=== PATIENT | female | born 1990 | race Caucasian/White ===

== ENCOUNTER 2023-08-14 08:49 | Emergency (ER) | payer OTHER, SELFPAY ==
[2023-08-14 08:51] VITALS: BP 148/83; PULSE 101; RESP 18; TEMP 36.4; O2SAT 100; BMI 22.8
--- NOTE | 2023-08-14 09:06 | US_ITS ---
STUDY: FIRST TRIMESTER OBSTETRICAL ULTRASOUND REASON FOR EXAM: Female, 33 years old Breg, bleeding LMP: June 20, 2023. TECHNIQUE: Transvaginal TECHNICAL QUALITY: Adequate. PRIOR ULTRASOUND: None. FINDINGS: There is visualization of a single gestational sac in a normal intrauterine position. The mean sac diameter (MSD) measures 9.3 mm, indicating an estimated gestational age (EGA) of 5 weeks, 5 days. The gestational sac shape is within normal limits. There is no demonstrated yolk sac. The placenta is non-visualized. There is no demonstrated embryo ( pole). The estimated gestation age (EGA) by LMP is 7 weeks, 6 days. The estimated date of delivery (CAMRON) by LMP is March 26, 2024. The estimated gestation age (EGA) by US is 5 weeks, 5 days. The estimated date of delivery (CAMRON) by US is April 10, 2024. The uterus measures 7.3 cm x 5.2 cm by 4.4 cm. There is no demonstrated uterine fibroid. The cervix is closed. The right ovary measures 2.8 cm x 2.7 cm x 2.5 cm. There is no right ovarian cyst. There is no visualized right adnexal mass or complex lesion. The left ovary measures 2.6 cm x 1.6 cm x 1.6 cm. There is no left ovarian cyst. There is no visualized left adnexal mass or complex lesion. There is no fluid in the cul de sac. US/Transvaginal w/Preg US IMPRESSION: Intrauterine gestational sac with a mean gestational age of 5 weeks and 5 days. No pole or yolk sac is seen. Correlation with serial beta hCG and follow-up sonogram recommended. Electronically Signed: Ghanshyam Whittington MD at 11:01 EST ,
--- NOTE | 2023-08-14 09:07 | ED.VIS.FEGU ---
HPI HPI - Female History of Present Illness Chief Complaint: Vag Bld, Preg Informant: patient Narrative Narrative: 33-year-old female G2, P1 with positive home test after stopping her control pills in the middle of June has been having vaginal bleeding that is light for the past week or less. No pelvic/abdominal pain. She has been following with [facility]EL [facility] and has had 4 different hCG levels performed in the past 2 or 3 weeks. They started around 1400, was trending down for the next 2 measurements, then the last one which was done 4 days ago went up over 1500. She states in the last 2 or 3 days she has been having pain in her low back that radiates around toward her left hip but not down her leg, is worse with movement and certain positions, and has a pain that she has had before in this area; she denies any recent injury, she has had this pain with menstrual cycles in the past, and her back, and and other random times no one has been able to tell me what this is. PFSH PFSH Medical History no medical history no medical history Home Medications NK 08/14/23 [History Last Taken Unknown] Allergy/AdvReac Type Severity Reaction Status Date / Time No Known Allergies Allergy Verified 08/14/23 08:53 Surgical History History of Social History Smoking Status: Former smoker ROS ROS ED Constitutional Constitutional ED: Denies chills or fever(s) Eyes Eyes: Denies change in vision or diplopia ENT ENT ED: Denies rhinorrhea or sore throat Cardiovascular Cardiovascular: Denies chest pain or palpitations Respiratory/Chest Respiratory/Chest: Denies cough or dyspnea Gastrointestinal Gastrointestinal: Denies abdominal pain, diarrhea, nausea or vomiting Genitourinary Genitourinary ED: Reports vaginal bleeding; Denies dysuria or hematuria Musculoskeletal Musculoskeletal: Reports back pain; Denies neck pain Integumentary Denies abscess or rash Neurologic Neurologic: Denies headache(s), paresthesias or weakness Psychiatric Psychiatric: Denies anxiety or suicidal thoughts EXAM Physical Exam Const Vital Signs: 08/14/23 08:51 08/14/23 09:33 Temperature 97.6 F L Temperature Source Temporal Pulse Rate 101 H 100 Respiratory Rate 18 16 Blood Pressure 148/83 H 117/78 Blood Pressure Mean 104 91 Pulse Ox 100 100 Oxygen Delivery Method Room Air Room Air Positive well nourished and well developed General Appearance ED: well developed and NAD HEENT Reports moist mucous membranes normocephalic and atraumatic Eyes PERRL and EOMs intact bilaterally Neck full ROM and supple Resp normal respiratory effort and clear to auscultation bilaterally Cardio regular rate, regular rhythm and no murmurs GI non-tender and non-distended Auscultation: normoactive bowel sounds Palpation: soft Speculum Exam - Vagina: vaginal bleeding Back/Spine no CVA tenderness Back/Spine Narrative: Tender in the parotid area of the left SI joint. No midline tenderness. No rash. Tender less in the area of the sciatic notch, with negative straight leg raises bilaterally and normal neurologic exam. General Back: other FROM Extremity normal to inspection General Extremety ED: Negative for edema, pulses abnormal or tenderness General Extremity: Negative for edema or pulses abnormal Neuro oriented x3, CN's II-XII intact bilaterally and no sensory deficits noted Sensorium / Orientation: awake and alert Motor Exam: strength 5/5 throughout Psych mental status grossly normal Skin no rashes or lesions noted and no wounds MDM MDM MDM Narrative Medical decision making narrative: I think the back pain is musculoskeletal. The area of the discomfort is consistent with sacroiliitis, and I do not think this is related to her current probable miscarriage. My main concern is that she had a recent hCG level that went up, which is concerning for possible ectopic . For this reason I think obtaining in emergent transvaginal ultrasound is indicated, not necessarily because of her low back pain which I discussed with her. She is in agreement with all of this. Her blood type is a positive, therefore we do not need to perform a RhoGAM screen on her. Her hCG now is back down, 1430. Ultrasound shows intrauterine gestational sac 5 weeks 5 days, no pole or yolk sac, I reviewed the images and the report which I agree with. No evidence radiographically of a ectopic or heterotopic . I do not think her back pain is suggesting that she has this. She was given Tylenol for that, appropriate discharge instructions after speaking with Kailyn Diaz who knows the patient well, and is okay with the patient following up as scheduled after the weekend. Lab Data Attestation: I reviewed the patient's lab results. Labs: Laboratory Results - last 24 hr 08/14/23 09:19 HCG, Quant 1430 H Radiography Diagnostic Testing: Clinical Impression(s) from Imaging Studies Obstetrics Ultrasound 08/14/23 09:06 IMPRESSION: Intrauterine gestational sac with a mean gestational age of 5 weeks and 5 days. No pole or yolk sac is seen. Correlation with serial beta hCG and follow-up sonogram recommended. Electronically Signed: Ghanshyam Whittington MD at 11:01 EST , Discharge Plan Triage Chief Complaint: Vag Bld, Preg Other Complaint: Back ED Provider: Timothy Hanson Dx/Rx/DC Orders Clinical Impression: Vaginal bleeding affecting early , Sacroiliac joint dysfunction of left side Instructions: Bleeding During Early , ED Sacroiliitis Prescriptions: No Action NK Primary Care Provider: Care Physician,No Primary Referrals: Kailyn Diaz CNM [Med Staff - Adv Practice Prof] - Keep Steffany appointment NOT,DEFINED [Non-Staff] -
[2023-08-14 09:33] VITALS: BP 117/78; PULSE 100; RESP 16; O2SAT 100
[2023-08-14 10:05] LABS: hCG Titer Quant., Serum 1430 mIU/mL (1-3)
[2023-08-14] MEDS: Acetaminophen 500 MG Tablet 1000 MG PO (11:53)
[2023-08-14 12:35] LABS: Absolute Lymphocyte Count 1.32 X10^3/uL (0.83-4.51); Absolute Neutrophil Count 6.8 X10^3/uL (2.0-7.7); Basophil# 0.03 X10^3/uL; Basophil% 0.3 % (0-1); Eosinophil# 0.08 X10^3/uL; Eosinophils% 0.9 % (0-5); Hematocrit 40.7 % (37-47); Hemoglobin 13.3 g/dL (12.0-15.0); Lymphocyte # 1.32 X10^3/ul (0.83-4.51); Lymphocyte % 15.1 % (19-41); Mean Corp Hgb Conc 32.7 g/dL (32-36); Mean Corpuscular Volume 91.7 fL (81-99); Mean Platelet Vol. 10.1 fl (6.2-12.0); Monocyte# 0.56 X10^3/uL; Monocyte% 6.4 % (0-10); NRBC Flagged by Analyzer 0 % (0-5); Neutrophil # 6.76 X10^3/uL (2.7-7.7); Neutrophil % 77.1 % (47-70); Platelet Count 264 K/mm3 (150-450); RBC Distribution Width CV 12.2 % (11.6-14.6); RBC Distribution Width SD 41.1 fl (35.1-43.9); Red Blood Count 4.44 M/mm3 (4.2-5.4); White Blood Count 8.8 K/mm3 (4.4-11.0)
== END 2023-08-14 11:57 | disposition home or self-care (01) ==
PROVIDERS: Emergency Provider Emergency Medicine; Visit Provider Emergency Medicine
DX: O20.9 Hemorrhage in early pregnancy, unspecified (principal); Z3A.01 Less than 8 weeks gestation of pregnancy; Z87.891 Personal history of nicotine dependence
CPT/HCPCS: 76817; 84702; 85025; 99284; A4216

== ENCOUNTER → 2024-02-12 | Outpatient (CLI) | payer OTHER, SELFPAY | END | disposition home or self-care (01) | LOC: BFHLAB 13:17 → LABSPEC 13:18 | PROVIDERS: PCP Family Medicine; Referring Provider Family Medicine; Visit Provider Family Medicine | DX: N39.0 Urinary tract infection, site not specified (principal) | CPT/HCPCS: 87086; 87088 ==

== ENCOUNTER 2024-10-02 18:00 | Inpatient (IN) | payer OTHER, SELFPAY ==
[2024-10-02] VITALS (13 sets, daily range): BP systolic 111–142; BP diastolic 71–97; PULSE 100–120; RESP 16; TEMP 36.3–37.2; O2SAT 95–100; BMI 27.6
[2024-10-02 18:23] LABS: Absolute Lymphocyte Count 3.52 X10^3/uL (0.83-4.51); Absolute Neutrophil Count 14.4 X10^3/uL (2.0-7.7); Basophil# 0.07 X10^3/uL; Basophil% 0.4 % (0-1); Eosinophil# 0.14 X10^3/uL; Eosinophils% 0.7 % (0-5); Hematocrit 34.4 % (37-47); Hemoglobin 11.5 g/dL (12.0-15.0); Lymphocyte # 3.52 X10^3/ul (0.83-4.51); Mean Corp Hgb Conc 33.4 g/dL (32-36); Mean Corpuscular Hgb 29.9 pg (27.0-32.0); Mean Corpuscular Volume 89.6 fL (81-99); Mean Platelet Vol. 9.9 fl (6.2-12.0); Monocyte# 1.18 X10^3/uL; NRBC Flagged by Analyzer 0 % (0-5); Neutrophil % 73.9 % (47-70); Platelet Count 267 K/mm3 (150-450); RBC Distribution Width SD 42.7 fl (35.1-43.9); Red Blood Count 3.84 M/mm3 (4.2-5.4); White Blood Count 19.5 K/mm3 (4.4-11.0)
[2024-10-02] MEDS: Cefazolin 2 GM in 0.9% Normal Saline (100mL Bag) 100 ML IV (18:30)
[2024-10-02 18:43] LABS: Anion Gap 12 (5-15); BUN 6 mg/dL (7-18); BUN/Creat Ratio 11.9 RATIO (10-20); Calcium,Total 8.4 mg/dL (8.5-10.1); Chloride 105 mmol/L (98-107); EST Glomerular Filtration Rate 148 mL/min (>60); Est Glom Filt Rate - Afr Amer 179 mL/min (>60); Glucose 149 mg/dL (74-106); Potassium 3.6 mmol/L (3.5-5.1); Sodium Level 136 mmol/L (136-145)
--- NOTE | 2024-10-02 19:00 | RAD_ITS ---
INDICATION: PRATEEK EXAMINATION/TECHNIQUE: X-RAY - XR Abdomen 1 View COMPARISON: None FINDINGS: BOWEL GAS PATTERN: Non-obstructive. Moderate amount retained stool in the colon. FREE AIR: Not assessed on a single supine view. ORGANOMEGALY: Not seen. CALCIFICATIONS: No abnormal calcifications observed. LOWER CHEST: No acute pathology. BONES AND SOFT TISSUES: No acute pathology. RAD/Abdomen Single View (Portable) IMPRESSION: Non-obstructive bowel gas pattern. Moderate amount retained stool in the colon. Electronically Signed: Ruiz Roth MD at 21:20 EST ,
[2024-10-02 19:13] LABS: Syphilis Antibodies Non-reactive
--- NOTE | 2024-10-02 19:50 | CASEMGMT ---
Social Work: Buffing Wheel Former Machine responded to WP Jose. culinary worker stayed with the father of baby (FOB) and provided emotional support. FOB was worried throughout and was able to spend some time with once was stabilized. FOB was also able to spend some time with the mother of baby (MOB) once she woke up from surgery. No immediate needs at this time. Doole intubated and is being transferred to the NICU at . Andra Salazar, LEATHER CARTRIDGE BELT MAKER, MAGISTRATE JUDGE
[2024-10-02] MEDS: Oxytocin 15 Units/NS 250ml 15 UNITS/250 ML IV.SOLN 83 UNITS IV (20:05)
[2024-10-02] MEDS: Lactated Ringers 1,000 ML 150 ML IV (20:11)
--- NOTE | 2024-10-02 20:32 | OP.PCM_ITS ---
Assessment & Plan (1) 34 weeks gestation of : (2) Rupture of uterus before onset of labor in third trimester: Maternal Data Information Final CAMRON: 11/07/24 Gestational age: 34+6 Operative Report (OB) Cecarean Details Procedure Type: Other (Rupture previous uterine incision) Date of Procedure: 10/02/24 Procedure Start Time: 18:14 Procedure Stop Time: 18:59 Time of Delivery: 18:15 Pre-Operative Diagnosis: Previous Uterine Surgery and Nonreassuring Status Post-Operative Diagnosis: Other Post-Operative Diag OTHER Post-Operative Diagnosis: Rupture of previous uterine incision Classification: Stat Type of Anesthesia: General Antibiotic Given: Ancef 2 grams IV x1 Drain: Caputo to straight drain (placed after procedure) Estimated Blood Loss: 500 cc Findings Description of surgery: Patient presented to the unit with increased abdominal. No bleeding. No leaking. EFM with HR in 80s. Confirmed with bedside US. Verbally consent for emergent . Patient was taken to the OR with IV in place. She was placed in a dorsal supine position with leftward tilt. Betadine was splashed over her abdomen. She was draped in the normal fashion. General anesthesia was induced. A Pfannenstiel incision was made and carried down to the underlying fascia. The fascia was incised in the midline and extended laterally. The muscles divided in the midline. The peritoneum was entered bluntly and extended manually. A large gush of wine colored fluid was present. The previous uterine incision was immediately obvious with placenta partially delivered. The abdomen was explored and the infant was found under the diaphragm. The feet were grasped and delivered through the abdominal incision. The rectus muscle were cut to assist with delivery of the head. The cord was camped and cut and the quickly passed to the nursery nurse. The placenta delivered with minimal effort. The uterus was exteriorized and cleared of all clot and debris. There was very little bleeding from the uterus or previous uterine incision. The uterus was repaired with 1-0 Vicryl x 2. The uterine arteries were intact. A small amount of clot was removed from behind the uterus. The uterus was returned the abdomen. The gutters cleared of all clots. The abdomen was copiously irrigated. The peritoneum was closed with 2-0 Monocryl. The fascia was closed with 1-0 Vicryl. The subcutaneous tissue was reapproximated with 2-0 Monocryl The skin was closed with 4-0 Monocryl. An SUBSTATION OPERATOR HELPER was not available given the emergent nature of the procedure. The surgical garment assembler assisted with retraction when needed. Surgical findings: Infant floating in upper abdomen. Wine colored fluid in the abdomen. Complete dehiscence of previous uterine incision. Placenta partially detached. Presentation: Other (floating in abdomen) Amniotic Membrane Rupture Type: Spontaneous Amniotic Fluid Description: Other (unable to access) Placental Delivery Description: Spontaneous Placenta Disposition: Sent with transport team Specimen collected: Yes Description of specimen(s) removed: placenta sent with Cord Vessel Description: 3 Vessels Cord Entanglement: Other (infant floating in abdomen) Cord Gases: VBG Infant A gender: Male (1 minute): 1 (5 minute): 3 (5 at 10 min 5 at 15 min) Delayed Cord Clamping: No Scouring Pads Supervisor computer tech: No Complications Complications: No
[2024-10-02] MEDS: Ketorolac 30 MG/ML Syringe IV (21:07)
[2024-10-02] MEDS: 0.9% Saline Lock 10 ML Syringe IV (21:08)
--- NOTE | 2024-10-02 21:43 | PCM.HP.OB ---
HPI - General General Date of Admission: 10/02/24 Date of Service: 10/02/24 Chief Complaint: abdominal pain HPI Narrative LAXMI OLIVEIRA, is a 34 F who presents to L&D with abdominal pain. Started having some pain and cramping in the AM. It progressively increased throughout the day. Around 5 PM her pain became generalized abdominal pain. Did not have any vaginal bleeding or loss of fluid. Her has been uncomplicated. Previous for breech 2 years ago. Upon arrival the HR was found to be 80s on EFM. Cervix closed thick and high without an obvious presenting part per nursing. FHR was confirmed by US. The FHR was found high in the abdomen and no amniotic fluid could be appreciated on bedside US. The patient was verbally consented for emergent and taken to the OR. Maternal Data Information Final CAMRON: 11/07/24 Gestational age: 34+6 [facility] Medical History IBS (irritable bowel syndrome) Home Medications ?Medication ?Instructions ?Recorded ?Last Taken ?Type NK 08/14/23 Unknown History Allergy/AdvReac Type Severity Reaction Status Date / Time No Known Allergies Allergy Verified 10/02/24 20:29 Surgical History History of colposcopy History of Social History Smoking Status: Former smoker History 2 Elective abortions Hx Para 1 Spontaneous abortions Hx # Term Pregnancies Ectopic pregnancies Hx # Pregnancies Multiple births # of living children NST FHR Rate Baby A Baseline: 80 Assessment Assessment Detail: FHR in the 80s by EFM confirmed by US ROS Cardiovascular Cardiovascular: Denies chest pain or dyspnea Respiratory/Chest Respiratory/Chest: Denies tachypnea Gastrointestinal Gastrointestinal: Reports abdominal pain and cramping Vital Signs Vital Signs Vital Signs: 10/02/24 18:01 10/02/24 18:01 10/02/24 18:06 Temperature Temperature Source Pulse Rate 115 H 120 H Respiratory Rate Respiratory Pattern Blood Pressure Blood Pressure Mean Blood Pressure Source Blood Pressure Position Blood Pressure Location Pulse Ox 95 Oxygen Delivery Method 10/02/24 18:06 10/02/24 20:05 10/02/24 20:05 Temperature 97.4 F L Temperature Source Temporal Temporal Pulse Rate 111 H Respiratory Rate 16 Respiratory Pattern Normal Blood Pressure 124/71 H Blood Pressure Mean 88 Blood Pressure Source Monitor Blood Pressure Position Semi-Fowlers Blood Pressure Location Right Arm Pulse Ox 97 100 Oxygen Delivery Method Room Air 10/02/24 20:05 10/02/24 20:15 10/02/24 20:30 Temperature 97.4 F L Temperature Source Temporal Temporal Pulse Rate 111 H 108 H Respiratory Rate 16 16 Respiratory Pattern Blood Pressure 124/71 H 113/79 Blood Pressure Mean 88 90 Blood Pressure Source Monitor Monitor Blood Pressure Position Semi-Fowlers Semi-Fowlers Blood Pressure Location Right Arm Right Arm Pulse Ox 100 100 Oxygen Delivery Method Room Air Room Air 10/02/24 20:30 10/02/24 20:45 10/02/24 20:45 Temperature 97.8 F 98.1 F Temperature Source Temporal Temporal Temporal Pulse Rate 102 H 112 H Respiratory Rate 16 16 Respiratory Pattern Blood Pressure 122/83 H 115/73 Blood Pressure Mean 96 87 Blood Pressure Source Monitor Monitor Blood Pressure Position Semi-Fowlers Semi-Fowlers Blood Pressure Location Right Arm Right Arm Pulse Ox 99 99 Oxygen Delivery Method Room Air Room Air 10/02/24 21:00 10/02/24 21:15 10/02/24 21:30 Temperature Temperature Source Pulse Rate 108 H 112 H 105 H Respiratory Rate 16 16 16 Respiratory Pattern Blood Pressure 111/82 H 142/97 H 123/74 H Blood Pressure Mean 91 112 90 Blood Pressure Source Monitor Monitor Monitor Blood Pressure Position Semi-Fowlers Semi-Fowlers Semi-Fowlers Blood Pressure Location Right Arm Right Arm Right Arm Pulse Ox 100 100 100 Oxygen Delivery Method Room Air Room Air Room Air Weight Weight: 70.579 kg Body Mass Index (BMI) 27.6 Physical Exam Const alert and oriented x3 General Appearance: in distress Positive for moderate HEENT normocephalic Head and Scalp: atraumatic Eyes PERRL Neck full ROM Resp normal respiratory effort Cardio Rate: tachycardic GI Palpation: tender LLQ, RLQ, LUQ and RUQ Extremity normal to inspection Neuro moves all extremities Psych mental status grossly normal and affect normal Labs Labs Labs: Blood Type A POSITIVE Antibody Screen NEGATIVE Hct 34.4 % (37-47) L Hgb 11.5 g/dL (12.0-15.0) L Obstetrics Ultrasound Syphilis Total Ab Non-reactive Assessment & Plan (1) Rupture of uterus before onset of labor in third trimester: (2) 34 weeks gestation of : PLAN: Plan emergent PRATEEK called
[2024-10-02] MEDS: oxyCODONE 5 MG Tablet PO (22:10)
[2024-10-02] MEDS: Acetaminophen 500 MG Tablet 1000 MG PO (22:10)
[2024-10-02] MEDS: Lactated Ringers 1,000 ML 100 ML IV (22:15)
[2024-10-02 22:31] LABS: Absolute Lymphocyte Count 1.08 X10^3/uL (0.83-4.51); Absolute Neutrophil Count 19.6 X10^3/uL (2.0-7.7); Basophil# 0.06 X10^3/uL; Basophil% 0.3 % (0-1); Eosinophil# 0.01 X10^3/uL; Hematocrit 29.7 % (37-47); Lymphocyte # 1.08 X10^3/ul (0.83-4.51); Lymphocyte % 4.9 % (19-41); Mean Corp Hgb Conc 33.7 g/dL (32-36); Mean Corpuscular Hgb 30.5 pg (27.0-32.0); Mean Corpuscular Volume 90.5 fL (81-99); Mean Platelet Vol. 9.7 fl (6.2-12.0); Monocyte# 1.06 X10^3/uL; Monocyte% 4.8 % (0-10); NRBC Flagged by Analyzer 0 % (0-5); Neutrophil # 19.58 X10^3/uL (2.7-7.7); Neutrophil % 89.5 % (47-70); Platelet Count 204 K/mm3 (150-450); RBC Distribution Width CV 12.9 % (11.6-14.6); RBC Distribution Width SD 42.7 fl (35.1-43.9); Red Blood Count 3.28 M/mm3 (4.2-5.4); White Blood Count 21.9 K/mm3 (4.4-11.0)
[2024-10-03 02:08] VITALS: BP 111/73; PULSE 115; RESP 16; TEMP 37.2; O2SAT 96
[2024-10-03] MEDS: Cefazolin 1 GM/50 ML BAG IV ×3 (02:09→17:56)
[2024-10-03] MEDS: 0.9% Saline Lock 10 ML Syringe IV ×4 (03:36→17:57)
[2024-10-03] MEDS: Ketorolac 30 MG/ML Syringe IV ×3 (03:36→15:47)
[2024-10-03] MEDS: oxyCODONE 5 MG Tablet PO (04:17)
[2024-10-03 04:30] VITALS: BP 117/70; PULSE 107; RESP 16; TEMP 36.9; O2SAT 98
[2024-10-03] MEDS: Acetaminophen 500 MG Tablet 1000 MG PO ×4 (04:56→22:41)
[2024-10-03 06:18] LABS: Hemoglobin 8.9 g/dL (12.0-15.0); Mean Corp Hgb Conc 34.2 g/dL (32-36); Mean Corpuscular Hgb 30.6 pg (27.0-32.0); Mean Corpuscular Volume 89.3 fL (81-99); Mean Platelet Vol. 9.7 fl (6.2-12.0); Platelet Count 193 K/mm3 (150-450); RBC Distribution Width SD 42.5 fl (35.1-43.9); Red Blood Count 2.91 M/mm3 (4.2-5.4); White Blood Count 21.6 K/mm3 (4.4-11.0)
--- NOTE | 2024-10-03 07:21 | PN.OBGYN_ITS ---
Subjective Subjective Doing well. Ambulating and voiding without difficulty. Mild lochia. Pain ok. Not wanting more pain medication. Reviewed IV antibiotics for 24 hours. Oral if discharged sooner. Baby at main campus. Objective Data Objective Data Vital Signs: Vital Signs Temp Pulse Resp BP Pulse Ox O2 Del Method 98.4 F 107 H 16 117/70 98 Room Air 10/03/24 04:30 10/03/24 04:30 10/03/24 04:30 10/03/24 04:30 10/03/24 04:30 10/03/24 04:30 Oxygen Delivery Method Room Air Weight: 70.579 kg Body Mass Index (BMI) 27.6 Intake & Output: Intake and Output for Last 24 Hours 10/01/24 10/02/24 10/03/24 23:59 23:59 23:59 Intake Total 360 / 360 1585.83 / 1585.83 Output Total 1250 / 1250 750 / 750 Balance -890 / -890 835.83 / 835.83 Lab / Micro Data 10/03/24 06:09 10/02/24 18:17 Labs: Laboratory Results - last 24 hr 10/02/24 18:17: WBC 19.5 H, RBC 3.84 L, Hgb 11.5 L, Hct 34.4 L, MCV 89.6, MCH 29.9, MCHC 33.4, RDW Std Deviation 42.7, RDW Coeff of Shahnaz 13.0, Plt Count 267, MPV 9.9, Immature Gran % (Auto) 1.000 H, Neut % (Auto) 73.9 H, Lymph % (Auto) 18.0 L, [place] % (Auto) 6.0, Eos % (Auto) 0.7, Baso % (Auto) 0.4, Absolute Neuts (auto) 14.4 H, Absolute Lymphs (auto) 3.52, Nucleated RBC % 0, Sodium 136, Potassium 3.6, Chloride 105, Carbon Dioxide 19.0 L, Anion Gap 12, BUN 6 L, C reatinine 0.50 L, Est GFR (MDRD) Af Amer 179, Est GFR (MDRD) Non-Af 148, BUN/Creatinine Ratio 11.9, Glucose 149 H, Calcium 8.4 L, Blood Type A POSITIVE, Antibody Screen NEGATIVE 10/02/24 18:33: Syphilis Total Ab Non-reactive 10/02/24 22:24: WBC 21.9 H, RBC 3.28 L, Hgb 10.0 L, Hct 29.7 L, MCV 90.5, MCH 30.5, MCHC 33.7, RDW Std Deviation 42.7, RDW Coeff of Shahnaz 12.9, Plt Count 204, MPV 9.7, Immature Gran % (Auto) 0.500, Neut % (Auto) 89.5 H, Lymph % (Auto) 4.9 L, [place] % (Auto) 4.8, Eos % (Auto) 0.0, Baso % (Auto) 0.3, Absolute Neuts (auto) 19.6 H, Absolute Lymphs (auto) 1.08, Nucleated RBC % 0 10/03/24 06:09: WBC 21.6 H, RBC 2.91 L, Hgb 8.9 L, Hct 26.0 L, MCV 89.3, MCH 30.6, MCHC 34.2, RDW Std Deviation 42.5, RDW Coeff of Shahnaz 13.0, Plt Count 193, MPV 9.7 Radiography Diagnostic Testing: Radiology Impression KUB X-Ray 10/02/24 19:00 IMPRESSION: Non-obstructive bowel gas pattern. Moderate amount retained stool in the colon. Electronically Signed: Ruiz Roth MD at 21:20 EST , ROS Constitutional Constitutional: Denies fatigue, fever(s) or malaise Eyes Eyes: Denies change in vision ENT HEENT: Denies dizziness or headache(s) Cardiovascular Cardiovascular: Denies chest pain, dyspnea or lightheadedness Respiratory/Chest Respiratory/Chest: Denies cough or dyspnea Gastrointestinal Gastrointestinal: Denies change in bowel habits Genitourinary Genitourinary: Denies burning urination or genital lesions Integumentary Integumentary: Denies rash Neurologic Neurologic: Denies confusion, dizziness, headache(s), numbness or weakness Assessment & Plan (1) Rupture of uterus before onset of labor in third trimester: (2) S/P : PLAN: Plan Probably discharge after 24 hours. IV antibiotics 24 hours
[2024-10-03 08:22] VITALS: BP 116/70; PULSE 99; RESP 16; TEMP 36.5; O2SAT 96
[2024-10-03] MEDS: Senna/Docusate Sodium 1 Tablet PO (10:09)
[2024-10-03 13:19] VITALS: BP 119/74; PULSE 98; RESP 16; TEMP 36.7; O2SAT 97
[2024-10-03 16:53] VITALS: BP 106/62; PULSE 95; RESP 16; TEMP 36.5; O2SAT 97
[2024-10-03 19:37] VITALS: BP 110/74; PULSE 96; RESP 16; TEMP 37.1; O2SAT 98
[2024-10-03] MEDS: Ibuprofen 600 MG Tablet PO (21:42)
[2024-10-04 01:43] VITALS: BP 128/80; PULSE 92; RESP 16; TEMP 36.6; O2SAT 97
[2024-10-04] MEDS: Ibuprofen 600 MG Tablet PO (03:22)
[2024-10-04] MEDS: Acetaminophen 500 MG Tablet 1000 MG PO (05:21)
--- NOTE | 2024-10-04 07:28 | PCM.DC.SUM ---
Providers Date of Admission: 10/02/24 Primary Care Physician: Dr. Go Covington DO Reason For Visit: Diagnosis Discharge Diagnosis (1) Rupture of uterus before onset of labor in third trimester: Status: Acute Code(s): O71.03 - Rupture of uterus before onset of labor, third trimester (2) S/P : Status: Acute Code(s): Z98.891 - History of uterine scar from previous surgery Plan POD 2 Repeat C/S Pain controlled Pumping Baby at [facility] NICU Desires discharge today Medications at Discharge Home Medications acetaminophen 500 mg tablet 1,000 mg (2 x 500 mg) PO Q6H #0 tabs 10/04/24 ibuprofen 600 mg tablet 600 mg PO Q6H #0 tabs 10/04/24 sennosides 8.6 mg-docusate sodium 50 mg tablet (Stimulant Laxative Plus) 1 - 2 tab PO DAILY #0 tabs 10/04/24 Hospital Course Operations section Procedures None Summary of Care Provided Minutes Spent on Discharge: 15 Hospital Course: Patient had section. Hospital course was uneventful. Physical Exam Narrative Patient seen at bedside. Denies any headache, dizziness, SOB, CP. Ambulating without difficulty. Passing flatus. Pain controlled. Desires discharge home to go to [facility]. Const alert and no apparent distress General Appearance: cooperative and comfortable Exam Limitations: no limitations HEENT normocephalic Eyes General Eye: normal appearance of both eyes Neck full ROM General: normal visual inspection Chest Chest: symmetrical chest wall rise Resp normal respiratory effort and normal air movement Effort and Inspection: symmetric chest movement Auscultation: clear to auscultation bilaterally Cardio regular rate and regular rhythm GI normal to inspection, nondistended, normoactive bowel sounds Back/Spine normal ROM Extremity full ROM and no calf tenderness General Extremity: normal exam except as noted Skin no rashes or lesions noted Wound Narrative: Dressing is dry and intact. Neuro CN's II-XII intact bilaterally Psych mental status grossly normal Weight / BMI Weight Weight: 155 lb 9.6 oz Body Mass Index (BMI) 27.6 ABG / Lab / Microbiology Data 10/03/24 06:09 10/02/24 18:17 D/C Instructions Discharge Diet: No restrictions Discharge Activity: May Drive (2 weeks) and May Shower May resume sexual activity in: 6-8 weeks Weight Bearing Status: Weight bearing as tolerated Lifting Restricted to (Lbs): 25 Call your doctor if your incision/area has: Continuous Slow Oozing, Sudden Increased Bleeding, Increased Pain/ Swelling, Increased Redness, Foul Smelling Discharge and Swelling at the incision site Call your doctor if you observe: Fever of 101 or Higher, Numbness or Tingling, Using more than 1 pad per hour, Shortness of breath, Dizziness, Swelling in the ankles, Chest pain, Calf discomfort and Uncontrolled pain Suture Line Care: Avoid Pulling/Pushing Remove Dressing in: 5 days (Remove yourself or call office and schedule appointment for dressing removal.) DC O2, CPAP, BIPAP Needs Home O2 Discharge instructions: No When: 5 days for dressing removal or 2 weeks for post appointment. Meaningful Use Info Meaningful Use Meaningful Use Diagnoses (Choose all that apply): None applicable Ischemic Stroke Statin Dosing Therapy Reference: STATIN DOSE THERAPY REFERENCE: * Patients > 75 years receive moderate or high dose statin therapy. * Patients 75 years or YOUNGER should receive HIGH intensity statin dose unless contraindicated. You will be required to document reason for non-treatment if statin daily dose does not meet guidelines. HIGH DOSE STATIN THERAPY DAILY Atorvastatin > than or = to 40 mg Rosuvastatin > than or = to 20 mg Amlodipine + Atorvastatin > than or = to 2.5/40 mg Ezetimibe + Simvastatin 10/80 mg Simvastatin 80mg Discharge Plan Admission Admit Date/Time: 10/02/24 18:00 Primary Reason for Your Visit: Repeat section Attending Provider: Andra Diaz Primary Care Provider: Go Covington Discharge Orders/Prescriptions Prescriptions: New acetaminophen 500 mg Tablet 1,000 mg PO Q6H Qty: 0 0RF sennosides-docusate sodium [Stimulant Laxative Plus] 8.6-50 mg Tablet 1 - 2 tab PO DAILY Qty: 0 0RF ibuprofen 600 mg Tablet 600 mg PO Q6H Qty: 0 0RF Referrals / Follow Up: Kailyn Diaz CNM [Med Staff - Adv Practice Prof] - Go Covington DO [Primary Care Provider] - Disposition Disposition (needs filled in before D/C Order can be placed): Home, Self Care
[2024-10-04 08:02] VITALS: BP 115/75; PULSE 97; RESP 16; TEMP 36.3; O2SAT 98
[2024-10-04 08:06] VITALS: BP 115/75; PULSE 98; RESP 16; TEMP 36.3; O2SAT 100
[2024-10-04] MEDS: Senna/Docusate Sodium 1 Tablet PO (08:14)
== END 2024-10-04 10:30 | disposition home or self-care (01) | DRG 786 ==
LOC: WPOUT 18:49 → WP 18:49
PROVIDERS: Admitting Provider Obstetrics & Gynecology; PCP Family Medicine; Referring Provider Obstetrics & Gynecology; Visit Provider Obstetrics & Gynecology
DX: O71.03 Rupture of uterus before onset of labor, third trimester (principal); O60.14X0 Preterm labor third trimester with preterm delivery third trimester, not applicable or unspecified; O34.219 Maternal care for unspecified type scar from previous cesarean delivery; Z3A.34 34 weeks gestation of pregnancy; Z37.0 Single live birth; Z87.59 Personal history of other complications of pregnancy, childbirth and the puerperium; Z87.891 Personal history of nicotine dependence
CPT/HCPCS: 59050; 74018; 80048; 85025; 85027; 86780; 86850; 86900; 86901; 99221; A4216; G0378; J2405

== ENCOUNTER → 2025-08-18 | Outpatient (CLI) | payer OTHER, SELFPAY ==
[2025-08-18 17:38] LABS: Hematocrit 40.5 % (37-47); Hemoglobin 13.7 g/dL (12.0-15.0); Immature Granulocytes Count 0.010 X10^3/uL (0.0-0.0); Mean Corp Hgb Conc 33.8 g/dL (32-36); Mean Corpuscular Volume 87.3 fL (81-99); Mean Platelet Vol. 9.6 fl (6.2-12.0); NRBC Flagged by Analyzer 0 % (0-5); Platelet Count 291 K/mm3 (150-450); RBC Distribution Width CV 12.3 % (11.6-14.6); RBC Distribution Width SD 39.5 fl (35.1-43.9); Red Blood Count 4.64 M/mm3 (4.2-5.4); White Blood Count 7.1 K/mm3 (4.4-11.0)
--- OUTSIDE RECORDS SUMMARY | 2025-08-18 17:46 | XMS RPT_ITS | CCD ---
Author Organization [facility] Care Team Providers Care Practice Administrator Name Role Phone ROXIE ALCOCERA Referring Unavailable JOLLY, RAMA Primary Care Unavailable [place] DO, Rama Primary Care Provider POONAM FRAGOSO Primary Care Unavailable POONAM FRAGOSO Admitting Unavailable POONAM FRAGOSO Referring Unavailable LOVE, RAMA Primary Care Unavailable POONAM FRAGOSO Attending Unavailable LYNNLLY, RAMA Primary Care Unavailable ARIS KOTHARI Admitting Unavailable JOLLY, RAMA Attending Unavailable VALERIEY, RAMA Primary Care Unavailable Unavailable Primary Care Provider Unavailabl e Unavailable Primary Care Provider Unavailabl e Andra Diaz Attending Unavailable Andra Diaz Referring Unavailable Adria, Go Primary Care Unavailable [place], Andra Admitting Unavailable Joe, Andra Admitting Unavailable Joe Andra Attending Unavailable Adria, Go Primary Care Unavailable Adria, Go Attending Unavailable Adria, Go Referring Unavailable Adria, Go Primary Care Unavailable SUZANNE SHAH Attending Unavailable SMSUZANNE FROST Admitting Unavailable JOESANDRA WATKINSFER Attending Unavailable DEVON LITTLEJOHN Attending Unavailable FERNANDA ROGEL Attending Unavailable DEVON LITTLEJOHN Attending Unavailable ANDRA DIAZ Attending Unavailable JENNIFER MCCALL Attending Unavailable TERESSA GIBBS Referring Unavailable DEVON LITTLEJOHN Attending Unavailable DEVON LITTLEJOHN Attending Unavailable JENNIFER MCCALL Referring Unavailable BERNIETERESSA ZAVALA Attending Unavailable FREDERIC MÉNDEZ Attending Unavailable JENNIFER MCCALL Attending Unavailable KAVEH HERR Referring Unavailable KAILYN DIAZ Attending Unavailable KAILYN DIAZ Referring Unavailable VIVIANE GUALLPA Attending Unavailable RIDGE CHARLES Attending Unava ilable AMBIKA ACOSTA Primary Care Unavailable Adria DO Go A Unavailable [phone] KEYONNA MUHAMMAD Attending Unavailable KEYONNA MUHAMMAD Referring Unavailable Medications Current Medications Medication Drug Class(es) Dates Sig (Normalized) Sig (Original) acetaminophen 325 mg / oxyCODONE hydrochloride 5 mg oral tablet (2 sources) Opioid Agonist Start: 08-19-2023 End: 08-19-2023 take 2 tablets by mouth once oxyCODONE-acetami nophen (PERCOCET) 5-325 mg tablet Indications: Pain associated with surgical procedure Take 2 tablets by mouth one time only for 1 dose. Bring to office to take before procedure 2 tablet 0 08/19/2023 08/19/2023 Active Start: 06-19-2022 oxyCODONE-acet aminophen (PERCOCET) 5-325 mg per tablet Take 2 tablets by mouth every 4 (four) hours if needed for severe pain for up to 2 doses. Max Daily Amount: 12 tablets 18 tablet 0 06/19/2022 Active Comment on above: Take 2 tablets by mo [facility] one time only for 1 dose. Bring to office to take before procedure ALPRAZolam 0.5 mg oral tablet (1 source) Benzodiazepine Start: End: 3 take 1 tablet by mouth once ALPRAZolam (XANAX) 0.5 mg tablet Indications: Pain associated with surgical procedure Take 1 tablet by mouth one time only for 1 dose. Bring to office to take before procedure 1 tablet 0 08/19/2023 08/19/2023 Active Comment on above: Take 1 tablet by [facility] one time only for 1 dose. Bring to office to take before procedure drospirenone / Ethinyl Estradiol (4 sources) Progestin, Estrogen Start: 5 take 1 tablet by mouth once daily Drospirenone-Ethin yl Estradiol (GRACIE, 28,) 3-0.02 mg per tablet Take 1 tablet by mouth once daily. 84 tablet 2 03/21/2025 Active Start: 10-02-2016 End: 07-31-2023 take 1 tablet by mouth once daily Drospirenone-Ethinyl Estradiol (GIANVI, 28,) 3-0.02 mg per tablet Take 1 tablet by mouth once daily. 1 Package 8 10/02/2016 07/31/2023 Discontinued drospirenone-eth inyl estradiol (Gracie) 3-0.02 mg tablet Take 1 tablet by mouth once daily. Active Comment on above: Take 1 tablet by ann once daily. [id number] 0.3 ml EPINEPHrine 1 mg/ml auto-injector (2 sources) alpha-Adrenergic Agonist, beta-Adrenergic Agonist, Catecholamine Start: 5 EPINEPHrine 0.3 mg/0.3 mL injection syringe Inject 0.3 mL (0.3 mg total) into the mid-thigh as needed for severe allergic reaction. . 03/11/2025 Active ferrous sulfate 325 mg oral tablet (6 sources) Start: 5 take 1 tablet by mouth once daily ferrous sulfate 325 mg (65 mg iron) tablet Take 1 tablet by mouth once daily. 30 tablet 1 10/11/2024 Active 25/iron fum/folic/dha (-1 ORAL) (2 sources) 25/iron fum/folic/dha (-1 ORAL) Take by mouth. 0 Active vit,deanna 74/iron/folic ( VITAMIN 1+1 ORAL) (20 sources) Start: vit,deanna 74/iron/folic ( VITAMIN 1+1 ORAL) 07/19/2021 Active Start: 07-19-2021 vit,c al 74/iron/folic ( VITAMIN 1+1 ORAL) Completed/Discontinued Medications Medication Drug Class(es) Dates Sig (Normalized) Sig (Original) doxycycline hyclate 100 mg oral capsule (6 sources) Tetracycline-cla ss Drug Start: 08-19-2023 End: 03-21-2024 take 2 capsules by mouth twice daily doxycycline hyclate (VIBRAMYCIN) 100 mg capsule Indications: Missed Take 2 capsules by mouth two times a day. 2 capsule 0 08/19/2023 03/21/2024 Discontinued Comment on above: Take 2 capsules by out two times a day. drospirenone, contraceptive, (SLYND) 4 mg (28) tabet (4 sources) Start: 11-15-2024 End: 03-21-2025 take 1 tablet by mouth once daily drospirenone, contraceptive, (SLYND) 4 mg (28) tabet Take 1 tablet by mouth once daily. 28 tablet 4 11/15/2024 03/21/2025 Discontinued Start: 11-15-2024 take 1 tablet by ann th once daily drospirenone, contraceptive, (SLYND) 4 mg (28) tabet Take 1 tablet by mouth once daily. 28 tablet 4 11/15/2024 Active 2 ml ketorolac tromethamine 30 mg/ml injection (3 sources) Nonsteroidal Anti-inflammatory Drug, Cyclooxygenase Inhibitor Start: 08-21-2023 End: 08-21-2023 keTORolac 30 mg injection (Toradol) multivitamin ORAL tablet (1 source) Start: 02-06-2011 End: 07-31-2023 take 1 tablet by mouth once daily multivitamin ORAL tablet Take 1 tablet by mouth once daily. 0 02/06/2011 07/31/2023 Discontinued Comment on above: Take 1 tablet by ann th once daily. nitrofurantoin, macrocrystals 25 mg / nitrofurantoin, monohydrate 75 mg oral capsule (3 sources) Nitrofuran Antibacterial Start: 04-15-2024 End: 04-22-2024 take 1 capsule by mouth twice daily nitrofurantoin monohydrate and macrocrystal (MACROBID) 100 mg capsule Take 1 capsule by mouth two times a day for 7 days. 14 capsule 0 04/15/2024 04/22/2024 Discontinued (Other) Start: 03-24-2024 End: 03-31-2024 take 1 capsule by mouth twice daily nitrofurantoin monohydrate and macrocrystal (MACROBID) 100 mg capsule Take 1 capsule by mouth two times a day for 7 days. 14 capsule 0 03/24/2024 03/31/2024 Active phenazopyridine hydrochloride 200 mg oral tablet (2 sources) Start: 04-15-2024 End: 04-22-2024 take 1 tablet by mouth every eight hours as needed phenazopyridine (PYRIDIUM) 200 mg tablet Take 1 tablet by mouth three times a day as needed. 9 tablet 0 04/15/2024 04/22/2024 Discontinued (Other) SLYND 4 mg (28) tabet (11 sources) Start: 01-28-2023 End: 03-21-2024 take 1 tablet by mouth once daily SLYND 4 mg (28) tabet TAKE 1 TABLET (4 MG) BY ORAL ROUTE ONCE DAILY AT THE SAME TIME EACH DAY FOR 28 DAYS 0 01/28/2023 03/21/2024 Discontinued Start: 01-28-2023 take 1 tablet by ann th once daily SLYND 4 mg (28) tabet TAKE 1 TABLET (4 MG) BY ORAL ROUTE ONCE DAILY AT THE SAME TIME EACH DAY FOR 28 DAYS 0 01/28/2023 Active Comment on above: TAKE 1 TABLET (4 MG) BY ORAL ROUTE ONCE DAILY AT THE SAME TIME EACH DAY FOR 28 DAYS Problems Active Problems Problem Classification Problem Date Documented Da te Episodic/Chronic Allergic reactions (2 sources) Allergy, unspecified, initial encounter; Translations: [Allergy, unspecified, initial encounter] Onset: 03-11-2025 Episodic Cardiac dysrhythmias (3 sources) Tachycardia; Translations: [Tachycardia, unspecified] Onset: 08-11-2025 08-11-2025 Episodic Hemorrhage during ; abruptio placenta; placenta previa (1 source) Vaginal bleeding complicating early ; Translations: [Hemorrhage in early , unspecified] 08-14-2023 Episodic Malposition; malpresentation (1 source) Breech presentation; Translations: [Maternal care for breech presentation, not applicable or unspecified] Onset: 06-18-2022 06-18-2022 Episodic Other circulatory disease (2 sources) Raynaud's phenomenon; Translations: [Raynaud's syndrome without gangrene] 08-11-2025 Chronic Other complications of ; puerperium affecting management of mother (6 sources) Anemia during the puerperium; Translations: [Anemia of the puerperium] Onset: 10-09-2024 10-09-2024 Chronic Other complications of ; puerperium affecting management of mother (1 source) delivery - delivered; Translations: [Encounter for delivery without indication] Onset: 06-17-2022 06-17-2022 Episodic Other complications of (5 sources) Pain in female pelvis; Translations: [Other specified related conditions, unspecified trimester] Onset: 10-22-2021 Resolved: 06-18-2022 Episodic Other complications of (2 sources) Missed miscarriage; Translations: [Missed ] 08-19-2023 Episodic Other lower respiratory disease (4 sources) Pleuritic pain; Translations: [Pleurodynia] 08-11-2025 Episodic Other lower respiratory disease (2 sources) Pleurodynia; Translations: [Pleurodynia] Onset: 08-11-2025 Episodic Other nervous system disorders (1 source) Postoperative pain ; Translations: [Other acute postprocedural pain] 08-19-2023 Episodic Other screening for suspected conditions (not mental disorders or infectious disease) (2 sources) care status; Translations: [Encounter for other specified screening] 08-05-2023 Episodic Poisoning by nonmedicinal substances (2 sources) Toxic effect of venom of bees, accidental (unintentional), initial encounter; Translations: [Toxic effect of venom of bees, accidental (unintentional), initial encounter] Onset: 03-11-2025 Episodic Polyhydramnios and other problems of amniotic cavity (1 source) Premature rupture of membranes in full term with onset of labor within 24 hours of rupture; Translations: [Full-term premature rupture of membranes, onset of labor within 24 hours of rupture] Onset: 06-18-2022 06-18-2022 Episodic Residual codes; unclassified (1 source) Gestation period, 38 weeks; Translations: [38 weeks gestation of ] Onset: 06-18-2022 06-18-2022 Episodic Residual codes; unclassified (1 source) Gestation period, 5 weeks; Translations: [Less than 8 weeks gestation of ] 08-05-2023 Episodic Residual codes; unclassified (1 source) Gestation period, 7 weeks; Translations: [Less than 8 weeks gestation of ] 03-22-2024 Episodic Residual codes; unclassified (1 source) Gestation period, 10 weeks; Translations: [10 weeks gestation of ] 04-13-2024 Episodic Residual codes; unclassified (1 source) Gestation period, 11 weeks; Translations: [11 weeks gestation of ] 04-22-2024 Episodic Residual codes; unclassified (2 sources) Gestation period, 19 weeks; Translations: [19 weeks gestation of ] 06-15-2024 Episodic Residual codes; unclassified (1 source) Gestation period, 23 weeks; Translations: [23 weeks gestation of ] 07-14-2024 Episodic Residual codes; unclassified (1 source) Gestation period, 15 weeks; Translations: [15 weeks gestation of ] 05-20-2024 Episodic Residual codes; unclassified (1 source) Gestation period, 28 weeks; Translations: [28 weeks gestation of ] 08-16-2024 Episodic Residual codes; unclassified (1 source) Gestation period, 30 weeks; Translations: [30 weeks gestation of ] 08-30-2024 Episodic Residual codes; unclassified (1 source) Gestation period, 32 weeks; Translations: [32 weeks gestation of ] 09-13-2024 Episodic Residual codes; unclassified (1 source) Gestation period, 34 weeks; Translations: [34 weeks gestation of ] 09-29-2024 Episodic Spondylosis; intervertebral disc disorders; other back problems (3 sources) Low back pain; Translations: [Low back pain potentially associated with radiculopathy] Onset: 10-22-2021 Resolved: 06-18-2022 10-22-2021 Episodic Unclassified (1 source) Low back pain, unspecified; Translations: [Low back pain, unspecified] Onset: 10-22-2021 Unclassified (20 sources) [facility] Education - COMMON Onset: 03-22-2024 03-22-2024 Unclassified (20 sources) Education - [place] Onset: 03-22-2024 03-22-2024 Past or Other Problems Problem Classification Problem Date Documented Date Episodic/Chronic Abdominal pain (3 sources) Left lower quadrant pain; Translations: [Left lower quadrant pain] Onset: 10-22-2021 Resolved: 06-18-2022 10-22-2021 Episodic Crushing injury or internal injury (6 sources) Rupture of uterus; Translations: [Other injury of uterus, subsequent encounter] Onset: 10-09-2024 10-09-2024 Episodic Genitourinary symptoms and ill-defined conditions (20 sources) Dysuria; Translations: [Dysuria] Onset: 04-13-2024 Resolved: 10-11-2024 04-13-2024 Episodic Immunizations and screening for infectious disease (16 sources) Vaccination needed; Translations: [Encounter for immunization] Onset: 08-16-2024 08-16-2024 Episodic Other circulatory disease (6 sources) Elevated blood-pressure reading without diagnosis of hypertension; Translations: [Elevated blood-pressure reading, without diagnosis of hypertension] Onset: 10-09-2024 Resolved: 11-15-2024 10-09-2024 Episodic Other complications of ; puerperium affecting management of mother (20 sources) Disease caused by 2019-nCoV; Translations: [Other viral diseases complicating childbirth] Onset: 06-18-2022 Resolved: 03-22-2024 06-18-2022 Episodic Other complications of ; puerperium affecting management of mother (20 sources) Deliveries by ; Translations: [Encounter for delivery without indication] Onset: 06-17-2022 Resolved: 03-22-2024 02-20-2023 Episodic Other complications of ; puerperium affecting management of mother (6 sources) headache; Translations: [Other complications of the puerperium, not elsewhere classified] Onset: 10-08-2024 Resolved: 10-11-2024 10-11-2024 Episodic Other complications of (1 source) Other specified related conditions, unspecified trimester; Translations: [Other specified related conditions, unspecified trimester] Onset: 10-22-2021 Episodic Other complications of (20 sources) High risk ; Translations: [Supervision of high risk , unspecified, second trimester] Onset: 03-22-2024 Resolved: 10-11-2024 06-15-2024 Episodic Other and delivery including normal (20 sources) Encounter for routine follow-up; Translations: [ test positive] Onset: 06-17-2022 08-04-2023 Episodic Previous (16 sources) Maternal request for obstetric intervention; Translations: [Maternal care for unspecified type scar from previous delivery] Onset: 08-16-2024 Resolved: 10-11-2024 08-16-2024 Episodic Residual codes; unclassified (2 sources) First trimester ; Translations: [Less than 8 weeks gestation of ] Onset: 10-22-2021 Resolved: 06-18-2022 10-22-2021 Episodic Residual codes; unclassified (2 sources) Less than 8 weeks gestation of ; Translations: [Less than 8 weeks gestation of ] Onset: 10-22-2021 Episodic Residual codes; unclassified (1 source) 23 weeks gestation of ; Translations: [23 weeks gestation of ] Onset: 08-16-2024 Episodic Residual codes; unclassified (1 source) 19 weeks gestation of ; Translations: [19 weeks gestation of ] Onset: 06-23-2024 Episodic Residual codes; unclassified (1 source) History of uterine scar from previous surgery; Translations: [Hx of section] Onset: 06-23-2024 Episodic Urinary tract infections (1 source) Urinary tract infection, site not specified; Translations: [Urinary tract infection, site not specified] Onset: 02-19-2024 Episodic Results Test Name Value Interpretation Reference Range Facil ity ECG 12 lead (Clinic Performe d)on 08-11-2025 [facility] Work Phone: XR CHEST 2 VIEWSon XR CHEST 2 VIEWS Interpreted By: Jesus Mondragon, STUDY: XR CHEST 2 VIEWS; 08/11/2025 5:04 pm INDICATION: Signs/Symptoms:ches t pain, back pain. ,R07.81 Pleurodynia COMPARISON: None. ACCESSION NUMBER(S): [id number] ORDERING CLINICIAN: KEYONNA MUHAMMAD FINDINGS: The cardiomediastinal silhouette and pulmonary vasculature are within normal limits. No consolidation, pleural effusion or pneumothorax. IMPRESSION: No acute cardiopulmonary process. MACRO: None. Signed by: Jesus Mondragon 08/11/2025 6:22 PM Dictation workstation: [id number] [facility] XR Chest 2 Viewson No acute cardiopulmonary process. MACRO: None. Signed by: Jesus Mondragon 08/11/2025 6:22 PM Dictation workstation: [id number] MMODAL Interpreted By: Jesus Mondragon, STUDY: XR CHEST 2 VIEWS; 08/11/2025 5:04 pm INDICATION: Signs/Symptoms:ches t pain, back pain. ,R07.81 Pleurodynia COMPARISON: None. ACCESSION NUMBER(S): [id number] ORDERING CLINICIAN: KEYONNA MUHAMMAD FINDINGS: The cardiomediastinal silhouette and pulmonary vasculature are within normal limits. No consolidation, pleural effusion or pneumothorax. [facility] MMODAL Jesus Mondragon MD - 08/11/2025 Interpreted By: Jesus Mondragon, STUDY: XR CHEST 2 VIEWS; 08/11/2025 5:04 pm INDICATION: Signs/Symptoms:ches t pain, back pain. ,R07.81 Pleurodynia COMPARISON: None. ACCESSION NUMBER(S): [id number] ORDERING CLINICIAN: KEYONNA MUHAMMAD FINDINGS: The cardiomediastinal silhouette and pulmonary vasculature are within normal limits. No consolidation, pleural effusion or pneumothorax. IMPRESSION: No acute cardiopulmonary process. MACRO: None. Signed by: Jesus Mondragon 08/11/2025 6:22 PM Dictation workstation: [id number] [facility] Work Phone: Radiology Study observation (narrative) [facility] Work Phone: XR Chest 2 ViewsOrdered By: Jesus Mondragon on 08-11-2025 [facility] Work Phone: ED Prov Noteon 03-11-2025 ED Prov Note ED PROVIDER NOTE [facility] NAME: Laxmi Oliveira AGE: 34 y.o. : 1990 VISIT DATE: 03/11/2025 CSN: [id number] PCP: Ambika Acosta MD Chief Complaint Patient presents with Insect Bite Patient is a 34-year-old female with no significant past medical history who presents today for concern of bee sting and allergic reaction. Patient states she has been keeping these for 5 years has been stung many times but is never had such significant swelling from a bee sting. Patient states 1 hour prior to arrival she was stung by 1 bee on her left inner thigh and has an area of erythema approximately 20 x 30 cm as well as diffuse hives throughout her upper and lower extremities and chest. Patient admits to throat dryness and swollen sinuses but denies any inability handle secretions, throat tightness, chest pain, shortness of breath, abdominal pain, nausea, vomiting, lightheadedness, dizziness or syncope. Patient denies previous history of anaphylaxis or severe allergic reaction. Patient states she took 50 mg of Benadryl and Pepcid shortly prior to arrival which provided moderate relief. History reviewed. No pertinent past medical history. Past Surgical History: Procedure Laterality Date SECTION 2023 History reviewed. No pertinent family history. Social History [1] Previous Medications Medication Sig Slynd 4 mg (28) Tab Take 1 (one) tablet (4 mg total) by mouth daily . Allergies[2] Review of Systems Constitutional: Negative for chills and fever. Eyes: Negative for pain. Respiratory: Negative for cough, chest tightness and shortness of breath. Cardiovascular: Negative for chest pain and palpitations. Gastrointestinal: Negative for abdominal pain, nausea and vomiting. Genitourinary: Negative for flank pain. Musculoskeletal: Negative for arthralgias and myalgias. Skin: Positive for rash. Neurological: Negative for dizziness, syncope, light-headedness and headaches. Psychiatric/Behavio ral: Negative for agitation. All other systems reviewed and are negative. Patient Vitals for the past 24 hrs: BP Temp Temp src Pulse Resp SpO2 Height Weight 03/11/25 1405 (!) 146/82 98.1 degrees F (36.7 degrees C) Temporal (!) 116 18 99 % 5' 3 61.2 kg (135 lb) Physical Exam Vitals and nursing note reviewed. Constitutional: Appearance: Normal appearance. HENT: Head: Normocephalic. Eyes: Pupils: Pupils are equal, round, and reactive to light. Cardiovascular: Rate and Rhythm: Normal rate and regular rhythm. Pulses: Normal pulses. Heart sounds: Normal heart sounds. Musculoskeletal: Cervical back: Normal range of motion. Pulmonary: Effort: Pulmonary effort is normal. Breath sounds: Normal breath sounds. Skin: General: Skin is warm. Capillary Refill: Capillary refill takes less than 2 seconds. Findings: Rash present. Comments: Patient has an area of erythema tenderness and warmth consistent with allergic reaction on her left inner thigh that is proximately 20 cm x 30 cm with diffuse blotching of the upper and lower extremities consistent with appearance of hives. No petechia, purpura, skin sloughing mucosal involvement. No difficulty handling secretions. Neurological: General: No focal deficit present. Mental Status: She is alert. Psychiatric: Mood and Affect: Mood normal. Laboratory & Radiographic Imaging (if done): No results found for this visit on 03/11/25. No orders to display Procedures Medical Decision Making Patient was seen and evaluated for concern of bee sting causing allergic reaction. Patient had mild throat scratchiness and diffuse hives and was given epinephrine and after 2 hours had improvement of her symptoms with no evidence of rebound reaction. Patient also given prednisone with an additional prescription for prednisone. Patient told to take 50 mg of prednisone every 4-6 hours as well as was given 10 mg of Pepcid to take twice a day for the next 7 days. Patient given a prescription for EpiPen for home. Patient educated on reason return and agrees to do so patient was discharged in stable condition. The patient has been informed that they may have pre-hypertension or hypertension based on a blood pressure reading in the Emergency Department. I recommend that the patient call the primary care provider listed on their discharge instructions or a physician of their choice as soon as possible to arrange follow-up in the next 4 weeks for further evaluation of possible pre-hypertension or hypertension. . Clinical Impression: 1. Allergic reaction, initial encounter 2. Bee sting ED Disposition ED Disposition Discharge Condition Stable Comment Laxmi Oliveira discharged to home/self care in stable condition. Follow-up Information 1. Poonam Fragoso DO. Specialty: Obstetrics/Gynecolo gy Why: As needed, If symptoms worsen [address] Mel[address] Stati (more content not included)... Normal [facility] CNCOon 12-12-2024 CNCO Letter Text [facility] CNPCiera 11-15-2024 [facility] Telephone (OBGYWM) ---- LAXMI OLIVEIRA ([id number]) 1990 F Date Time Provider Department 11/15/24 JENNIFER MCCALL OBGYWM During your visit today, we recorded the following information about you: Braden Givens MA 11/15/2024 2:30 PM Signed Received PA request for Slynd. Submitted and received response that it was approved. Patient notified via [employer]. Braden Givens MA Allergies As of Date: 11/15/2024 (No Known Allergies) Date Reviewed: 11/15/2024 Reviewed by: Jennifer Mccall MD - Fully Assessed Reason for Visit: Insurance Authorization [[id number]] Prescriptions as of 11/15/2024 - drospirenone, contraceptive, (SLYND) 4 mg (28) tabet Take 1 tablet by mouth once daily. - ferrous sulfate 325 mg (65 mg iron) tablet Take 1 tablet by mouth once daily. - vit,deanna 74/iron/folic ( VITAMIN 1+1 ORAL) Problem List As Of Date 11/15/2024 Noted Resolved delivery, delivered, current hospitali* 2 03/22/2024 COVID-19 affecting childbirth [O98.52, U07.1] 06/18/2022 03/22/2024 History of low transverse section [Z98*06/17/2022 10/11/2024 Supervision of high risk in third tri*03/22/2024 10/11/2024 Dysuria [R30.0] 04/13/2024 10/11/2024 History of urinary tract infection [Z87.440] 06/15/2024 Patient desires vaginal after se*08/16/2024 10/11/2024 Need for vaccination [Z23] 08/16/2024 headache [O90.89, R51.9] 10/08/2024 10/11/2024 Elevated blood pressure reading in office witho*10/09/2024 11/15/2024 anemia [O90.81] 10/09/2024 Uterine rupture, subsequent encounter [S37.69XD] Encounter Status:Closed by BRADEN GIVENS on 11/15/24 Normal [facility] CBC W Auto Differential pane l (Bld)on 10-08-2024 Basophils (Bld) [#/Vol] 0.05 10*3/uL Normal <0.11 [facility] Comment on above: Order Comment: Speci men Type: BLOOD SPECIMEN Ordering Facility: [facility] Address: [address] [place], [place] [address] [address] Performed By: #### 5 7021-8 #### [facility] CLIA [id number] 1 [place] [address] [place] Basophils/100 WBC (Bld) 0.5 % Normal [facility] Comment on above: Order Comment: Speci men Type: BLOOD SPECIMEN Ordering Facility: [facility] Address: [address] [place] [address] Performed By: #### 5 7021-8 #### [facility] CLIA [id number] [address] Differential cell count method Nom (Bld) Auto Normal [facility] Comment on above: Order Comment: Speci men Type: BLOOD SPECIMEN Ordering Facility: [facility] Address: [address] [place] [address] Performed By: #### 5 7021-8 #### [facility] CLIA [id number] [address] Eosinophils (Bld) [#/Vol] 0.30 10*3/uL Normal <0.46 [facility] Comment on above: Order Comment: Speci men Type: BLOOD SPECIMEN Ordering Facility: [facility] Address: [address] [place] [address] Performed By: #### 5 7021-8 #### [facility] CLIA [id number] [address] Eosinophils/100 WBC (Bld) 3.1 % Normal [facility] Comment on above: Order Comment: Speci men Type: BLOOD SPECIMEN Ordering Facility: [facility] Address: [address] [place] [address] Performed By: #### 5 7021-8 #### [facility] CLIA [id number] [address] Erythrocyte distribution width (RBC) [Ratio] 13.1 % Normal 11.5-15.0 [facility] Comment on above: Order Comment: Speci men Type: BLOOD SPECIMEN Ordering Facility: [facility] Address: [address] [place] [address] Performed By: #### 5 7021-8 #### [facility] CLIA [id number] [address] [place] Hematocrit (Bld) [Volume fraction] 27.0 % Low 36.0-46.0 [facility] Comment on above: Order Comment: Speci men Type: BLOOD SPECIMEN Ordering Facility: [facility] Address: [address] [place] [address] Performed By: #### 5 7021-8 #### [facility] CLIA [id number] [address] [place] Hemoglobin (Bld) [Mass/Vol] 8.7 g/dL Low 11.5-15.5 [facility] Comment on above: Order Comment: Speci men Type: BLOOD SPECIMEN Ordering Facility: [facility] Address: [address] [place] [address] Performed By: #### 5 7021-8 #### [facility] CLIA [id number] [address] [place] Immature granulocytes (Bld) [#/Vol] 0.10 10*3/uL High <0.10 [facility] Comment on above: Order Comment: Speci men Type: BLOOD SPECIMEN Ordering Facility: [facility] Address: [address] [place] [address] Performed By: #### 5 7021-8 #### [facility] CLIA [id number] [address] OF [place] Immature granulocytes/100 WBC (Bld) 1.0 % Normal [facility] Comment on above: Order Comment: Speci men Type: BLOOD SPECIMEN Ordering Facility: [facility] Address: [address] [place] [address] Performed By: #### 5 7021-8 #### [facility] CLIA [id number] [address] [place] Lymphocytes (Bld) [#/Vol] 3.59 10*3/uL Normal 1.00-4.00 [facility] Comment on above: Order Comment: Speci men Type: BLOOD SPECIMEN Ordering Facility: [facility] Address: [address] [place] [address] Performed By: #### 5 7021-8 #### [facility] CLIA [id number] [address] [place] [address] [place] Lymphocytes/100 WBC (Bld) 37.4 % Normal [facility] Comment on above: Order Comment: Speci men Type: BLOOD SPECIMEN Ordering Facility: [facility] Address: [address] [place] [address] Performed By: #### 5 7021-8 #### [facility] CLIA [id number] [address] MCH (RBC) [Entitic mass] 29.9 pg Normal 26.0-34.0 [facility] Comment on above: Order Comment: Speci men Type: BLOOD SPECIMEN Ordering Facility: [facility] Address: [address] [place] [address] Performed By: #### 5 7021-8 #### [facility] CLIA [id number] [address] STATES OF [facility] MCHC (RBC) [Mass/Vol] 32.2 g/dL Normal 30.5-36.0 [facility] Comment on above: Order Comment: Speci men Type: BLOOD SPECIMEN Ordering Facility: [facility] Address: [address] [place] [address] Performed By: #### 5 7021-8 #### [facility] CLIA [id number] [address] MCV (RBC) [Entitic vol] 92.8 fL Normal 80.0-100.0 [facility] Comment on above: Order Comment: Speci men Type: BLOOD SPECIMEN Ordering Facility: [facility] Address: [address] [place] [address] Performed By: #### 5 7021-8 #### [facility] CLIA [id number] [address] Monocytes (Bld) [#/Vol] 0.94 10*3/uL High <0.87 [facility] Comment on above: Order Comment: Speci men Type: BLOOD SPECIMEN Ordering Facility: [facility] Address: [address] [place] [address] Performed By: #### 5 7021-8 #### [facility] CLIA [id number] [address] [place] Monocytes/100 WBC (Bld) 9.8 % Normal [facility] Comment on above: Order Comment: Speci men Type: BLOOD SPECIMEN Ordering Facility: [facility] Address: [address] [place] [address] Performed By: #### 5 7021-8 #### [facility] CLIA [id number] 1 [place] [address] [place] Neutrophils (Bld) [#/Vol] 4.63 10*3/uL Normal 1.45-7.50 [facility] Comment on above: Order Comment: Speci men Type: BLOOD SPECIMEN Ordering Facility: [facility] Address: [address] [place] [address] Performed By: #### 5 7021-8 #### [facility] CLIA [id number] [address] [place] Neutrophils/100 WBC (Bld) 48.2 % Normal [facility] Comment on above: Order Comment: Speci men Type: BLOOD SPECIMEN Ordering Facility: [facility] Address: [address] [place] [address] Performed By: #### 5 7021-8 #### [facility] CLIA [id number] [address] [place] Nucleated RBC (Bld) [#/Vol] 10*3/uL Normal <0.01 [facility] Comment on above: Order Comment: Speci men Type: BLOOD SPECIMEN Ordering Facility: [facility] Address: [address] [place] [address] Performed By: #### 5 7021-8 #### [facility] CLIA [id number] [address] [place] Nucleated RBC/100 WBC (Bld) [Ratio] 0.0 /100 WBC Normal [facility] Comment on above: Order Comment: Speci men Type: BLOOD SPECIMEN Ordering Facility: [facility] Address: [address] [place] [address] Performed By: #### 5 7021-8 #### [facility] CLIA [id number] [address] STATES [facility] Platelet mean volume (Bld) [Entitic vol] 9.0 fL Normal 9.0-12.7 [facility] Comment on above: Order Comment: Speci men Type: BLOOD SPECIMEN Ordering Facility: [facility] Address: [address] [place] [address] Performed By: #### 5 7021-8 #### [facility] CLIA [id number] [address] [place] Platelets (Bld) [#/Vol] 329 10*3/uL Normal 150-400 [facility] Comment on above: Order Comment: Speci men Type: BLOOD SPECIMEN Ordering Facility: [facility] Address: [address] [place] [address] Performed By: #### 5 7021-8 #### [facility] CLIA [id number] [address] RBC (Bld) [#/Vol] 2.91 10*6/uL Low 3.90-5.20 [facility] Comment on above: Order Comment: Speci men Type: BLOOD SPECIMEN Ordering Facility: [facility] Address: [address] [place] [address] Performed By: #### 5 7021-8 #### [facility] CLIA [id number] [address] [place] WBC (Bld) [#/Vol] 9.61 10*3/uL Normal 3.70-11.00 [facility] Comment on above: Order Comment: Speci men Type: BLOOD SPECIMEN Ordering Facility: [facility] Address: [address] [place] [address] Performed By: #### 5 7021-8 #### [facility] CLIA [id number] [address] OF [facility] Comprehensive metabolic 2000 panelon 10-08-2024 Albumin [Mass/Vol] 3.4 g/dL Low 3.9-4.9 [facility] Comment on above: Order Comment: Speci men Type: BLOOD SPECIMEN Ordering Facility: [facility] Address: [address] [place] [address] Performed By: #### 1 9123-06, 39344-0 #### [facility] CLIA [id number] [address] ALP [Catalytic activity/Vol] 89 U/L Normal 34-123 [facility] Comment on above: Order Comment: Speci men Type: BLOOD SPECIMEN Ordering Facility: [facility] Address: [address] [place] [address] Performed By: #### 1 9123-06, #### [facility] CLIA [id number] [address] OF [facility] ALT With P-5'-P [Catalytic activity/Vol] 31 U/L Normal 7-38 [facility] Comment on above: Order Comment: Speci men Type: BLOOD SPECIMEN Ordering Facility: [facility] Address: [address] [place] [address] Performed By: #### 1 9123-06, #### [facility] CLIA [id number] [address] Anion gap [Moles/Vol] 11 mmol/L Normal 8-15 [facility] Comment on above: Order Comment: Speci men Type: BLOOD SPECIMEN Ordering Facility: [facility] Address: [address] [place] [address] Performed By: #### 1 9123-06, #### [facility] CLIA [id number] [address] [place] AST With P-5'-P [Catalytic activity/Vol] 23 U/L Normal 13-35 [facility] Comment on above: Order Comment: Speci men Type: BLOOD SPECIMEN Ordering Facility: [facility] Address: [address] [place] [address] Performed By: #### 1 9123-06, 94224-5 #### [facility] CLIA [id number] 1 [place] [address] [place] Bilirubin [Mass/Vol] mg/dL Low 0.2-1.3 [facility] Comment on above: Order Comment: Speci men Type: BLOOD SPECIMEN Ordering Facility: [facility] Address: [address] [place] [address] Performed By: #### 1 9123-9, 85015-1 #### [facility] CLIA [id number] 1 [place] [address] [place] Calcium [Mass/Vol] 8.9 mg/dL Normal 8.5-10.2 [facility] Comment on above: Order Comment: Speci men Type: BLOOD SPECIMEN Ordering Facility: [facility] Address: [address] [place] [address] Performed By: #### 1 23-9, 08564-3 #### [facility] CLIA [id number] [address] [place] [address] [place] Chloride [Moles/Vol] 103 mmol/L Normal 98-107 [facility] Comment on above: Order Comment: Speci men Type: BLOOD SPECIMEN Ordering [facility]: [facility] Address: [address] [place] [address] Performed By: #### 1 23-9, 91481-8 #### [facility] CLIA [id number] 1 [place] [address] [place] CO2 [Moles/Vol] 24 mmol/L Normal 22-30 [facility] Comment on above: Order Comment: Speci men Type: BLOOD SPECIMEN Ordering Facility: [facility] Address: [address] [place] [address] Performed By: #### 1 1223-9, 54862-4 #### [facility] CLIA [id number] 1 [place] [address] [place] Creatinine [Mass/Vol] 0.63 mg/dL Normal 0.58-0.96 [facility] Comment on above: Order Comment: Speci men Type: BLOOD SPECIMEN Ordering Facility: [facility] Address: [address] [place] [address] Performed By: #### 1 9123-9, 68072-3 #### [facility] CLIA [id number] [address] Creatinine and Glomerular filtration rate.predicted panel (S/P/Bld) 120 mL/min/1.73m??? Normal >=60 [facility] Comment on above: Order Comment: Deepika davis Type: BLOOD SPECIMEN Ordering Facility: [facility] Address: [address] [place] [address] Result Comment: Caitlyn mated Glomerular Filtration Rate (eGFR) is calculated using the 2020 CKD-EPI creatinine equation. This equation utilizes serum creatinine, sex, and age as parameters. The creatinine assay has traceable calibration to isotope dilution-mass spectrometry. Refer to KDIGO guidelines for clinical interpretation. In patients with unstable renal function, e.g. those with acute kidney injury, the eGFR may not accurately reflect actual GFR. Performed By: #### 1 9123-9, 98574-5 #### [facility] CLIA [id number] [address] [place] [address] [place] Glucose [Mass/Vol] 93 mg/dL Normal 74-99 [facility] Comment on above: Order Comment: Deepika davis Type: BLOOD SPECIMEN Ordering Facility: [facility] Address: [address] [place] [address] Result Comment: The [place] Diabetes Association (ADA) provides guidance for cutoff values for fasting glucose and random glucose. The ADA defines fasting as no caloric intake for at least 8 hours. Fasting plasma glucose results between 100 to 125 mg/dL indicate increased risk for diabetes (prediabetes). Fasting plasma glucose results greater than or equal to 126 mg/dL meet the criteria for diagnosis of diabetes. In the absence of unequivocal hyperglycemia, results should be confirmed by repeat testing. In a patient with classic symptoms of hyperglycemia or hyperglycemic crisis, random plasma glucose results greater than or equal to 200 mg/dL meet the criteria for diagnosis of diabetes. Reference: Standards of Medical Care in Diabetes 2016, [place] Diabetes Association. Diabetes Care. 2016.39(Suppl 1). Performed By: #### 1 9123-9, 66246-3 #### [facility] CLIA [id number] [address] STATES OF [facility] Potassium [Moles/Vol] 3.7 mmol/L Normal 3.7-5.1 [facility] Comment on above: Order Comment: Speci men Type: BLOOD SPECIMEN Ordering Facility: [facility] Address: [address] [place] [address] Performed By: #### 1 9123-9, 56506-5 #### [facility] CLIA [id number] [address] [place] Protein [Mass/Vol] 6.4 g/dL Normal 6.3-8.0 [facility] Comment on above: Order Comment: Speci men Type: BLOOD SPECIMEN Ordering Facility: [facility] Address: [address] [place] [address] Performed By: #### 1 9123-9, 87215-1 #### [facility] CLIA [id number] [address] [place] [address] Sodium [Moles/Vol] 138 mmol/L Normal 136-144 [facility] Comment on above: Order Comment: Speci men Type: BLOOD SPECIMEN Ordering Facility: [facility] Address: [address] [place] [address] Performed By: #### 1 23-9, 43747-0 #### [facility] CLIA [id number] [address] STATES [facility] Urea nitrogen [Mass/Vol] 13 mg/dL Normal 7-21 [facility] Comment on above: Order Comment: Speci men Type: BLOOD SPECIMEN Ordering Facility: [facility] Address: [address] [place] [address] Performed By: #### 1 9123-9, 91916-7 #### [facility] CLIA [id number] [address] ED Triage Noteon 10-08-2024 ED Triage Note HNO ID: [id number] Author: LEONOR KAUFFMAN PA-C Service: Emergency Medicine Author Type: Physician Spinning Machine Tender Type: ED Triage Notes Filed: 10/08/2024 22:35 Note Text: ED TRIAGE PROVIDER NOTE Patient Name: Laxmi Oliveira Service Date: 10/08/24 BRIEF HPI: This is a 34 year old female who presents to the ED with: 6 days due to a ruptured uterus has noted bilateral lower extremity edema, denies any calf pain. Denies shortness of breath or chest pain. Reports intermittent headache. Denies abdominal pain. BRIEF EXAM: NAD Awake and Alert Non labored breathing No focal neurological deficits Bilateral lower extremity edema, wearing compression stockings, calves supple bilaterally and nontender. Ambulatory without assistive device. INITIAL WORKUP AND DECISION MAKING: Orders Placed This Encounter COMP METABOLIC PANEL MAGNESIUM BLD CBC + DIFF Urinalysis w Microscopic, reflex Culture SIGNATURE: Joseph Kauffman PA-C Normal [facility] Magnesium SerPl-mCncon 10-08 Magnesium [Mass/Vol] 2.0 mg/dL Normal 1.7-2.3 [facility] Comment on above: Order Comment: Speci men Type: BLOOD SPECIMEN Ordering Facility: [facility] Address: [address] [place] [address] Performed By: #### 1 9123-9, 24534-7 #### [facility] CLIA [id number] [address] Urinalysis complete panel (U )on 10-08-2024 Bilirubin Ql (U) Negative Normal Negative [facility] Comment on above: Order Comment: Speci men Type: URINE SPECIMEN Ordering Facility: [facility] Address: [address] [place] [address] Performed By: #### 2 4356-8 #### [facility] CLIA [id number] [address] [place] Clarity (Unsp spec) Clear Normal Clear [facility] Comment on above: Order Comment: Speci men Type: URINE SPECIMEN Order[facility] Facility[facility] Address: [address] [place] [address] Performed By: #### 2 4356-8 #### [facility] CLIA [id number] [address] STATES [facility] Color (U) Colorless Normal yellow [facility] Comment on above: Order Comment: Speci men Type: URINE SPECIMEN Ordering Facility[facility] Address: [facility] [place] [address] Performed By: #### 2 4356-8 #### [facility] CLIA [id number] [address] Epithelial cells LM.HPF (Urine sed) [#/Area] Few Normal [facility] Comment on above: Order Comment: Speci men Type: URINE SPECIMEN Order[facility] Address: [facility] [place] [address] Performed By: #### 2 4356-8 #### [facility] CLIA [id number] [address] Glucose Test strip (U) [Mass/Vol] Negative Normal Trace, Negative [facility] Comment on above: Order Comment: Speci men Type: URINE SPECIMEN Order[facility] Address: [address] [place] [address] Performed By: #### 2 4356-8 #### [facility] CLIA [id number] [address] Hemoglobin Ql (U) Negative Normal Negative, Trace [facility] Comment on above: Order Comment: Speci men Type: URINE SPECIMEN Ordering [facility] Address: [address] [place] [address] Performed By: #### 2 4356-8 #### [facility] CLIA [id number] [address] [place] Ketones Ql (U) Negative Normal Negative, Trace [facility] Comment on above: Order Comment: Speci men Type: URINE SPECIMEN Order[facility] Address: [facility] [place] [address] Performed By: #### 2 4356-8 #### [facility] CLIA [id number] [address] [place] Leukocyte esterase Test strip Ql (U) Negative Normal Negative, 25 Ronald/uL [facility] Comment on above: Order Comment: Speci men Type: URINE SPECIMEN Order[facility] Facility[facility] Address: [address] [place] [address] Performed By: #### 2 4356-8 #### [facility] CLIA [id number] [address] STATES OF [facility] Nitrite Ql (U) Negative Normal Negative [facility] Comment on above: Order Comment: Speci men Type: URINE SPECIMEN Ordering Facility: [facility] Address: [address] [place] [address] Performed By: #### 2 4356-8 #### [facility] CLIA [id number] [address] OF [facility] pH (U) 6.5 [pH] Normal 5.0-8.0 [facility] Comment on above: Order Comment: Speci men Type: URINE SPECIMEN Ordering Facility: [facility] Address: [address] [place] [address] Performed By: #### 2 4356-8 #### [facility] CLIA [id number] [address] STATES OF [facility] Protein (U) [Mass/Vol] Negative Normal Trace, Negati ve [facility] Comment on above: Order Comment: Speci men Type: URINE SPECIMEN Ordering Facility: [facility] Address: [address] [place] [address] Performed By: #### 2 4356-8 #### [facility] CLIA [id number] [address] RBC LM.HPF (Urine sed) [#/Area] 0-3 /HPF Normal 0-3 /HPF [facility] Comment on above: Order Comment: Speci men Type: URINE SPECIMEN Order[facility] Address: [address] [place] [address] Performed By: #### 2 4356-8 #### [facility] CLIA [id number] [address] Specific gravity (U) [Rel density] 1.003 Low 1.005-1.030 [facility] Comment on above: Order Comment: Speci men Type: URINE SPECIMEN Order[facility] Address: [address] [place] [address] Performed By: #### 2 4356-8 #### [facility] CLIA [id number] [address] Urobilinogen Ql (U) Normal Normal Normal [facility] Comment on above: Order Comment: Speci men Type: URINE SPECIMEN Order[facility] Address: [address] [place] [address] Performed By: #### 2 4356-8 #### [facility] CLIA [id number] [address] WBC LM.HPF (Urine sed) [#/Area] 0-5 /HPF Normal 0-5 /HPF [facility] Comment on above: Order Comment: Speci men Type: URINE SPECIMEN Order[facility] Address: [address] [place] [address] Performed By: #### 2 4356-8 #### [facility] CLIA [id number] [address] CNPCiera 10-07-2024 CNPN Telephone (STEFANIEGYWM) ---- LAXMI OLIVEIRA ([id number]) 1990 F Date Time Provider Department 10/07/24 DEVON LITTLEJOHN OBTRICE During your visit today, we recorded the following information about you: Verna Bustillo LPN 10/07/2024 1:38 PM Signed Patient had a c/s on 10/02/2024 and began to notice swelling in lower legs, ankles, feet, and slightly in hands on 10/04/2024, started to wear compression stockings on 10/06/2024 and has not noticed much decrease in swelling. Patient is able to wear regular shoes w/ the swelling. Had a headache today that resolved after a nap, Denies vision changes, no c/o epigastric pain or N/V. Patient is currently at [facility] w/ baby and will ask a nurse to check her Bp. appointment is 10/17/2024. Please advise. Devon Littlejohn MD 10/07/2024 3:24 PM Signed schedule f/u within one week after delivery for PP patients please for BP checks and incision checks. Schedule next week. Call or to ED for signs/symptoms of preeclampsia. MD Keny Bravo Annalee, LPN 10/07/2024 4:28 PM Signed Patient sent a Krikle message stating that her blood pressure today was 125/88. Devon Littlejohn MD 10/07/2024 6:34 PM Signed noted. Allergies As of Date: 10/07/2024 (No Known Allergies) Date Reviewed: 09/29/2024 Reviewed by: Lisa Garcia MA - Fully Assessed Reason for Visit: Care [85] Prescriptions as of 10/07/2024 - vit,deanna 74/iron/folic ( VITAMIN 1+1 ORAL) Problem List As Of Date 10/07/2024 Noted Resolved delivery, delivered, current hospitali* 2 03/22/2024 COVID-19 affecting childbirth [O98.52, U07.1] 06/18/2022 03/22/2024 History of low transverse section [Z98*06/17/2022 Supervision of high risk in third tri*03/22/2024 Dysuria [R30.0] 04/13/2024 History of urinary tract infection [Z87.440] 06/15/2024 Patient desires vaginal after se*08/16/2024 Need for vaccination [Z23] 08/16/2024 Encounter Status:Closed by DEVON LITTLEJOHN on 10/07/24 Normal [facility] CBC-Complete Blood Cnt No Di ffon 10-03-2024 Erythrocyte distribution width (RBC) [Ratio] 13.0 % Normal 11.6-14.6 [facility] Comment on above: Order Comment: Comme nts: Day #1 Reason for Laboratory Test Performed By: #### L 100.0500 #### [facility] [address] [place], [address] Hematocrit (Bld) [Volume fraction] 26.0 % Low 37-47 [facility] Comment on above: Order Comment: Comme nts: Day #1 Reason for Laboratory Test Performed By: #### L 100.0500 #### [facility] [address] [place], [address] Hemoglobin (Bld) [Mass/Vol] 8.9 g/dL Low 12.0-15.0 [facility] Comment on above: Order Comment: Comme nts: Day #1 Reason for Laboratory Test Performed By: #### L 100.0500 #### [facility] [address] [place], [address] MCH (RBC) [Entitic mass] 30.6 pg Normal 27.0-32.0 [facility] Comment on above: Order Comment: Comme nts: Day #1 Reason for Laboratory Test Performed By: #### L 100.0500 #### [facility] [address] [place], [address] MCHC (RBC) [Mass/Vol] 34.2 g/dL Normal 32-36 [facility] Comment on above: Order Comment: Comme nts: Day #1 Reason for Laboratory Test Performed By: #### L 100.0500 #### [facility] [address] [place], [address] MCV (RBC) [Entitic vol] 89.3 fL Normal 81-99 [facility] Comment on above: Order Comment: Comme nts: Day #1 Reason for Laboratory Test Performed By: #### L 100.0500 #### [facility] [address] [place], [address] Platelet mean volume (Bld) [Entitic vol] 9.7 fL Normal 6.2-12.0 [facility] Comment on above: Order Comment: Comme nts: Day #1 Reason for Laboratory Test Performed By: #### L 100.0500 #### [facility] [address] [place], [address] Platelets (Bld) [#/Vol] 193 10*3/uL Normal 150-450 [facility] Comment on above: Order Comment: Comme nts: Day #1 Reason for Laboratory Test Performed By: #### L 100.0500 #### [facility] [address] [place], [address] RBC (Bld) [#/Vol] 2.91 10*6/uL Low 4.2-5.4 [facility] Comment on above: Order Comment: Comme nts: Day #1 Reason for Laboratory Test Performed By: #### L 100.0500 #### [facility] [address] [place], [address] RDW SD 42.5 fl Normal 35.1-43.9 [facility] Comment on above: Order Comment: Comme nts: Day #1 Reason for Laboratory Test Performed By: #### L 100.0500 #### [facility] [address] [place], [address] WBC (Bld) [#/Vol] 21.6 10*3/uL High 4.4-11.0 [facility] Comment on above: Order Comment: Comme nts: Day #1 Reason for Laboratory Test Performed By: #### L 100.0500 #### [facility] [address] [place], [address] Abdomen Single View (Portabl e)on 10-02-2024 Abdomen Single View (Portable) [facility] Imaging Services [address] [place], [place] [address] Abdomen Single View (Portable) MR#: [id number] Acct: [id number] Name: LAXMI OLIVEIRA Rep #: [id number] : 1990 F 34 From: Ruiz mesa MD PCP: Dr. Go Covington DO Status: ADM IN Study: Abdomen Single View (Portable) Date of Exam: 12/03/23 Exam# [id number] Ordering Dr: Andra Diaz MD -[id number] INDICATION: PRATEEK EXAMINATION/TECHNIQ UE: X-RAY - XR Abdomen 1 View COMPARISON: None FINDINGS: BOWEL GAS PATTERN: Non-obstructive. Moderate amount retained stool in the colon. FREE AIR: Not assessed on a single supine view. ORGANOMEGALY: Not seen. CALCIFICATIONS: No abnormal calcifications observed. LOWER CHEST: No acute pathology. BONES AND SOFT TISSUES: No acute pathology. RAD/Abdomen Single View (Portable) IMPRESSION: Non-obstructive bowel gas pattern. Moderate amount retained stool in the colon. Electronically Signed: Ruiz Roth MD at 21:20 EST , CC: Dr. Andra Diaz MD; Dr. Go Covington DO Siderographer: Signed Normal [facility] Basic Metabolic Profile (BMP )on 10-02-2024 BUN/CRE 11.9 RATIO Normal 07-24 [facility] Comment on above: Performed By: #### L 500.2500, L100.0100, BTS ####[facility] [address] [place], [place], [address] CA,Total 8.4 mg/dL Low 8.5-10.1 [facility] Comment on above: Performed By: #### L 500.2500, L100.0100, BTS ####[facility] [address] [place], [address] Chloride [Moles/Vol] 105 mmol/L Normal 98-107 [facility] Comment on above: Performed By: #### L 500.2500, L100.0100, BTS ####[facility] [address] [place], [address] CO2 [Moles/Vol] 19.0 mmol/L Low 21.0-32.0 [facility] Comment on above: Performed By: #### L 500.2500, L100.0100, BTS ####[facility] [address] [place], [address] Creatinine [Mass/Vol] 0.50 mg/dL Low 0.55-1.02 [facility] Comment on above: Result Comment: The validity of the calculated GFR GFRAA in patients over 70 years has not been determined. Clinical correlation is essential. Performed By: #### L 500.2500, L100.0100, BTS ####[facility] [address] [place], [address] EST GFR - AA 179 mL/min Normal >60 [facility] Comment on above: Result Comment: Afri can Austrian GFR Calc Performed By: #### L 500.2500, L100.0100, BTS ####[facility] [address] [place], [address] GAP 12 Normal 5-15 [facility] Comment on above: Performed By: #### L 500.2500, L100.0100, BTS ####[facility] [address] [place], [address] GFR/1.73 sq M.predicted among non-blacks MDRD (S/P/Bld) [Vol rate/Area] 148 mL/min/{1.73_m2} Normal >60 [facility] Comment on above: Result Comment: Non- GFR Calc Performed By: #### L 500.2500, L100.0100, BTS ####[facility] [address] [place], [address] Glucose [Mass/Vol] 149 mg/dL High 74-106 [facility] Comment on above: Result Comment: Fast ing Glucose result greater than or equal to 126 mg/dL suggests DIABETES MELLITUS per A.D.A. criteria. Performed By: #### L 500.2500, L100.0100, BTS ####[facility] [address] [place], [address] Potassium [Moles/Vol] 3.6 mmol/L Normal 3.5-5.1 [facility] Comment on above: Performed By: #### L 500.2500, L100.0100, BTS ####[facility] [address] [place], [address] Sodium [Moles/Vol] 136 mmol/L Normal 136-145 [facility] Comment on above: Performed By: #### L 500.2500, L100.0100, BTS ####[facility] [address] [place], [address] Urea nitrogen [Mass/Vol] 6 mg/dL Low 7-18 [facility] Comment on above: Performed By: #### L 500.2500, L100.0100, BTS ####[facility] [address] [place], [address] CBC W/Diff, Automatedon 12-2 Absolute Lymph 1.08 X10 3/uL Normal 0.83-4.51 [facility] Comment on above: Performed By: #### L 100.0100 #### [facility] [address] [place], [address] Absolute Neut 19.6 X10 3/uL High 2.0-7.7 [facility] Comment on above: Performed By: #### L 100.0100 #### [facility] [address] [place], [address] Basophils/100 WBC (Bld) 0.3 % Normal 0-1 [facility] Comment on above: Performed By: #### L 100.0100 #### [facility] [address] [place], [address] Eosinophils/100 WBC (Bld) 0.0 % Normal 0-5 [facility] Comment on above: Performed By: #### L 100.0100 #### [facility] [address] [place], [address] Erythrocyte distribution width (RBC) [Ratio] 12.9 % Normal 11.6-14.6 [facility] Comment on above: Performed By: #### L 100.0100 #### [facility] [address] [place], [address] Hematocrit (Bld) [Volume fraction] 29.7 % Low 37-47 [facility] Comment on above: Performed By: #### L 100.0100 #### [facility] [address] [place], [address] Hemoglobin (Bld) [Mass/Vol] 10.0 g/dL Low 12.0-15.0 [facility] Comment on above: Performed By: #### L 100.0100 #### [facility] [address] [place], [address] IG% 0.500 Normal 0.0-0.9 [facility] Comment on above: Result Comment: IG% - Immature Granulocytes (promyelocytes, myelocytes and metamyelocytes) > 1% indicates that a LEFT SHIFT is Present. Performed By: #### L 100.0100 #### [facility] [address] [place], [address] Lymphocytes/100 WBC (Bld) 4.9 % Low 19-41 [facility] Comment on above: Performed By: #### L 100.0100 #### [facility] [address] [place], [address] MCH (RBC) [Entitic mass] 30.5 pg Normal 27.0-32.0 [facility] Comment on above: Performed By: #### L 100.0100 #### [facility] [address] [place], [address] MCHC (RBC) [Mass/Vol] 33.7 g/dL Normal 32-36 [facility] Comment on above: Performed By: #### L 100.0100 #### [facility] [address] [place], [address] MCV (RBC) [Entitic vol] 90.5 fL Normal 81-99 [facility] Comment on above: Performed By: #### L 100.0100 #### [facility] [address] [place], [address] Monocytes/100 WBC (Bld) 4.8 % Normal 0-10 [facility] Comment on above: Performed By: #### L 100.0100 #### [facility] [address] [place], [address] Neutrophils/100 WBC (Bld) 89.5 % High 47-70 [facility] Comment on above: Performed By: #### L 100.0100 #### [facility] [address] [place], [address] Nucleated RBC (Bld) [#/Vol] 0 10*3/uL Normal 0-5 [facility] Comment on above: Performed By: #### L 100.0100 #### [facility] [address] [place], [address] Platelet mean volume (Bld) [Entitic vol] 9.7 fL Normal 6.2-12.0 [facility] Comment on above: Performed By: #### L 100.0100 #### [facility] [address] [place], [address] Platelets (Bld) [#/Vol] 204 10*3/uL Normal 150-450 [facility] Comment on above: Performed By: #### L 100.0100 #### [facility] [address] [place], [address] RBC (Bld) [#/Vol] 3.28 10*6/uL Low 4.2-5.4 [facility] Comment on above: Performed By: #### L 100.0100 #### [facility] [address] [place], [address] RDW SD 42.7 fl Normal 35.1-43.9 [facility] Comment on above: Performed By: #### L 100.0100 #### [facility] [address] [place], [address] WBC (Bld) [#/Vol] 21.9 10*3/uL High 4.4-11.0 [facility] Comment on above: Performed By: #### L 100.0100 #### [facility] [address] [place], [address] Absolute Neut Normal 2.0-7.7 [facility] Comment on above: Result Comment: DUPL ICATE ORDER RAN UNDER H94 Performed By: #### L 100.0100 #### [facility] [address] [place], [address] HCT Normal 37-47 [facility] Comment on above: Result Comment: DUPL ICATE ORDER RAN UNDER H94 Performed By: #### L 100.0100 #### [facility] [address] [place], [address] HGB Normal 12.0-15.0 [facility] Comment on above: Result Comment: DUPL ICATE ORDER RAN UNDER H94 Performed By: #### L 100.0100 #### [facility] [address] [place], [address] MCH Normal 27.0-32.0 [facility] Comment on above: Result Comment: DUPL ICATE ORDER RAN UNDER H94 Performed By: #### L 100.0100 #### [facility] [address] [place], [address] MCHC Normal 32-36 [facility] Comment on above: Result Comment: DUPL ICATE ORDER RAN UNDER H94 Performed By: #### L 100.0100 #### [facility] [address] [place], [address] MCV Normal 81-99 [facility] Comment on above: Result Comment: DUPL ICATE ORDER RAN UNDER H94 Performed By: #### L 100.0100 #### [facility] [address] [place], [address] NEUT% Normal 47-70 [facility] Comment on above: Result Comment: DUPL ICATE ORDER RAN UNDER H94 Performed By: #### L 100.0100 #### [facility] [address] [place], [address] PLT Normal 150-450 [facility] Comment on above: Result Comment: DUPL ICATE ORDER RAN UNDER H94 Performed By: #### L 100.0100 #### [facility] [address] [place], [address] RBC Normal 4.2-5.4 [facility] Comment on above: Result Comment: DUPL ICATE ORDER RAN UNDER H94 Performed By: #### L 100.0100 #### [facility] [address] [place], [address] RDW CV Normal 11.6-14.6 [facility] Comment on above: Result Comment: DUPL ICATE ORDER RAN UNDER H94 Performed By: #### L 100.0100 #### [facility] [address] [place], [address] RDW SD Normal 35.1-43.9 [facility] Comment on above: Result Comment: DUPL ICATE ORDER RAN UNDER H94 Performed By: #### L 100.0100 #### [facility] [address] [place], [address] WBC Normal 4.4-11.0 [facility] Comment on above: Result Comment: DUPL ICATE ORDER RAN UNDER H94 Performed By: #### L 100.0100 #### [facility] [address] [place], [address] Absolute Lymph 3.52 X10 3/uL Normal 0.83-4.51 [facility] Comment on above: Performed By: #### L 500.2500, L100.0100, BTS #### [facility] [address] [place], [address] Absolute Neut 14.4 X10 3/uL High 2.0-7.7 [facility] Comment on above: Performed By: #### L 500.2500, L100.0100, BTS #### [facility] [address] [place], [address] Basophils/100 WBC (Bld) 0.4 % Normal 0-1 [facility] Comment on above: Performed By: #### L 500.2500, L100.0100, BTS #### [facility] [address] [place], [address] Eosinophils/100 WBC (Bld) 0.7 % Normal 0-5 [facility] Comment on above: Performed By: #### L 500.2500, L100.0100, BTS #### [facility] [address] [place], [address] Erythrocyte distribution width (RBC) [Ratio] 13.0 % Normal 11.6-14.6 [facility] Comment on above: Performed By: #### L 500.2500, L100.0100, BTS #### [facility] [address] [place], [address] Hematocrit (Bld) [Volume fraction] 34.4 % Low 37-47 [facility] Comment on above: Performed By: #### L 500.2500, L100.0100, BTS #### [facility] [address] [place], [address] Hemoglobin (Bld) [Mass/Vol] 11.5 g/dL Low 12.0-15.0 [facility] Comment on above: Performed By: #### L 500.2500, L100.0100, BTS #### [facility] [address] [place], [address] IG% 1.000 High 0.0-0.9 [facility] Comment on above: Result Comment: IG% - Immature Granulocytes (promyelocytes, myelocytes and metamyelocytes) > 1% indicates that a LEFT SHIFT is Present. Performed By: #### L 500.2500, L100.0100, BTS #### [facility] [address] [place], [address] Lymphocytes/100 WBC (Bld) 18.0 % Low 19-41 [facility] Comment on above: Performed By: #### L 500.2500, L100.0100, BTS #### [facility] [address] [place], [address] MCH (RBC) [Entitic mass] 29.9 pg Normal 27.0-32.0 [facility] Comment on above: Performed By: #### L 500.2500, L100.0100, BTS #### [facility] [address] [place], [address] MCHC (RBC) [Mass/Vol] 33.4 g/dL Normal 32-36 [facility] Comment on above: Performed By: #### L 500.2500, L100.0100, BTS #### [facility] [address] [place], [address] MCV (RBC) [Entitic vol] 89.6 fL Normal 81-99 [facility] Comment on above: Performed By: #### L 500.2500, L100.0100, BTS #### [facility] [address] [place], [address] Monocytes/100 WBC (Bld) 6.0 % Normal 0-10 [facility] Comment on above: Performed By: #### L 500.2500, L100.0100, BTS #### [facility] [address] [place], [address] Neutrophils/100 WBC (Bld) 73.9 % High 47-70 [facility] Comment on above: Performed By: #### L 500.2500, L100.0100, BTS #### [facility] [address] [place], [address] Nucleated RBC (Bld) [#/Vol] 0 10*3/uL Normal 0-5 [facility] Comment on above: Performed By: #### L 500.2500, L100.0100, BTS #### [facility] [address] [place], [address] Platelet mean volume (Bld) [Entitic vol] 9.9 fL Normal 6.2-12.0 [facility] Comment on above: Performed By: #### L 500.2500, L100.0100, BTS #### [facility] [address] [place], [address] Platelets (Bld) [#/Vol] 267 10*3/uL Normal 150-450 [facility] Comment on above: Performed By: #### L 500.2500, L100.0100, BTS #### [facility] [address] [place], [address] RBC (Bld) [#/Vol] 3.84 10*6/uL Low 4.2-5.4 [facility] Comment on above: Performed By: #### L 500.2500, L100.0100, BTS #### [facility] [address] [place], [address] RDW SD 42.7 fl Normal 35.1-43.9 [facility] Comment on above: Performed By: #### L 500.2500, L100.0100, BTS #### [facility] [address] [place], [address] WBC (Bld) [#/Vol] 19.5 10*3/uL High 4.4-11.0 [facility] Comment on above: Performed By: #### L 500.2500, L100.0100, BTS #### [facility] [address] [place], [address] H AND P Exam - OB/GYNon 12-2 H&P Exam - APPLICATION SUPPORT ENGINEER [facility] Medical Records Department [address] [place] [address] H P Exam - APPLICATION SUPPORT ENGINEER 10/02/24 2143 MR#: [id number] Acct: [id number] Name: LAXMI OLIVEIRA Rep #: [id number] : 1990 34 From: Andra Diaz MD PCP: Dr. Go Covington, DO Status:ADM IN Location: [id number] HPI - General General Date of Admission: 10/02/24 Date of Service: 10/02/24 Chief Complaint: abdominal pain HPI Narrative LAXMI OLIVEIRA, is a 34 F who presents to [facility] with abdominal pain. Started having some pain and cramping in the AM. It progressively increased throughout the day. Around 5 PM her pain became generalized abdominal pain. Did not have any vaginal bleeding or loss of fluid. Her has been uncomplicated. Previous for breech 2 years ago. Upon arrival the HR was found to be 80s on EFM. Cervix closed thick and high without an obvious presenting part per nursing. FHR was confirmed by US. The FHR was found high in the abdomen and no amniotic fluid could be appreciated on bedside US. The patient was verbally consented for emergent and taken to the OR. Maternal Data Information Final CAMRON: 11/07/24 Gestational age: 34+6 PFSH PFSH Medical History IBS (irritable bowel syndrome) Home Medications ???Medication ???Instructions ???Recorded ???Last Taken ???Type NK 08/14/23 Unknown History Allergy/AdvReac Type Severity Reaction Status Date / Time No Known Allergies Allergy Verified 10/02/24 20:29 Surgical History History of colposcopy History of Social History Smoking Status: Former smoker History 2 Elective abortions Hx Para 1 Spontaneous abortions Hx # Term Pregnancies Ectopic pregnancies Hx # Pregnancies Multiple births # of living children NST FHR Rate Baby A Baseline: 80 Assessment Assessment Detail: FHR in the 80s by EFM confirmed by US ROS Cardiovascular Cardiovascular: Denies chest pain or dyspnea Respiratory/Chest Respiratory/Chest: Denies tachypnea Gastrointestinal Gastrointestinal: Reports abdominal pain and cramping Vital Signs Vital Signs Vital Signs: 10/02/24 18:01 10/02/24 18:01 10/02/24 18:06 Temperature Temperature Source Pulse Rate 115 H 120 H Respiratory Rate Respiratory Pattern Blood Pressure Blood Pressure Mean Blood Pressure Source Blood Pressure Position Blood Pressure Location Pulse Ox 95 Oxygen Delivery Method 10/02/24 18:06 10/02/24 20:05 10/02/24 20:05 Temperature 97.4 F L Temperature Source Temporal Temporal Pulse Rate 111 H Respiratory Rate 16 Respiratory Pattern Normal Blood Pressure 124/71 H Blood Pressure Mean 88 Blood Pressure Source Monitor Blood Pressure Position Semi-Fowlers Blood Pressure Location Right Arm Pulse Ox 97 100 Oxygen Delivery Method Room Air 10/02/24 20:05 10/02/24 20:15 10/02/24 20:30 Temperature 97.4 F L Temperature Source Temporal Temporal Pulse Rate 111 H 108 H Respiratory Rate 16 16 Respiratory Pattern Blood Pressure 124/71 H 113/79 Blood Pressure Mean 88 90 Blood Pressure Source Monitor Monitor Blood Pressure Position Semi-Fowlers Semi-Fowlers Blood Pressure Location Right Arm Right Arm Pulse Ox 100 100 Oxygen Delivery Method Room Air Room Air 10/02/24 20:30 10/02/24 20:45 10/02/24 20:45 Temperature 97.8 F 98.1 F Temperature Source Temporal Temporal Temporal Pulse Rate 102 H 112 H Respiratory Rate 16 16 Respiratory Pattern Blood Pressure 122/83 H 115/73 Blood Pressure Mean 96 87 Blood Pressure Source Monitor Monitor Blood Pressure Position Semi-Fowlers Semi-Fowlers Blood Pressure Location Right Arm Right Arm Pulse Ox 99 99 Oxygen Delivery Method Room Air Room Air 10/02/24 21:00 10/02/24 21:15 10/02/24 21:30 Temperature Temperature Source Pulse Rate 108 H 112 H 105 H Respiratory Rate 16 16 16 Respiratory Pattern Blood Pressure 111/82 H 142/97 H 123/74 H Blood Pressure Mean 91 112 90 Blood Pressure Source Monitor Monitor Monitor Blood Pressure Position Semi-Fowlers Semi-Fowlers Semi-Fowlers Blood Pressure Location Right Arm Right Arm Right Arm Pulse Ox 100 100 100 Oxygen Delivery Method Room Air Room Air Room Air Weight Weight: 70.579 kg Body Mass Index (BMI) 27.6 Physical Exam Const alert and oriented x3 General Appearance: in distress Positive for moderate HEENT normocephalic Head and Scalp: atraumatic Eyes PERRL Neck full (more content not included)... Normal [facility] L509.8000on 10-02-2024 Syphilis Abs Non-Reactive Normal [facility] Comment on above: Performed By: #### L 509.8000 #### [facility] [address] [place], [address] Operative Reporton Operative Report [facility] Medical Records Department [address] [place], [place] [address] Operative Report 10/02/242031 MR#: [id number] Acct: [id number] Name: LAXMI OLIVEIRA Rep #: [id number] : 1990 34 From: Andra Diaz MD PCP: Dr. Go Covington, DO Status:ADM IN Location: [id number] Assessment Plan (1) 34 weeks gestation of : (2) Rupture of uterus before onset of labor in third trimester: Maternal Data Information Final CAMRON: 11/07/24 Gestational age: 34+6 Operative Report (OB) Cecarean Details Procedure Type: Other (Rupture previous uterine incision) Date of Procedure: 10/02/24 Procedure Start Time: 18:14 Procedure Stop Time: 18:59 Time of Delivery: 18:15 Pre-Operative Diagnosis: Previous Uterine Surgery and Nonreassuring Status Post-Operative Diagnosis: Other Post-Operative Diag OTHER Post-Operative Diagnosis: Rupture of previous uterine incision Classification: Stat Type of Anesthesia: General Antibiotic Given: Ancef 2 grams IV x1 Drain: Caputo to straight drain (placed after procedure) Estimated Blood Loss: 500 cc Findings Description of surgery: Patient presented to the unit with increased abdominal. No bleeding. No leaking. EFM with HR in 80s. Confirmed with bedside US. Verbally consent for emergent . Patient was taken to the OR with IV in place. She was placed in a dorsal supine position with leftward tilt. Betadine was splashed over her abdomen. She was draped in the normal fashion. General anesthesia was induced. A Pfannenstiel incision was made and carried down to the underlying fascia. The fascia was incised in the midline and extended laterally. The muscles divided in the midline. The peritoneum was entered bluntly and extended manually. A large gush of wine colored fluid was present. The previous uterine incision was immediately obvious with placenta partially delivered. The abdomen was explored and the infant was found under the diaphragm. The feet were grasped and delivered through the abdominal incision. The rectus muscle were cut to assist with delivery of the head. The cord was camped and cut and the quickly passed to the nursery nurse. The placenta delivered with minimal effort. The uterus was exteriorized and cleared of all clot and debris. There was very little bleeding from the uterus or previous uterine incision. The uterus was repaired with 1-0 Vicryl x 2. The uterine arteries were intact. A small amount of clot was removed from behind the uterus. The uterus was returned the abdomen. The gutters cleared of all clots. The abdomen was copiously irrigated. The peritoneum was closed with 2-0 Monocryl. The fascia was closed with 1-0 Vicryl. The subcutaneous tissue was reapproximated with 2-0 Monocryl The skin was closed with 4-0 Monocryl. An MACHINIST AUTOMOTIVE was not available given the emergent nature of the procedure. The surgical assistant certified assisted with retraction when needed. Surgical findings: Infant floating in upper abdomen. Wine colored fluid in the abdomen. Complete dehiscence of previous uterine incision. Placenta partially detached. Presentation: Other (floating in abdomen) Amniotic Membrane Rupture Type: Spontaneous Amniotic Fluid Description: Other (unable to access) Placental Delivery Description: Spontaneous Placenta Disposition: Sent with transport team Specimen collected: Yes Description of specimen(s) removed: placenta sent with Cord Vessel Description: 3 Vessels Cord Entanglement: Other ( floating in abdomen) Cord Gases: VBG Infant A gender: Male (1 minute): 1 (5 minute): 3 (5 at 10 min 5 at 15 min) Delayed Cord Clamping: No Adhesive Bandage Making Operator human services manager: No Complications Complications: No 10/02/242142 Cosigner Signature (if applicable): CC: Dr. Andra Diaz MD; Dr. Go oCvington DO Signed [facility] Type AND Screenon 10-02-2024 Ab SCREEN GEL Negative [facility] Comment on above: Order Comment: [id number] Performed By: #### L 500.2500, L100.0100, BTS ####[facility] [address] [place], [place], [address] ABO and Rh group Nom (Bld) Blood group A Rh(D) positive [facility] Comment on above: Order Comment: [id number] Performed By: #### L 500.2500, L100.0100, BTS ####[facility] [address] [place], [place], [address] [facility] 09-29-2024 CNPN Telephone (OBGYWM) ---- LAXMI OLIVEIRA ([id number]) 1990 F Date Time Provider Department 09/29/24 FERNANDA ROGEL OBGYWM During your visit today, we recorded the following information about you: Braden Givens MA 09/29/2024 10:34 AM Signed Received FMLA paperwork for patient and spouse. Both completed and placed on providers desk for signature. JACK Apodaca Sara, MD 09/29/2024 1:00 PM Signed Signed thanks Jazmín Kumar, ANTONINO 09/29/2024 3:09 PM Signed FMLA paperwork signed and faxed for Pt and spouse. Pt notified and will hand picker original paperwork-placed at the nurses neck. ANTONINO Acosta Ashley 10/03/2024 1:34 PM Addendum Patient called to request FMLA paperwork to be faxed again. Her employer's HR department stated that their fax machine was jammed on the day it was sent. She stated that her husbands went through [place]. Jazmín Kumar, ANTONINO 10/06/2024 3:58 PM Signed Called Pt to inform her that the FMLA paperwork that has been faxed to the correct #, but is not going through. States she will call her employer to see if there is an additional fax # paperwork can be faxed to. ANTONINO Acosta Tara, ANTONINO 10/06/2024 5:06 PM Signed Called Pt-FMLA paperwork changed with updated dates based on early delivery. FMLA paperwork faxed for spouse and re-faxed for Pt to alternative fax and went through. Pt notified and voiced appreciation. ANTONINO Acosta Tara, ANTONINO 10/07/2024 1:40 PM Signed Called Pt to inform her fax for her spouse is not going through. Will continue to try and in the meantime, spouse will try and get an alternative fax # and will call office and let us know. ANTONINO Acosta Tara, RN 10/11/2024 3:28 PM Signed Pt had appt in office 10/11/24. [place] paperwork originals still at nurses desk. Pt states has been trying to contact employer to get alternative fax #, but has been unsuccessful. Advised Pt this RN would call his employer and leave message that we need alternative fax # as [phone] is not going through. Pt states will have her parents hand picker original paperwork in coming days. Jazmín Kumar RN Allergies As of Date: 09/29/2024 (No Known Allergies) Date Reviewed: 09/29/2024 Reviewed by: Lisa Garcia MA - Fully Assessed Reason for Visit: FMLA Paperwork [3564] Prescriptions as of 10/13/2024 - ferrous sulfate 325 mg (65 mg iron) tablet Take 1 tablet by mouth once daily. - vit,deanna 74/iron/folic ( VITAMIN 1+1 ORAL) Problem List As Of Date 09/29/2024 Noted Resolved delivery, delivered, current hospitali* 2 03/22/2024 COVID-19 affecting childbirth [O98.52, U07.1] 06/18/2022 03/22/2024 History of low transverse section [Z98*06/17/2022 Supervision of high risk in third tri*03/22/2024 Dysuria [R30.0] 04/13/2024 History of urinary tract infection [Z87.440] 06/15/2024 Patient desires vaginal after se*08/16/2024 Need for vaccination [Z23] 08/16/2024 Encounter Status:Closed by JAZMÍN KUMAR on 09/29/24 Normal [facility] URINE OB DIP B/Oon 4 Glucose Ql (U) Negative Neg mg/dL [facility] Interpretation and review of laboratory results Normal [facility] Protein.monoclonal (U) [Mass/Vol] Negative Neg mg/dL [facility] CBC W Auto Differential pane l (Bld)on 08-16-2024 Basophils (Bld) [#/Vol] 0.04 10*3/uL Normal <0.11 [facility] Comment on above: Order Comment: Speci men Type: BLOOD SPECIMENOrdering Facility: [facility] Address: [address] [place] [address] Performed By: #### 5 7021-8 ####[facility] [id number] [place] [address] [place] Basophils/100 WBC (Bld) 0.4 % Normal [facility] Comment on above: Order Comment: Speci men Type: BLOOD SPECIMENOrdering Facility: [facility] Address: [address] [place] [address] Performed By: #### 5 7021-8 ####[facility] [id number] [place] [address] [place] Differential cell count method Nom (Bld) Auto Normal [facility] Comment on above: Order Comment: Speci men Type: BLOOD SPECIMENOrdering Facility: [facility] Address: [address] [place] [address] Performed By: #### 5 7021-8 ####[facility] [id number] [place] [address] [place] Eosinophils (Bld) [#/Vol] 0.18 10*3/uL Normal <0.46 [facility] Comment on above: Order Comment: Speci men Type: BLOOD SPECIMENOrdering Facility: [facility] Address: [address] [place] [address] Performed By: #### 5 7021-8 ####[facility] [id number] [place] [address] [place] Eosinophils/100 WBC (Bld) 1.9 % Normal [facility] Comment on above: Order Comment: Speci men Type: BLOOD SPECIMENOrdering Facility: [facility] Address: [address] [place] [address] Performed By: #### 5 7021-8 ####[facility] COTYMARAMECMEHUL [id number] [place] [address] [place] Erythrocyte distribution width (RBC) [Ratio] 13.0 % Normal 11.5-15.0 [facility] Comment on above: Order Comment: Speci men Type: BLOOD SPECIMENOrdering Facility: [facility] Address: [address] [place] [address] Performed By: #### 5 7021-8 ####[facility] [id number] [place] [address] [place] Hematocrit (Bld) [Volume fraction] 35.0 % Low 36.0-46.0 [facility] Comment on above: Order Comment: Speci men Type: BLOOD SPECIMENOrdering Facility: [facility] Address: [address] [place] [address] Performed By: #### 5 7021-8 ####[facility] [id number] [place] [address] [place] Hemoglobin (Bld) [Mass/Vol] 11.6 g/dL Normal 11.5-15.5 [facility] Comment on above: Order Comment: Speci men Type: BLOOD SPECIMENOrdering Facility: [facility] Address: [address] [place] [address] Performed By: #### 5 7021-8 ####[facility] [id number] [place] [address] [place] Immature granulocytes (Bld) [#/Vol] 0.06 10*3/uL Normal <0.10 [facility] Comment on above: Order Comment: Speci men Type: BLOOD SPECIMENOrdering Facility: [facility] Address: [address] [place] [address] Performed By: #### 5 7021-8 ####[facility] [id number] [place] [address] [place] Immature granulocytes/100 WBC (Bld) 0.6 % Normal [facility] Comment on above: Order Comment: Speci men Type: BLOOD SPECIMENOrdering Facility: [facility] Address: [address] [place] [address] Performed By: #### 5 7021-8 ####[facility] [id number] [place] [address] [place] Lymphocytes (Bld) [#/Vol] 2.06 10*3/uL Normal 1.00-4.00 [facility] Comment on above: Order Comment: Speci men Type: BLOOD SPECIMENOrdering Facility: [facility] Address: [address] [place] [address] Performed By: #### 5 7021-8 ####[facility] [id number] [place] [address] [place] Lymphocytes/100 WBC (Bld) 21.9 % Normal [facility] Comment on above: Order Comment: Speci men Type: BLOOD SPECIMENOrdering Facility: [facility] Address: [address] [place] [address] Performed By: #### 5 7021-8 ####[facility] [id number] [place] [address] [place] MCH (RBC) [Entitic mass] 30.3 pg Normal 26.0-34.0 [facility] Comment on above: Order Comment: Speci men Type: BLOOD SPECIMENOrdering Facility: [facility] Address: [address] [place] [address] Performed By: #### 5 7021-8 ####[facility] [id number] [place] [address] [place] MCHC (RBC) [Mass/Vol] 33.1 g/dL Normal 30.5-36.0 [facility] Comment on above: Order Comment: Speci men Type: BLOOD SPECIMENOrdering Facility: [facility] Address: [address] [place] [address] Performed By: #### 5 7021-8 ####[facility] [id number] [place] [address] [place] MCV (RBC) [Entitic vol] 91.4 fL Normal 80.0-100.0 [facility] Comment on above: Order Comment: Speci men Type: BLOOD SPECIMENOrdering Facility: [facility] Address: [address] [place] [address] Performed By: #### 5 7021-8 ####[facility] [id number] [place] [address] [place] Monocytes (Bld) [#/Vol] 0.73 10*3/uL Normal <0.87 [facility] Comment on above: Order Comment: Speci men Type: BLOOD SPECIMENOrdering Facility: [facility] Address: [address] [place] [address] Performed By: #### 5 7021-8 ####[facility] [id number] [place] [address] [place] Monocytes/100 WBC (Bld) 7.8 % Normal [facility] Comment on above: Order Comment: Speci men Type: BLOOD SPECIMENOrdering Facility: [facility] Address: [address] [place] [address] Performed By: #### 5 7021-8 ####[facility] [id number] [place] [address] [place] Neutrophils (Bld) [#/Vol] 6.34 10*3/uL Normal 1.45-7.50 [facility] Comment on above: Order Comment: Speci men Type: BLOOD SPECIMENOrdering Facility: [facility] Address: [address] [place] [address] Performed By: #### 5 7021-8 ####[facility] [id number] [place] [address] [place] Neutrophils/100 WBC (Bld) 67.4 % Normal [facility] Comment on above: Order Comment: Speci men Type: BLOOD SPECIMENOrdering Facility: [facility] Address: [address] [place] [address] Performed By: #### 5 7021-8 ####[facility] [id number] [place] [address] [place] Nucleated RBC (Bld) [#/Vol] 10*3/uL Normal <0.01 [facility] Comment on above: Order Comment: Speci men Type: BLOOD SPECIMENOrdering Facility: [facility] Address: [address] [place] [address] Performed By: #### 5 7021-8 ####[facility] [id number] [place] [address] [place] Nucleated RBC/100 WBC (Bld) [Ratio] 0.0 /100 WBC Normal [facility] Comment on above: Order Comment: Speci men Type: BLOOD SPECIMENOrdering Facility: [facility] Address: [address] [place] [address] Performed By: #### 5 7021-8 ####[facility] [id number] [place] [address] [place] Platelet mean volume (Bld) [Entitic vol] 9.7 fL Normal 9.0-12.7 [facility] Comment on above: Order Comment: Speci men Type: BLOOD SPECIMENOrdering Facility: [facility] Address: [address] [place] [address] Performed By: #### 5 7021-8 ####[facility] [id number] [place] [address] [place] Platelets (Bld) [#/Vol] 221 10*3/uL Normal 150-400 [facility] Comment on above: Order Comment: Speci men Type: BLOOD SPECIMENOrdering Facility: [facility] Address: [address] [place] [address] Performed By: #### 5 7021-8 ####[facility] [id number] [place] [address] [place] RBC (Bld) [#/Vol] 3.83 10*6/uL Low 3.90-5.20 [facility] Comment on above: Order Comment: Speci men Type: BLOOD SPECIMENOrdering Facility: [facility] Address: [address] [place] [address] Performed By: #### 5 7021-8 ####[facility] [id number] [place] [address] [place] WBC (Bld) [#/Vol] 9.41 10*3/uL Normal 3.70-11.00 [facility] Comment on above: Order Comment: Speci men Type: BLOOD SPECIMENOrdering Facility: [facility] Address: [address] [place] [address] Performed By: #### 5 7021-8 ####[facility] [id number] [place] [address] [place] GESTATIONAL GLUCOSE SCREEN, 1-HOUR, 50 GRAM, NON-FASTINGon 08-16-2024 Glucose [Mass/Vol] 88 mg/dL Normal 74-134 [facility] Comment on above: Order Comment: Speci men Type: BLOOD SPECIMENOrdering Facility: [facility] Address: [address] [place] [address] Result Comment: [facility] Congress of Obstetricians and Gynecologists (Vero/Coustan) guidelines state a gestational diabetes mellitus positive screen is made, in women not previously diagnosed with overt diabetes, when the 1 hr plasma glucose level is equal to or above 140 mg/dL. [facility] Certified Master Safe Technician and [facility] recommends a 135 mg/dL cutoff. Performed By: #### G LTGST ####[facility] [id number] [place] [address] [place] Reagin and Treponema pallidu m IgG and IgM [Interp]on 08-16-2024 T. pallidum IgG+IgM IA Ql (S) Non-Reactive Normal Nonreactive [facility] Comment on above: Order Comment: Deepika davis Type: BLOOD SPECIMENOrdering Facility: [facility] Address: [address] [place] [address] Performed By: #### 7 3752-8 ####[facility] [id number] [place] [address] [place] Reagin+T pallidum IgG+IgM Se rPl-Impon 08-16-2024 Reagin and Treponema pallidum IgG and IgM [Interp] Cannot exclude recent Treponemal infection if specimen collected within 7-10 days after appearance of suspect lesions or 2-3 weeks after an exposure. Clinical correlation is required. Normal [facility] Comment on above: Order Comment: Deepika davis Type: BLOOD SPECIMENOrdering Facility: [facility] Address: [address] [place] [address] Performed By: #### 7 3752-8 ####[facility] LABIA [id number] [place] [id number] [place] CNPCiera 08-08-2024 CNPN Telephone (OBGYW) ---- LAXMI OLIVEIRA ([id number]) 1990 F Date Time Provider Department 08/08/24 ADRIANA LÓPEZ During your visit today, we recorded the following information about you: Mya Burroughs RN 08/08/2024 10:34 AM Signed Breast pump request received from [employer]. Order to provider to sign. ANTONINO Solis Lindsey, RN 08/11/2024 11:06 AM Signed Order sign and faxed. Mya Burroughs RN Allergies As of Date: 08/08/2024 (No Known Allergies) Date Reviewed: 07/14/2024 Reviewed by: Braden Givens MA - Fully Assessed Reason for Visit: breast pump [Other] Prescriptions as of 08/11/2024 - vit,deanna 74/iron/folic ( VITAMIN 1+1 ORAL) Problem List As Of Date 08/08/2024 Noted Resolved delivery, delivered, current hospitali* 2 03/22/2024 COVID-19 affecting childbirth [O98.52, U07.1] 06/18/2022 03/22/2024 S/P primary low transverse [Z98.891] 06/17/2022 Supervision of high risk in second tr*03/22/2024 Dysuria [R30.0] 04/13/2024 History of urinary tract infection [Z87.440] 06/15/2024 Encounter Status:Closed by MYA BURROUGHS on 08/11/24 [facility] ALPHA FETOPRO MATERNALon AFP, MATERNAL 1.00 MoM Normal [facility] Comment on above: Order Comment: Speci men Type: BLOOD SPECIMENOrdering Facility: [facility] Address: [address] [place] [address] Result Comment: 70.4 0 ng/mL Performed By: #### A FPMAT ####[facility] LABCLIA [id number] [place] [address] [place] DATE OF COLLECTION #1 06/23/24 [facility] Comment on above: Order Comment: Speci men Type: BLOOD SPECIMENOrdering Facility: [facility] Address: [address] [place] [address] Performed By: #### A FPMAT ####[facility] LABCLIA [id number] [place] [address] [place] DATE RECEIVED 06/24/24 Normal [facility] Comment on above: Order Comment: Speci men Type: BLOOD SPECIMENOrdering Facility: [facility] Address: [address] [place] [address] Performed By: #### A FPMAT ####[facility] LABCLIA [id number] [place] [address] [place] 11/07/24 Normal [facility] Comment on above: Order Comment: Speci men Type: BLOOD SPECIMENOrdering Facility: [facility] Address: [address] [place] [address] Performed By: #### A FPMAT ####[facility] LABCLIA [id number] [place] [address] [place] GESTATION AT DATE OF SAMPLE 20 weeks 3 days (by scan) Normal [facility] Comment on above: Order Comment: Speci men Type: BLOOD SPECIMENOrdering Facility: [facility] Address: [address] [place] [address] Performed By: #### A FPMAT ####[facility] LABCLIA [id number] [place] [address] [place] INSULIN DEPENDENT DIABETES None Normal [facility] Comment on above: Order Comment: Speci men Type: BLOOD SPECIMENOrdering Facility: [facility] Address: [address] [place] [address] Performed By: #### A FPMAT ####[facility] LABCLIA [id number] [place] [address] [place] IVF No Normal [facility] Comment on above: Order Comment: Speci men Type: BLOOD SPECIMENOrdering Facility: [facility] Address: [address] [place] [address] Performed By: #### A FPMAT ####[facility] LABCLIA [id number] [address] [place] MATERNAL AFP COMMENT See comments below Normal [facility] Comment on above: Order Comment: Speci men Type: BLOOD SPECIMENOrdering Facility: [facility] Address: [address] [place] [address] Result Comment: INTE RPRETATION Screening result : Screen negative Risk of NTD : 1 in 6,100 Comment : The interpretation is for NTD only A screen negative result does not exclude the possibility of a neural tube defect, because screening does not detect all affected pregnancies Performed By: #### A FPMAT ####[facility] LABCLIA [id number] [address] [place] MATERNAL AGE AT CAM[place] 34 years Normal [facility] Comment on above: Order Comment: Speci men Type: BLOOD SPECIMENOrdering Facility: [facility] Address: [address] [place] [address] Performed By: #### A FPMAT ####[facility] LABCLIA [id number] [address] [place] PATIENT'S WEIGHT DAY OF COLLECTION 134 lb. Normal [facility] Comment on above: Order Comment: Speci men Type: BLOOD SPECIMENOrdering Facility: [facility] Address: [address] [place] [address] Performed By: #### A FPMAT ####[facility] LABIA [id number] [place] [address] [place] INTERP-MATERNAL AFP Negative Normal Screen Negative [facility] Comment on above: Order Comment: Speci men Type: BLOOD SPECIMENOrdering Facility: [facility] Address: [address] [place] [address] Performed By: #### A FPMAT ####[facility] LABCLIA [id number] [place] [address] [place] PREVIOUS NTD None Normal [facility] Comment on above: Order Comment: Speci men Type: BLOOD SPECIMENOrdering Facility: [facility] Address: [address] [place] [address] Performed By: #### A FPMAT ####[facility] LABCLIA [id number] [place] [address] [place] RISK OF NTD ;1:6100 Normal [facility] Comment on above: Order Comment: Speci men Type: BLOOD SPECIMENOrdering Facility: [facility] Address: [address] [place] [address] Performed By: #### A FPMAT ####[facility] LABCLIA [id number] [place] [address] [place] SAMPLE #1 [id number] Normal [facility] Comment on above: Order Comment: Speci men Type: BLOOD SPECIMENOrdering Facility: [facility] Address: [address] [place] [address] Performed By: #### A FPMAT ####[facility] LABCLIA [id number] [address] [place] STAFF REVIEW (MATERNAL SCREENS) Reviewed by Micah Paul MD, Ph.D ([id number]) Normal [facility] Comment on above: Order Comment: Speci men Type: BLOOD SPECIMENOrdering Facility: [facility] Address: [address] [place] [address] Performed By: #### A FPMAT ####[facility] LABCLIA [id number] [facility] [id number] [address] [place] [facility] Brittani 06-15-2024 CNPN Telephone (OBGYWM) ---- LAXMI OLIVEIRA ([id number]) 1990 F Date Time Provider Department 06/15/24 KAVEH HERR OBGYWM During your visit today, we recorded the following information about you: Kaveh Herr APRN.COAL SAMPLE TESTER 06/15/2024 10:39 AM Signed Please attempt to obtain op record from [facility] for c/s 2021. Kaveh Herr APRN.Andra Barriga RN 06/15/2024 11:30 AM Signed Updated [facility]. C/S report from 06/17/22 now available to review. Andra Tong RN Allergies As of Date: 06/15/2024 (No Known Allergies) Date Reviewed: 06/15/2024 Reviewed by: Kaveh Herr APRN.BRISSA - Fully Assessed Reason for Visit: Records [Other] Prescriptions as of 06/15/2024 - vit,deanna 74/iron/folic ( VITAMIN 1+1 ORAL) Problem List As Of Date 06/15/2024 Noted Resolved delivery, delivered, current hospitali* 2 03/22/2024 COVID-19 affecting childbirth [O98.52, U07.1] 06/18/2022 03/22/2024 S/P primary low transverse [Z98.891] 06/17/2022 Supervision of high risk in second tr*03/22/2024 Dysuria [R30.0] 04/13/2024 History of urinary tract infection [Z87.440] 06/15/2024 Encounter Status:Closed by KAVEH HERR on 06/15/24 Normal [facility] Examination level ultrasound on 06-15-2024 Indication Standard anatomic survey Impression REMOTE READ The patient is referred for a detailed anatomic survey. - Single, live, intrauterine . - biometry is consistent with the established gestational age. - No malformations were visualized on a complete anatomic survey. - The amniotic fluid volume is normal amount. - The placenta is anterior, fundal. - The Transabdominal cervical length measures 41.9 mm with no evidence of funneling or other dynamic changes. - Not all structural malformations can be detected by ultrasound examination. Recommendations Additional follow-up as clinically indicated. Maternal Assessment Height 160 cm Height (ft) 5 ft Height (in) 3 in Physical Exam Initial weight (lb) 130 lb Initial BMI 23.03 kg/m Maternal assessment other: 3 Para 1 Method Transabdominal ultrasound examination. View: Adequate visualization Ritter . Number of fetuses: 1 Dating LMP on: 02/01/2024 GA by LMP 19 w + 2 d CAMRON by LMP: 11/07/2024 GA by prior assessment 19 w + 2 d CAMRON by prior assessment: 11/07/2024 Ultrasound examination on: 06/15/2024 GA by U/S based upon: AC, BPD, Femur, HC GA by U/S 19 w + 2 d CAMRON by U/S: 11/07/2024 Assigned: based on stated CAMRON, selected on 06/15/2024 Assigned GA 19 w + 2 d Assigned CAMRON: 11/07/2024 General Evaluation Cardiac activity present. FHR 157 bpm. movements: present. Presentation: cephalic Placenta: Placental site: anterior, fundal Umbilical cord: Cord vessels: 3 vessel cord Amniotic fluid: Amount of AF: normal amount. MVP 5.8 cm Growth Overview Exam date GA BPD (mm) HC (mm) AC (mm) FL (mm) HL (mm) EFW (g) 06/15/2024 19w 2d 42.9 37% 167.4 53% 142.4 56% 29.3 56% 29 57% 286 46% Biometry Standard BPD 42.9 mm 19w 0d 37% Hadlock OFD 61.5 mm 19w 6d 92% Nicolaides HC 167.4 mm 19w 3d 53% Nona Cerebellum tr 20.1 mm 19w 2d 53% Hill Nuchal fold 3.6 mm AC 142.4 mm 19w 4d 56% Hadlock Femur 29.3 mm 19w 1d 56% Nona Humerus 29.0 mm 19w 3d 57% Nona EFW 286 g 19w 2d 46% Hadlock EFW (lb) 0 lb EFW (oz) 10 oz EFW by: Hadlock (HC-AC-FL) Extended Train Station Server 7.2 mm CM 7.2 mm 97% Nicolaides Extremities / Bony Struc FL / HC 0.18 41% Hadlock Other Structures FHR 157 bpm Anatomy Cranium: normal Lateral ventricles: normal Choroid plexus: normal Midline falx: normal Cavum septi pellucidi: normal Cerebellum: normal Cisterna magna: normal Head / Neck Vermis: Normal but not required for a standard anatomy exam Neck: Normal but not required for a standard anatomy exam Nuchal fold: Normal but not required for a standard anatomy exam Lips: normal Profile: Normal but not required for a standard anatomy exam Nose: Normal but not required for a standard anatomy exam Face Maxilla: Normal but not required for a standard anatomy exam Mandible: Normal but not required for a standard anatomy exam Orbits: Normal but not required for a standard anatomy exam Lens: Normal but not required for a standard anatomy exam 4-chamber view: normal RVOT view: normal LVOT view: normal 3-vessel view: normal 5-mrlixb-czvqsxj view: normal Heart / Thorax Situs: situs solitus (normal) Aortic arch view: Normal but not required for a standard anatomy exam SVC: Normal but not required for a standard anatomy exam IVC: Normal but not required for a standard anatomy exam Cardiac axis: normal Rt lung: Normal but not required for a standard anatomy exam Lt lung: Normal but not required for a standard anatomy exam Diaphragm: Normal but not required for a standard anatomy exam Cord insertion: normal Stomach: normal Kidneys: normal Bladder: normal Genitals: normal Abdomen Abdom. wall: normal Cervical spine: normal Thoracic spine: normal Lumbar spine: normal Sacral spine: normal Arms: normal Legs: normal Rt upper arm: normal Rt forearm: normal Rt hand: normal Rt fingers: normal Lt upper arm: normal Lt forearm: normal Lt hand: normal Lt fingers: normal Rt upper leg: normal Rt lower leg: normal Rt foot: normal Lt upper leg: normal Lt lower leg: normal Lt foot: normal Gender: Unspecified Wants to know sex: no Maternal Structures Uterus / Cervix Uterus: Visualized Cervix: Visualized Approach: Transabdominal Cervical length 41.9 mm Ovaries / Tubes / Adnexa Rt ovary: Not visualized Lt ovary: Not visualized Performed By: Mya Dahl RDMS, RVT Read By: Ivis Hung M.D. MATERNAL MEDICINE [facility] Radiology Study observation (narrative) [facility] Bacteria Ur Culton 4 Bacteria identified Cx Nom (U) ORGANISM ID: 1 10,000 -<50,000 CFU/ml Mixed microbiota No further workup Normal [facility] Comment on above: Performed By: #### 6 30-4 ####[facility] LABCLIA [id number] [place] [address] [place] [facility] Bacteria Ur Culton 4 Bacteria identified Cx Nom (U) ORGANISM ID: 1 10,000 -<50,000 CFU/ml Normal urogenital guillermo Normal [facility] Comment on above: Performed By: #### 6 30-4 ####[facility] LABCLIA [id number] [place] [address] [place] CBC panel Auto (Bld)on 04-22 Erythrocyte distribution width (RBC) [Ratio] 12.8 % Normal 11.5-15.0 [facility] Comment on above: Order Comment: Speci men Type: BLOOD SPECIMENOrdering Facility: [facility] Address: [address] [place] [address] Performed By: #### 5 8410-2 ####[facility] [id number] [address] OF [facility] Hematocrit (Bld) [Volume fraction] 34.9 % Low 36.0-46.0 [facility] Comment on above: Order Comment: Speci men Type: BLOOD SPECIMENOrdering Facility: [facility] Address: [address] [place] [address] Performed By: #### 5 8410-2 ####[facility] SYSTEM[facility]CL[facility] [id number] [place] [address] [place] Hemoglobin (Bld) [Mass/Vol] 11.8 g/dL Normal 11.5-15.5 [facility] Comment on above: Order Comment: Speci men Type: BLOOD SPECIMENOrdering Facility: [facility] Address: [address] [place] [address] Performed By: #### 5 8410-2 ####[facility] [id number] [place] [address] [place] MCH (RBC) [Entitic mass] 29.7 pg Normal 26.0-34.0 [facility] Comment on above: Order Comment: Speci men Type: BLOOD SPECIMENOrdering Facility: [facility] Address: [address] [place] [address] Performed By: #### 5 8410-2 ####[facility] [id number] [place] [address] [place] MCHC (RBC) [Mass/Vol] 33.8 g/dL Normal 30.5-36.0 [facility] Comment on above: Order Comment: Speci men Type: BLOOD SPECIMENOrdering Facility: [facility] Address: [address] [place] [address] Performed By: #### 5 8410-2 ####[facility] [id number] [place] [address] [place] MCV (RBC) [Entitic vol] 87.9 fL Normal 80.0-100.0 [facility] Comment on above: Order Comment: Speci men Type: BLOOD SPECIMENOrdering Facility: [facility] Address: [address] [place] [address] Performed By: #### 5 8410-2 ####[facility] [id number] [place] [address] [place] Nucleated RBC (Bld) [#/Vol] 10*3/uL Normal <0.01 [facility] Comment on above: Order Comment: Speci men Type: BLOOD SPECIMENOrdering Facility: [facility] Address: [address] [place] [address] Performed By: #### 5 8410-2 ####[facility] ROSETTA PAZNCMELA [id number] [place] [address] [place] Platelet mean volume (Bld) [Entitic vol] 9.4 fL Normal 9.0-12.7 [facility] Comment on above: Order Comment: Speci men Type: BLOOD SPECIMENOrdering Facility: [facility] Address: [address] [place] [address] Performed By: #### 5 8410-2 ####[facility] [id number] [place] [address] [place] Platelets (Bld) [#/Vol] 250 10*3/uL Normal 150-400 [facility] Comment on above: Order Comment: Speci men Type: BLOOD SPECIMENOrdering Facility: [facility] Address: [address] [place] [address] Performed By: #### 5 8410-2 ####[facility]CL[facility] [id number] [place] [address] [place] RBC (Bld) [#/Vol] 3.97 10*6/uL Normal 3.90-5.20 [facility] Comment on above: Order Comment: Speci men Type: BLOOD SPECIMENOrdering Facility: [facility] Address: [address] [place] [address] Performed By: #### 5 8410-2 ####[facility]CL[facility] [id number] [place] [address] [place] WBC (Bld) [#/Vol] 7.97 10*3/uL Normal 3.70-11.00 [facility] Comment on above: Order Comment: Speci men Type: BLOOD SPECIMENOrdering Facility: [facility] Address: [address] [place] [address] Performed By: #### 5 8410-2 ####[facility] [id number] [place] [address] [place] HBV surface Ag Ser Qlon 04-04 HBV surface Ag Ql (S) Negative Normal Negative [facility] Comment on above: Order Comment: Speci men Type: BLOOD SPECIMENOrdering Facility: [facility] Address: [address] [place] [address] Performed By: #### 3 1201-7, 5195-3, 81174-5 ####[facility] LABCLIA [id number] [place] [address] [place] HCV Ab Ser Qlon 04-22-2024 HCV Ab Ql (S) Negative Normal Negative [facility] Comment on above: Order Comment: Speci men Type: BLOOD SPECIMENOrdering Facility: [facility] Address: [address] [place] [address] Result Comment: The result suggests no evidence of active infection with Hepatitis C virus. Should recent infection be suspected, repeat testing may be considered 4-6 weeks after this draw. Performed By: #### 1 6128-1 ####[facility] LABCLIA [id number] [place] [address] [place] HIV 1+2 Ab IA Qlon HIV 1 and 2 Ab IA.rapid Nom (S/P/Bld) Normal [facility] Comment on above: Order Comment: Speci men Type: BLOOD SPECIMENOrdering Facility: [facility] Address: [address] [place] [address] Result Comment: Test not indicated. Performed By: #### 3 1201-7, 5195-3, 99560-4 ####[facility] LABCLIA [id number] [place] [address] [place] HIV 1+2 Ab+HIV1 p24 Ag IA Ql Non-Reactive Normal Nonreactive [facility] Comment on above: Order Comment: Speci men Type: BLOOD SPECIMENOrdering Facility: [facility] Address: [address] [place] [address] Performed By: #### 3 1201-7, 5195-3, 78514-8 ####[facility] LABCLIA [id number] [place] [address] [place] HIV immunoassay testing algorithm interpretation (S/P/Bld) [Interp] Normal [facility] Comment on above: Order Comment: Speci men Type: BLOOD SPECIMENOrdering Facility: [facility] Address: [address] [place] [address] Result Comment: No e vidence of HIV-1 or HIV-2 infection. Should recent infection be suspected, repeat testing may be considered 2-3 weeks after this draw. [place] Rev. Code 3701.243(E): This information has been disclosed to you from confidential records protected from disclosure by state law. ???You shall make no further disclosure of this information without the specific, written, and informed release of the individual to whom it pertains or as otherwise permitted by state law. A general authorization for the release of medical or other information is not sufficient for the purpose of the release of HIV test results or diagnoses. Performed By: #### 3 1201-7, 5195-3, 85364-6 ####[facility] LABIA [id number] [place] [address] [place] HbA1c (Bld)on 04-22-2024 Average glucose Estimated from glycated hemoglobin (Bld) [Mass/Vol] 100 mg/dL Normal [facility] Comment on above: Order Comment: Speci men Type: BLOOD SPECIMENOrdering Facility: [facility] Address: [address] [place] [address] Result Comment: eAG: (Estimated average glucose) is a calculated value from HgbA1c and is healthcare sales representative of the average blood glucose level in the last 2-3 month period. Performed By: #### 5 5454-3 ####[facility] LABCLIA [id number] [place] [address] [place] HbA1c (Bld) [Mass fraction] 5.1 % Normal 4.3-5.6 [facility] Comment on above: Order Comment: Cristianei ryan Type: BLOOD SPECIMENOrdering Facility: [facility] Address: [address] [place] [address] Result Comment: Amer ican Diabetes Association guidelines indicate that patients with HgbA1c in the range 5.7-6.4% are at increased risk for development of diabetes, and intervention by lifestyle modification may be beneficial. HgbA1c greater or equal to 6.5% is considered diagnostic of diabetes. Performed By: #### 5 5454-3 ####[facility] LABCLIA [id number] [address] [place] [id number] PLUSon 04-22-2024 Cell-free DNA./Cell-free DNA.total Dosage of chromosome-specific cfDNA (cfDNA) [Molar fraction] 9% Normal [facility] Comment on above: Order Comment: Speci men Type: BLOOD SPECIMENOrdering Facility: [facility] Address: [address] [place] [address] Performed By: #### M AT21 ####[facility] LABCLIA [id number] [place] [address] Chr 13+18+21+X+Y aneuploidy Dosage of chromosome-specific cfDNA Ql (cfDNA) Negative Normal [facility] Comment on above: Order Comment: Speci men Type: BLOOD SPECIMENOrdering Facility: [facility] Address: [address] [place] [address] Performed By: #### M AT21 ####[facility] LABCLIA [id number] [place] [address] Chr 21 trisomy Dosage of chromosome-specific cfDNA Ql (cfDNA) Negative Normal [facility] Comment on above: Order Comment: Cristianei men Type: BLOOD SPECIMENOrdering Facility: [facility] Address: [address] [place] [address] Performed By: #### M AT21 ####[facility] LABCLIA [id number] [place] [address] Chr X and Y aneuploidy risk Sequencing Ql (cfDNA) [Interp] Not detected Normal [facility] Comment on above: Order Comment: Speci men Type: BLOOD SPECIMENOrdering Facility: [facility] Address: [address] [place] [address] Result Comment: Not Detected Not Detected Performed By: #### M AT21 ####[facility] LABCLIA [id number] [place] [address] Citation [place] (Reference lab test) Comment Normal [facility] Comment on above: Order Comment: Speci men Type: BLOOD SPECIMENOrdering Facility: [facility] Address: [address] [place] [address] Result Comment: 1. P carmen NAZARIO et al. [place] Med. 2012;14(3):296-305. 2. Lilly MEDEROS, et al. Prenat Diag. 2013;33(6):591-597. 3. Lauir C, et al. Clin Chem. 2015 Apr;61(4):608-616. 4. Kimmy NAZARIO, et al. [place] Med. 2011;13(11):913-920. 5. ACOG/SMFM Practice Bulletin No. 226, Jul 2020. Performed By: #### M AT21 ####[facility] LABCLIA [id number] [place] [address] Gestational age Estimated from conception date Ritter Normal [facility] Comment on above: Order Comment: Speci men Type: BLOOD SPECIMENOrdering Facility: [facility] Address: [address] [place] [address] Performed By: #### M AT21 ####[facility] LABCLIA [id number] [place] [address] GESTATIONALAGE AGE > OR = 9W Yes Normal [facility] Comment on above: Order Comment: Speci men Type: BLOOD SPECIMENOrdering Facility: [facility] Address: [address] [place] [address] Performed By: #### M AT21 ####[facility] LABCLIA [id number] [place] [address] Laboratory comment [place] (Report) Comment Normal [facility] Comment on above: Order Comment: Deepika davis Type: BLOOD SPECIMENOrdering Facility: [facility] Address: [address] [place] [address] Result Comment: The MaterniT(R) 21 PLUS laboratory-developed test (LDT) analyzes circulating cell-free DNA from a maternal blood sample. This test is used for screening purposes and not diagnostic. Clinical correlation is recommended. Validation data on twin pregnancies is limited and the ability of this test to detect aneuploidy in higher multiple gestations has not yet been validated. Performed By: #### M AT21 ####[facility] [id number] [place] [id number] director hematology name Nom (Provider) Comment Normal [facility] Comment on above: Order Comment: Deepika davis Type: BLOOD SPECIMENOrdering Facility: [facility] Address: [address] [place] [address] Result Comment: This specimen showed an expected representation of chromosome 21, 18 and 13 material. Clinical correlation is suggested. Comment Nicanor Ellsworth MD, PhD, Director, [employer] Performed By: #### M AT21 ####[facility] [id number] [place] [id number] LIMITATIONS OF THE TEST Comment Normal [facility] Comment on above: Order Comment: Deepika davis Type: BLOOD SPECIMENOrdering Facility: [facility] Address: [address] [place] [address] Result Comment: Tung e the results of these tests are highly reliable, discordant results, including inaccurate sex prediction, may occur due to placental, maternal, or mosaicism or neoplasm; vanishing twin; prior maternal organ transplant; or other causes. These tests are screening tests and not diagnostic; they do not replace the accuracy and precision of diagnosis with CVS or amniocentesis. A patient with a positive test result should be referred for genetic counseling and offered invasive diagnosis for confirmation of test results.[5] The results of this testing, including the benefits and limitations, should be discussed with a qualified healthcare provider. management decisions, including termination of the , should not be based on the results of these tests alone. The healthcare provider is responsible for the use of this information in the management of their patient. Sex chromosomal aneuploidies are not reportable for known multiple gestations. A negative result does not ensure an unaffected nor does it exclude the possibility of other chromosomal abnormalities or defects which are not a part of these tests. An uninformative result may be reported, the causes of which may include, but are not limited to, insufficient sequencing coverage, noise or artifacts in the region, amplification or sequencing bias, or insufficient fraction. These tests are not intended to identify pregnancies at risk for neural tube defects or ventral wall defects. Testing for whole chromosome abnormalities (including sex chromosomes) and for subchromosomal abnormalities could lead to the potential discovery of both and maternal genomic abnormalities that could have major, minor, or no, clinical significance. Evaluating the significance of a positive or a non-reportable result may involve both invasive testing and additional studies on the mother. Such investigations may lead to a diagnosis of maternal chromosomal or subchromosomal abnormalities, which on occasion may be associated with benign or malignant maternal neoplasms. These tests may not accurately identify triploidy, balanced rearrangements, or the precise location of subchromosomal duplications or deletions; these may be detected by diagnosis with CVS or amniocentesis. The ability to report results may be impacted by maternal BMI, maternal weight, maternal systemic lupus erythematosus (SLE) and/or by certain pharmaceutical agents such as low molecular weight heparin (for example: Lovenox(R), Xaparin(R), Clexane(R) and Fragmin(R)). Performed By: #### M AT21 ####[facility] [id number] [place] [address] Monosomy X risk Dosage of chromosome-specific cfDNA Ql (Plasma cell-free+WBC DNA) [Interp] Not detected Normal [facility] Comment on above: Order Comment: Speci men Type: BLOOD SPECIMENOrdering Facility: [facility] Address: [address] [place] [address] [place] [address] Performed By: #### M AT21 ####[facility] LABCLIA [id number] [place] [id number] NEGATIVE PREDICTIVE VALUE Note Normal [facility] Comment on above: Order Comment: Speci men Type: BLOOD SPECIMENOrdering Facility: [facility] Address: [address] [place] [address] Result Comment: The Negative Predictive Value (NPV) for trisomy 21, 18, and 13 is greater than 99%. The NPV for SCA and ESS cannot be calculated as SCA and ESS are only reported when an abnormality is detected. Performed By: #### M AT21 ####[facility] LABCLIA [id number] [place] [id number] NOTE Comment Normal [facility] Comment on above: Order Comment: Speci men Type: BLOOD SPECIMENOrdering Facility: [facility] Address: [address] [place] [address] Result Comment: See [employer] is a subsidiary of [employer], using the brand [employer]. This test was developed and its performance characteristics determined by [employer]. It has not been cleared or approved by the Food and Drug Administration. This laboratory is certified under the Clinical Laboratory Improvement Amendments (CLIA) as qualified to perform high complexity clinical laboratory testing and accredited by the [employer] (CAP). If there is future clinical need for adding MaterniT GENOME testing, this specimen will be available until term. [facility] [facility] samples will not be retained beyond 60 days. [facility] patients will have to send a new sample for re-sequencing ([facility] Test Code: [id number]). Performed By: #### M AT21 ####[facility] LABCLIA [id number] [place] [id number] PERFORMANCE CHARACTERISTICS Note Normal [facility] Comment on above: Order Comment: Speci men Type: BLOOD SPECIMENOrdering Facility: [facility] Address: [address] [place] [address] Result Comment: ! Sex ! Accuracy: 99.4% ! ! ! ! Region (associated syndrome) ! Est. Sens# ! Est. Spec ! ! ! ! Trisomy 21 (Down Syndrome) ! 99.1% ! 99.9% ! ! ! ! Trisomy 18 (Boudreaux Syndrome) ! >99.9% ! 99.6% ! ! ! ! Trisomy 13 (Patau Syndrome) ! 91.7% ! 99.7% ! ! ! ! Sex Chromosome Aneuploidies## ! 96.2% ! 99.7% ! ! ! * As reported in [facility] database nstd37 [https://www.ncbi.nlm.nih.gov/dbvar/studies/nstd37/ ] # Estimated Sensitivity. Sensitivity estimated across the observed size distribution of each syndrome [per [facility] database nstd37] and across the range of fractions observed in routine clinical NIPT. Actual sensitivity can also be influenced by other factors such as the size of the event, total sequence counts, amplification bias, or sequence bias. ## Ritter gestation only. Performed By: #### M AT21 ####[facility] LABCLIA [id number] [place] [address] POSITIVE PREDICTIVE VALUE N/A Normal [facility] Comment on above: Order Comment: Speci men Type: BLOOD SPECIMENOrdering Facility: [facility] Address: [address] [place] [address] Performed By: #### M AT21 ####[facility] [place] LABCLIA [id number] [place] [address] Reference Lab Test Method Comment Normal [facility] Comment on above: Order Comment: Speci men Type: BLOOD SPECIMENOrdering Facility: [facility] Address: [address] [place] [address] Result Comment: See Notes Circulating cell-free DNA was purified from the plasma component of maternal blood. The extracted DNA was then converted into a genomic DNA library for aneuploidy analysis of chromosomes 21, 18, and 13 via next generation sequencing.[1] Optional findings based on the test order include sex chromosome aneuploidy (SCA)[2], and enhanced sequencing series (ESS)[3], which will only be reported on as an additional finding when an abnormality is detected. SCA testing includes information on X and Y representation, while ESS testing includes deletions in selected regions (22q, 15q, 11q, 8q, 5p, 4p, 1p) and trisomy of chromosomes 16 and 22. Performed By: #### M AT21 ####[facility] LABCLIA [id number] [place] [address] Sex Dosage of chromosome-specific cfDNA Nom (cfDNA) Comment Normal [facility] Comment on above: Order Comment: Speci men Type: BLOOD SPECIMENOrdering Facility: [facility] Address: [address] [place] [address] Result Comment: Cons istent with Male Performed By: #### M AT21 ####[facility] LABCLIA [id number] [place] [address] Test performance information [place] (Unsp spec) Comment Normal [facility] Comment on above: Order Comment: Deepika davis Type: BLOOD SPECIMENOrdering Facility: [facility] Address: [address] [place] [address] Result Comment: The performance characteristics of the MaterniT(R) 21 PLUS laboratory-developed test (LDT) have been determined in a clinical validation study with women at increased risk for chromosomal aneuploidy.[1-4] Performed By: #### M AT21 ####[facility] LABCLIA [id number] [place] [address] Trisomy 13 risk Dosage of chromosome-specific cfDNA Ql (cfDNA) [Interp] Negative Normal [facility] Comment on above: Order Comment: Deepika davis Type: BLOOD SPECIMENOrdering Facility: [facility] Address: [address] [place] [address] Performed By: #### M AT21 ####[facility] LABCLIA [id number] [place] [address] Trisomy 18 risk Dosage of chromosome-specific cfDNA Ql (Plasma cell-free+WBC DNA) [Interp] Negative Normal [facility] Comment on above: Order Comment: Deepika davis Type: BLOOD SPECIMENOrdering Facility: [facility] Address: [address] [place] [address] Performed By: #### M AT21 ####[facility] LABCLIA [id number] [place] [address] RUBELLA IGG ANTIBODYon 04-22 RUBELLA IGG AB, QUAL Positive Normal Positive [facility] Comment on above: Order Comment: Deepika davis Type: BLOOD SPECIMENOrdering Facility: [facility] Address: [address] [place] [address] Result Comment: The result suggests recent or past exposure to Rubella virus or history of Rubella vaccination. Positive result may also be seen due to presence of passively-transferred antibodies. Please correlate with patient's history. Performed By: #### R UBIGG ####[facility] LABCLIA [id number] [place] [address] [place] Reagin and Treponema pallidu m IgG and IgM [Interp]on 04-22-2024 T. pallidum IgG+IgM IA Ql (S) Non-Reactive Normal Nonreactive [facility] Comment on above: Order Comment: Speci men Type: BLOOD SPECIMENOrdering Facility: [facility] Address: [address] [place] [address] Performed By: #### 3 1201-7, 5195-3, 24212-0 ####[facility] LABCLIA [id number] [place] [address] [place] Reagin+T pallidum IgG+IgM Se rPl-Impon 04-22-2024 Reagin and Treponema pallidum IgG and IgM [Interp] Cannot exclude recent Treponemal infection if specimen collected within 7-10 days after appearance of suspect lesions or 2-3 weeks after an exposure. Clinical correlation is required. Normal [facility] Comment on above: Order Comment: Speci men Type: BLOOD SPECIMENOrdering Facility: [facility] Address: [address] [place] [address] Performed By: #### 3 1201-7, 5195-3, 98841-8 ####[facility] LABCLIA [id number] [place] [address] [place] TYPE + SCREEN PRENATALon ABO A Normal [facility] Comment on above: Order Comment: Speci men Type: BLOOD SPECIMENOrdering Facility: [facility] Address: [address] [place] [address] Performed By: #### T SPN ####[facility] BLOOD BANKIA [id number] [place] [address] [place] HISTORICAL AB SCR STATUS Negative Normal [facility] Comment on above: Order Comment: Speci men Type: BLOOD SPECIMENOrdering Facility: [facility] Address: [address] [place] [address] Performed By: #### T SPN ####[facility] BLOOD BANKCLIA [id number] [address] Rh Nom (Bld) Positive Normal [facility] Comment on above: Order Comment: Speci men Type: BLOOD SPECIMENOrdering Facility: [facility] Address: [address] [place] [address] Performed By: #### T SPN ####[facility] BLOOD BANKCLIA [id number] [address] TYPE AND SCREEN EXPIRATION 04/25/2024 23:59 Normal [facility] Comment on above: Order Comment: Speci men Type: BLOOD SPECIMENOrdering Facility: [facility] Address: [address] [place] [address] Performed By: #### T SPN ####[facility] BLOOD BANKCLIA [id number] [address] Brittani 04-18-2024 [facility] Telephone (OBGYWM) ---- LAXMI OLIVEIRA ([id number]) 1990 F Date Time Provider Department 04/18/24 FREDERIC MÉNDEZ OBTRICE During your visit today, we recorded the following information about you: Allergies As of Date: 04/18/2024 (No Known Allergies) Date Reviewed: 04/13/2024 Reviewed by: Verna Bustillo LPN - Fully Assessed Prescriptions as of 04/18/2024 - phenazopyridine (PYRIDIUM) 200 mg tablet Take 1 tablet by mouth three times a day as needed. - nitrofurantoin monohydrate and macrocrystal (MACROBID) 100 mg capsule Take 1 capsule by mouth two times a day for 7 days. - vit,deanna 74/iron/folic ( VITAMIN 1+1 ORAL) Problem List As Of Date 04/18/2024 Noted Resolved delivery, delivered, current hospitali* 2 03/22/2024 COVID-19 affecting childbirth [O98.52, U07.1] 06/18/2022 03/22/2024 S/P primary low transverse [Z98.891] 06/17/2022 Encounter for supervision of normal i*03/22/2024 Dysuria [R30.0] 04/13/2024 Encounter Status:Closed by FREDERIC MÉNDEZ on 04/18/24 Normal [facility] 04-15-2024 CNPN Telephone (OBGYWM) ---- LAXMI OLIVEIRA ([id number]) 1990 F Date Time Provider Department 04/15/24 VIVIANE GUALLPA During your visit today, we recorded the following information about you: Verna Bustillo LPN 04/15/2024 1:12 PM Signed Ob patient is 10w4d and saw Dr. Méndez on 04/13/2024 for UTI symptoms. Culture results are back and + for UTI. Patient has been treated recently for UTIs with Macrobid and asking if a different antibiotic can be prescribed. Please review. Culture 50,000-<100,000 CFU/ml Staphylococcus saprophyticus Abnormal Routine susceptibility testing of S. saprophyticus urine isolates is not performed because uncomplicated UTIs respond to urine concentrations of agents commonly used (e.g. Nitrofurantoin, TMP/SMX, or a quinolone). <10,000 CFU/ml Normal urogenital guillermo This test was developed and its performance characteristics determined by the [facility]'s [facility] [place] ([facility]). It has not been cleared or approved by the FDA. [facility] is regulated under CLIA as qualified to perform high-complexity testing. This test is used for clinical purposes. It should not be regarded as investigational or for research. Resulting Agency: [facility] Specimen Collected: 04/13/24 4:15 PM EDT Last Resulted: 04/14/24 10:34 PM EDT Viviane Guallpa APRN.ROXI 04/15/2024 1:23 PM Signed 03/22 E.Faecalis treated with Macrobid on 03/24/24 Will try Macrobid again due to Gestational age. ANDREA in two weeks and can then environmental change analyst if needed with sensitivity. I will send Macrobid 100mg PO BID x 7 days and Pyridium as well for symptom management and help with treatment. Urine ANDREA in 2 weeks. Viviane Guallpa APRN.Verna Escobar LPN 04/15/2024 2:57 PM Signed Patient notified Allergies As of Date: 04/15/2024 (No Known Allergies) Date Reviewed: 04/13/2024 Reviewed by: Verna Bustillo LPN - Fully Assessed Reason for Visit: Results [95] Cmt: Urine culture Order(s):phenazopyr idine (PYRIDIUM) 200 mg tabletTake 1 tablet by mouth three times a day as needed.Disp: 9 tabletRfl: 0 nitrofurantoin monohydrate and macrocrystal (MACROBID) 100 mg capsuleTake 1 capsule by mouth two times a day for 7 days.Disp: 14 capsuleRfl: 0 Prescriptions as of 04/15/2024 - phenazopyridine (PYRIDIUM) 200 mg tablet Take 1 tablet by mouth three times a day as needed. - nitrofurantoin monohydrate and macrocrystal (MACROBID) 100 mg capsule Take 1 capsule by mouth two times a day for 7 days. - vit,deanna 74/iron/folic ( VITAMIN 1+1 ORAL) Problem List As Of Date 04/15/2024 Noted Resolved delivery, delivered, current hospitali* 2 03/22/2024 COVID-19 affecting childbirth [O98.52, U07.1] 06/18/2022 03/22/2024 S/P primary low transverse [Z98.891] 06/17/2022 Encounter for supervision of normal i*03/22/2024 Dysuria [R30.0] 04/13/2024 Prescriptions ordered this encounter Disp Refills Start End PHENAZOPYRIDINE 200 MG TABLET 9 ta* 0 04/15/2024 Route: ORAL Sig: Take 1 tablet by mouth three times a day as needed. NITROFURANTOIN MONOHYDRATE AND MACROCR* 14 c* 0 04/15/2024 04/22/2024 Route: ORAL Sig: Take 1 capsule by mouth two times a day for 7 days. Encounter Status:Closed by VERNA BUSTILLO on 04/15/24 Normal [facility] Bacteria Ur Culton Bacteria identified Cx Nom (U) ORGANISM ID: 1 50,000-<100,000 CFU/ml Staphylococcus saprophyticus Routine susceptibility testing of S. saprophyticus urine isolates is not performed because uncomplicated UTIs respond to urine concentrations of agents commonly used (e.g. Nitrofurantoin, TMP/SMX, or a quinolone). ORGANISM ID: 2 <10,000 CFU/ml Normal urogenital guillermo Normal [facility] Comment on above: Performed By: #### 6 30-4 ####[facility] LABCLIA [id number] [place] [address] [place] UA DIP, URINE (POC)on 2023 BILIRUBIN UA (POCT) Negative Negative [facility] CLARITY UA (POCT) Clear [facility] COLOR UA (POCT) Yellow [facility] GLUCOSE UA (POCT) Negative Negative mg/dL [facility] Hemoglobin Ql (U) Negative Negative [facility] KETONE UA (POCT) Negative Negative mg/dL [facility] LEUKOCYTES UA (POCT) Negative Negative [facility] NITRITE UA (POCT) Negative Negative [facility] PH UA (POCT) 7.0 4.5 - 8.0 [facility] Protein Ql (U) Negative Negative mg/dL [facility] SPECIFIC GRAVITY UA (POCT) 1.015 1.005 - 1.030 [facility] UROBILINOGEN UA (POCT) 0.2 Normal E.U./d L [facility] Location:[facility], [address], [place], [address] [facility] POINT OF CARE [facility] Brittani 03-24-2024 CARLOS Telephone (OBGYWM) ---- LAXMI OLIVEIRA ([id number]) 1990 F Date Time Provider Department 03/24/24 TERESSA GIBBS OBGYWM During your visit today, we recorded the following information about you: Teressa Gibbs APRN.BRISSA 03/24/2024 8:31 AM Signed Urine clx +UTI Macrobid sent. Teressa Gibbs APRN.Katheryn Kay LPN 03/24/2024 10:27 AM Signed Spoke with pt and results given. Pt to check with pharmacy later today. Katheryn Aranda LPN Allergies As of Date: 03/24/2024 (No Known Allergies) Date Reviewed: 03/22/2024 Reviewed by: Rosina Ruiz MA - Fully Assessed Reason for Visit: Results [95] Order(s):nitrofuran toin monohydrate and macrocrystal (MACROBID) 100 mg capsuleTake 1 capsule by mouth two times a day for 7 days.Disp: 14 capsuleRfl: 0 Prescriptions as of 03/24/2024 - nitrofurantoin monohydrate and macrocrystal (MACROBID) 100 mg capsule Take 1 capsule by mouth two times a day for 7 days. - vit,deanna 74/iron/folic ( VITAMIN 1+1 ORAL) Problem List As Of Date 03/24/2024 Noted Resolved delivery, delivered, current hospitali* 2 03/22/2024 COVID-19 affecting childbirth [O98.52, U07.1] 06/18/2022 03/22/2024 S/P primary low transverse [Z98.891] 06/17/2022 Encounter for supervision of normal i*03/22/2024 Prescriptions ordered this encounter Disp Refills Start End NITROFURANTOIN MONOHYDRATE AND MACROCR* 14 c* 0 03/24/2024 03/31/2024 Route: ORAL Sig: Take 1 capsule by mouth two times a day for 7 days. Encounter Status:Closed by KATHERYN ARANDA on 03/24/24 Normal [facility] Bacteria Ur Culton Bacteria identified Cx Nom (U) ORGANISM ID: 1 50,000-<100,000 CFU/ml Enterococcus faecalis Cephalosporins, clindamycin, and TMP-SMX are not effective for the treatment of enterococcal infections. ORGANISM ID: 1 (ENTEROCOCCUS FAECALIS) ANTIBIOTIC INTERPRETATION RENATO STATUS REFERENCE RANGE Ampicillin S <=2 F Susceptible <=8 , Resistant >8 Vancomycin S 2 F Susceptible <=4 , Intermediate >4 , Resistant >16 Nitrofurantoin S <=16 F Susceptible <=32 , Intermediate >32 , Resistant >64 Abnormal [facility] Comment on above: Performed By: #### 6 30-4 ####[facility] LABCLIA [id number] [place] [address] [place] C. trachomatis+N. gonorrhoea e DNA NIYA+probe Ql (Unsp spec)on 03-22-2024 C. trachomatis rRNA NIYA+probe Ql (Unsp spec) Negative Negative for Chlamydia trachomatis by amplificaton [facility] Interpretation and review of laboratory results Normal [facility] N. gonorrhoeae rRNA NIYA+probe Ql (Unsp spec) Negative Negative for Neisseria gonorrhoeae by amplification [facility] C. trachomatis rRNA NIYA+probe Ql (Unsp spec) Negative Normal Negative for Chlamydia trachomatis by amplificaton [facility] Comment on above: Order Comment: Speci men Type: SWABOrdering Facility: [facility] Address: [address] [place] [address] Performed By: #### 3 6902-5 ####[facility] LABIA [id number] [address] STATES OF [facility] N. gonorrhoeae rRNA NIYA+probe Ql (Unsp spec) Negative Normal Negative for Neisseria gonorrhoeae by amplification [facility] Comment on above: Order Comment: Speci men Type: SWABOrdering Facility: [facility] Address: [address] [place] [address] Performed By: #### 3 6902-5 ####[facility] LABCLIA [id number] [place] [address] [place] POC [employer]ER ULTRASOUNDon 03-22-20 Indication Confirmation of intrauterine . Confirmation of cardiac activity Impression CRL is appropriate for clinical dates, corresponding to CAMRON 11/07/2024 cardiac activity is visualized Recommendations Follow up for NT scan if desired Method Transvaginal ultrasound examination. View: Adequate visualization Ritter . Number of embryos: 1 Dating LMP on: 02/01/2024 GA by LMP 7 w + 1 d CAMRON by LMP: 11/07/2024 Ultrasound examination on: 03/22/2024 GA by U/S based upon: CRL GA by U/S 7 w + 1 d CAMRON by U/S: 11/07/2024 Assigned: based on the LMP, selected on 03/22/2024 Assigned GA 7 w + 1 d Assigned CAMRON: 11/07/2024 Biometry Standard FHR 135 bpm CRL 10.0 mm 7w 1d 78% Hadlock Assessment Gestational sac: visualized Location: intrauterine Yolk sac: visualized Embryo: visualized CRL 10.0 mm 7w 1d 78% [place] Cardiac activity: present FHR 135 bpm General Evaluation Cardiac activity present. FHR 135 bpm Performed By: Teressa Gibbs CNP Read By: Teressa Gibbs CNP MATERNAL MEDICINE [facility] Radiology Study observation (narrative) [facility] Urine Cultureon 02-13-2024 URC Below infection level. Mixed Gram Pos Gram Neg Org Perley Count <1000 MIXC Mixed contaminants. Submit a new specimen if indicated. Normal [facility] Comment on above: Performed By: #### M 100.2200 #### [facility] [address] [place], [address] OBSTETRIC ULTRASOUND WHIon 1 10-18-2022 [facility] Serum or plasma choriogonado tropin detectionOrdered By: Timothy Hanson on 08-14-2023 HCG ( test) Ql 1430 mIU/mL <4 [facility] Comment on above: hCG levels with Gest ational AgeGestational Age hCG mIU/mL (IU/L)0.2 - 1 week 5 - 501-2 weeks 50 - 5002-3 weeks 100 - 12617-7 weeks 500 - 862570-2 weeks 1000 - 255406-4 weeks 50963 - 100,0006-8 weeks 89667 - 200,0002-3 months 32208 - 100,000 OBSTETRIC ULTRASOUND WHIon 1 10-05-2022 [facility] HCG QUANTITATIVEon HCG.beta subunit Qn 1382.0 m[IU]/mL High <5.0 mIU/mL [facility] Hemogram and platelets WO di fferential panel (Bld)on 06-18-2022 Erythrocyte distribution width (RBC) [Ratio] 13.5 % Normal 11.0-14.8 [facility] Comment on above: Performed By: #### 2 4317-0 #### [facility] [address] [place] [address] Hematocrit (Bld) [Volume fraction] 27.6 % Low 35.0-45.0 [facility] Comment on above: Performed By: #### 2 4317-0 #### [facility] [address] [place] [address] Hemoglobin (Bld) [Mass/Vol] 9.2 g/dL Low 12.0-16.0 [facility] Comment on above: Performed By: #### 2 4317-0 #### [facility] [address] [place] [address] MCH 30.3 pcg Normal 27.0-34.0 [facility] Comment on above: Performed By: #### 2 4317-0 #### [facility] [address] [place] [address] MCHC (RBC) [Mass/Vol] 33.3 g/dL Normal 32.0-36.0 [facility] Comment on above: Performed By: #### 2 4317-0 #### [facility] [address] [place] [address] MCV (RBC) [Entitic vol] 90.9 fL Normal 80.0-97.0 [facility] Comment on above: Performed By: #### 2 4317-0 #### [facility] [address] [place] [address] Platelet mean volume (Bld) [Entitic vol] 8.0 fL Normal 6.2-12.1 [facility] Comment on above: Performed By: #### 2 4317-0 #### [facility] [address] [place] [address] Platelets (Bld) [#/Vol] 179 10*3/uL Normal 142-424 [facility] Comment on above: Performed By: #### 2 4317-0 #### [facility] [address] [place] [address] RBC (Bld) [#/Vol] 3.04 10*6/uL Low 3.80-5.10 [facility] Comment on above: Performed By: #### 2 4317-0 #### [facility] [address] [place] [address] WBC (Bld) [#/Vol] 13.4 10*3/uL High 4.6-10.2 [facility] Comment on above: Performed By: #### 2 4317-0 #### [facility] [address] [place] [address] Blood type and Indirect anti body screen panel (Bld)on 06-17-2022 ABO group Nom (Bld) A Normal [facility] Comment on above: Performed By: #### 3 4532-2 #### [facility] [address] [place] [address] Rh Type Positive Normal [facility] Comment on above: Performed By: #### 3 4532-2 #### [facility] [address] [place] [address] Hemogram and platelets WO di fferential panel (Bld)on 06-17-2022 Basophils (Bld) [#/Vol] 0.10 10*3/uL Normal 0.00-0.20 [facility] Comment on above: Performed By: #### 2 4317-0 #### [facility] [address] [place] [address] Basophils/100 WBC (Bld) 0.8 % Normal 0.0-2.0 [facility] Comment on above: Performed By: #### 2 4317-0 #### [facility] [address] [place] [address] Eosinophils (Bld) [#/Vol] 0.10 10*3/uL Normal 0.00-0.70 [facility] Comment on above: Performed By: #### 2 4317-0 #### [facility] [address] [place] [address] Eosinophils/100 WBC (Bld) 1.0 % Normal 0.0-7.0 [facility] Comment on above: Performed By: #### 2 4317-0 #### [facility] [address] [place] [address] Erythrocyte distribution width (RBC) [Ratio] 13.5 % Normal 11.0-14.8 [facility] Comment on above: Performed By: #### 2 4317-0 #### [facility] [address] [place] [address] Hematocrit (Bld) [Volume fraction] 35.1 % Normal 35.0-45.0 [facility] Comment on above: Performed By: #### 2 4317-0 #### [facility] [address] [place] [address] Hemoglobin (Bld) [Mass/Vol] 11.7 g/dL Low 12.0-16.0 [facility] Comment on above: Performed By: #### 2 4317-0 #### [facility] [address] [place] [address] Lymphocytes (Bld) [#/Vol] 2.80 10*3/uL Normal 1.00-4.80 [facility] Comment on above: Performed By: #### 2 4317-0 #### [facility] [address] [place] [address] Lymphocytes/100 WBC (Bld) 27.4 % Normal 22.0-44.0 [facility] Comment on above: Performed By: #### 2 4317-0 #### [facility] [address] [place] [address] MCH 29.9 pcg Normal 27.0-34.0 [facility] Comment on above: Performed By: #### 2 4317-0 #### [facility] [address] [place] [address] MCHC (RBC) [Mass/Vol] 33.3 g/dL Normal 32.0-36.0 [facility] Comment on above: Performed By: #### 2 4317-0 #### [facility] [address] [place] [address] MCV (RBC) [Entitic vol] 89.7 fL Normal 80.0-97.0 [facility] Comment on above: Performed By: #### 2 4317-0 #### [facility] [address] [place] [address] Monocytes (Bld) [#/Vol] 0.80 10*3/uL Normal 0.00-0.90 [facility] Comment on above: Performed By: #### 2 4317-0 #### [facility] [address] [place] [address] Monocytes/100 WBC (Bld) 8.0 % Normal 4.0-23.0 [facility] Comment on above: Performed By: #### 2 4317-0 #### [facility] [address] [place] [address] Neutrophils Absolute 6.50 K/mcL Normal 1.80-7.70 [facility] Comment on above: Performed By: #### 2 4317-0 #### [facility] [address] [place] [address] Neutrophils/100 WBC (Bld) 62.8 % Normal 40.0-70.0 [facility] Comment on above: Performed By: #### 2 4317-0 #### [facility] [address] [place] [address] Platelet mean volume (Bld) [Entitic vol] 8.4 fL Normal 6.2-12.1 [facility] Comment on above: Performed By: #### 2 4317-0 #### [facility] [address] [place] [address] Platelets (Bld) [#/Vol] 208 10*3/uL Normal 142-424 [facility] Comment on above: Performed By: #### 2 4317-0 #### [facility] [address] [place] [address] RBC (Bld) [#/Vol] 3.91 10*6/uL Normal 3.80-5.10 [facility] Comment on above: Performed By: #### 2 4317-0 #### [facility] [address] [place] [address] WBC (Bld) [#/Vol] 10.3 10*3/uL High 4.6-10.2 [facility] Comment on above: Performed By: #### 2 4317-0 #### [facility] [address] [place] [address] PT Coag (PPP) [Time]on 06-17 D-Dimer, Quant (FEU) 1.76 mcg/mL FEU High <0.50 [facility] Comment on above: Result Comment: Cuto ff 0.49 mcg/ml FEU At this cutoff level, the negative predictive value for this test is 100% for deep vein thrombosis (DVT) in patients with a low or moderate pre-test probability and 99.7% for pulmonary embolism (PE) in patients with a low or moderate pre-test probability. ?Clinical correlation is essential. Performed By: #### 5 902-2 #### [facility] [address] [place] [address] Protein/Creatinine (U) [Rati o]on 06-17-2022 Creatinine, Urine 50.9 mg/dL Normal [facility] Comment on above: Performed By: #### 3 4366-5 #### [facility] [address] [place] [address] Prot/Creat, Ur 0.31 mg/mg creat Normal [facility] Comment on above: Result Comment: Norm al Proteinuria = <0.1 Mild Proteinuria = 0.1 - 1.0 Moderate Proteinuria = 1.0 - 10.0 Heavy Proteinuria = >10.0 Performed By: #### 3 4366-5 #### [facility] [address] [place] [address] Protein (U) [Mass/Vol] 16 mg/dL High <=10 [facility] Comment on above: Performed By: #### 3 4366-5 #### [facility] [address] [place] [address] SARS-CoV-2 RNA Resp Ql NIYA+p robeon 06-17-2022 SARS-CoV-2 (COVID-19) RNA NIYA+probe Ql (Resp) Detected Invalid Interpretation Code Not Detected [facility] Comment on above: Performed By: #### 9 4500-6 #### [facility] [address] [place] [address] T. pallidum Ab Aggl Ql (S)on 06-17-2022 T. Pallidum Antibodies Non-Reactive Normal Nonreactive [facility] Comment on above: Performed By: #### 2 4312-1 #### [facility] [address] [place] [address] Urate [Mass/Vol]on 2 LDH 155 unit/L Normal 140-271 [facility] Comment on above: Performed By: #### 3 084-1 #### [facility] [address] [place] [address] US PELVIS NON OB COMPLETE W TRANSVAGINALon 10-24-2021 US PELVIS NON OB COMPLETE W TRANSVAGINAL EXAMINATION TYPE: US PELVIS NON OB COMPLETE W TRANSVAGINAL and PELVIC DOPPLER DATE OF EXAM : 10/24/2021 8:28 AM HISTORY: LLQ abdominal pain with + test, COMPARISON: None FINDINGS: PELVIC ULTRASOUND Both transabdominal and transvaginal exams were performed. The uterus measures 10.0 x 5.6 x 3.1 cm and is retroverted. In the endometrial cavity there is a small saclike structure measuring 0.58 cm, consistent with a small gestational sac. No pole or yolk sac is seen within this possible gestational sac. The size of the sac indicates that the is less than 5 weeks gestational age. Right ovary measures 33 x 16 x 26 mm. Left ovary measures 35 x 28 x 22 mm. Small normal follicles seen in each ovary. PELVIC DOPPLER There is normal arterial blood flow to each ovary and normal venous blood flow from each ovary. No free fluid in the pelvic cul-de-sac. No abnormal adnexal masses. IMPRESSION: Early IUP, less than 5 weeks gestation, with only a gestational sac seen in the endometrial cavity. No pole or yolk sac. -------- FINAL REPORT -------- Dictated By: Nghia Minaya Dictated Date: 10/24/2021 09:21 Assigned Physician: Nghia Minaya Reviewed and Electronically Signed By: Nghia Minaya Signed Date: 10/24/2021 09:24 Workstation ID: [id number] Transcribed By: Self Edit Transcribed Date: 10/24/2021 09:21 Normal [facility] US Pelvis Non OB Complete w Transvaginalon 10-24-2021 Early IUP, less than 5 weeks gestation, with only a gestational sac seen in the endometrial cavity. No pole or yolk sac. -------- FINAL REPORT -------- Dictated By: Nghia Minaya Dictated Date: 10/24/2021 09:21 Assigned Physician: Nghia Minaya Reviewed and Electronically Signed By: Nghia Minaya Signed Date: 10/24/2021 09:24 Workstation ID: [id number] Transcribed By: Self Edit Transcribed Date: 10/24/2021 09:21 POWERSCRIBE EXAMINATION TYPE: US PELVIS NON OB COMPLETE W TRANSVAGINAL and PELVIC DOPPLER DATE OF EXAM : 10/24/2021 8:28 AM HISTORY: LLQ abdominal pain with + test, COMPARISON: None FINDINGS: PELVIC ULTRASOUND Both transabdominal and transvaginal exams were performed. The uterus measures 10.0 x 5.6 x 3.1 cm and is retroverted. In the endometrial cavity there is a small saclike structure measuring 0.58 cm, consistent with a small gestational sac. No pole or yolk sac is seen within this possible gestational sac. The size of the sac indicates that the is less than 5 weeks gestational age. Right ovary measures 33 x 16 x 26 mm. Left ovary measures 35 x 28 x 22 mm. Small normal follicles seen in each ovary. PELVIC DOPPLER There is normal arterial blood flow to each ovary and normal venous blood flow from each ovary. No free fluid in the pelvic cul-de-sac. No abnormal adnexal masses. [facility] Nghia Minaya MD - 10/24/2021 EXAMINATION TYPE: US PELVIS NON OB COMPLETE W TRANSVAGINAL and PELVIC DOPPLER DATE OF EXAM : 10/24/2021 8:28 AM HISTORY: LLQ abdominal pain with + test, COMPARISON: None FINDINGS: PELVIC ULTRASOUND Both transabdominal and transvaginal exams were performed. The uterus measures 10.0 x 5.6 x 3.1 cm and is retroverted. In the endometrial cavity there is a small saclike structure measuring 0.58 cm, consistent with a small gestational sac. No pole or yolk sac is seen within this possible gestational sac. The size of the sac indicates that the is less than 5 weeks gestational age. Right ovary measures 33 x 16 x 26 mm. Left ovary measures 35 x 28 x 22 mm. Small normal follicles seen in each ovary. PELVIC DOPPLER There is normal arterial blood flow to each ovary and normal venous blood flow from each ovary. No free fluid in the pelvic cul-de-sac. No abnormal adnexal masses. IMPRESSION: Early IUP, less than 5 weeks gestation, with only a gestational sac seen in the endometrial cavity. No pole or yolk sac. -------- FINAL REPORT -------- Dictated By: Nghia Minaya Dictated Date: 10/24/2021 09:21 Assigned Physician: Nghia Minaay Reviewed and Electronically Signed By: Nghia Minaya Signed Date: 10/24/2021 09:24 Workstation ID: [id number] Transcribed By: Self Edit Transcribed Date: 10/24/2021 09:21 [facility] Radiology Study observation (narrative) [facility] US Pelvis Non OB Complete w TransvaginalOrdered By: Nghia Minaya on 10-24-2021 Practice Management e-Tools Phone: Glycohemoglobin (HGB A1C) Ulises cyr 09-30-2019 HbA1c (Bld) [Mass fraction] 5.4 % tl hgb Normal <5.6 [facility] Comment on above: Result Comment: U pdated ADA Reference Range HbA1c values of 5.7-6.4 percent indicate an increased risk for developing diabetes mellitus. HbA1c values greater than or equal to 6.5 percent are diagnostic of diabetes mellitus. For diagnosis of diabetes in individuals without unequivocal hyperglycemia, results should be confirmed by repeat testing. Performed By: #### 4 549-2 #### [facility] [address] [place] [address] Lipid Panelon 09-30-2019 Cholesterol [Mass/Vol] 180 mg/dL Normal <200 [facility] Comment on above: Result Comment: Refe r to the National Cholesterol Education Program ATP III cut offs for risk stratification. Performed By: #### 5 7698-3 #### [facility] [address] [place] [address] Cholesterol in HDL [Mass/Vol] 76 mg/dL Normal >40 [facility] Comment on above: Performed By: #### 5 7698-3 #### [facility] [address] [place] [address] Cholesterol in LDL [Mass/Vol] 80 mg/dL Normal <100 [facility] Comment on above: Performed By: #### 5 7698-3 #### [facility] [address] [place] [address] Cholesterol in VLDL [Mass/Vol] 24 mg/dL Normal 2-38 [facility] Comment on above: Performed By: #### 5 7698-3 #### [facility] [address] [place] [address] Triglyceride [Mass/Vol] 118 mg/dL Normal <200 [facility] Comment on above: Performed By: #### 5 7698-3 #### [facility] [address] [place] [address] Vital Signs Date Time Vital Sign Value Performing Clinician Facility 08-11-2025 16:24-0500 Body height 160 cm Keyonna Jb PA-C Work Phone: [phone])[phone] [place] [address] 08-11-2025 16:24-0500 Body mass index (BMI) [Ratio] 22.67 kg/m2 Keyonna Jb PA-C Work Phone: [phone])[phone] [address] 08-11-2025 16:24-0500 Body temperature 98.01 [degF] Keyonna Jb PA-C Work Phone: 7(774)[phone] [address] 08-11-2025 16:24-0500 Body weight 58.06 kg Keyonna Jb PA-C Work Phone: 3(452)[phone] [place] [address] 08-11-2025 16:24-0500 Diastolic blood pressure 91 mm[Hg] Keyonna Jb PA-C Work Phone: 9(756)[phone] [place] [address] 08-11-2025 16:24-0500 Heart rate 104 /min Keyonna Jb PA-C Work Phone: 6(457)740-359120 [place] [address] 08-11-2025 16:24-0500 Respiratory rate 16 /min Keyonna Jb PA-C Work Phone: [facility] 08-11-2025 16:24-0500 SaO2% (BldA) [Mass fraction] 97 % Keyonna Jb PA-C Work Phone: 1(121)[phone] [place] [address] 08-11-2025 16:24-0500 Systolic blood pressure 124 mm[Hg] Keyonna Jb PA-C Work Phone: [facility] 11-15-2024 10:50-0500 Body mass index (BMI) [Ratio] 25.15 kg/m2 Jennifer Mccall MD Work Phone: [facility] 11-15-2024 10:50-0500 Body weight 64.41 kg Jennifer Mccall MD Work Phone: [facility] 11-15-2024 10:50-0500 Diastolic blood pressure 64 mm[Hg] Jennifer Mccall MD Work Phone: [facility] 11-15-2024 10:50-0500 Systolic blood pressure 106 mm[Hg] Jennifer Mccall MD Work Phone: [facility] 10-11-2024 11:05-0500 Body mass index (BMI) [Ratio] 25.69 kg/m2 Devon Littlejohn MD Work Phone: [facility] 10-11-2024 11:05-0500 Body weight 65.77 kg Devon Littlejohn MD Work Phone: [facility] 10-11-2024 11:05-0500 Diastolic blood pressure 88 mm[Hg] Devon Littlejohn MD Work Phone: [facility] 10-11-2024 11:05-0500 Systolic blood pressure 138 mm[Hg] Devon Littlejohn MD Work Phone: [facility] 09-29-2024 08:23-0500 Body mass index (BMI) [Ratio] 27.67 kg/m2 Fernanda Rogel MD Work Phone: [facility] 09-29-2024 08:23-0500 Body weight 70.85 kg Fernanda Rogel MD Work Phone: [facility] 09-29-2024 08:23-0500 Diastolic blood pressure 70 mm[Hg] Fernanda Rogel MD Work Phone: [facility] 09-29-2024 08:23-0500 Systolic blood pressure 110 mm[Hg] Fernanda Rogel MD Work Phone: [facility] 09-13-2024 08:16-0500 Body mass index (BMI) [Ratio] 27.28 kg/m2 Devon Littlejohn MD Work Phone: [facility] 09-13-2024 08:16-0500 Body weight 69.85 kg Devon Littlejohn MD Work Phone: [facility] 09-13-2024 08:16-0500 Diastolic blood pressure 70 mm[Hg] Devon Littlejohn MD Work Phone: [facility] 09-13-2024 08:16-0500 Systolic blood pressure 118 mm[Hg] Devon Littlejohn MD Work Phone: [facility] 08-30-2024 15:52-0500 Body mass index (BMI) [Ratio] 26.85 kg/m2 Andra Diaz MD Work Phone: [facility] 08-30-2024 15:52-0500 Body weight 68.77 kg Andra Diaz MD Work Phone: [facility] 08-30-2024 15:52-0500 Diastolic blood pressure 70 mm[Hg] Andra Diaz MD Work Phone: [facility] 08-30-2024 15:52-0500 Systolic blood pressure 108 mm[Hg] Andra Diaz MD Work Phone: [facility] 08-16-2024 07:51-0500 Body mass index (BMI) [Ratio] 26.22 kg/m2 Viviane Guallpa APRN.CNM Work Phone: [facility] 08-16-2024 07:51-0500 Body weight 67.13 kg Viviane Guallpa APRN.CNM Work Phone: [facility] 08-16-2024 07:51-0500 Diastolic blood pressure 68 mm[Hg] Viviane Guallpa APRN.CNM Work Phone: [facility] 08-16-2024 07:51-0500 Systolic blood pressure 110 mm[Hg] Viviane Guallpa APRN.CNM Work Phone: [facility] 07-14-2024 08:54-0400 Body mass index (BMI) [Ratio] 25.15 kg/m2 Kailyn Diaz APRN.CNM Work Phone: [facility] 07-14-2024 08:54-0400 Body weight 64.41 kg Kailyn Diaz APRN.CNM Work Phone: [facility] 07-14-2024 08:54-0400 Diastolic blood pressure 66 mm[Hg] Kailyn Plotts 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.CNM Work Phone: [facility] 07-14-2024 08:54-0400 Systolic blood pressure 110 mm[Hg] Kailyn Austints 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.CNM Work Phone: [facility] 06-15-2024 09:55-0400 Body mass index (BMI) [Ratio] 23.74 kg/m2 Kaveh Haury 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.COAL SAMPLE TESTER Work Phone: [facility] 06-15-2024 09:55-0400 Body weight 60.78 kg Kaveh Haury 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.COAL SAMPLE TESTER Work Phone: [facility] 06-15-2024 09:55-0400 Diastolic blood pressure 68 mm[Hg] Kaveh Haury 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.COAL SAMPLE TESTER Work Phone: [facility] 06-15-2024 09:55-0400 Systolic blood pressure 112 mm[Hg] Kaveh Haury 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.COAL SAMPLE TESTER Work Phone: [facility] 05-20-2024 08:29-0400 Body mass index (BMI) [Ratio] 23.35 kg/m2 Devon Littlejohn MD Work Phone: [facility] 05-20-2024 08:29-0400 Body weight 59.78 kg Devon Littlejohn MD Work Phone: [facility] 05-20-2024 08:29-0400 Diastolic blood pressure 70 mm[Hg] Devon Littlejohn MD Work Phone: [facility] 05-20-2024 08:29-0400 Systolic blood pressure 122 mm[Hg] Devon Littlejohn MD Work Phone: [facility] 04-22-2024 14:18-0400 Body mass index (BMI) [Ratio] 23.21 kg/m2 Jennifer Mccall MD Work Phone: [facility] 04-22-2024 14:18-0400 Body weight 59.42 kg Jennifer Mccall MD Work Phone: [facility] 04-22-2024 14:18-0400 Diastolic blood pressure 66 mm[Hg] Jennifer Mccall MD Work Phone: [facility] 04-22-2024 14:18-0400 Systolic blood pressure 108 mm[Hg] Jennifer Mccall MD Work Phone: [facility] 04-13-2024 09:08-0400 Body mass index (BMI) [Ratio] 23.38 kg/m2 Frederic Méndez MD Work Phone: [facility] 04-13-2024 09:08-0400 Body weight 59.88 kg Frederic Méndez MD Work Phone: [facility] 04-13-2024 09:08-0400 Diastolic blood pressure 62 mm[Hg] Frederic Méndez MD Work Phone: [facility] 04-13-2024 09:08-0400 Systolic blood pressure 100 mm[Hg] Frederic Méndez MD Work Phone: [facility] 03-22-2024 08:18-0400 Body mass index (BMI) [Ratio] 23.42 kg/m2 Teressa [place] 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.COAL SAMPLE TESTER Work Phone: [facility] 03-22-2024 08:18-0400 Body weight 59.97 kg Teressa [place] 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.COAL SAMPLE TESTER Work Phone: [facility] 03-22-2024 08:18-0400 Diastolic blood pressure 78 mm[Hg] Teressa Bernie 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.COAL SAMPLE TESTER Work Phone: [facility] 03-22-2024 08:18-0400 Systolic blood pressure 138 mm[Hg] Teressa [place] 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.COAL SAMPLE TESTER Work Phone: [facility] 08-21-2023 08:09-0500 Body weight 58.51 kg Adriana Phoenix MD Work Phone: [facility] 08-21-2023 08:09-0500 Diastolic blood pressure 64 mm[Hg] Adriana Phoenix MD Work Phone: [facility] 08-21-2023 08:09-0500 Heart rate 88 /min Adriana Phoenix MD Work Phone: [facility] 08-21-2023 08:09-0500 SaO2% (BldA) [Mass fraction] 99 % Adriana Phoenix MD Work Phone: [facility] 08-21-2023 08:09-0500 Systolic blood pressure 110 mm[Hg] Adriana Phoenix MD Work Phone: [facility] 08-14-2023 09:33-0500 Diastolic blood pressure 78 mm[Hg] [facility] 08-14-2023 09:33-0500 Heart rate 100 /min [facility] 08-14-2023 09:33-0500 Respiratory rate 16 /min [facility] 08-14-2023 09:33-0500 SaO2% (BldA) [Mass fraction] 100 % [facility] 08-14-2023 09:33-0500 Systolic blood pressure 117 mm[Hg] [facility] 08-14-2023 08:51-0500 Body height 160.02 cm [facility] 08-14-2023 08:51-0500 Body mass index (BMI) [Ratio] 22.8 kg/m2 [facility] 08-14-2023 08:51-0500 Body temperature 97.6 [degF] [facility] 08-14-2023 08:51-0500 Body weight 58.64 kg [facility] 08-04-2023 08:54-0400 Body weight 59.06 kg Kailyn Diaz 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.CNM Work Phone: [facility] 08-04-2023 08:54-0400 Diastolic blood pressure 72 mm[Hg] Kailyn Diaz 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.CNM Work Phone: [facility] 08-04-2023 08:54-0400 Systolic blood pressure 116 mm[Hg] Kailyn Diaz 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.CNM Work Phone: [facility] Encounters Encounter Date Encounter Type Care Provider Facility Start: 08-11-2025 End: 08-11-2025 Subsequent hospital visit by physician Conrad Davis X-[facility] Comment on above: Pleuritic chest pain Start: 08-11-2025 End: 08-11-2025 ambulatory KEYONNA MUHAMMAD [facility] Start: 08-11-2025 End: 08-11-2025 Office outpatient visit 25 minutes Keyonna Muhammad PA-C Work Phone: [facility] Comment on above: Pleuritic chest pain (Primary Dx); Tachycardia Start: 03-20-2025 End: 03-21-2025 ambulatory Jennifer Mccall MD Work Phone: OB/Gynecology Comment on above: New Control Pr escription Start: 03-11-2025 End: 03-11-2025 Emergency department patient visit RIDGE ARCOS [facility] Start: 12-12-2024 End: 12-12-2024 ambulatory Jennifer Mccall MD Work Phone: OB/Gynecology Start: 12-12-2024 End: 12-12-2024 Letter encounter Jennifer Mccall MD Work Phone: [facility] Comment on above: Return to Work Lette r Start: 11-15-2024 End: 11-15-2024 Telephone encounter Jennifer Mccall MD Work Phone: OB/Gynecology Comment on above: Insurance Authorizat ion Start: 11-15-2024 End: 11-15-2024 ambulatory JENNIFER MCCALL Facility:[facility] Start: 11-15-2024 End: 11-15-2024 Patient encounter procedure Jennifer Mccall MD Work Phone: OB/Gynecology Comment on above: care and examination (Primary Dx) Start: 10-19-2024 End: 10-19-2024 ambulatory ANDRA DIAZ Facility:[facility] Start: 10-19-2024 End: 10-19-2024 Patient encounter procedure Andra Diaz MD Work Phone: OB/Gynecology Comment on above: Status post section routine follow-up (Primary Dx) Start: 10-11-2024 End: 10-11-2024 ambulatory DEVON LITTLEJOHN Facility:[facility] Start: 10-11-2024 End: 10-11-2024 Patient encounter procedure Devon Littlejohn MD Work Phone: OB/Gynecology Comment on above: Status post section routine follow-up (Primary Dx) Start: 10-08-2024 End: 10-09-2024 ambulatory [facility] Facility:[facility] Start: 10-07-2024 End: 10-07-2024 Telephone encounter Devon Littlejohn MD Work Phone: OB/Gynecology Comment on above: Care Start: 10-02-2024 End: 10-04-2024 Evaluation and management of inpatient Andra Diaz Facility:[facility] Start: 10-02-2024 End: 10-03-2024 ambulatory Andra Diaz MD Work Phone: OB/Gynecology Comment on above: Ob Delivery Note Start: 09-29-2024 End: 09-29-2024 Telephone encounter Fernanda Rogel MD Work Phone: [facility] Comment on above: FMLA Paperwork Start: 09-29-2024 End: 09-29-2024 ambulatory FERNANDA ROGEL Facility:[facility] Start: 09-29-2024 End: 09-29-2024 Patient encounter procedure Fernanda Rogel MD Work Phone: OB/Gynecology Comment on above: 34 weeks gestation o f (Primary Dx); Supervision of high risk in third trimester Start: 09-13-2024 End: 09-13-2024 ambulatory DEVON LITTLEJOHN Facility:[facility] Start: 09-13-2024 End: 09-13-2024 Patient encounter procedure Devon Littlejohn MD Work Phone: OB/Gynecology Comment on above: Supervision of high risk in third trimester (Primary Dx); History of low transverse section; Patient desires vaginal after section (); 32 weeks gestation of ; Encounter for prophylactic immunotherapy for respiratory syncytial virus (RSV) Start: 08-30-2024 End: 08-30-2024 ambulatory ANDRA DIAZ Facility:[facility] Start: 08-30-2024 End: 08-30-2024 Patient encounter procedure Andra Diaz MD Work Phone: OB/Gynecology Comment on above: 30 weeks gestation o f (Primary Dx); Supervision of high risk in third trimester Start: 08-16-2024 End: 08-16-2024 Patient encounter procedure Viviane Guallpa APRN.CNM Work Phone: [facility]/Gy[facility]cology Comment on above: Supervision of high risk in third trimester (Primary Dx); 28 weeks gestation of ; History of low transverse section; Patient desires vaginal after section (); Need for vaccination Start: 08-16-2024 End: 08-17-2024 ambulatory Viviane Guallpa APRN.CNM Work Phone: OB/Gy[facility]cology Comment on above: Scheduling Start: 08-08-2024 End: 08-11-2024 Telephone encounter Adriana Phoenix MD Work Phone: OB/Gynecology Comment on above: breast pump Start: 07-14-2024 End: 07-14-2024 ambulatory KAILYN DIAZ Facility:[facility] Start: 07-14-2024 End: 07-14-2024 Patient encounter procedure Kailyn Diaz 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.CNM Work Phone: OB/Gynecology Comment on above: Encounter for superv ision of other normal in second trimester (Primary Dx); Hx of section; 23 weeks gestation of ; S/P primary low transverse ; Supervision of high risk in second trimester Start: 06-23-2024 End: 06-23-2024 ambulatory KAVEH HERR Facility:[facility] Start: 06-15-2024 End: 06-15-2024 Telephone encounter Kaveh Herr APRN.COAL SAMPLE TESTER Work Phone: OB/Gynecology Comment on above: Records Start: 06-15-2024 End: 06-15-2024 ambulatory DEVON LITTLEJOHN Facility:[facility] Start: 06-15-2024 End: 06-15-2024 Patient encounter procedure Kaveh Herr APRN.COAL SAMPLE TESTER Work Phone: OB/Gynecology Comment on above: Encounter for superv ision of other normal in second trimester (Primary Dx); 19 weeks gestation of ; Hx of section; History of urinary tract infection Start: 06-15-2024 End: 06-15-2024 ambulatory ANDRA DIAZ Facility:[facility] Start: 06-15-2024 End: 06-15-2024 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 [employer] Work Phone: [facility] Comment on above: Encounter for anatomic survey (Primary Dx); 19 weeks gestation of Start: 05-20-2024 End: 05-20-2024 ambulatory DEVON LITTLEJOHN Facility:[facility] Start: 05-20-2024 End: 05-20-2024 Patient encounter procedure Devon Littlejohn MD Work Phone: OB/Gynecology Comment on above: Encounter for superv ision of other normal in second trimester (Primary Dx); Hx of section; 15 weeks gestation of ; Encounter for supervision of normal in multigravida in first trimester Start: 04-29-2024 End: 04-29-2024 ambulatory JENNIFER MCCALL Facility:[facility] Start: 04-22-2024 End: 04-22-2024 ambulatory TERESSA GIBBS Facility:[facility] Start: 04-22-2024 End: 04-22-2024 Patient encounter procedure Jennifer Mccall MD Work Phone: OB/Gynecology Comment on above: Encounter for superv ision of other normal in first trimester (Primary Dx); Hx of section; Dysuria; 11 weeks gestation of ; History of urinary tract infection; S/P primary low transverse Start: 04-15-2024 Telephone encounter Viviane rosenberg APRN.CNM Work Phone: OB/Gynecology Comment on above: Results (Urine cultu re) Start: 04-13-2024 End: 04-13-2024 ambulatory FREDERIC MÉNDEZ Facility:[facility] Start: 04-13-2024 End: 04-13-2024 Patient encounter procedure Frederic Méndez MD Work Phone: OB/Gynecology Comment on above: 10 weeks gestation o f (Primary Dx); Dysuria; Encounter for supervision of normal in multigravida in first trimester Start: 03-24-2024 Telephone encounter Teressa denney 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.COAL SAMPLE TESTER Work Phone: OB/Gynecology Comment on above: Results Start: 03-22-2024 End: 03-22-2024 ambulatory TERESSA PATELCALF Facility:[facility] Start: 03-22-2024 End: 03-22-2024 Patient encounter procedure Teressa Gibbs 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.COAL SAMPLE TESTER Work Phone: OB/Gynecology Comment on above: with uncer tain dates in first trimester (Primary Dx); 7 weeks gestation of ; Encounter for supervision of normal in multigravida in first trimester; Hx of section Start: 02-12-2024 End: 02-12-2024 ambulatory [facility] Facility:[facility] Start: 09-18-2023 End: 09-18-2023 Subsequent hospital visit by physician [facility] Work Phone: Radiology Comment on above: Pelvic pain in femal e [R10.2] Start: 09-14-2023 ambulatory Adriana Phoenix MD Work Phone: OB/Gynecology Comment on above: Ultrasounds 12.15 Qu estion Start: 08-21-2023 End: 08-21-2023 Patient encounter procedure Adriana Phoenix MD Work Phone: OB/Gynecology Comment on above: Missed (Perla marcia Dx); Pelvic pain in female Start: 08-20-2023 Telephone encounter Adriana Phoenix MD Work Phone: OB/Gynecology Comment on above: Medication Problem Start: 08-19-2023 Telephone encounter Adriana Phoenix MD Work Phone: OB/Gynecology Comment on above: Medication Update Start: 08-18-2023 End: 08-18-2023 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 Jig [place] [facility] Work Phone: OB/Gynecology Comment on above: Positive t est Start: 08-14-2023 End: 08-14-2023 Emergency department patient visit [facility]-Emergency Department Work Phone: Start: 08-11-2023 ambulatory Kailyn cano 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.CNM Work Phone: OB/Gynecology Comment on above: Possible M iscarriage Symptoms Start: 08-05-2023 End: 08-05-2023 Patient encounter procedure Whi Tech 1 Grinder Set Up Operator Jig [facility] Comment on above: Confirm cardia c activity using ultrasound (Primary Dx); Positive test; 5 weeks gestation of Start: 08-04-2023 End: 08-04-2023 Patient encounter procedure Kailyn Diaz 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.CNM Work Phone: OB/Gynecology Comment on above: Positive t est (Primary Dx) Start: 07-31-2023 Telephone encounter Teressa denney 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.COAL SAMPLE TESTER Work Phone: OB/Gynecology Comment on above: Results Start: 07-01-2022 Telephone encounter [place] Fenton RN [facility] Start: 06-17-2022 End: 06-19-2022 Evaluation and management of inpatient [facility] Start: 12-19-2021 ambulatory [facility] Start: 11-06-2021 End: 11-10-2021 ambulatory [facility] Start: 10-24-2021 End: 10-25-2021 ambulatory RAMA ALCOCER [facility] Start: 10-24-2021 End: 10-24-2021 Evaluation and management of inpatient [facility] [address] Start: 10-24-2021 End: 10-24-2021 Subsequent hospital visit by physician Jordon [address] [place] [address] Comment on above: Pelvic pain in pregn louie Start: 10-22-2021 ambulatory RAMA ALCOCER [facility] Procedures Date Procedure Procedure Detail Performing Clinician Start: 08-11-2025 Ecg routine ecg w/le ast 12 lds i&r only Keyonna Muhammad PA-C Work Phone: Start: 08-11-2025 Radiologic exam ches t 2 views Keyonna Salinas Jb SIMMONS Work Phone: Start: 09-29-2024 Urnls dip stick/tabl et rgnt non-auto w/o micrscp Fernanda Rogel MD Work Phone: Start: 09-13-2024 RSV VACCINE, BIVALEN T (ABRYSVO) Devon Littlejohn MD Work Phone: Start: 06-15-2024 Us preg uterus after 1st trimest 10/05 gestation Devon Littlejohn MD Work Phone: Start: 04-22-2024 Antibody screen CANDELARIA DIAZ Comment on above: Order Comment: Speci men Type: BLOOD SPECIMENOrdering Facility: [facility] Address: [address] [place] [address] Performed By: #### T SPN ####CC MAIN BLOOD BANKCLNC [id number] [address] [place] Start: 04-13-2024 Urnls dip stick/tabl et rgnt auto w/o microscopy Frederic Méndez MD Work Phone: Start: 03-22-2024 Iadna chlamydia trac homatis amplified probe tq Teressa Bernie 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.COAL SAMPLE TESTER Work Phone: Start: 03-22-2024 Us uterus l imited 1/> fetuses Teressa Bernie 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.COAL SAMPLE TESTER Work Phone: Start: 03-22-2024 Adult depression scr eening assessment Adriana Phoenix MD Work Phone: Start: 08-18-2023 Us preg uterus after 1st trimest 10/05 gestation Kailyn Diaz 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.CNM Work Phone: Start: 08-14-2023 Transvaginal obstetr ic ultrasonography Start: 08-05-2023 Us preg uterus after 1st trimest 10/05 gestation Kailyn Diaz 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.CNM Work Phone: Start: 02-20-2023 Microscopic observat ion [Identifier] in Cervix by Cyto stain Keyonna Muhammad PA-C Work Phone: Start: 06-17-2022 End: 10-11-2024 H/O: section S/P primary low transverse [place] Fenton RN Start: 06-17-2022 Antibody screen POONAM TAN Comment on above: Performed By: #### 3 [id number] #### [facility] [address] [place] [address] Start: 10-24-2021 Us pelvic nonobstetr ic real-time image complete Rama Alcocer DO Work Phone: Start: 10-22-2021 Adult depression scr eening assessment [facility] 1 H/O: section Hx of cesa rean section Teressa Gibbs 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.COAL SAMPLE TESTER Work Phone: H/O: section Hx of cesa rean section Jennifer Mccall MD Work Phone: H/O: section Hx of cesa rean section Kaveh Herr 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.COAL SAMPLE TESTER Work Phone: H/O: section Hx of cesa rean section Kailyn Diaz 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.CNM Work Phone: H/O: section Hx of cesa rean section Devon Littlejohn MD Work Phone: H/O: section History of low transverse section Viviane Guallpa 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.CNM Work Phone: H/O: section History of low transverse section Devon Littlejohn MD Work Phone: Plan of Treatment Date Care Activity Detail Author Start: 2040 Zoster Vaccines (1 o f 2) Zoster Vaccines (1 of 2) [facility] Start: 08-16-2034 DTaP/Tdap/Td Vaccine s (2 - Td or Tdap) DTaP/Tdap/Td Vaccines (2 - Td or Tdap) [facility] Start: 08-16-2034 Urine microalbumin profile DTaP,Tdap,Td Vaccine (2 - Td or Tdap) [facility] Start: 02-21-2028 HPV Testing HPV Testing [facility] Start: 02-21-2028 Pap Testing Pap Testing [facility] Start: 02-21-2028 Screening for malign ant neoplasm of cervix [facility] Start: 02-20-2026 Screening for malign ant neoplasm of cervix [facility] Start: 11-15-2025 End: 11-15-2025 Patient encounter procedure 11/15/2025 8:15 AM EST Office Visit OB/Gynecology [address] [place] [address] Kailyn Diaz APRN.CN [address] [address] Annual OB/Gynecology Comment on above: Annual Start: 03-22-2025 Anxiety Screening Anxiety Screening [facility] Start: 03-22-2025 Depression Screening Depression Scre ening [facility] Start: 11-18-2024 End: 11-18-2024 Patient encounter procedure 11/18/2024 10:50 AM EST Office Visit OB/Gynecology [address] [place] [address] Andra Diaz MD [address] [place] [address] Incision check OB/Gynecology Comment on above: Incision check Start: 11-15-2024 End: 11-15-2024 Patient encounter procedure 11/15/2024 10:50 AM EST Office Visit OB/Gynecology [address] [place] [address] Jennifer Mccall MD [address] [place] [address] Post OB/Gynecology Comment on above: Post Start: 11-07-2024 ambulatory Ambulatory Facility:[facility] Start: 11-01-2024 End: 11-01-2024 Patient encounter procedure 11/01/2024 9:10 AM EST Routine Office Visit OB/Gynecology [address] [place] [address] Andra Diaz MD [address] [place] [address] (Fax) OB Routine OB/Gynecology Comment on above: OB Routine Start: 10-26-2024 End: 10-26-2024 Patient encounter procedure 10/26/2024 10:10 AM EST Routine Office Visit OB/Gynecology [address] [place] [address] Andra Diaz MD [address] [place] [address] (Fax) OB Pre Op C/S 2/3 @ [facility] OB/Gynecology Comment on above: OB Pre Op C/S 2/3 @ [facility] Start: 10-19-2024 End: 10-19-2024 Patient encounter procedure 10/19/2024 10:50 AM EST Office Visit OB/Gynecology [address] [place] [address] Andra Diaz MD [address] [place] [address] (Fax) VV pp OB/Gynecology Comment on above: VV pp Start: 10-18-2024 End: 10-18-2024 Patient encounter procedure 10/18/2024 8:40 AM EST Routine Office Visit OB/Gynecology [address] [place] [address] Adriana López MD [address] [place] [address] (Fax) OB Routine OB/Gynecology Comment on above: OB Routine Start: 10-17-2024 End: 10-17-2024 Patient encounter procedure 10/17/2024 9:00 AM EST Office Visit OB/Gynecology [address] [place] [address] Viviane Guallpa APRN.[facility] [address] [place] [address] 2 week incision check OB/Gynecology Comment on above: 2 week incision chec k Start: 10-11-2024 End: 10-11-2024 Patient encounter procedure 10/11/2024 10:50 AM EST Office Visit OB/Gynecology [address] [place] [address] Devon Littlejohn MD [address] [place] [address] 2 week incision check OB/Gynecology Comment on above: 2 week incision chec k Start: 10-11-2024 End: 10-11-2024 Patient encounter procedure 10/11/2024 8:30 AM EST Routine Office Visit OB/Gynecology [address] [place] [address] Devon Littlejohn MD [address] [place] [address] OB Routine OB/Gynecology Comment on above: OB Routine Start: 09-29-2024 End: 09-29-2024 Patient encounter procedure 09/29/2024 8:30 AM EST Routine Office Visit OB/Gynecology [address] [place] [address] Fernanda Rogel MD [address] [place] [address] OB Routine OB/Gynecology Comment on above: OB Routine Start: 09-13-2024 End: 09-13-2024 Patient encounter procedure 09/13/2024 8:30 AM EST Routine Office Visit OB/Gynecology [address] [place] [address] Devon Littlejohn MD [address] [place] [address] OB OB/Gynecology Comment on above: OB Start: 09-12-2024 RSV Vaccine (1 - Ris k 1-dose series) RSV Vaccine (1 - Risk 1-dose series) [facility] Start: 08-30-2024 End: 08-30-2024 Patient encounter procedure 08/30/2024 4:00 PM EST Routine Office Visit OB/Gynecology [address] [place], [place] [id number] Andra Diaz MD [address] [place] [place] [address] OB OB/Gynecology Comment on above: OB Start: 08-16-2024 End: 08-16-2024 ambulatory 08/16/2024 8:00 AM EST Results Only [facility] [address] [place] [address] Encounter for supervision of other normal in second trimester [Z34.82]; Hx of section [Z98.891]; 23 weeks gestation of [Z3A.23] [facility] Comment on above: Encounter for superv ision of other normal in second trimester [Z34.82]; Hx of section [Z98.891]; 23 weeks gestation of [Z3A.23] Start: 08-16-2024 End: 08-16-2024 Patient encounter procedure 08/16/2024 8:00 AM EST Routine Office Visit OB/Gynecology [address] [place] [address] Viviane Guallpa APRN.CN [address] [place] [address] OB Routine OB/Gynecology Comment on above: OB Routine Start: 07-14-2024 End: 10-13-2024 CBC W Auto Differential panel - Blood COMPLETE BLOOD COUNT AND DIFFERENTIAL Lab Routine Encounter for supervision of other normal in second trimester Hx of section 23 weeks gestation of Expected: 07/14/2024, Expires: 10/13/2024 [facility] Work Phone: Comment on above: Expected: 07/14/2024 , Expires: 10/13/2024 Start: 07-14-2024 End: 10-13-2024 GESTATIONAL GLUCOSE SCREEN, 1-HOUR, 50 GRAM, NON-FASTING GESTATIONAL GLUCOSE SCREEN, 1-HOUR, 50 GRAM, NON-FASTING Lab Routine Encounter for supervision of other normal in second trimester Hx of section 23 weeks gestation of Expected: 07/14/2024, Expires: 10/13/2024 [facility] Comment on above: Expected: 07/14/2024 , Expires: 10/13/2024 Start: 07-14-2024 End: 10-13-2024 SYPHILIS TREPONEMAL W/REFLEX SYPHILIS TREPONEMAL W/REFLEX Lab Routine Encounter for supervision of other normal in second trimester Hx of section 23 weeks gestation of Expected: 07/14/2024, Expires: 10/13/2024 [facility] Comment on above: Expected: 07/14/2024 , Expires: 10/13/2024 Start: 07-14-2024 End: 07-14-2024 Patient encounter procedure 07/14/2024 9:00 AM EDT Routine Office Visit OB/Gynecology [address] [place] [address] Kailyn Diaz APRN.CN [address] [place] [address] OB OB/Gynecology Comment on above: OB Start: 06-15-2024 End: 09-14-2024 ALPHA FETOPRO MATERNAL ALPHA FETOPRO MATERNAL Lab Routine Encounter for supervision of other normal in second trimester 19 weeks gestation of Hx of section Expected: 06/15/2024, Expires: 09/14/2024 [facility] Work Phone: Comment on above: Expected: 06/15/2024 , Expires: 09/14/2024 Start: 06-15-2024 End: 06-15-2024 Patient encounter procedure 06/15/2024 9:40 AM EDT Routine Office Visit OB/Gynecology [address] [place] [address] Devon Littlejohn MD [address] [place] [address] Anatomy/OB OB/Gynecology Comment on above: Anatomy/OB Start: 06-15-2024 End: 06-15-2024 Patient encounter procedure 06/15/2024 8:30 AM EDT Routine Office Visit OB/Gynecology [address] [place], [place] [address] Anatomy OB/Gynecology Comment on above: Anatomy Start: 06-05-2024 Covid-19 Vaccine ( season) Covid-19 Vaccine () [facility] Start: 06-05-2024 Covid-19 Vaccine () Covid-19 Vaccine () [facility] Start: 06-05-2024 Influenza vaccination [facility] Start: 05-20-2024 End: 05-20-2025 OBSTETRIC ULTRASOUND [facility] OBSTETRIC ULTRASOUND [facility] Anc Imaging Routine Encounter for supervision of other normal in second trimester Expected: 05/20/2024, Expires: 05/20/2025 [facility] Work Phone: Comment on above: Expected: 05/20/2024 , Expires: 05/20/2025 Start: 05-20-2024 End: 05-20-2024 Patient encounter procedure 05/20/2024 8:30 AM EDT Routine Office Visit OB/Gynecology [address] [place], [place] [address] Devon Littlejohn MD [address] [place] [address] OB OB/Gynecology Comment on above: OB Start: 04-22-2024 End: 04-22-2024 Patient encounter procedure OB/Gynecology Comment on above: NEW OB LMP 02/01/24 NEW OB Start: 04-22-2024 End: 07-22-2024 Bacteria identified in Urine by Culture [facility] Work Phone: Comment on above: Expected: 04/22/2024 , Expires: 07/22/2024 Start: 03-22-2024 End: 06-21-2024 CBC panel - Blood by Automated count COMPLETE BLOOD COUNT Lab Routine with uncertain dates in first trimester 7 weeks gestation of Expected: 03/22/2024, Expires: 06/21/2024 [facility] Work Phone: Comment on above: Expected: 03/22/2024 , Expires: 06/21/2024 Start: 03-22-2024 End: 06-21-2024 Chromosome 21 trisomy [Presence] in Blood or Tissue by Cytogenetics [id number] PLUS Lab Routine 7 weeks gestation of Expected: 03/22/2024, Expires: 06/21/2024 [facility] Comment on above: Expected: 03/22/2024 , Expires: 06/21/2024 Start: 03-22-2024 End: 06-21-2024 Hemoglobin A1c in Blood HEMOGLOBIN A1C Lab Routine with uncertain dates in first trimester 7 weeks gestation of Expected: 03/22/2024, Expires: 06/21/2024 [facility] Comment on above: Expected: 03/22/2024 , Expires: 06/21/2024 Start: 03-22-2024 End: 06-21-2024 Hepatitis B virus surface Ag [Presence] in Serum HEPATITIS B SURFACE ANTIGEN Lab Routine with uncertain dates in first trimester 7 weeks gestation of Expected: 03/22/2024, Expires: 06/21/2024 [facility] Comment on above: Expected: 03/22/2024 , Expires: 06/21/2024 Start: 03-22-2024 End: 06-21-2024 Hepatitis C virus Ab [Presence] in Serum HEPATITIS C ANTIBODY IA WITH CONFIRMATION Lab Routine with uncertain dates in first trimester 7 weeks gestation of Expected: 03/22/2024, Expires: 06/21/2024 [facility] Comment on above: Expected: 03/22/2024 , Expires: 06/21/2024 Start: 03-22-2024 End: 06-21-2024 HIV 1+2 Ab [Presence] in Serum or Plasma by Immunoassay HIV 1/2 COMBO WITH REFLEX TO DIFFERENTIATION Lab Routine with uncertain dates in first trimester 7 weeks gestation of Expected: 03/22/2024, Expires: 06/21/2024 [facility] Comment on above: Expected: 03/22/2024 , Expires: 06/21/2024 Start: 03-22-2024 End: 06-21-2024 RUBELLA IGG ANTIBODY RUBELLA IGG ANTIBODY Lab Routine with uncertain dates in first trimester 7 weeks gestation of Expected: 03/22/2024, Expires: 06/21/2024 [facility] Comment on above: Expected: 03/22/2024 , Expires: 06/21/2024 Start: 03-22-2024 End: 06-21-2024 SYPHILIS TOTAL W/REFLEX SYPHILIS TOTAL W/REFLEX Lab Routine with uncertain dates in first trimester 7 weeks gestation of Expected: 03/22/2024, Expires: 06/21/2024 [facility] Comment on above: Expected: 03/22/2024 , Expires: 06/21/2024 Start: 03-22-2024 End: 06-21-2024 TYPE + SCREEN TYPE + SCREEN Blood Bank Routine with uncertain dates in first trimester 7 weeks gestation of Expected: 03/22/2024, Expires: 06/21/2024 [facility] Comment on above: Expected: 03/22/2024 , Expires: 06/21/2024 Start: 10-05-2023 Behavioral Health Screening Behavioral Health Screening [facility] Start: 08-14-2023 [facility] Start: 08-04-2023 End: 08-04-2024 OBSTETRIC ULTRASOUND [facility] OBSTETRIC ULTRASOUND [facility] Anc Imaging Routine Positive test Expected: 08/04/2023, Expires: 08/04/2024 [facility] Work Phone: Comment on above: Expected: 08/04/2023 , Expires: 08/04/2024 Start: 08-04-2023 End: 11-03-2023 TYPE + SCREEN [facility] Work Phone: Comment on above: Expected: 08/04/2023 , Expires: 11/03/2023 Start: 06-05-2023 Covid-19 Vaccine () Covid-19 Vaccine () [facility] Start: 06-05-2023 Covid-19 Vaccine ( season) Covid-19 Vaccine () [facility] Start: 06-05-2023 Influenza vaccination Influenza Vacc ine (#1) [facility] Start: 10-22-2022 Adolescent depressio n screening assessment Depression Screening [facility] Start: 10-21-2022 Social Influencers o f Health Screening Social Influencers of Health Screening [facility] Start: 10-05-2022 Depression Assessment Depression Ass essment [facility] Start: 06-05-2022 Influenza vaccination Influenza Vacc ine (#1) [facility] Start: 06-05-2021 Influenza vaccination Influenza Vacc ine (#1) [facility] Start: 03-05-2020 Hepatitis C screening Hepatitis C [facility] Start: 03-05-2020 HIV screening HIV Screening [facility] Start: 2011 Screening for malign ant neoplasm of cervix [facility] Start: 2009 DTaP,Tdap,and Td Vaccines (1 - Tdap) DTaP,Tdap,and Td Vaccines (1 - Tdap) [facility] Start: 2009 Urine microalbumin profile [facility] Start: 2008 Anxiety Screening Anxiety Screening [facility] Start: 2008 Depression Screening Depression Scre ening [facility] Start: 2008 Hepatitis C Screening Hepatitis C [facility] Start: 2008 HIV Screening HIV Screening [facility] Start: 2008 HIV screening HIV Screening [facility] Start: 1990 Lipid panel Lipid Panel [facility] Start: 1990 Yearly Adult Physical Yearly Adult P hysical [facility] Bacteria identified in Urine by Culture URINE CULTURE Microbiology Routine with uncertain dates in first trimester 7 weeks gestation of 03/22/2024 9:09 AM EDT [facility] End: 08-03-2024 Choriogonadotropin.beta subunit [Units/volume] in Serum or Plasma HCG QUANTITATIVE Lab Routine Positive test 2x per week for 10 Occurrences starting 08/04/2023 until 08/03/2024, 1 completed [facility] Work Phone: Comment on above: 2x per week for 10 O ccurrences starting 08/04/2023 until 08/03/2024, 1 completed Hematocrit [Volume Fraction] of Blood [facility] Hemoglobin [Mass/volume] in Blood [facility] Leukocytes [#/volume ] in Blood [facility] Mean corpuscular hemoglobin concentration determination [facility] Mean corpuscular hemoglobin determination [facility] Neutrophil count [facility] Neutrophil percent differential count [facility] Patient Education Bleeding Durin g Early ED Sacroiliitis [facility] Work Phone: Patient referral [facility] Work Phone: Platelets [#/volume] in Blood [facility] Red blood cell count [facility] Red cell distributio n width determination [facility] SURGICAL PATHOLOGY SURGICAL PATH OLOGY Lab Routine Missed 08/21/2023 9:21 AM EST [facility] Work Phone: End: 09-19-2024 Us transvaginal US FEMALE PELVIS TRANSVAG Radiology Routine Pelvic pain in female 1 Occurrences starting 08/21/2023 until 09/19/2024 [facility] Work Phone: Comment on above: 1 Occurrences starti ng 08/21/2023 until 09/19/2024 Us transvaginal US FEMALE PELVIS TRANSVAG Radiology Routine Pelvic pain in female 09/18/2023 8:39 AM EST [facility] Work Phone: [facility] (OFFICE IPAS) [facility] (OFFICE IP ) Procedures Routine Missed Ordered: 08/21/2023 [facility] Work Phone: Comment on above: Ordered: 08/21/2023 [facility] Immunizations Immunization Date Immunization Notes Care Provider Galdino sebastian 09-13-2024 respiratory syncytia l virus (RSV) vaccine, bivalent (ABRYSVO) Devon Littlejohn MD Work Phone: [facility] 08-16-2024 tetanus toxoid, redu luis a diphtheria toxoid, and acellular pertussis vaccine, adsorbed Viviane Guallpa 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.CNM Work Phone: [facility] 06-29-2024 influenza, seasonal, injectable, preservative free Devon Littlejohn MD Work Phone: [facility] 08-20-2021 Pfizer SARS-CoV-2 COVID-19, mRNA, LNP-S, preservative free [facility] 1 [facility] 01-24-2021 Pfizer SARS-CoV-2 COVID-19, mRNA, LNP-S, preservative free [facility] 1 [facility] 01-03-2021 Pfizer SARS-CoV-2 COVID-19, mRNA, LNP-S, preservative free [facility] 1 [facility] 10-05-2020 COVID-19 original vaccine, full dose, monovalent (MODERNA) Devon Littlejohn MD Work Phone: [facility] 07-06-2020 influenza, injectabl e, quadrivalent, preservative free [facility] 1 [facility] 07-06-2020 influenza virus vacc ine, unspecified formulation [facility] 1 [facility] 07-28-2016 influenza, seasonal, injectable [facility] 1 [facility] 07-14-2016 influenza, seasonal, injectable, preservative free [facility] 1 [facility] 07-28-2015 influenza, seasonal, injectable [facility] 1 [facility] 08-03-2009 human papilloma viru s vaccine, quadrivalent Teressa [place] 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.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 SAMPLE TESTER Work Phone: [facility] 03-28-2009 human papilloma viru s vaccine, quadrivalent Teressa Bernie 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.COAL SAMPLE TESTER Work Phone: [facility] 01-26-2009 human papilloma viru s vaccine, quadrivalent Teressa [place] 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.COAL SAMPLE TESTER Work Phone: [facility] 04-11-2003 measles, mumps and rubella virus vaccine McNa 1 [facility] 05-10-1999 hepatitis B vaccine, pediatric or pediatric/adolescent dosage McNa 1 [facility] 10-06-1998 hepatitis B vaccine, pediatric or pediatric/adolescent dosage McNa 1 [facility] 08-31-1998 hepatitis B vaccine, pediatric or pediatric/adolescent dosage McNa 1 [facility] Payers Date Payer Category Payer Managed Care (Private) [facility] [id number] 2024 Unknown [id number] 2024 Self-pay 2024 Unknown [id number] 2014 Private Health Insurance [facility] [id number] 2014-Present [address] [address] [place] [address] [id number] 2014 Private Health Insurance [id number] 2014 Private Health Insurance [id number] 1990 Unknown [id number] 1990 Unknown [id number] 1990 Unknown [id number] .[id number] 1990 Unknown [id number] .[id number] 1990 Unknown [id number] .[id number] 1990 Unknown [id number] 1990 Unknown [id number] .1243 1990 Unknown [id number] .1243 Unknown [id number] Unknown [id number] Unknown [id number] Social History Date Type Detail Facility [facility] Start: 1990 Sex Assigned At Female T [facility] Exposure to SARS-CoV -2 (event) Not sure [facility] Start: 02-17-2012 End: 06-17-2022 Tobacco smoking status NCIS Never smoked tobacco [facility] Start: 06-17-2022 End: 08-11-2025 Tobacco use and exposure Smokeless tobacco non-user [facility] Start: 06-18-2022 End: 08-11-2025 Alcohol intake Ex-drinker (finding) [facility] Start: 02-20-2023 End: 08-21-2023 Alcohol intake Current non-drinker of alcohol (finding) [facility] Start: 02-20-2023 End: 08-11-2025 History of Social function [facility] Start: 02-20-2023 End: 08-11-2025 Tobacco use panel [facility] National Score (1-100), lower number is lower risk 64 [facility] Start: 1990 Sex Assigned At Not on file [facility] Start: 02-15-2024 [facility] Start: 08-14-2023 Tobacco smoking stat [facility] Unknown if ever smoked [facility] Start: 03-21-2024 End: 08-11-2025 Tobacco smoking status NHIS Ex-smoker [facility] History of tobacco use Current smoker [facility] History of tobacco use Cigarette Smoker C [facility] Start: 03-21-2024 Education 17 [facility] Start: 03-21-2024 [facility] Start: 12-28-2024 Sex Female (finding) [facility] Goals Date Patient Goal Desired Activity /State Personal health goal Functional Status Date Assessment Result Facility 08-11-2025 Functional status 124/91 [facility] Work Phone: 08-11-2025 Vital signs 104 08/11/2025 4 :24 PM Keyonna Davila PA-C [facility] Work Phone: 08-11-2025 [facility] Work Phone: 10-09-2024 Are you deaf, or do you have serious difficulty hearing No 10/09/2024 12:41 AM Mya Singer, ANTONINO No [facility] 10-09-2024 Are you blind, or do you have serious difficulty seeing, even when wearing glasses No 10/09/2024 12:41 AM Mya Singer, ANTONINO No [facility] 10-09-2024 Do you have serious difficulty walking or climbing stairs No 10/09/2024 12:41 AM Mya Singer, ANTONINO No [facility] 10-09-2024 Do you have difficul ty dressing or bathing No 10/09/2024 12:41 AM Mya Singer, ANTONINO No [facility] 10-09-2024 Because of a physica l, mental, or emotional condition, do you have difficulty doing errands alone such as visiting a physician's office or shopping No 10/09/2024 12:41 AM Mya Singer, ANTONINO No [facility] Mental Status Date Assessment Result Facility 10-09-2024 Because of a physica l, mental, or emotional condition, do you have serious difficulty concentrating, remembering, or making decisions No 10/09/2024 12:41 AM Mya Singer, ANTONINO No [facility] Clinical Notes 07-01-2022 to 08-11-2025 Keyonna Muhammad PA-C - 08/11/2025 4:15 PM ESTTelephone Encounter - Jennifer Mccall MD - 03/21/2025 2:25 PM EDTTelephone Encounter - Jennifer Mccall MD - 03/21/2025 2:25 PM EDTPatient Instructions Note Date & Type Note Facility 08-11-2025 History of Present illness Narrative Images from the original note were not included. [facility] PAPI NOTE: Name: Laxmi Oliveira, 35 y.o. CSN:[id number] PCP: No primary care provider on file. ALL: Allergies[1] History: Chief Complaint: Chest Pain (Pt states she has had back pain that radiates to her chest with heaviness associated with it, she has some indigestion and back pain still and chest pain. She has decreased tempeture in her extremities. ) Encounter Date: 08/11/2025 16:28 At the beginning of the encounter, I introduced myself to the patient as a Physician Spinning Machine Tender in the urgent care setting, ensuring they understood my role in their care. HPI: The history was obtained from the patient and SIGNIFICANT OTHER. Laxmi is a 35 y.o. female, who presents with a chief complaint of Chest Pain (Pt states she has had back pain that radiates to her chest with heaviness associated with it, she has some indigestion and back pain still and chest pain. She has decreased tempeture in her extremities. ) Patient indicates she has had pain ongoing intermittently since 10 PM last night 08/10/2025 while at rest. She took Tums and had a bowel movement which did not seem to change the intensity or pain level or dale the symptoms. Today she has been feeling this pain and discomfort throughout her chest and is not associated with any increased work of breathing, dyspnea, fever, chills, she is not able to reproduce the pain by palpation, she has attempted topical muscle rub/balm's to relieve some of this pain to no avail. She does indicate she has travel to [place] by car in June, she had no issues then July 16 she developed a cough that ultimately improved with time but she has had a nonproductive nonbloody persistent cough and a sensation in her throat in the last few weeks. She has not tried any new exercises or activities, she has no known injuries, and has no visible rash formation to the left chest or back. Denies any family history of early onset ACS, nor does she endorse a history of familial clotting disorders. PMHx: Medical History[2] Current Medications[3] PMSx: Surgical History[4] Fam Hx: Family History[5] SOC. Hx: Social History Socioeconomic History Marital status: Spouse name: Not on file Number of children: Not on file Years of education: Not on file Highest education level: Not on file Occupational History Not on file Tobacco Use Smoking status: Former Types: Cigarettes Smokeless tobacco: Never Vaping Use Vaping status: Never Used Substance and Sexual Activity Alcohol use: Not Currently Drug use: Never Sexual activity: Not Currently Other Topics Concern Not on file Social History Narrative Not on file Social Drivers of Health Financial Resource Strain: Not on file Food Insecurity: Not on file Transportation Needs: Not on file Physical Activity: Not on file Stress: Not on file Social Connections: Not on file Intimate Partner Violence: Not on file Housing Stability: Not on file Vitals: 08/11/25 1624 BP: (!) 124/91 Pulse: 104 Resp: 16 Temp: 36.7 C (98 F) SpO2: 97% 58.1 kg (128 lb) Physical Exam Vitals reviewed. Constitutional: Appearance: Normal appearance. She is normal weight. HENT: Head: Normocephalic and atraumatic. Right Ear: Hearing normal. Left Ear: Hearing normal. Nose: Congestion present. Mouth/Throat: Lips: Gap. Mouth: Mucous membranes are moist. Eyes: Extraocular Movements: Extraocular movements intact. Pupils: Pupils are equal, round, and reactive to light. Cardiovascular: Rate and Rhythm: Regular rhythm. Tachycardia present. Heart sounds: No systolic murmur is present. No diastolic murmur is present. Pulmonary: Effort: Pulmonary effort is normal. Breath sounds: No decreased breath sounds, wheezing or rhonchi. Abdominal: General: Abdomen is flat. Musculoskeletal: General: Normal range of motion. Cervical back: Full passive range of motion without pain, normal range of motion and neck supple. Right lower leg: No edema. Left lower leg: No edema. Skin: General: Skin is warm and dry. Capillary Refill: Capillary refill takes less than 2 seconds. Findings: No bruising, erythema, signs of injury, laceration, lesion, rash or wound. Neurological: Mental Status: She is alert and oriented to person, place, and time. Psychiatric: Behavior: Behavior normal. Sinus Tachycardia HR 115, normal intervals, no ischemic pattern., no S1Q3T3 or RSR' noted V1/V2 LABORATORY @ RADIOLOGICAL IMAGING (if done): Interpreted By: Jesus Mondragon, STUDY: XR CHEST 2 VIEWS; 08/11/2025 5:04 pm INDICATION: Signs/Symptoms:chest pain, back pain. ,R07.81 Pleurodynia COMPARISON: None. ACCESSION NUMBER(S): [id number] ORDERING CLINICIAN: KEYONNA MUHAMMAD FINDINGS: The cardiomediastinal silhouette and pulmonary vasculature are within normal limits. No consolidation, pleural effusion or pneumothorax. IMPRESSION: No acute cardiopulmonary process. MACRO: None. Signed by: Jesus Mondragon 08/11/2025 6:22 PM Dictation workstation: [id number] ____ I did personally review Laxmi's past medical history, surgical history, social history, as well as family history (when relevant). In this case, I also oversaw the her drug management by reviewing her medication list, allergy list, as well as the medications that I prescribed during the UC course and/or recommended as an out-patient (including possible OTC medications such as acetaminophen, NSAIDs , etc). After reviewing the items above, I did look at previous medical documentation, such as recent hospitalizations, office visits, and/or recent consultations with PCP/specialist. SDOH: Another factor that I considered in Laxmi's care was her Social Determinants of Health (SDOH). During this UC encounter, she did not have social determinants of health. Those SDOH influencing Laxmi's care are: none COURSE/MEDICAL DECISION MAKING: Laxmi is a 35 y.o., who presents with a working diagnosis of 1. Pleuritic chest pain 2. Tachycardia with a differential to include: pleurisy, PE, ACS, dissection, pulmonary infarct, pulmonary abscess, muscle strain, rib injury, rib fracture, Sprain, dislocation, tendinitis, GERD, PUD, cholecystitis Differential diagnosis includes, but is not limited to: STEMI, NonSTEMI, Aortic dissection, PE, thoracic/abdominal aneurysm, ACS, dysrhythmia, pericardial effusion, pericardial tamponade, pneumothorax, PNA, acute gastritis, PUD, esophageal FB, esophageal spasm, pulmonary infarct, gastric volvulus, chest wall pain, shingles, contusion, abrasion The patient presented with chest pain that began at 10:00 on 08/10/25. She was evaluated in the emergency department at 16:30 on the same day. The patient declined laboratory testing. EKG demonstrated tachycardia without evidence of ischemia or infarction. Chest X-ray was unremarkable. The patient presented with chest pain of uncertain etiology. Based on the available history, EKG findings, imaging, and physical examination, I see no evidence at this time for a life-threatening cause of the patient's chest pain. There is no acute evidence for pulmonary embolus (albeit travel in June and tachycardia were discussed as concern), acute myocardial infarction, pneumothorax, esophageal rupture, cardiac tamponade, thoracic artery dissection, or any other emergent cardiac, pulmonary, or aortic pathology at this time. Given the nature and prolonged duration of the patient's pain (>6 hours) combined with the absence of ischemic changes on EKG, acute coronary syndrome is considered unlikely. However, the patient declined cardiac enzymatic blood analysis, which limits the completeness of the evaluation. It should be noted that with chest pain of this duration, cardiac enzymes would typically be elevated if the pain were attributable to ACS. Additionally, the patient has a low-risk profile for coronary artery disease based on available risk factor assessment, with no substantial risk factors present (including: age <65, fewer than 3 CAD risk factors such as family history of CAD, hypertension, hypercholesterolemia, diabetes, or current smoking; no known CAD; no recent aspirin use; no severe angina with multiple episodes in 24 hours; no significant ST changes; and no positive cardiac biomarkers available for review). The patient may benefit from outpatient cardiac stress testing, and arrangements for this can be made during follow-up with her primary care physician. The patient was counseled that while there is no evidence of a life-threatening process at this time, early presentations of serious illness can occasionally have falsely reassuring initial evaluations, particularly when laboratory testing is incomplete. Standard discharge instructions were provided. The patient verbalizes understanding that she should return to the emergency department or contact her primary care physician immediately if symptoms worsen, change in character, or persist. The importance of close outpatient follow-up was emphasized and the patient expressed understanding. Keyonna Muhammad PA-C Advanced Practice Provider [facility] Disclaimer: Please note that portions of this chart may have been generated using voice recognition and/or artificial intelligence-assisted documentation tools. While every effort is made to ensure accuracy, occasional railroad operator or sound-alike errors may occur due to software limitations. Please read all entries in context and excuse any typographical or grammatical inconsistencies. All relevant medical findings, test results, and treatment details are permanently stored within the electronic medical record. The patient is encouraged to review their chart and follow-up instructions via the secure patient portal, as printed discharge paperwork may or may not have been provided at the time of visit. [1] No Known Allergies [2] Past Medical History: Diagnosis Date Raynaud phenomenon [3] Current Outpatient Medications Medication Sig Dispense Refill drospirenone-ethinyl estradiol (Gracie) 3-0.02 mg tablet Take 1 tablet by mouth once daily. EPINEPHrine 0.3 mg/0.3 mL injection syringe Inject 0.3 mL (0.3 mg total) into the mid-thigh as needed for severe allergic reaction. . No current facility-administered medications for this visit. [4] Past Surgical History: Procedure Laterality Date SECTION, LOW TRANSVERSE x2 [5] No family history on file. documented in this encounter [facility] Work Phone: 03-21-2025 Telephone encounter Note Gracie sent Jennifer Mccall MD [facility] 03-21-2025 Miscellaneous Notes Gracie sent Jennifer Mccall MD documented in this encounter [facility] 12-12-2024 Telephone encounter Note Return to work letter faxed. Andra Tong RN [facility] 12-12-2024 Miscellaneous Notes Return to work letter faxed. Andra Tong RN documented in this encounter [facility] 11-15-2024 Telephone encounter Note Received PA request for Slynd. Submitted and received response that it was approved. Patient notified via [employer]anal[employer]. Braden Givens MA [facility] 11-15-2024 Miscellaneous Notes Received PA request for Slynd. Submitted and received response that it was approved. Patient notified via [employer]. Braden Givens MA documented in this encounter [facility] 11-15-2024 Note HNO ID: [id number] Author: JENNIFER MCCALL MD Service: ? Author Type: Physician Type: Progress Notes Filed: 11/15/2024 11:22 Note Text: VISIT Laxmi Oliveira is a 34 year old year old here for visit. Delivery Summary: ROS/ Recovery: Feeding: Breast feeding- pumping problems: None Menses since delivery: none Menstrual pattern prior to : Regular periods Makena since delivery: Not resumed Depression: denies symptoms of depression. OB Depression and Anxiety Screening- This Encounter (since 11/14/2024) Over the past 2 weeks have you felt down, depressed, or hopeless? Negative Over the past two weeks, have you felt little interest or pleasure in doing things?? Negative Feeling nervous, anxious or on edge 0-Not at all Not being able to stop or control worrying 0-Not al all Anxiety Pre-Screening Total (If >/= 3 additional questions will be reviewed) 0 Emotional support: Yes Bowel symptoms: No nausea, vomiting, or diarrhea, No heartburn or reflux symptoms, and Negative for abdominal discomfort, blood in stools or black stools Abdomen: She reports no incisional redness, tenderness, erythema Bladder symptoms: No dysuria, gross hematuria, urinary frequency, urinary urgency, or incontinence Other issues: None Last Pap: 2022 normal HPV: negative PAST MEDICAL HISTORY Diagnosis Date Abnormal Pap smear of cervix Adenomyosis COVID-19 affecting childbirth 06/18/2022 History of colposcopy abnormal paps 6064-7736 IBS (irritable bowel syndrome) Pyogenic granulomas PAST SURGICAL HISTORY Procedure Laterality Date DELIVERY ONLY 10/02/2024 SECTION HX 06/17/2022 PAST SURGICAL HISTORY OF wisdom teeth TOOTH EXTRACTION 08/2022 x2 VAGINOSCOPY [facility] (OFFICE IPAS) FAMILY HISTORY Problem Relation Age of Onset Cervical Cancer Mother Hypertension Father Diabetes Father No Known Problems Sister No Known Problems Brother No Known Problems Brother Thyroid Maternal Grandmother Lung Cancer Maternal Grandfather Leukemia Paternal Grandmother Diabetes Paternal Grandfather Pancreatic Cancer Paternal Grandfather No Known Problems Son Social History Tobacco Use Smoking status: Former Types: Cigarettes Smokeless tobacco: Never Vaping Use Vaping status: Never Used Substance Use Topics Alcohol use: Not Currently Comment: rarely Drug use: Never PHYSICAL EXAMINATION: SENSITIVE EXAM: The sensitive examination was discussed with the Patient or Patient's Authorized Photographic Process Worker. As applicable, any other physician, advance practice provider, medical student, or other health professional student that will be observing or involved in the sensitive examination for educational or training purposes was discussed with the Patient or Authorized Photographic Process Worker. The Patient or Authorized Photographic Process Worker has agreed to proceed with the sensitive examination. (Sensitive examination includes inspection and/or palpation of the breasts, pelvis, prostate and anorectal regions). BP 106/64 Wt 142 lb (64.4kg) LMP 02/01/2024 GENERAL: pleasant, female in no apparent distress HEENT: Normocephalic, atraumatic, mucus membranes moist, and no lesions NECK: Supple, full range of motion, no adenopathy, and thyroid normal DERMATOLOGY: Normal, without lesions, non-icteric, and non-hirsute BREAST: soft, non-tender, symmetric, no dominant mass, normal nipple-areolar complex, no lymphadenopathy, and no nipple discharge CHEST: Normal inspiratory effort ABDOMEN: soft, non-tender, and no masses. INCISION: No incisional redness, swelling, or drainage PELVIC: external genitalia normal, normal Bartholin's glands, urethra, Zeba's glands, no vulvar lesions, no cervical lesions, good vaginal support, physiologic discharge present, normal appearing perineal body and perianal region BIMANUAL: uterus normal size, shape and consistency, no adnexal masses, and non-tender NEURO: alert and oriented x3,exam grossly non-focal EXTREMITIES: normal ASSESSMENT AND PLAN: 34 year old status post CS with normal course. and course complicated by uterine rupture. Contraception plan: Slynd Follow up: Progesterone only OCP - patient will call when no longer , RTC for annual exams and PRN Jennifer Mccall MD [facility] 11-15-2024 History of Present illness Narrative VISIT Laxmi Oliveira is a 34 year old year old here for visit. Delivery Summary: ROS/ Recovery: Feeding: Breast feeding- pumping problems: None Menses since delivery: none Menstrual pattern prior to : Regular periods Makena since delivery: Not resumed Depression: denies symptoms of depression. OB Depression and Anxiety Screening- This Encounter (since 11/14/2024) Over the past 2 weeks have you felt down, depressed, or hopeless? Negative Over the past two weeks, have you felt little interest or pleasure in doing things? Negative Feeling nervous, anxious or on edge 0-Not at all Not being able to stop or control worrying 0-Not al all Anxiety Pre-Screening Total (If >/= 3 additional questions will be reviewed) 0 Emotional support: Yes Bowel symptoms: No nausea, vomiting, or diarrhea, No heartburn or reflux symptoms, and Negative for abdominal discomfort, blood in stools or black stools Abdomen: She reports no incisional redness, tenderness, erythema Bladder symptoms: No dysuria, gross hematuria, urinary frequency, urinary urgency, or incontinence Other issues: None Last Pap: 2022 normal HPV: negative PAST MEDICAL HISTORY Diagnosis Date Abnormal Pap smear of cervix Adenomyosis COVID-19 affecting childbirth 06/18/2022 History of colposcopy abnormal paps [id number] IBS (irritable bowel syndrome) Pyogenic granulomas PAST SURGICAL HISTORY Procedure Laterality Date DELIVERY ONLY 10/02/2024 SECTION HX 06/17/2022 PAST SURGICAL HISTORY OF wisdom teeth TOOTH EXTRACTION 08/2022 x2 VAGINOSCOPY [facility] (OFFICE [facility]AS) FAMILY HISTORY Problem Relation Age of Onset Cervical Cancer Mother Hypertension Father Diabetes Father No Known Problems Sister No Known Problems Brother No Known Problems Brother Thyroid Maternal Grandmother Lung Cancer Maternal Grandfather Leukemia Paternal Grandmother Diabetes Paternal Grandfather Pancreatic Cancer Paternal Grandfather No Known Problems Son Social History Tobacco Use Smoking status: Former Types: Cigarettes Smokeless tobacco: Never Vaping Use Vaping status: Never Used Substance Use Topics Alcohol use: Not Currently Comment: rarely Drug use: Never PHYSICAL EXAMINATION: SENSITIVE EXAM: The sensitive examination was discussed with the Patient or Patient's Authorized Photographic Process Worker. As applicable, any other physician, advance practice provider, medical student, or other health professional student that will be observing or involved in the sensitive examination for educational or training purposes was discussed with the Patient or Authorized Photographic Process Worker. The Patient or Authorized Photographic Process Worker has agreed to proceed with the sensitive examination. (Sensitive examination includes inspection and/or palpation of the breasts, pelvis, prostate and anorectal regions). BP 106/64 Wt 142 lb (64.4kg) LMP 02/01/2024 GENERAL: pleasant, female in no apparent distress HEENT: Normocephalic, atraumatic, mucus membranes moist, and no lesions NECK: Supple, full range of motion, no adenopathy, and thyroid normal DERMATOLOGY: Normal, without lesions, non-icteric, and non-hirsute BREAST: soft, non-tender, symmetric, no dominant mass, normal nipple-areolar complex, no lymphadenopathy, and no nipple discharge CHEST: Normal inspiratory effort ABDOMEN: soft, non-tender, and no masses. INCISION: No incisional redness, swelling, or drainage PELVIC: external genitalia normal, normal Bartholin's glands, urethra, Zeba's glands, no vulvar lesions, no cervical lesions, good vaginal support, physiologic discharge present, normal appearing perineal body and perianal region BIMANUAL: uterus normal size, shape and consistency, no adnexal masses, and non-tender NEURO: alert and oriented x3,exam grossly non-focal EXTREMITIES: normal ASSESSMENT AND PLAN: 34 year old status post CS with normal course. and course complicated by uterine rupture. Contraception plan: Slynd Follow up: Progesterone only OCP - patient will call when no longer , RTC for annual exams and PRN Jennifer Mccall MD documented in this encounter [facility] 10-19-2024 Note HNO ID: [id number] Author: ANDRA DIAZ MD Service: ? Author Type: Physician Type: Progress Notes Filed: 10/19/2024 13:09 Note Text: VIRTUAL 6 WEEK VISIT Laxmi Oliveira is a 34 year old year old here for virtual visit, using [employer] Z[employer] Video Visit. It required patient-provider interaction for the medical decision making as documented below. I have communicated my name and active licensure. The patient?s identity and physical location were verified at the time of this visit. Either the patient or their legal healthcare sales representative has been informed of the risks and benefits of -- and alternatives to -- treatment through a remote evaluation and consents to proceed with the evaluation remotely. Delivery Summary: Emergent delivery due to uterine scar dehiscence at 35 weeks. Baby doing well and is now at home. ROS: General: Denies any fever or chills Hypertension Screening: Headache? No. Visual Changes? No Epigastric Pain? No Increased Swelling? No Taking any BP medications at home? No If applicable, monitoring BP at home? (If Yes, include results) NA Mood: normal Depression: denies symptoms of depression. OB Depression and Anxiety Screening- This Encounter (since 10/18/2024) None Feeding: Breast and bottle feeding problems: None Bladder: No dysuria, gross hematuria, urinary frequency, urinary urgency, or incontinence Bowel symptoms: Negative for abdominal discomfort, blood in stools or black stools and change in bowel habits Abdomen: She reports no incisional redness, tenderness, erythema Bottom and Perineum: No issues Menses since delivery: light flow Menstrual pattern prior to : Regular periods Sleep: no sleep concerns, feels rested Makena since delivery: Not resumed Emotional support: Yes Exercise: N/A Other issues: None Last Pap: 02/27/2023 normal HPV: negative PAST MEDICAL HISTORY Diagnosis Date Abnormal Pap smear of cervix Adenomyosis COVID-19 affecting childbirth 06/18/2022 History of colposcopy abnormal paps 4051-4276 IBS (irritable bowel syndrome) Pyogenic granulomas PAST SURGICAL HISTORY Procedure Laterality Date DELIVERY ONLY 10/02/2024 SECTION HX 06/17/2022 PAST SURGICAL HISTORY OF wisdom teeth TOOTH EXTRACTION 08/2022 x2 VAGINOSCOPY [facility] (OFFICE IPAS) FAMILY HISTORY Problem Relation Age of Onset Cervical Cancer Mother Hypertension Father Diabetes Father No Known Problems Sister No Known Problems Brother No Known Problems Brother Thyroid Maternal Grandmother Lung Cancer Maternal Grandfather Leukemia Paternal Grandmother Diabetes Paternal Grandfather Pancreatic Cancer Paternal Grandfather No Known Problems Son Social History Tobacco Use Smoking status: Former Types: Cigarettes Smokeless tobacco: Never Vaping Use Vaping status: Never Used Substance Use Topics Alcohol use: Not Currently Comment: rarely Drug use: Never ALLERGIES No Known Allergies Current Outpatient Medications Medication Sig ferrous sulfate 325 mg (65 mg iron) tablet Take 1 tablet by mouth once daily. vit,deanna 74/iron/folic ( VITAMIN 1+1 ORAL) No current facility-administered medications for this visit. PHYSICAL EXAMINATION: GENERAL: pleasant, {female in no apparent distress AANDO x 3. INCISION: N/A ASSESSMENT AND PLAN: 34 year old status post CS with normal course. Contraception plan: none Follow up: 6 week appointment Andra Diaz MD [facility] 10-19-2024 History of Present illness Narrative VIRTUAL 6 WEEK VISIT Laxmi Oliveira is a 34 year old year old here for virtual visit, using [employer] Z[employer] Video Visit. It required patient-provider interaction for the medical decision making as documented below. I have communicated my name and active licensure. The patient s identity and physical location were verified at the time of this visit. Either the patient or their legal healthcare sales representative has been informed of the risks and benefits of -- and alternatives to -- treatment through a remote evaluation and consents to proceed with the evaluation remotely. Delivery Summary: Emergent delivery due to uterine scar dehiscence at 35 weeks. Baby doing well and is now at home. ROS: General: Denies any fever or chills Hypertension Screening: Headache? No. Visual Changes? No Epigastric Pain? No Increased Swelling? No Taking any BP medications at home? No If applicable, monitoring BP at home? (If Yes, include results) NA Mood: normal Depression: denies symptoms of depression. OB Depression and Anxiety Screening- This Encounter (since 10/18/2024) None Feeding: Breast and bottle feeding problems: None Bladder: No dysuria, gross hematuria, urinary frequency, urinary urgency, or incontinence Bowel symptoms: Negative for abdominal discomfort, blood in stools or black stools and change in bowel habits Abdomen: She reports no incisional redness, tenderness, erythema Bottom and Perineum: No issues Menses since delivery: light flow Menstrual pattern prior to : Regular periods Sleep: no sleep concerns, feels rested Makena since delivery: Not resumed Emotional support: Yes Exercise: N/A Other issues: None Last Pap: 02/27/2023 normal HPV: negative PAST MEDICAL HISTORY Diagnosis Date Abnormal Pap smear of cervix Adenomyosis COVID-19 affecting childbirth 06/18/2022 History of colposcopy abnormal paps 4127-2641 IBS (irritable bowel syndrome) Pyogenic granulomas PAST SURGICAL HISTORY Procedure Laterality Date DELIVERY ONLY 10/02/2024 SECTION HX 06/17/2022 PAST SURGICAL HISTORY OF wisdom teeth TOOTH EXTRACTION 08/2022 x2 VAGINOSCOPY [facility] (OFFICE IPAS) FAMILY HISTORY Problem Relation Age of Onset Cervical Cancer Mother Hypertension Father Diabetes Father No Known Problems Sister No Known Problems Brother No Known Problems Brother Thyroid Maternal Grandmother Lung Cancer Maternal Grandfather Leukemia Paternal Grandmother Diabetes Paternal Grandfather Pancreatic Cancer Paternal Grandfather No Known Problems Son Social History Tobacco Use Smoking status: Former Types: Cigarettes Smokeless tobacco: Never Vaping Use Vaping status: Never Used Substance Use Topics Alcohol use: Not Currently Comment: rarely Drug use: Never ALLERGIES No Known Allergies Current Outpatient Medications Medication Sig ferrous sulfate 325 mg (65 mg iron) tablet Take 1 tablet by mouth once daily. vit,deanna 74/iron/folic ( VITAMIN 1+1 ORAL) No current facility-administered medications for this visit. PHYSICAL EXAMINATION: GENERAL: pleasant, {female in no apparent distress A&O x 3. INCISION: N/A ASSESSMENT AND PLAN: 34 year old status post CS with normal course. Contraception plan: none Follow up: 6 week appointment Andra Diaz MD documented in this encounter [facility] 10-11-2024 Note HNO ID: [id number] Author: DEVON LITTLEJOHN MD Service: ? Author Type: Physician Type: Progress Notes Filed: 10/11/2024 11:27 Note Text: EARLY VISIT Laxmi Oliveira is a 34 year old here for 1 week visit. Using pain meds prn, took tylenol last night. Denies WOLFE or visual changes. Watching BP at home. BP was 150 and went to [place] to be evaluated. BP now running around 130s-140s/80s-90 Delivery Summary: stat c/s for uterine rupture, baby in NICU, doing well, hopefully home this weekend ROS: General: Denies any fever or chills Hypertension Screening: Headache? Yes. Was it successfully treated with Tylenol? yes Visual Changes? No Epigastric Pain? No Increased Swelling? No Taking any BP medications at home? No If applicable, monitoring BP at home? (If Yes, include results) Yes / 130's/80's Mood: normal Depression: denies symptoms of depression. OB Depression and Anxiety Screening- This Encounter (since 10/10/2024) Over the past 2 weeks have you felt down, depressed, or hopeless? Negative Over the past two weeks, have you felt little interest or pleasure in doing things?? Negative Feeling nervous, anxious or on edge 1-Several days Not being able to stop or control worrying 0-Not al all Anxiety Pre-Screening Total (If >/= 3 additional questions will be reviewed) 1 Feeding: Breast and bottle feeding problems: just pumping while in hospital Bladder: No dysuria, gross hematuria, urinary frequency, urinary urgency, or incontinence Bowel symptoms: Negative for abdominal discomfort, blood in stools or black stools Abdomen: She reports no incisional redness, tenderness, erythema Bleeding: light flow Bottom and Perineum: No issues Sleep: no sleep concerns and baby in [facility], feels rested Makena since delivery: Not resumed Emotional support: Yes Exercise: N/A Other issues: None SENSITIVE EXAM: Sensitive exam not performed. PHYSICAL EXAMINATION: LMP 02/01/2024 (Exact Date) Yes General: pleasant,female in no apparent distress, AANDO x 3. Skin warm and intact. Breast: Deferred Abdomen: Deferred /Incision: No incisional redness, swelling, or drainage Pelvic: Deferred Bimanual: Deferred ASSESSMENT AND PLAN: 34 year old status post CS with normal course. Contraception plan: OCPs . Reinforced 6-week pelvic rest. Encouraged condom usage should patient deviate. Education: resources provided - see MA/RN note Monitor BP, call if symptoms of preeclampsia or severe range BPs Follow up: Return to Clinic for 6 week visit and as needed Devon Littlejohn MD [facility] 10-11-2024 History of Present illness Narrative EARLY VISIT Laxmi Oliveira is a 34 year old here for 1 week visit. Using pain meds prn, took tylenol last night. Denies WOLFE or visual changes. Watching BP at home. BP was 150 and went to [place] to be evaluated. BP now running around 130s-140s/80s-90 Delivery Summary: stat c/s for uterine rupture, baby in NICU, doing well, hopefully home this weekend ROS: General: Denies any fever or chills Hypertension Screening: Headache? Yes. Was it successfully treated with Tylenol? yes Visual Changes? No Epigastric Pain? No Increased Swelling? No Taking any BP medications at home? No If applicable, monitoring BP at home? (If Yes, include results) Yes / 130's/80's Mood: normal Depression: denies symptoms of depression. OB Depression and Anxiety Screening- This Encounter (since 10/10/2024) Over the past 2 weeks have you felt down, depressed, or hopeless? Negative Over the past two weeks, have you felt little interest or pleasure in doing things? Negative Feeling nervous, anxious or on edge 1-Several days Not being able to stop or control worrying 0-Not al all Anxiety Pre-Screening Total (If >/= 3 additional questions will be reviewed) 1 Feeding: Breast and bottle feeding problems: just pumping while in hospital Bladder: No dysuria, gross hematuria, urinary frequency, urinary urgency, or incontinence Bowel symptoms: Negative for abdominal discomfort, blood in stools or black stools Abdomen: She reports no incisional redness, tenderness, erythema Bleeding: light flow Bottom and Perineum: No issues Sleep: no sleep concerns and baby in [facility], feels rested Makena since delivery: Not resumed Emotional support: Yes Exercise: N/A Other issues: None SENSITIVE EXAM: Sensitive exam not performed. PHYSICAL EXAMINATION: LMP 02/01/2024 (Exact Date) Yes General: pleasant,female in no apparent distress, A&O x 3. Skin warm and intact. Breast: Deferred Abdomen: Deferred /Incision: No incisional redness, swelling, or drainage Pelvic: Deferred Bimanual: Deferred ASSESSMENT AND PLAN: 34 year old status post CS with normal course. Contraception plan: OCPs . Reinforced 6-week pelvic rest. Encouraged condom usage should patient deviate. Education: resources provided - see MA/RN note Monitor BP, call if symptoms of preeclampsia or severe range BPs Follow up: Return to Clinic for 6 week visit and as needed Devon Littlejohn MD documented in this encounter [facility] 10-08-2024 Note HNO ID: [id number] Author: SUZANNE SHAH MD Service: Obstetrics Author Type: Physician Type: Progress Notes Filed: 11/16/2024 06:03 Note Text: OBSTETRICS OB ED PROGRESS NOTE SERVICE DATE: October 08, 2024 SERVICE TIME: 11:40 PM Subjective Patient's stated reason for arrival: CHIEF COMPLAINT: High blood pressure HISTORY OF THE PRESENT ILLNESS: The patient is a 34 year old female, , who is s/p an emergency section on 10/03. Patient is here with concern of high blood pressure by at home blood pressure machine and intermittent headache by her left orbital region. Rates it 01/12. Denies any positional relation. She is not sleeping well because baby is still in NICU from delivery. She takes ibuprofen and tylenol for incision pain which has not helped her headache. Last took tylenol at 1100. Denies visual changes, RUQ pain, chest pain, shortness of breath, worsening edema. Endorses regular bowel movements. She reported trace bilateral lower extremity swelling to her outpatient provider yesterday who recommended to buy an at-home blood pressure machine and to monitor blood pressure twice a day. The last blood pressure reading was 150/84 and is concerned about pre-eclampsia. She denies any blood pressure problems in this or in prior pregnancies. Patient had a failed TOLAC with an emergency section due to uterine rupture on 10/03 at [facility]. Estimated blood loss of 500 mL at time of delivery. Patient denies any complications in this or prior. Denies any purulent discharge from incision. Appropriate lochia. PAST MEDICAL HISTORY Diagnosis Date Abnormal Pap smear of cervix Adenomyosis COVID-19 affecting childbirth 06/18/2022 History of colposcopy abnormal paps 3748-8874 IBS (irritable bowel syndrome) Pyogenic granulomas PAST SURGICAL HISTORY Procedure Laterality Date DELIVERY ONLY 10/02/2024 SECTION HX 06/17/2022 PAST SURGICAL HISTORY OF wisdom teeth TOOTH EXTRACTION 08/2022 x2 VAGINOSCOPY [facility] (OFFICE IPAS) FAMILY HISTORY Problem Relation Age of Onset Cervical Cancer Mother Hypertension Father Diabetes Father No Known Problems Sister No Known Problems Brother No Known Problems Brother Thyroid Maternal Grandmother Lung Cancer Maternal Grandfather Leukemia Paternal Grandmother Diabetes Paternal Grandfather Pancreatic Cancer Paternal Grandfather No Known Problems Son OB History T1 L2 SAB1 IAB0 Ectopic0 Multiple0 Live Births2 REVIEW OF SYSTEMS: The remainder of the review of systems is negative. Objective LAST VITALS: Pulse: 90 BP: 137/96 Resp: 18 Temp: 36.6 ?C (97.9 ?F) SpO2: 97 % Height: 160 cm (5' 3) Weight: 63.5 kg (140 lb) BMI: 24.8 SENSITIVE EXAMINATION CONSENT: The sensitive examination was discussed with the Patient or Patient's Authorized Photographic Process Worker. As applicable, any other physician, advance practice provider, medical student, or other health professional student that will be observing or involved in the sensitive examination for educational or training purposes was discussed with the Patient or Authorized Photographic Process Worker. The Patient or Authorized Photographic Process Worker has agreed to proceed with the sensitive examination. PHYSICAL EXAM: Heart: RR, warm and well perfused Lungs: normal pulmonary exam Abdomen: Soft Fundus firm below umbilicus Non-distended. Negative Chang's sign Incision: Transverse incision C/D/I with appropriate ecchymosis. No purulent discharge expressed. Extremities: No calf tenderness and trace edema bilaterally LABS Diagnostic tests reviewed for today's visit: Recent Labs 10/08/24 2241 WBC 9.61 HB 8.7* HCT 27.0* PLT 329 NA 138 K 3.7 CHLOR 103 CO2 24 BUN 13 CREAT 0.63 GLUC 93 CA 8.9 MG 2.0 Recent Labs 10/08/24 2241 TPROT 6.4 ALB 3.4* ALT 31 AST 23 ALKPHOS 89 TBILI <0.2* 34 year old EGA:Unknown. headache Assessment AND Plan headache - patient declined Excedrin; Reglan, Benadryl, Ibuprofen administered with symptomatic relief in OB ED - reassurance provided, patient is requesting discharge Elevated blood pressure reading in office without diagnosis of hypertension - mild to normal range in period in OB ED - mild, intermittent headache but denies all other preE symptoms - CBC and CMP unremarkable in ED: Hgb 8.7 Plt 329 AST/ALT Cr 0.63 UPC 0.22 - low concern for new preeclampsia diagnosis at this time in the setting of headache resolvable with medication and reassuring physical exam and labs - return precautions provided including elevated blood pressure readings and preeclampsia symptoms. Instructions to take blood pressure twice a day and call provider with any severe blood pressure readings - Follow up with outpatient provider on 10/11 as scheduled anemia - denies lightheadedne (more content not included)... [facility] 10-07-2024 Telephone encounter Note noted. [facility] Work Phone: 10-07-2024 Miscellaneous Notes noted. Patient sent a Krikle message stating that her blood pressure today was 125/88. schedule f/u within one week after delivery for PP patients please for BP checks and incision checks. Schedule next week. Call or to ED for signs/symptoms of preeclampsia. Devon Littlejohn MD Patient had a c/s on 10/02/2024 and began to notice swelling in lower legs, ankles, feet, and slightly in hands on 10/04/2024, started to wear compression stockings on 10/06/2024 and has not noticed much decrease in swelling. Patient is able to wear regular shoes w/ the swelling. Had a headache today that resolved after a nap, Denies vision changes, no c/o epigastric pain or N/V. Patient is currently at [facility] w/ baby and will ask a nurse to check her Bp. appointment is 10/17/2024. Please advise. documented in this encounter [facility] 10-07-2024 Telephone encounter Note Patient sent a Krikle message stating that her blood pressure today was 125/88. [facility] 10-07-2024 Telephone encounter Note schedule f/u within one week after delivery for PP patients please for BP checks and incision checks. Schedule next week. Call or to ED for signs/symptoms of preeclampsia. Devon Littlejohn MD [facility] 10-07-2024 Telephone encounter Note Patient had a c/s on 10/02/2024 and began to notice swelling in lower legs, ankles, feet, and slightly in hands on 10/04/2024, started to wear compression stockings on 10/06/2024 and has not noticed much decrease in swelling. Patient is able to wear regular shoes w/ the swelling. Had a headache today that resolved after a nap, Denies vision changes, no c/o epigastric pain or N/V. Patient is currently at [facility] w/ baby and will ask a nurse to check her Bp. appointment is 10/17/2024. Please advise. [facility] 10-04-[address] [facility] Medical Records Department [address] [place] [address] Discharge Summary 10/04/24 0728 MR#: [id number] Acct: [id number] Name: LAXMI OLIVEIRA Rep #: [id number] : 1990 34 From: Kailyn Diaz CNM PCP: Dr. Go Covington, Status:ADM IN [id number] Prov[facility] Date of Admission: 10/02/24 Primary Care Physician: Dr. Go Covington, DO Reason For Visit: Diagnosis Discharge Diagnosis (1) Rupture of uterus before onset of labor in third trimester: Status: Acute Code(s): O71.03 - Rupture of uterus before onset of labor, third trimester (2) S/P : Status: Acute Code(s): Z98.891 - History of uterine scar from previous surgery Plan POD 2 Repeat C/S Pain controlled Pumping Baby at [facility] NICU Desires discharge today Medications at Discharge Home Medications acetaminophen 500 mg tablet 1,000 mg (2 x 500 mg) PO Q6H #0 tabs 10/04/24 ibuprofen 600 mg tablet 600 mg PO Q6H #0 tabs 10/04/24 sennosides 8.6 mg-docusate sodium 50 mg tablet (Stimulant Laxative Plus) 1 - 2 tab PO DAILY #0 tabs 10/04/24 Hospital Course Operations section Procedures None Summary of Care Provided Minutes Spent on Discharge: 15 Hospital Course: Patient had section. Hospital course was uneventful. Physical Exam Narrative Patient seen at bedside. Denies any headache, dizziness, SOB, CP. Ambulating without difficulty. Passing flatus. Pain controlled. Desires discharge home to go to [facility]. Const alert and no apparent distress General Appearance: cooperative and comfortable Exam Limitations: no limitations HEENT normocephalic Eyes General Eye: normal appearance of both eyes Neck full ROM General: normal visual inspection Chest Chest: symmetrical chest wall rise Resp normal respiratory effort and normal air movement Effort and Inspection: symmetric chest movement Auscultation: clear to auscultation bilaterally Cardio regular rate and regular rhythm GI normal to inspection, nondistended, normoactive bowel sounds Back/Spine normal ROM Extremity full ROM and no calf tenderness General Extremity: normal exam except as noted Skin no rashes or lesions noted Wound Narrative: Dressing is dry and intact. Neuro CN's II-XII intact bilaterally Psych mental status grossly normal Weight / BMI Weight Weight: 155 lb 9.6 oz Body Mass Index (BMI) 27.6 ABG / Lab / Microbiology Data 10/03/24 06:09 10/02/24 18:17 D/C Instructions Discharge Diet: No restrictions Discharge Activity: May Drive (2 weeks) and May Shower May resume sexual activity in: 6-8 weeks Weight Bearing Status: Weight bearing as tolerated Lifting Restricted to (Lbs): 25 Call your doctor if your incision/area has: Continuous Slow Oozing, Sudden Increased Bleeding, Increased Pain/ Swelling, Increased Redness, Foul Smelling Discharge and Swelling at the incision site Call your doctor if you observe: Fever of 101 or Higher, Numbness or Tingling, Using more than 1 pad per hour, Shortness of breath, Dizziness, Swelling in the ankles, Chest pain, Calf discomfort and Uncontrolled pain Suture Line Care: Avoid Pulling/Pushing Remove Dressing in: 5 days (Remove yourself or call office and schedule appointment for dressing removal.) DC O2, CPAP, BIPAP Needs Home O2 Discharge instructions: No When: 5 days for dressing removal or 2 weeks for post appointment. Meaningful Use Info Meaningful Use Meaningful Use Diagnoses (Choose all that apply): None applicable Ischemic Stroke Statin Dosing Therapy Reference: STATIN DOSE THERAPY REFERENCE: * Patients > 75 years receive moderate or high dose statin therapy. * Patients 75 years or YOUNGER should receive HIGH intensity statin dose unless contraindicated. You will be required to document reason for non-treatment if statin daily dose does not meet guidelines. HIGH DOSE STATIN THERAPY DAILY Atorvastatin > than or = to 40 mg Rosuvastatin > than or = to 20 mg Amlodipine + Atorvastatin > than or = to 2.5/40 mg Ezetimibe + Simvastatin 10/80 mg Simvastatin 80mg Discharge Plan Admission Admit Date/Time: 10/02/24 18:00 Primary Reason for Your Visit: Repeat section Attending Provider: Andra Diaz Primary Care Provider: Go Covington Discharge Orders/Prescriptions Prescriptions: New acetaminophen 500 mg Tablet 1,000 mg PO Q6H Qty: 0 0RF sennosides-docusate sodium [Stimulant Laxative Plus] 8.6-50 mg Tablet 1 - 2 tab PO DAILY Qty: 0 0RF ibuprofen 600 mg Tablet 600 mg PO Q6H Qty: 0 0RF Referrals / Follow Up: Kailyn Diaz CNM [Med Staff - Adv Practice Prof] - Go Covington DO [Primary Care Provider] - Disposition Disposition (needs filled in before D/C Order can be pl (more content not included)... [facility] 10-03-2024 Note HNO ID: [id number] Author: ANDRA TONG RN Service: ? Author Type: Registered Nurse Type: Progress Notes Filed: 10/03/2024 11:29 Note Text: Patient delivered via Stat C/S at [facility] on 10/02/24 per Andra Diaz MD . See OB Outcome note. Andra Tong RN [facility] 10-03-2024 History of Present illness Narrative Patient delivered via Stat C/S at [facility] on 10/02/24 per Andra Diaz MD . See OB Outcome note. Andra Tong RN documented in this encounter [facility] 09-29-2024 Telephone encounter Note FMLA paperwork signed and faxed for Pt and spouse. Pt notified and will hand picker original paperwork-placed at the nurses neck. Jazmín Kumar RN [facility] 09-29-2024 Miscellaneous Notes FMNEHA paperwork signed and faxed for Pt and spouse. Pt notified and will hand picker original paperwork-placed at the nurses neck. Jazmín Kumar, RN Signed thanks Received FMLA paperwork for patient and spouse. Both completed and placed on providers desk for signature. Braden Givens MA documented in this encounter [facility] 09-29-2024 Telephone encounter Note Signed thanks [facility] Work Phone: 09-29-2024 Telephone encounter Note Received FMLA paperwork for patient and spouse. Both completed and placed on providers desk for signature. Braden Givens MA [facility] 09-29-2024 Progress note Formatting of t his note might be different from the original. SW- No ctx, vb, lof. Good FM PE: Gen- NAD, well appearing Abd- Soft, gravid, NT, S=D See flowsheet A/p 34 wk gestation - Discussed upcoming expectations - RTO 2 wks Fernanda Rogel DO [facility] Work Phone: 09-29-2024 Miscellaneous Notes SW- No ctx, vb, lof. Good FM PE: Gen- NAD, well appearing Abd- Soft, gravid, NT, S=D See flowsheet A/p 34 wk gestation - Discussed upcoming expectations - RTO 2 wks Fernanda Rogel DO documented in this encounter [facility] 09-29-2024 Instructions Lisa Garcia MA - 09/29/2024 8:15 AM EST SEQUENTIAL SCREENINGS The [facility] offers sequential screenings for women who are interested in screenings for chromosomal abnormalities and certain defects during a . The sequential screen combines ultrasound and blood tests to determine the risk of chromosomal abnormalities, including Down's Syndrome (Trisomy 21) and Trisomy 18, as well as open neural tube defects including spina bifida. Ultrasound examination is performed between 11 weeks and 13 weeks gestational age. Blood tests are drawn after the ultrasound and again later in the between 15 and 21 weeks gestational age. Please let your physician know if you are interested in this testing. It will require an appointment with our x ray service technician. This is not an ultrasound performed by a physician in our office during a routine visit. SIGNS AND SYMPTOMS OF LABOR 1. Contractions every 10 minutes or more often 2. Clear, pink, or brownish fluid (water) leaking from vagina 3. Feeling that baby is pushing down, pressure 4. Low, dull backache 5. Cramps that feel like a period 6. Cramps with or without diarrhea If you notice any of the above symptoms, contact our office at [phone] and ask to speak with a nurse. After hours, you can call doctors registry at [phone] OR call [facility] at [phone] and ask to have the doctor cone treater paged. If you consider this an emergency, dial 9-1-5 or go to your nearest emergency department. NEED HELP? Are you dealing with a violent or abusive relationship? Are you a victim of rape or sexual assult? Call [facility] ([place]) 24 hour Crisis Hotline: 678.858.5358 or 678-002-3978. MANUAL Your Guide to a Healthy manual is now on-line. Visit [email or web address] to download your free copy documented in this encounter [facility] 09-13-2024 Note Addended by: DEVON LITTLEJOHN on: 09/13/2024 09:03 AM Modules accepted: Orders [facility] 09-13-2024 Miscellaneous Notes Addended by: DEVON LITTLEJOHN on: 09/13/2024 09:03 AM Modules accepted: Orders RR- VB No. LOF No. CTXS No. Movement: present. Other c/o: No. Medication list reviewed. Physical Exam See Flow Sheet Abd: soft, nontender, gravid Ext: edema: Trace A/P 32w1d Estimated Date of Delivery: 11/07/24 28 week labs reviewed h/o c/s, plans tolac c/s scheduled if not spont labor kick counts counseled on RSV vaccine and accepts today Devon Littlejohn M.D. documented in this encounter [facility] 09-13-2024 Progress note Formatting of t his note might be different from the original. RR- VB No. LOF No. CTXS No. Movement: present. Other c/o: No. Medication list reviewed. Physical Exam See Flow Sheet Abd: soft, nontender, gravid Ext: edema: Trace A/P 32w1d Estimated Date of Delivery: 11/07/24 28 week labs reviewed h/o c/s, plans tolac c/s scheduled if not spont labor kick counts counseled on RSV vaccine and accepts today Devon Littlejohn M.D. [facility] 09-13-2024 Instructions Tiffany Ross MA - 09/13/2024 8:14 AM EST SEQUENTIAL SCREENINGS The [facility] offers sequential screenings for women who are interested in screenings for chromosomal abnormalities and certain defects during a . The sequential screen combines ultrasound and blood tests to determine the risk of chromosomal abnormalities, including Down's Syndrome (Trisomy 21) and Trisomy 18, as well as open neural tube defects including spina bifida. Ultrasound examination is performed between 11 weeks and 13 weeks gestational age. Blood tests are drawn after the ultrasound and again later in the between 15 and 21 weeks gestational age. Please let your physician know if you are interested in this testing. It will require an appointment with our x ray service technician. This is not an ultrasound performed by a physician in our office during a routine visit. SIGNS AND SYMPTOMS OF LABOR 1. Contractions every 10 minutes or more often 2. Clear, pink, or brownish fluid (water) leaking from vagina 3. Feeling that baby is pushing down, pressure 4. Low, dull backache 5. Cramps that feel like a period 6. Cramps with or without diarrhea If you notice any of the above symptoms, contact our office at [phone] and ask to speak with a nurse. After hours, you can call doctors registry at [phone] OR call [facility] at [phone] and ask to have the doctor cone treater paged. If you consider this an emergency, dial 9--7 or go to your nearest emergency department. NEED HELP? Are you dealing with a violent or abusive relationship? Are you a victim of rape or sexual assult? Call [facility] ([place]) 24 hour Crisis Hotline: 997.766.8927 or 177-871-3123. MANUAL Your Guide to a Healthy manual is now on-line. Visit [email or web address] to download your free copy documented in this encounter [facility] 08-30-2024 Progress note Formatting of t his note might be different from the original. S: Laxmi Oliveira is a 34 year old female who presents at 11/07/2024, by Last Menstrual Period for a routine visit. Denies headache, visual changes, chest pain, shortness of breath, vaginal bleeding, leakage of fluid, or dysuria. Feeling well, no complaints. Good movement, No contractions O: See flow sheet Gen: No apparent distress Abd: Gravid, nontender Hoping for . First baby was breech ASSESSMENT/PLAN: 1. 30 weeks gestation of - ICD9: V22.2, ICD10: Z3A.30 (primary diagnosis) PTL precautions 2. Supervision of high risk in third trimester - ICD9: V23.9, ICD10: O09.93 Andra Diaz MD [facility] 08-30-2024 Miscellaneous Notes S: Laxmi Oliveira is a 34 year old female who presents at 11/07/2024, by Last Menstrual Period for a routine visit. Denies headache, visual changes, chest pain, shortness of breath, vaginal bleeding, leakage of fluid, or dysuria. Feeling well, no complaints. Good movement, No contractions O: See flow sheet Gen: No apparent distress Abd: Gravid, nontender Hoping for . First baby was breech ASSESSMENT/PLAN: 1. 30 weeks gestation of - ICD9: V22.2, ICD10: Z3A.30 (primary diagnosis) PTL precautions 2. Supervision of high risk in third trimester - ICD9: V23.9, ICD10: O09.93 Andra Diaz MD documented in this encounter [facility] 08-30-2024 Instructions Lisa Garcia MA - 08/30/2024 3:50 PM EST SEQUENTIAL SCREENINGS The [facility] offers sequential screenings for women who are interested in screenings for chromosomal abnormalities and certain defects during a . The sequential screen combines ultrasound and blood tests to determine the risk of chromosomal abnormalities, including Down's Syndrome (Trisomy 21) and Trisomy 18, as well as open neural tube defects including spina bifida. Ultrasound examination is performed between 11 weeks and 13 weeks gestational age. Blood tests are drawn after the ultrasound and again later in the between 15 and 21 weeks gestational age. Please let your physician know if you are interested in this testing. It will require an appointment with our x ray service technician. This is not an ultrasound performed by a physician in our office during a routine visit. SIGNS AND SYMPTOMS OF LABOR 1. Contractions every 10 minutes or more often 2. Clear, pink, or brownish fluid (water) leaking from vagina 3. Feeling that baby is pushing down, pressure 4. Low, dull backache 5. Cramps that feel like a period 6. Cramps with or without diarrhea If you notice any of the above symptoms, contact our office at [phone] and ask to speak with a nurse. After hours, you can call doctors registry at [phone] OR call [facility] at [phone] and ask to have the doctor cone treater paged. If you consider this an emergency, dial 06-05-7 or go to your nearest emergency department. NEED HELP? Are you dealing with a violent or abusive relationship? Are you a victim of rape or sexual assult? Call [facility] ([place]) 24 hour Crisis Hotline: 660.569.6627 or 958-869-4876. MANUAL Your Guide to a Healthy manual is now on-line. Visit [email or web address] to download your free copy documented in this encounter [facility] 08-17-2024 Telephone encounter Note Yes, but it needs to be the noon spot [facility] Work Phone: 08-17-2024 Miscellaneous Notes Yes, but it needs to be the noon spot 28w1d CAMRON is 2/3. Dr. Diaz- you are cone treater this day. Are you agreeable to performing a at 40 weeks? Andra Tong, ANTONINO documented in this encounter [facility] 08-16-2024 Telephone encounter Note 28w1d CAMRON is 2/3. Dr. Diaz- you are cone treater this day. Are you agreeable to performing a at 40 weeks? Andra Tong, RN [facility] 08-16-2024 Progress note Formatting of t his note might be different from the original. BAILEY-S: Laxmi Oliveira is a 34 year old female who presents at 28w1d with CAMRON:11/07/2024, by Last Menstrual Period for a routine visit. Denies headache, visual changes, chest pain, shortness of breath, vaginal bleeding, leakage of fluid, or dysuria. Feeling well, no complaints. O: See flow sheet Gen: No apparent distress Abd: Gravid, nontender ASSESSMENT/PLAN: 1. Supervision of high risk in third trimester -Continue PNV and ASA -Pregravid weight 23 2. 28 weeks gestation of - 1 hour GCT, CBC, and RPR today - A positive - LARC form reviewed and signed. Patient declines - Depression screen negative - Opioid screen negative - plan form discussed and given to patient. Patient desires TOLAC 3. History of low transverse section 4. Patient desires vaginal after section () -Reviewed desired MOD, previous C/S for breech presentation and LTCS. Predicted success rate 69%. Would like to have a TOLAC if spontaneous labor. Consent form reviewed and signed. Discussed when she would like section if no spontaneous labor and uncertain. Will mychart message after talking with if 39wk or 40wk and then will schedule. 5. Need for vaccination - TDAP VACCINE, AGE 7+ YR (ADACEL, BOOSTRIX) -- TDAP today PTL precautions reviewed and when to call RTO in 2 weeks Viviane Guallpa APRN.CNM [facility] 08-16-2024 Miscellaneous Notes BAILEY-S: Laxmi Oliveira is a 34 year old female who presents at 28w1d with CAMRON:11/07/2024, by Last Menstrual Period for a routine visit. Denies headache, visual changes, chest pain, shortness of breath, vaginal bleeding, leakage of fluid, or dysuria. Feeling well, no complaints. O: See flow sheet Gen: No apparent distress Abd: Gravid, nontender ASSESSMENT/PLAN: 1. Supervision of high risk in third trimester -Continue PNV and ASA -Pregravid weight 23 2. 28 weeks gestation of - 1 hour GCT, CBC, and RPR today - A positive - LARC form reviewed and signed. Patient declines - Depression screen negative - Opioid screen negative - plan form discussed and given to patient. Patient desires TOLAC 3. History of low transverse section 4. Patient desires vaginal after section () -Reviewed desired MOD, previous C/S for breech presentation and LTCS. Predicted success rate 69%. Would like to have a TOLAC if spontaneous labor. Consent form reviewed and signed. Discussed when she would like section if no spontaneous labor and uncertain. Will mychart message after talking with if 39wk or 40wk and then will schedule. 5. Need for vaccination - TDAP VACCINE, AGE 7+ YR (ADACEL, BOOSTRIX) -- TDAP today PTL precautions reviewed and when to call RTO in 2 weeks Viviane Guallpa APRN.CNM BAILEY- documented in this encounter [facility] 08-16-2024 Progress note Formatting of t his note might be different from the original. BAILEY- [facility] 08-16-2024 Note HNO ID: [id number] Author: TIFFANY ROSS MA Service: ? Author Type: Hourly Sign Language Interpreter Type: Progress Notes Filed: 08/16/2024 09:41 Note Text: Patient identified by name and date of . Laxmi Oliveira presents today for a vaccination of Tdap. Patient denies an allergy to latex: yes Patient denies a severe (life-threatening) allergy to a previous dose of Tdap, DTP, DTaP, DT or Td vaccine. Yes Patient denies history of epilepsy or neurological problems: Yes Patient is afebrile and denies being moderately or severely ill: Yes Patient denies history of Guillain-[place] Syndrome (a severe paralytic illness): Yes Tdap Adacel injection was given without incident. See immunizations for details of immunizations administered today. VIS sheet provided: Yes Provider Viviane Guallpa APRN.CNM was present in office at time of injection. [facility] 08-16-2024 History of Present illness Narrative Patient identified by name and date of . Laxmi Oliveira presents today for a vaccination of Tdap. Patient denies an allergy to latex: yes Patient denies a severe (life-threatening) allergy to a previous dose of Tdap, DTP, DTaP, DT or Td vaccine. Yes Patient denies history of epilepsy or neurological problems: Yes Patient is afebrile and denies being moderately or severely ill: Yes Patient denies history of Guillain-[place] Syndrome (a severe paralytic illness): Yes Tdap Adacel injection was given without incident. See immunizations for details of immunizations administered today. VIS sheet provided: Yes Provider Viviane Guallpa APRN.ROXI was present in office at time of injection. documented in this encounter [facility] 08-16-2024 Instructions Tiffany Ross MA - 08/16/2024 7:54 AM EST SEQUENTIAL SCREENINGS The [facility] offers sequential screenings for women who are interested in screenings for chromosomal abnormalities and certain defects during a . The sequential screen combines ultrasound and blood tests to determine the risk of chromosomal abnormalities, including Down's Syndrome (Trisomy 21) and Trisomy 18, as well as open neural tube defects including spina bifida. Ultrasound examination is performed between 11 weeks and 13 weeks gestational age. Blood tests are drawn after the ultrasound and again later in the between 15 and 21 weeks gestational age. Please let your physician know if you are interested in this testing. It will require an appointment with our x ray service technician. This is not an ultrasound performed by a physician in our office during a routine visit. SIGNS AND SYMPTOMS OF LABOR 1. Contractions every 10 minutes or more often 2. Clear, pink, or brownish fluid (water) leaking from vagina 3. Feeling that baby is pushing down, pressure 4. Low, dull backache 5. Cramps that feel like a period 6. Cramps with or without diarrhea If you notice any of the above symptoms, contact our office at [phone] and ask to speak with a nurse. After hours, you can call doctors registry at [phone] OR call [facility] at [phone] and ask to have the doctor cone treater paged. If you consider this an emergency, dial 9-1- or go to your nearest emergency department. NEED HELP? Are you dealing with a violent or abusive relationship? Are you a victim of rape or sexual assult? Call [facility] ([place]) 24 hour Crisis Hotline: 235.419.6509 or 010-813-9685. MANUAL Your Guide to a Healthy manual is now on-line. Visit [email or web address] to download your free copy documented in this encounter [facility] 08-11-2024 Telephone encounter Note Order sign and faxed. Mya Burroughs RN [facility] 08-11-2024 Miscellaneous Notes Order sign and faxed. Mya Burroughs RN Breast pump request received from [employer]. Order to provider to sign. Mya Burroughs RN documented in this encounter [facility] 08-08-2024 Telephone encounter Note Breast pump request received from [employer]. Order to provider to sign. Mya Burroughs RN [facility] 07-14-2024 Progress note Formatting of t his note might be different from the original. S: Laxmi Oliveira is a 34 year old female who presents at 23 weeks gestation for a routine visit. Positive movement for the past couple of weeks. Denies headache, visual changes, chest pain, shortness of breath, vaginal bleeding, leakage of fluid, or dysuria. Feeling well, no complaints. Received Flu and Covid vaccines last week. O: See flow sheet Gen: No apparent distress Abd: Gravid, nontender ASSESSMENT/PLAN: 1. Encounter for supervision of other normal in second trimester - ICD9: V22.1, ICD10: Z34.82 (primary diagnosis) 2. Hx of section - ICD9: V45.89, ICD10: Z98.891 3. 23 weeks gestation of - ICD9: V22.2, ICD10: Z3A.23 - COMPLETE BLOOD COUNT AND DIFFERENTIAL - GESTATIONAL GLUCOSE SCREEN, 1-HOUR, 50 GRAM, NON-FASTING - SYPHILIS TREPONEMAL W/REFLEX - MOD - desires TOLAC - PTL and kick counts reviewed - RTO 4 weeks Kailyn Diaz APRN.CNM [facility] 07-14-2024 Miscellaneous Notes S: Laxmi Oliveira is a 34 year old female who presents at 23 weeks gestation for a routine visit. Positive movement for the past couple of weeks. Denies headache, visual changes, chest pain, shortness of breath, vaginal bleeding, leakage of fluid, or dysuria. Feeling well, no complaints. Received Flu and Covid vaccines last week. O: See flow sheet Gen: No apparent distress Abd: Gravid, nontender ASSESSMENT/PLAN: 1. Encounter for supervision of other normal in second trimester - ICD9: V22.1, ICD10: Z34.82 (primary diagnosis) 2. Hx of section - ICD9: V45.89, ICD10: Z98.891 3. 23 weeks gestation of - ICD9: V22.2, ICD10: Z3A.23 - COMPLETE BLOOD COUNT AND DIFFERENTIAL - GESTATIONAL GLUCOSE SCREEN, 1-HOUR, 50 GRAM, NON-FASTING - SYPHILIS TREPONEMAL W/REFLEX - MOD - desires TOLAC - PTL and kick counts reviewed - RTO 4 weeks Kailyn Diaz APRN.CNM documented in this encounter [facility] 07-14-2024 Instructions Braden Givens MA - 07/14/2024 8:51 AM EDT SEQUENTIAL SCREENINGS The [facility] offers sequential screenings for women who are interested in screenings for chromosomal abnormalities and certain defects during a . The sequential screen combines ultrasound and blood tests to determine the risk of chromosomal abnormalities, including Down's Syndrome (Trisomy 21) and Trisomy 18, as well as open neural tube defects including spina bifida. Ultrasound examination is performed between 11 weeks and 13 weeks gestational age. Blood tests are drawn after the ultrasound and again later in the between 15 and 21 weeks gestational age. Please let your physician know if you are interested in this testing. It will require an appointment with our x ray service technician. This is not an ultrasound performed by a physician in our office during a routine visit. SIGNS AND SYMPTOMS OF LABOR 1. Contractions every 10 minutes or more often 2. Clear, pink, or brownish fluid (water) leaking from vagina 3. Feeling that baby is pushing down, pressure 4. Low, dull backache 5. Cramps that feel like a period 6. Cramps with or without diarrhea If you notice any of the above symptoms, contact our office at [phone] and ask to speak with a nurse. After hours, you can call doctors registry at [phone] OR call [facility] at [phone] and ask to have the doctor cone treater paged. If you consider this an emergency, dial 06-05-3 or go to your nearest emergency department. NEED HELP? Are you dealing with a violent or abusive relationship? Are you a victim of rape or sexual assult? Call [facility] ([place]) 24 hour Crisis Hotline: 760.710.3205 or 552-846-8423. MANUAL Your Guide to a Healthy manual is now on-line. Visit [email or web address] to download your free copy documented in this encounter [facility] 06-15-2024 Progress note Formatting of t his note might be different from the original. Anatomy ultrasound reviewed. No abnormalities identified. Follow up as clinically indicated. Please place copy in ob chart. Devon Littlejohn MD [facility] 06-15-2024 Miscellaneous Notes Anatomy ultrasound reviewed. No abnormalities identified. Follow up as clinically indicated. Please place copy in ob chart. Devon Littlejohn MD documented in this encounter [facility] 06-15-2024 Telephone encounter Note Updated CareEverywhere. C/S report from 06/17/22 now available to review. Andra Tong RN [facility] 06-15-2024 Miscellaneous Notes Updated CareEverywhere. C/S report from 06/17/22 now available to review. Andra Tong RN Please attempt to obtain op record from [facility] for c/s 2021. Kaveh Herr APRN.BRISSA documented in this encounter [facility] 06-15-2024 Telephone encounter Note Please attempt to obtain op record from [facility] for c/s 2021. Kaveh Herr APRN.CNP [facility] 06-15-2024 Progress note Formatting of t his note might be different from the original. EH - S: Laxmi is a 33 year old female who presents at 19w2d for a routine visit. Feeling movement. Denies headache, visual changes, chest pain, shortness of breath, vaginal bleeding, leakage of fluid, or dysuria. Feeling well, no complaints. O: See flow sheet Gen: No apparent distress Abd: Gravid, nontender ASSESSMENT/PLAN: 1. Encounter for supervision of other normal in second trimester - ICD9: V22.1, ICD10: Z34.82 (primary diagnosis) - Planning for flu vaccine at work 2. 19 weeks gestation of - ICD9: V22.2, ICD10: Z3A.19 - Anatomy ultrasound reviewed - Opts for AFP 3. Hx of section - ICD9: V45.89, ICD10: Z98.89 - 2021 [facility] - OB history notes - c/s low vertical. Patient denies. Locate op record. PTL precautions reviewed. RTO in 4 weeks or sooner as needed. Kaveh Herr APRN.COAL SAMPLE TESTER [facility] 06-15-2024 Miscellaneous Notes EH - S: Laxmi is a 33 year old female who presents at 19w2d for a routine visit. Feeling movement. Denies headache, visual changes, chest pain, shortness of breath, vaginal bleeding, leakage of fluid, or dysuria. Feeling well, no complaints. O: See flow sheet Gen: No apparent distress Abd: Gravid, nontender ASSESSMENT/PLAN: 1. Encounter for supervision of other normal in second trimester - ICD9: V22.1, ICD10: Z34.82 (primary diagnosis) - Planning for flu vaccine at work 2. 19 weeks gestation of - ICD9: V22.2, ICD10: Z3A.19 - Anatomy ultrasound reviewed - Opts for AFP 3. Hx of section - ICD9: V45.89, ICD10: Z98.89 - 2021 [facility] - OB history notes - c/s low vertical. Patient denies. Locate op record. PTL precautions reviewed. RTO in 4 weeks or sooner as needed. Kaveh Herr APRN.COAL SAMPLE TESTER documented in this encounter [facility] 06-15-2024 Instructions Zechariah RossathJACK pagan - 06/15/2024 8:51 AM EDT SEQUENTIAL SCREENINGS The [facility] offers sequential screenings for women who are interested in screenings for chromosomal abnormalities and certain defects during a . The sequential screen combines ultrasound and blood tests to determine the risk of chromosomal abnormalities, including Down's Syndrome (Trisomy 21) and Trisomy 18, as well as open neural tube defects including spina bifida. Ultrasound examination is performed between 11 weeks and 13 weeks gestational age. Blood tests are drawn after the ultrasound and again later in the between 15 and 21 weeks gestational age. Please let your physician know if you are interested in this testing. It will require an appointment with our x ray service technician. This is not an ultrasound performed by a physician in our office during a routine visit. SIGNS AND SYMPTOMS OF LABOR 1. Contractions every 10 minutes or more often 2. Clear, pink, or brownish fluid (water) leaking from vagina 3. Feeling that baby is pushing down, pressure 4. Low, dull backache 5. Cramps that feel like a period 6. Cramps with or without diarrhea If you notice any of the above symptoms, contact our office at [phone] and ask to speak with a nurse. After hours, you can call doctors registry at [phone] OR call [facility] at [phone] and ask to have the doctor cone treater paged. If you consider this an emergency, dial 9--1 or go to your nearest emergency department. NEED HELP? Are you dealing with a violent or abusive relationship? Are you a victim of rape or sexual assult? Call [facility] ([place]) 24 hour Crisis Hotline: 231.293.8964 or 225-286-8197. MANUAL Your Guide to a Healthy manual is now on-line. Visit [email or web address] to download your free copy documented in this encounter [facility] 05-20-2024 Progress note Formatting of t his note might be different from the original. RR- VB No. LOF No. CTXS No. Movement: absent. Other c/o: No. Medication list reviewed. Physical Exam See Flow Sheet Abd: soft, nontender, gravid A/P 15w4d Estimated Date of Delivery: 11/07/24 Labs: declines AFP today anatomy US scheduled f/u in 4 weeks or prn d/w her asa prophylaxis, did not take last and no risk factors so d/w her option for this but not strong recmmendation . Devon Littlejohn M.D. [facility] 05-20-2024 Miscellaneous Notes RR- VB No. LOF No. CTXS No. Movement: absent. Other c/o: No. Medication list reviewed. Physical Exam See Flow Sheet Abd: soft, nontender, gravid A/P 15w4d Estimated Date of Delivery: 11/07/24 Labs: declines AFP today anatomy US scheduled f/u in 4 weeks or prn d/w her asa prophylaxis, did not take last and no risk factors so d/w her option for this but not strong recmmendation . Devon Littlejohn M.D. documented in this encounter [facility] 05-20-2024 Instructions Tiffany Ross MA - 05/20/2024 8:27 AM EDT SEQUENTIAL SCREENINGS The [facility] offers sequential screenings for women who are interested in screenings for chromosomal abnormalities and certain defects during a . The sequential screen combines ultrasound and blood tests to determine the risk of chromosomal abnormalities, including Down's Syndrome (Trisomy 21) and Trisomy 18, as well as open neural tube defects including spina bifida. Ultrasound examination is performed between 11 weeks and 13 weeks gestational age. Blood tests are drawn after the ultrasound and again later in the between 15 and 21 weeks gestational age. Please let your physician know if you are interested in this testing. It will require an appointment with our x ray service technician. This is not an ultrasound performed by a physician in our office during a routine visit. SIGNS AND SYMPTOMS OF LABOR 1. Contractions every 10 minutes or more often 2. Clear, pink, or brownish fluid (water) leaking from vagina 3. Feeling that baby is pushing down, pressure 4. Low, dull backache 5. Cramps that feel like a period 6. Cramps with or without diarrhea If you notice any of the above symptoms, contact our office at [phone] and ask to speak with a nurse. After hours, you can call doctors registry at [phone] OR call [facility] at [phone] and ask to have the doctor cone treater paged. If you consider this an emergency, dial 9--1 or go to your nearest emergency department. NEED HELP? Are you dealing with a violent or abusive relationship? Are you a victim of rape or sexual assult? Call [facility] ([place]) 24 hour Crisis Hotline: 172.205.7254 or 387-238-1436. MANUAL Your Guide to a Healthy manual is now on-line. Visit [email or web address] to download your free copy documented in this encounter [facility] 04-22-2024 Progress note Formatting of t his note might be different from the original. KJ - VB No. LOF No. CTXS No. Movement: absent. Other c/o: No. Medication list reviewed. Physical Exam See Flow Sheet Gen: no accute distress, well appearing Abd: soft, nontender, gravid A/P 11w4d Estimated Date of Delivery: 11/07/24 Declines NT NIPT with PNB today MOD - plans TOLAC if presents in labor but plans to schedule by EDC Repeat urine culture ordered for lab next week Jennifer Mccall MD [facility] 04-22-2024 Miscellaneous Notes KJ - VB No. LOF No. CTXS No. Movement: absent. Other c/o: No. Medication list reviewed. Physical Exam See Flow Sheet Gen: no accute distress, well appearing Abd: soft, nontender, gravid A/P 11w4d Estimated Date of Delivery: 11/07/24 Declines NT NIPT with PNB today MOD - plans TOLAC if presents in labor but plans to schedule by EDC Repeat urine culture ordered for lab next week Jennifer Mccall MD documented in this encounter [facility] 04-22-2024 Instructions Tiffany Ross MA - 04/22/2024 2:18 PM EDT SEQUENTIAL SCREENINGS The [facility] offers sequential screenings for women who are interested in screenings for chromosomal abnormalities and certain defects during a . The sequential screen combines ultrasound and blood tests to determine the risk of chromosomal abnormalities, including Down's Syndrome (Trisomy 21) and Trisomy 18, as well as open neural tube defects including spina bifida. Ultrasound examination is performed between 11 weeks and 13 weeks gestational age. Blood tests are drawn after the ultrasound and again later in the between 15 and 21 weeks gestational age. Please let your physician know if you are interested in this testing. It will require an appointment with our x ray service technician. This is not an ultrasound performed by a physician in our office during a routine visit. SIGNS AND SYMPTOMS OF LABOR 1. Contractions every 10 minutes or more often 2. Clear, pink, or brownish fluid (water) leaking from vagina 3. Feeling that baby is pushing down, pressure 4. Low, dull backache 5. Cramps that feel like a period 6. Cramps with or without diarrhea If you notice any of the above symptoms, contact our office at [phone] and ask to speak with a nurse. After hours, you can call doctors registry at [phone] OR call [facility] at [phone] and ask to have the doctor cone treater paged. If you consider this an emergency, dial or go to your nearest emergency department. NEED HELP? Are you dealing with a violent or abusive relationship? Are you a victim of rape or sexual assult? Call [facility] ([place]) 24 hour Crisis Hotline: 287.385.1027 or 186-891-3908. MANUAL Your Guide to a Healthy manual is now on-line. Visit [email or web address] to download your free copy documented in this encounter [facility] 04-15-2024 Telephone encounter Note Patient notified [facility] 04-15-2024 Miscellaneous Notes Patient notified 03/22 E.Faecalis treated with Macrobid on 03/24/24 Will try Macrobid again due to Gestational age. ANDREA in two weeks and can then environmental change analyst if needed with sensitivity. I will send Macrobid 100mg PO BID x 7 days and Pyridium as well for symptom management and help with treatment. Urine ANDREA in 2 weeks. Viviane Guallpa APRN.CNM Ob patient is 10w4d and saw Dr. Méndez on 04/13/2024 for UTI symptoms. Culture results are back and + for UTI. Patient has been treated recently for UTIs with Macrobid and asking if a different antibiotic can be prescribed. Please review. Culture 50,000-<100,000 CFU/ml Staphylococcus saprophyticus Abnormal Routine susceptibility testing of S. saprophyticus urine isolates is not performed because uncomplicated UTIs respond to urine concentrations of agents commonly used (e.g. Nitrofurantoin, TMP/SMX, or a quinolone). <10,000 CFU/ml Normal urogenital guillermo This test was developed and its performance characteristics determined by the [facility] ([facility]). It has not been cleared or approved by the FDA. [facility] is regulated under CLIA as qualified to perform high-complexity testing. This test is used for clinical purposes. It should not be regarded as investigational or for research. Resulting Agency: [facility] Specimen Collected: 04/13/24 4:15 PM EDT Last Resulted: 04/14/24 10:34 PM EDT documented in this encounter [facility] 04-15-2024 Telephone encounter Note 03/22 E.Faecalis treated with Macrobid on 03/24/24 Will try Macrobid again due to Gestational age. ANDREA in two weeks and can then environmental change analyst if needed with sensitivity. I will send Macrobid 100mg PO BID x 7 days and Pyridium as well for symptom management and help with treatment. Urine ANDREA in 2 weeks. Viviane Guallpa APRN.CNM [facility] 04-15-2024 Telephone encounter Note Ob patient is 10w4d and saw Dr. Méndez on 04/13/2024 for UTI symptoms. Culture results are back and + for UTI. Patient has been treated recently for UTIs with Macrobid and asking if a different antibiotic can be prescribed. Please review. Culture 50,000-<100,000 CFU/ml Staphylococcus saprophyticus Abnormal Routine susceptibility testing of S. saprophyticus urine isolates is not performed because uncomplicated UTIs respond to urine concentrations of agents commonly used (e.g. Nitrofurantoin, TMP/SMX, or a quinolone). <10,000 CFU/ml Normal urogenital guillermo This test was developed and its performance characteristics determined by the [facility] ([facility]). It has not been cleared or approved by the FDA. [facility] is regulated under CLIA as qualified to perform high-complexity testing. This test is used for clinical purposes. It should not be regarded as investigational or for research. Resulting Agency: [facility] Spec[facility] Collected: 04/13/24 4:15 PM EDT Last Resulted: 04/14/24 10:34 PM EDT [facility] 04-13-2024 Note Addended by: VERNA CHAN on: 04/13/2024 09:57 AM Modules accepted: Orders [facility] 04-13-2024 Miscellaneous Notes Addended by: VERNA BUSTILLO on: 04/13/2024 09:57 AM Modules accepted: Orders Multip at 10 w 2 d with sx including frequency, minor burning consistent with prior UTIs. She has been treated ~ monthly since January. Urine dip today is negative but culture sent. This is a new situation for her as she has hac rare UTI in the past. None with first . Is well lubricated with intercourse and voids afterwards. Measures discussed to prevent. Culture submitted. Denies bleeding, nausea w/o emesis. RTO as scheduled and will call is sx worsen Frederic Méndez MD documented in this encounter [facility] 04-13-2024 Progress note Formatting of t his note might be different from the original. Multip at 10 w 2 d with sx including frequency, minor burning consistent with prior UTIs. She has been treated ~ monthly since January. Urine dip today is negative but culture sent. This is a new situation for her as she has hac rare UTI in the past. None with first . Is well lubricated with intercourse and voids afterwards. Measures discussed to prevent. Culture submitted. Denies bleeding, nausea w/o emesis. RTO as scheduled and will call is sx worsen Frederic Méndez MD [facility] 04-13-2024 Instructions Verna Bustillo LPN - 04/13/2024 8:59 AM EDT SEQUENTIAL SCREENINGS The [facility] offers sequential screenings for women who are interested in screenings for chromosomal abnormalities and certain defects during a . The sequential screen combines ultrasound and blood tests to determine the risk of chromosomal abnormalities, including Down's Syndrome (Trisomy 21) and Trisomy 18, as well as open neural tube defects including spina bifida. Ultrasound examination is performed between 11 weeks and 13 weeks gestational age. Blood tests are drawn after the ultrasound and again later in the between 15 and 21 weeks gestational age. Please let your physician know if you are interested in this testing. It will require an appointment with our x ray service technician. This is not an ultrasound performed by a physician in our office during a routine visit. SIGNS AND SYMPTOMS OF LABOR 1. Contractions every 10 minutes or more often 2. Clear, pink, or brownish fluid (water) leaking from vagina 3. Feeling that baby is pushing down, pressure 4. Low, dull backache 5. Cramps that feel like a period 6. Cramps with or without diarrhea If you notice any of the above symptoms, contact our office at [phone] and ask to speak with a nurse. After hours, you can call doctors registry at [phone] OR call [facility] at [phone] and ask to have the doctor cone treater paged. If you consider this an emergency, dial 9-4- or go to your nearest emergency department. NEED HELP? Are you dealing with a violent or abusive relationship? Are you a victim of rape or sexual assult? Call [facility] ([place]) 24 hour Crisis Hotline: 728.233.9090 or 571-431-2601. MANUAL Your Guide to a Healthy manual is now on-line. Visit [email or web address] to download your free copy documented in this encounter [facility] 03-24-2024 Telephone encounter Note Spoke with pt and results given. Pt to check with pharmacy later today. Katheryn Aranda LPN [facility] 03-24-2024 Miscellaneous Notes Spoke with pt and results given. Pt to check with pharmacy later today. Katheryn Aranda LPN Urine clx +UTI Macrobid sent. Teressa Gibbs APRN.COAL SAMPLE TESTER documented in this encounter [facility] 03-24-2024 Telephone encounter Note Urine clx +UTI Macrobid sent. Teressa Gibbs APRN.COAL SAMPLE TESTER [facility] 03-22-2024 Instructions Rosina Ruiz MA - 03/22/2024 8:09 AM EDT Please select the following link to access the [facility] Your Guide to a Healthy . [email or web address] documented in this encounter [facility] 03-22-2024 Note HNO ID: [id number] Author: KATHERYN ARANDA LPN Service: ? Author Type: LICENSED NURSE Type: Progress Notes Filed: 03/22/2024 14:13 Note Text: OB point of care ultrasound was performed. See imaging tab for details. Katheryn Aranda LPN [facility] 03-22-2024 History of Present illness Narrative OB point of care ultrasound was performed. See imaging tab for details. Katheryn Aranda LPN INITIAL OB ASSESSMENT HPI: Laxmi is a 33 year old White here to establish Obstetrical Care. Patient's last menstrual period was 02/01/2024 (exact date). from OB Dating Form. was planned Complaints: No OB History T1 L1 SAB1 IAB0 Ectopic0 Multiple0 Live Births1 # 1 - Date: 06/17/22, Sex: Male, Weight: 2.7 kg (5 lb 15.2 oz), GA: 38w4d, Delivery: , Low Vertical, Apgar1: 9, Apgar5: 9, Living: Living, Comments: Pt got Pyogenic granulomas in mouth during -had oral surgery , Covid positive on admission, Breech # 2 - Date: 08/2023, Sex: None, Weight: None, GA: 8w0d, Delivery: SPONTANEOUS , Apgar1: None, Apgar5: None, Living: None, Comments: IPAS # 3 - Date: None, Sex: None, Weight: None, GA: None, Delivery: None, Apgar1: None, Apgar5: None, Living: None, Comments: None Previous history: Prior : Yes History of 4th degree laceration: Perineal Laceration, 3rd or 4th degree Unanswered History of shoulder dystocia: Shoulder Dystocia Unanswered History of Hypertensive disorders including pre-eclampsia or gestational hypertension: Gestational Hypertension Unanswered Preeclampsia Unanswered History of gestational diabetes: Diabetes in Unanswered Patient's Risk Screening for delivery: Have you had a prior ritter between 20w and 36w6d? No How many pregnancies have you had before? 2 Did you have a previous baby with a GBS Infection? No Please select all that apply for any prior : Baby small for gestational age MEDICAL/PSYCHOSOCIAL HISTORY: Severe bleeding with delivery Unanswered History question Answer Diagnosis Date Comment Thyroid Disease No Thyroid disease 03/21/2024 Gestational Hypertension Unanswered Preeclampsia Unanswered Diabetes in Unanswered No results found for: ABORHD No weight on file for this encounter. Last Pap: 02/27/2023 History of abnormal pap: Abnormal Pap Yes Prior treatment for cervical dysplasia: none. History of STDs: HPV Partner History of STDs: None Did you have a partner with Herpes? No Tobacco use: No E-Cigarette/Vaping Use: No Caffeine use: Yes drinks 1 cup of tea a day Drug use: No Alcohol use: No Multivitamin with Folic acid: Yes Would refuse blood transfusion if medically necessary: No Social Needs: How often does this describe you? I don't have enough money to pay my bills: Never Within the past 12 months, have you worried that your food would run out before you had money to buy more? Never In the past 12 months, has lack of reliable transportation kept you from going to medical appointments or work, or from getting things needed for daily living? Never In the past 12 months, have you had any concerns about having a place to live, or about the condition or quality of your housing? Never Would you like more information on any of the following (please check all that apply)? Outsole Flexer care Social History: Do you have any history of depression, anxiety, PTSD, or other mood problems? No Do you have a history of abuse or trauma that may impact your experience? No Are you currently employed? Yes Depression/Anxiety Screening: denies symptoms of depression. OB Depression and Anxiety Screening- This Encounter (since 03/20/2024) Over the past 2 weeks have you felt down, depressed, or hopeless? Negative Over the past two weeks, have you felt little interest or pleasure in doing things? Negative Feeling nervous, anxious or on edge 0-Not at all Not being able to stop or control worrying 0-Not al all Anxiety Pre-Screening Total (If >/= 3 additional questions will be reviewed) 0 Genetic Screening: Partner present: No Patient verbalized knowledge of partner family health history: Yes Do you or your partner have any personal or family history of defects not previously discussed: No Do you have history of a complicated by anomaly, genetic condition, or demise: No Low Dose ASA Screening: Screening for low dose aspirin use for the prevention of pre-eclampsia: High risk factors: None Moderate risk ractors: None OB Risk Screening: Completed, no positive findings documented. Marital Status: Partner: Name: Ed Oliveira Age: 34 Occupation: [employer] Gender: Male PAST MEDICAL HISTORY Diagnosis Date Abnormal Pap smear of cervix Adenomyosis History of colposcopy abnormal paps [id number] IBS (irritable bowel syndrome) Pyogenic granulomas PAST SURGICAL HISTORY Procedure Laterality Date SECTION HX 06/17/2022 PAST SURGICAL HISTORY OF wisdom teeth TOOTH EXTRACTION 08/2022 x2 VAGINOSCOPY [facility] (OFFICE IPAS) Current Outpatient Medications Medication Sig Dispense Refill vit,deanna 74/iron/folic ( VITAMIN 1+1 ORAL) No current facility-administered medications for this visit. Allergies As of Date: 03/22/2024 (No Known Allergies) Fully Assessed 08/21/2023 Does patient have penicillin allergy: No REVIEW OF SYSTEMS: GENERAL: Negative for: Fever or Chills HEENT: Negative for: Headache, Impaired Vision, Ringing in Ears, Nosebleeds NECK: Negative for: Swelling, Pain, Stiffness RESPIRATORY: Negative for: Cough, Shortness of breath, Wheezing GASTROINTESTINAL: Negative for: Heartburn, Constipation, Diarrhea, Blood in stool, Vomiting and Positive for: Nausea MUSCULOSKELETAL: Negative for: Muscle or joint pain, stiffness, Joint swelling NEUROLOGIC/PSYCHIATRIC: Negative for: Weakness, Paralysis, Numbness, Tingling, Tremor, Anxiety, Depression, Memory loss SKIN: Negative for: Rash, Itching GENITOURINARY: Negative for: vaginal itching, vaginal discharge, hematuria or dysuria PHYSICAL EXAM: LMP 02/01/2024 GENERAL: pleasant in no apparent distress DERMATOLOGY: Normal, without lesions, non-icteric, and non-hirsute NECK: Supple, full range of motion, no adenopathy, and thyroid normal CHEST: Normal inspiratory effort BREAST: soft, non-tender, symmetric, no dominant mass, normal nipple-areolar complex, no lymphadenopathy, and no nipple discharge ABDOMEN: soft, non-tender, and no masses NEURO: alert and oriented x3,exam grossly non-focal PELVIS: External genitalia normal without lesions. Perineal body intact. No vaginal or cervical lesions. Cervix closed. No adnexal masses or tenderness. Clinical Pelvimetry: Pelvimetry clinically assessed as adequate Limited OB ultrasound exam: single intrauterine , positive cardiac activity, and POCUS performed. +cardiac activity, CRL consistent with LMP. Teressa Gibbs APRN.COAL SAMPLE TESTER ASSESSMENT: 33 year old at 7w0d wks gestational age PLAN: 1) Patient oriented to practice. Patient given new OB orientation folder. Discussed nutrition, folic acid supplementation, dietary guidelines, exercise, smoking, alcohol, caffeine, and drug use. Discussed gestational weight gain guidelines. Discussed routine OB labs including STD/HIV. Discussed how to access Your guide to a health and the Pole Peeling Machine Operator. Discussed hemoglobin electrophoresis. Patient: Declines Reviewed midwifery and detailer pharmaceuticals services that are available. 2) Screening: Hemoglobin A1C: ordered Baby Aspirin: The patient has been counseled about the potential benefits of low dose aspirin in and our recommendation that this be offered to all patients, regardless of whether they meet the high risk criteria specified above. She unsure Aneuploidy Screening: Discussed aneuploidy screening, nuchal translucency/first trimester early anatomy ultrasound and NIPT. The risks/benefits and limitations of NIPT/aneuploidy screening were reviewed including the potential for false negative and false positive results. The availability of genetic counseling was reviewed. Information on aneuploidy screening was provided. The patient chooses to proceed with NIPT (10 weeks) Myriad Carrier Screening: Discussed myriad carrier screening. We discussed the availability of professional-society guided carrier screening and reviewed the conditions screened and limitations of screening. The availability of genetic counseling was reviewed. Information on carrier screening was provided. The patient Declines 3) Patient offered option of Virtual Visits. Patient unsure. May consider in future. 4) History of section: Pt counselled regarding TOLAC versus Repeat Section. Pt wants to consider options.. Follow up in 4 weeks or sooner prevon. Teressa Gibbs APRN.CNP documented in this encounter [facility] 03-21-2024 Note HNO ID: [id number] Author: TERESSA GIBBS APRN.CNP Service: ? Author Type: Nurse Practitioner Type: Progress Notes Filed: 03/22/2024 14:13 Note Text: INITIAL OB ASSESSMENT HPI: Laxmi is a 33 year old White here to establish Obstetrical Care. Patient's last menstrual period was 02/01/2024 (exact date). from OB Dating Form. was planned Complaints: No OB History T1 L1 SAB1 IAB0 Ectopic0 Multiple0 Live Births1 # 1 - Date: 06/17/22, Sex: Male, Weight: 2.7 kg (5 lb 15.2 oz), GA: 38w4d, Delivery: , Low Vertical, Apgar1: 9, Apgar5: 9, Living: Living, Comments: Pt got Pyogenic granulomas in mouth during -had oral surgery , Covid positive on admission, Breech # 2 - Date: 08/2023, Sex: None, Weight: None, GA: 8w0d, Delivery: SPONTANEOUS , Apgar1: None, Apgar5: None, Living: None, Comments: IPAS # 3 - Date: None, Sex: None, Weight: None, GA: None, Delivery: None, Apgar1: None, Apgar5: None, Living: None, Comments: None Previous history: Prior : Yes History of 4th degree laceration: Perineal Laceration, 3rd or 4th degree Unanswered History of shoulder dystocia: Shoulder Dystocia Unanswered History of Hypertensive disorders including pre-eclampsia or gestational hypertension: Gestational Hypertension Unanswered Preeclampsia Unanswered History of gestational diabetes: Diabetes in Unanswered Patient's Risk Screening for delivery: Have you had a prior ritter between 20w and 36w6d? No How many pregnancies have you had before? 2 Did you have a previous baby with a GBS Infection? No Please select all that apply for any prior : Baby small for gestational age MEDICAL/PSYCHOSOCIAL HISTORY: Severe bleeding with delivery Unanswered History question Answer Diagnosis Date Comment Thyroid Disease No Thyroid disease 03/21/2024 Gestational Hypertension Unanswered Preeclampsia Unanswered Diabetes in Unanswered No results found for: ABORHD No weight on file for this encounter. Last Pap: 02/27/2023 History of abnormal pap: Abnormal Pap Yes Prior treatment for cervical dysplasia: none. History of STDs: HPV Partner History of STDs: None Did you have a partner with Herpes? No Tobacco use: No E-Cigarette/Vaping Use: No Caffeine use: Yes drinks 1 cup of tea a day Drug use: No Alcohol use: No Multivitamin with Folic acid: Yes Would refuse blood transfusion if medically necessary: No Social Needs: How often does this describe you? I don't have enough money to pay my bills: Never Within the past 12 months, have you worried that your food would run out before you had money to buy more? Never In the past 12 months, has lack of reliable transportation kept you from going to medical appointments or work, or from getting things needed for daily living? Never In the past 12 months, have you had any concerns about having a place to live, or about the condition or quality of your housing? Never Would you like more information on any of the following (please check all that apply)? Outsole Flexer care Social History: Do you have any history of depression, anxiety, PTSD, or other mood problems? No Do you have a history of abuse or trauma that may impact your experience? No Are you currently employed? Yes Depression/Anxiety Screening: denies symptoms of depression. OB Depression and Anxiety Screening- This Encounter (since 03/20/2024) Over the past 2 weeks have you felt down, depressed, or hopeless? Negative Over the past two weeks, have you felt little interest or pleasure in doing things?? Negative Feeling nervous, anxious or on edge 0-Not at all Not being able to stop or control worrying 0-Not al all Anxiety Pre-Screening Total (If >/= 3 additional questions will be reviewed) 0 Genetic Screening: Partner present: No Patient verbalized knowledge of partner family health history: Yes Do you or your partner have any personal or family history of defects not previously discussed: No Do you have history of a complicated by anomaly, genetic condition, or demise: No Low Dose ASA Screening: Screening for low dose aspirin use for the prevention of pre-eclampsia: High risk factors: None Moderate risk ractors: None OB Risk Screening: Completed, no positive findings documented. Marital Status: Partner: Name: Ed Oliveira Age: 34 Occupation: [employer] Gender: Male PAST MEDICAL HISTORY Diagnosis Date Abnormal Pap smear of cervix Adenomyosis History of colposcopy abnormal paps 0421-1157 IBS (irritable bowel syndrome) Pyogenic granulomas PAST SURGICAL HISTORY Procedure Laterality Date SECTION HX 06/17/2022 PAST SURGICAL HISTORY OF wisdom teeth TOOTH EXTRACTION 08/2022 x2 VAGINOSCO (more content not included)... [facility] 09-18-2023 History of Present illness Narrative Radiology Service Progress Note PATIENT NAME: Laxmi Oliveira DATE OF SERVICE: September 18, 2023 TIME: 11:52 AM PATIENT IDENTITY VERIFICATION COMPLETED USING TWO (2) IDENTIFIERS: Name and Date of confirmed by patient verbally. FALL SCREENING: Has the patient had 2 falls in the last year or 1 fall with injury or currently using an Ambulatory Assistive Device (Walker, Cane, Wheelchair, Crutches, etc.)? No PATIENT GENDER DATA: Female. status: : No status: NO. PATIENT RELEVANT IMPLANT DATA REVIEWED: Not Applicable RADIOLOGY DEPARTMENT: Ultrasound PERIPHERAL IV DATA: Not applicable SIGNED BY: Viviane Flowers RDMS RVT September 18, 2023 11:52 AM documented in this encounter [facility] 08-21-2023 Nurse Note Pre Procedure Assessment: Laxmi Oliveira is a 33 year old here for an RAFAT procedure. Patient's last menstrual period was Patient's last menstrual period was 10/05/2022. (approximate). Reason for procedure: Missed Anxiolytic Checklist Has ride home? Yes, Ed, Current use of prescribed or non-prescribed opioids or benzos: NO Medications: Patient self-administered : Xanax: 0.5mg tablet PO at 0825 in office and Percocet 5/325mg 2 tablets PO in office at 0825 and Provided by office:Toradol 30 mg IM - see MAR Blood Type: A positive Rhophylac Administered:No Procedure end time: 914 Post Procedure Assessment: Time of first post-procedure assessment: 915 Vitals: BP 108/60 HR 92 SpO2 100 RR 18 Bleeding:None Pain ratin/10 menstrual like cramping Time of second post-procedure assessment: 929 Vitals: BP 108/62 HR 84 SpO2 99 RR 16 Bleeding:Light Pain Ratin/10 cramping Fanny Bonilla RN documented in this encounter [facility] 08-21-2023 Instructions Odette Caruso Ma - 08/21/2023 8:09 AM EST Information and Instructions: After a Manual Uterine Aspiration (IPAS) Procedure Bleeding Most people have some bleeding after an aspiration procedure. The amount differs for each everyone, ranging from no bleeding to moderate period-like bleeding and lasting for a few days to 2-6 weeks. It is normal to have blood clots when you stand up or use the bathroom during the first few days. It is ok to be as active as you feel ready to be. You may notice more bleeding and cramping during activity. Please call if you are completely soaking through a pad every hour for 2 hours, or passing multiple large clots or larger and larger clots. Cramping Most women have some cramping after the procedure. The amount of discomfort varies, as everyone experiences pain in a different way. Some women find that a heating pad or hot water bottle on the stomach or back helps. If you don t have a heating pad, put some rice into a sock and heat it in the microwave, but beware, it s hot! You may also take ibuprofen (Motrin/ Advil) or naproxen (Aleve). If you can t take either of those medications you may use acetaminophen (Tylenol). Please call if you have severe pain or cramps that are not relieved by the pain medication. Fever Please call if your temperature is 100.4 degrees or higher for more than 2 hours. Fever can be a sign of infection, so call your doctor if you are feeling sick. You may have received a medication called misoprostol, which can cause a fever on the day of your procedure that goes away on it's own and is not concerning. symptoms You may have symptoms such as nausea, breast tenderness, or fatigue that last for a few days after the procedure. You may also notice some nipple discharge or breast swelling. If this occurs, wear a supportive bra and avoid stimulation. You may also use a cold compress. Your test may remain positive for up to 4 weeks. Please call if you have symptoms that last longer than 7 - 10 days. control For most people, it is physically possible (though unlikely) to become in the next 2 - 4 weeks, so it is important to start a control method if you are not planning a right away. Please discuss this with your provider if you have not already chosen a method. If you would like to become soon after this procedure, please discuss this with your doctor. Follow up Most women do not need a follow up appointment. Your doctor may recommend one, or you may choose to schedule one if you have any concerns, problems, or questions. Please do not put anything in your vagina for 1 week (no vaginal intercourse, toys, tampons, or douching). Do not swim or use hot tubs for 1 week. Baths by yourself (do not share water for 2 weeks) and showers are OK. Important Phone Numbers: [facility] Appointments in Certified Master Safe Technician ( Early Assessment Clinics) Deena Arciniega [facility] at [phone] [facility] at [phone] [facility] at [phone] After 4:30 PM or on weekends, you may reach the on-call Certified Master Safe Technician by calling the clinic where you were seen. This will automatically transfer you to a contracted answering service, who will then page the appropriate provider. Most calls are returned within 15-20 minutes depending on other direct patient care. When to call the doctor: If your temperature is 100.4 degrees or higher for more than 2 hours. If you have heavy bleeding and soak through more than 2 pads in an hour for 2 hours in a row. If you have severe pain or cramps that are not relieved by the pain medication. LOSS RESOURCES Physical recovery from loss from a spontaneous miscarriage, ectopic , D&C, or a D&E may take several weeks. However, emotional recovery can take longer, and is individualized to each person. Many people have different feelings and experiences with loss or termination. Grief is a normal part of the healing process. Taking time to heal both physically and emotionally after a loss is important. Above all, don t blame yourself. Counseling is available to help you cope with your loss. A loss support group might also be a valuable resource to you and your partner. ONLINE RESOURCES Unspoken Grief: an online miscarriage support resource for miscarriage, stillbirth and loss unspokengrief.org A Heartbreaking Choice: support for diagnosis or termination for medical reasons. http://www.TapFunderreBuyWithMe. GetMyRx/ [facility]: ending a for a abnormality http://www.healthtalkonline.org/ Pregnancy_children/Ending_a_preg nancy_for_fetal_abnormality Ending a Wanted : support for patients and families ending a after or maternal medical diagnosis https://endingawantedpregnancy.c om Evelia Mine: one person's story about loss and collected resources. http://www.KinteraingPoderopedia.GetMyRx [employer]: headquarters in [place] but with online support group https://www.Ubersnap.org/infa gb-zkul-oocmrpq-groups.html LOCAL RESOURCES Love Lives On, [facility] https://my.[facility].org/l ocations/[facility]/josias t-services/support BretL.(Families Experiencing Early Loss) [facility] https://consultqd.[facility]/ujbphsqyv-joxgerlsc-neneli ztxso-xdgoeol-grjfdwkp-grieving- families/ [facility] - counseling services [phone] or toll free at [phone] [facility] Support Groups (not specific to loss) https://my.[facility].org/p atients/information/bereavement/ support-groups [facility] Bere[facility]ment [facility] Counselors with experience with families facing the loss of a baby before . This service may be covered by your insurance. If not, [facility] will not turn anyone away because of inability to pay. or [phone] Jason Anderson, local counselor, not associated with [facility] [phone] Some of our families have recommended Jason Anderson as he specializes in helping families who have had or are facing a loss. This may be covered by your insurance, if not, a sliding scale payment plan is available. BOOKS Our Heartbreaking Choices: Forty-Six Women Share Their Stories of Interrupting a Much-Wanted , By Darlyn Goelrow: Loss-Guidance and Support for You and Your Family, By Adali Higginbotham and Ame Ma Unspeakable Losses: Healing from Miscarriage, , and other Loss, By Patricia Webb Empty Cradle, Broken Heart: Surviving the of your Baby, By Ivory Hernandez Empty Arms: Coping with Miscarriage, Stillbirth, and , By Yoshi Leigh I Love You Still: A Memorial Baby Book, By Yohana Liang Understanding Your Grief: Ten Essential Touchstones for Finding Hope and Healing Your Heart, By Balbir Metz BOOKS FOR CHILDREN We Were Gonna Have a Baby, But We had an Chucky Instead, By Beth Nina My Sibling Still, By Cira Xavier The Goodbye Book, By Tyler Dent Something Happened, By Emelina Mitchell No New Baby, By Carla Mosquera The Invisible String, By Justice Steiner Our Baby , by Lauryn Way (two books, one for surgical termination and one for induction of labor) Information and Instructions: After a Manual Uterine Aspiration (IPAS) Procedure Bleeding Most people have some bleeding after an aspiration procedure. The amount differs for each everyone, ranging from no bleeding to moderate period-like bleeding and lasting for a few days to 2-6 weeks. It is normal to have blood clots when you stand up or use the bathroom during the first few days. It is ok to be as active as you feel ready to be. You may notice more bleeding and cramping during activity. Please call if you are completely soaking through a pad every hour for 2 hours, or passing multiple large clots or larger and larger clots. Cramping Most women have some cramping after the procedure. The amount of discomfort varies, as everyone experiences pain in a different way. Some women find that a heating pad or hot water bottle on the stomach or back helps. If you don t have a heating pad, put some rice into a sock and heat it in the microwave, but beware, it s hot! You may also take ibuprofen (Motrin/ Advil) or naproxen (Aleve). If you can t take either of those medications you may use acetaminophen (Tylenol). Please call if you have severe pain or cramps that are not relieved by the pain medication. Fever Please call if your temperature is 100.4 degrees or higher for more than 2 hours. Fever can be a sign of infection, so call your doctor if you are feeling sick. You may have received a medication called misoprostol, which can cause a fever on the day of your procedure that goes away on it's own and is not concerning. symptoms You may have symptoms such as nausea, breast tenderness, or fatigue that last for a few days after the procedure. You may also notice some nipple discharge or breast swelling. If this occurs, wear a supportive bra and avoid stimulation. You may also use a cold compress. Your test may remain positive for up to 4 weeks. Please call if you have symptoms that last longer than 7 - 10 days. control For most people, it is physically possible (though unlikely) to become in the next 2 - 4 weeks, so it is important to start a control method if you are not planning a right away. Please discuss this with your provider if you have not already chosen a method. If you would like to become soon after this procedure, please discuss this with your doctor. Follow up Most women do not need a follow up appointment. Your doctor may recommend one, or you may choose to schedule one if you have any concerns, problems, or questions. Please do not put anything in your vagina for 1 week (no vaginal intercourse, toys, tampons, or douching). Do not swim or use hot tubs for 1 week. Baths by yourself (do not share water for 2 weeks) and showers are OK. Important Phone Numbers: [facility] Appointments in Certified Master Safe Technician ( Early Assessment Clinics) Deena Arciniega [facility] at [phone] [facility] at [phone] [facility] at [phone] After 4:30 PM or on weekends, you may reach the on-call Certified Master Safe Technician by calling the clinic where you were seen. This will automatically transfer you to a contracted answering service, who will then page the appropriate provider. Most calls are returned within 15-20 minutes depending on other direct patient care. When to call the doctor: If your temperature is 100.4 degrees or higher for more than 2 hours. If you have heavy bleeding and soak through more than 2 pads in an hour for 2 hours in a row. If you have severe pain or cramps that are not relieved by the pain medication. LOSS RESOURCES Physical recovery from loss from a spontaneous miscarriage, ectopic , D&C, or a D&E may take several weeks. However, emotional recovery can take longer, and is individualized to each person. Many people have different feelings and experiences with loss or termination. Grief is a normal part of the healing process. Taking time to heal both physically and emotionally after a loss is important. Above all, don t blame yourself. Counseling is available to help you cope with your loss. A loss support group might also be a valuable resource to you and your partner. ONLINE RESOURCES Unspoken Grief: an online miscarriage support resource for miscarriage, stillbirth and loss unspokengrief.org A Heartbreaking Choice: support for diagnosis or termination for medical reasons. http://www.MightyMeeting. GetMyRx/ [facility]: ending a for a abnormality http://www.healthtalkonline.org/ Pregnancy_children/Ending_a_preg nancy_for_fetal_abnormality Ending a Wanted : support for patients and families ending a after or maternal medical diagnosis https://endingawantedpregnancy.c om Defending Mine: one person's story about loss and collected resources. http://www.HydroBuilder.com.GetMyRx SallyFoxteq Holdingsrachael [facility]: headquarters in [place] but with online support group https://www.Ubersnap.AdorStyle/infa ws-smvy-hsjxwzi-groups.html LOCAL RESOURCES Love Lives On, [facility] https://my.[facility].org/l ocations/[facility]/josias t-services/support F.E.E.L.(Families Experiencing Early Loss) [facility] https://consultqd.[facility].org/xdfhcnzff-lbtbjexdb-yladuj pxjih-ojviwst-aatrdsuk-grieving- families/ [facility] - counseling services [phone] or toll free at [phone] [facility] Support Groups (not specific to loss) https://my.[facility].org/p atients/information/bereavement/ support-groups [facility] Counselors with experience with families facing the loss of a baby before . This service may be covered by your insurance. If not, [facility] will not turn anyone away because of inability to pay. or [phone] Jason Anderson, local counselor, not associated with [facility] [phone] Some of our families have recommended Jason Anderson as he specializes in helping families who have had or are facing a loss. This may be covered by your insurance, if not, a sliding scale payment plan is available. BOOKS Our Heartbreaking Choices: Forty-Six Women Share Their Stories of Interrupting a Much-Wanted , By Darlyn Pagan Silent Sorrow: Loss-Guidance and Support for You and Your Family, By Adali Higginbotham and Ame Ma Unspeakable Losses: Healing from Miscarriage, , and other Loss, By Patricia Webb Empty Cradle, Broken Heart: Surviving the of your Baby, By Ivory Hernandez Empty Arms: Coping with Miscarriage, Stillbirth, and , By Yoshi Leigh I Love You Still: A Memorial Baby Book, By Yohana Liang Understanding Your Grief: Ten Essential Touchstones for Finding Hope and Healing Your Heart, By Balbir Metz BOOKS FOR CHILDREN We Were Gonna Have a Baby, But We had an Chucky Instead, By Beth Nina My Sibling Still, By Cira Xavier The Goodbye Book, By Tyler Dent Something Happened, By Emelina Mitchell No New Baby, By Carla Mosquera The Invisible String, By Justice Steiner Our Baby , by Lauryn Way (two books, one for surgical termination and one for induction of labor) documented in this encounter [facility] 08-21-2023 History of Present illness Narrative . UNIVERSAL PROTOCOL / SAFETY CHECKLIST Procedure to be Performed: IPAS Sign In: A Moment of CARE was completed. Personnel directly involved with the procedure wore the appropriate PPE (Personal Protective Equipment). Patient/Surrogate Stated/Verified: PATIENT VERIFIED(optional for EMERGENT procedures): Patient name, Date of , Relevant allergies, and The intended procedure Time Out Communication: Intended patient and procedure match the source documents. Consent documented and matches the intended procedure. Sign Out: SIGN OUT (optional for EMERGENT procedures): All specimen containers correctly labeled. Fanny Bonilla RN Procedure note: Speculum was placed in the vagina. After prepping the cervix with betadine paracervical block was performed using 10cc of 1% lidocaine with 1:100,000 epi. Using sterile technique, the Manual Vacuum Aspiration device with size 6 cannula was inserted into the uterus and contents were evacuated. Post-procedure vital signs were obtained and stable Patient tolerated procedure well. PLAN: Patient was advised to observe for signs and symptoms of infection including but not limited to fever, malodorous vaginal discharge and/or pain. Bleeding expectations were reviewed. Follow up: will call patient with results. Will get HCG level next week. Adriana Wright MD documented in this encounter [facility] 08-20-2023 Miscellaneous Notes [facility] notified. Fanny Bonilla RN Just needs to take once with procedure. Day of procedure with food is fine. [facility] called to clarify the directions on the Doxycycline. RX was written for 2 capsules, but directions say to take 2 capsules two times a day. Can you please clarify if she needs to take more than 2 capsules for after the IPAS procedure. Thank you. We can call [facility] at [phone] Andra Tong RN documented in this encounter [facility] 08-19-2023 Miscellaneous Notes Patient notified and voiced understanding. Mya Burroughs RN Meds ordered. Will sign consent when she comes to office Thursday. Patient scheduled for IPAS 08/21 with DM. Please order pre op meds. Fanny Bonilla RN documented in this encounter [facility] 08-14-2023 Miscellaneous Notes Patient seen at [facility] ED for back pain. TVUS completed. Gestational sac seen with NO pole or yolk sac. Patient is having mild spotting. HCG level today was 1,430 which is decreased from level 3 days ago of 1,575. Patient already has appointment next week in office for formal US and to discuss plan of care. ED physician does not think patient's back pain is correlated to possible miscarriage. Kailyn Diaz APRN.CNM Patient called in with update. Lower back pain became severe. Rating 07/14. Advised to ER. WALDEMAR. Fanny Bonilla RN documented in this encounter [facility] 08-14-2023 Discharge summary Note Date/Time August 14, 2023 9:11am [facility] Medical Records Department [address] [place] [address] Emergency Department Summary 08/14/23 MR#: [id number] Acct: [id number] Name: TEELAXMI MJ Rep # :[id number] : 1990 33 From: Timothy Hanson MD PCP: Care Physician,No Primary Status :REG ER Location: ED HPI HPI - Female History of Present Illness Chief Complaint: Vag Bld, Preg Informant: patient Narrative Narrative: 33-year-old female G2, P1 with positive home test after stopping her control pills in the middle of June has been having vaginal bleeding that is light for the past week or less. No pelvic/abdominal pain. She has been following with [facility] SUPPORT [facility]INE[facility] and has had 4 different hCG levels performed in the past 2 or 3 weeks. They started around 1400, was trending down for the next2 measurements, then the last one which was done 4 days ago went up over 1500. She states in the last 2 or 3 days she has been having pain in her low back thatradiates around toward her left hip but not down her leg, is worse with movementand certain positions, and has a pain that she has had before in this area; she denies any recent injury, she has had this pain with menstrual cycles in the past, and her back, and and other random times no one has been able to tell me what this is. PFSH PFSH Medical History no medical history no medical history Home Medications NK 08/14/23 [History Last Taken Unknown] Allergy/AdvReac Type Severity Reaction Status Date / Time No Known Allergies Allergy Verified 08/14/23 08:53 Surgical History History of Social History Smoking Status: Former smoker ROS ROS ED Constitutional Constitutional ED: Denies chills or fever(s) Eyes Eyes: Denies change in vision or diplopia ENT ENT ED: Denies rhinorrhea or sore throat Cardiovascular Cardiovascular: Denies chest pain or palpitations Respiratory/Chest Respiratory/Chest: Denies cough or dyspnea Gastrointestinal Gastrointestinal: Denies abdominal pain, diarrhea, nausea or vomiting Genitourinary Genitourinary ED: Reports vaginal bleeding; Denies dysuria or hematuria Musculoskeletal Musculoskeletal: Reports back pain; Denies neck pain Integumentary Denies abscess or rash Neurologic Neurologic: Denies headache(s), paresthesias or weakness Psychiatric Psychiatric: Denies anxiety or suicidal thoughts EXAM Physical Exam Const Vital Signs: 08/14/23 08:51 08/14/23 09:33 Temperature 97.6 F L Temperature Source Temporal Pulse Rate 101 H 100 Respiratory Rate 18 16 Blood Pressure 148/83 H 117/78 Blood Pressure Mean 104 91 Pulse Ox 100 100 Oxygen Delivery Method Room Air Room Air Positive well nourished and well developed General Appearance ED: well developed and NAD HEENT Reports moist mucous membranes normocephalic and atraumatic Eyes PERRL and EOMs intact bilaterally Neck full ROM and supple Resp normal respiratory effort and clear to auscultation bilaterally Cardio regular rate, regular rhythm and no murmurs GI non-tender and non-distended Auscultation: normoactive bowel sounds Palpation: soft Speculum Exam - Vagina: vaginal bleeding Back/Spine no CVA tenderness Back/Spine Narrative: Tender in the parotid area of the left SI joint. No midline tenderness. No rash. Tender less in the area of the sciatic notch, with negative straight leg raises bilaterally and normal neurologic exam. General Back: other FROM Extremity normal to inspection General Extremety ED: Negative for edema, pulses abnormal or tenderness General Extremity: Negative for edema or pulses abnormal Neuro oriented x3, CN's II-XII intact bilaterally and no sensory deficits noted Sensorium / Orientation: awake and alert Motor Exam: strength 5/5 throughout Psych mental status grossly normal Skin no rashes or lesions noted and no wounds MDM MDM MDM Narrative Medical decision making narrative: I think the back pain is musculoskeletal. The area of the discomfort is consistent with sacroiliitis, and I do not think this is related to her current probable miscarriage. My main concern is that she had a recent hCG level that went up, which is concerning for possible ectopic . For this reason I think obtaining in emergent transvaginal ultrasound is indicated, not necessarily because of her low back pain which I discussed with her. She is in agreement with all of this. Her blood type is a positive, therefore we do not need to perform a RhoGAM screen on her. Her hCG now is back down, 1430. Ultrasound shows intrauterine gestational sac 5weeks 5 days, no pole or yolk sac, I reviewed the images and the report which I agree with. No evidence radiographically of a ectopic or heterotopic . I do not think her back pain is suggesting that she has this. She was given Tylenol for that, appropriate discharge instructions after speaking with Kailyn Diaz who knows the patient well, and is okay with the patient following up as scheduled after the weekend. Lab Data Attestation: I reviewed the patient's lab results. Labs: Laboratory Results - last 24 hr 08/14/23 09:19 HCG, Quant 1430 H Radiography Diagnostic Testing: Clinical Impression(s) from Imaging Studies Obstetrics Ultrasound 08/14/23 09:06 IMPRESSION: Intrauterine gestational sac with a mean gestational age of 5 weeks and 5 days. No pole or yolk sac is seen. Correlation with serial beta hCG and follow-up sonogram recommended. Electronically Signed: Ghanshyam Whittington MD at 11:01 EST , Discharge Plan Triage Chief Complaint: Vag Bld, Preg Other Complaint: Back ED Provider: Timothy Hanson Dx/Rx/DC Orders Clinical Impression: Vaginal bleeding affecting early , Sacroiliac joint dysfunction of left side Instructions: Bleeding During Early , ED Sacroiliitis Prescriptions: No Action NK Primary Care Provider: Care Physician,No Primary Referrals: Kailyn Diaz CNM [Med Staff - Adv Practice Prof] - Keep Steffany appointment NOT,DEFINED [Non-Staff] - What to do if you have Problems For any increased pain, shortness of breath, bleeding, nausea or vomiting, chestpain, or any unexpected problems, contact your Primary Care Provider. Call [facility] ([phone]) or report to the closest Emergency Room. Call 911 if necessary. 08/14/23 1147 <Electronically signed by Timothy Hanson MD> Cosigner Signature (if applicable): CC: ROXI Diaz; No Primary Care Physician ~ Signed [facility] Work Phone: 1(644) 407-199911-01-2023 History of Present illness Narrative* Darian Bonds MD - 08/05/2023 9:54 AM EDT Transvaginal ultrasonography reveals thickened endometrium with small round echolucent fluid collection identified consistent with possible gestational sac. No embryo or yolk sac identified. Differential diagnosis includes early intrauterine , ectopic or threatened . Consider repeat evaluation in 2 weeks by ultrasound. A diagnosis of failed intrauterine may be made prior to that point based on following HCG levels The patient presents for requested ultrasound. Full report available in the Imaging tab in [facility] Darian Bonds MD documented [facility]10[facility]23 Miscellaneous Notes* Addendum Note - Kailyn Diaz APRN.CNM - 08/04/2023 4:16 PM EDTAddended by: KAILYN DIAZ on: 08/04/2023 04:16 PM Modules accepted: Orders documented in this encounterAultman Hospital10-31-2023 History of Present illness Narrative* Kailyn Diaz APRN.CNM - 08/04/2023 8:46 AM EDT Laxmi Oliveira is a 33 year old female who presents with for problem visit of decreasing HCG levels. HPI: Patient had 06/2022 in [place]. Started taking Slynd control after delivery due to infant. No periods due to and taking Slynd. Stopped taking control 06/20/23 and thought she would have a period this month. She did not have a period and took HPT on 07/24/23 and 07/26/23 which were positive. She sent a message to office for positive test with unsure LMP. Quants ordered and were 1,714 and 1,410. She denies any cramping, pain or bleeding. OB History T1 L1 SAB0 IAB0 Ectopic0 Multiple0 Live Births1 REVIEW OF SYSTEMS Abdomen: No bloating, early satiety, indigestion, or increased flatulence. No abdominal pain, nausea, vomiting, diarrhea, or constipation. Bladder: No dysuria, gross hematuria, urinary frequency, urinary urgency, or incontinence. Breast: No breast lumps, nipple d/c, overlying skin changes, redness or skin retraction. Expanded ROS: N/A Allergies and current medication updated:Yes EXAM: BP 116/72 Wt 130 lb 3.2 oz (59.1kg) LMP 10/05/2022 GENERAL: pleasant, female in no apparent distress HEENT: Normocephalic and atraumatic NECK: Supple and full range of motion DERMATOLOGY: Normal NEURO: alert and oriented x3,exam grossly non-focal EXTREMITIES: normal ASSESSMENT/PLAN: 1. Positive test - ICD9: V72.42, ICD10: Z32.01 - Decreasing HCG levels - Reviewed with patient that decreasing HCG levels could be indication of miscarriage, or possible early . - Repeat HCG level today and continue if decreasing until reaches zero - TYPE + SCREEN - Support provided - Possible US? - Will follow up with patient after labs return to discuss plan of care Kailyn Diaz APRN.CNM documented in this encounterAultman Hospital10-27-2023 Miscellaneous Notes* Telephone Encounter - Verna Bustillo LPN - 07/31/2023 2:02 PM EDT Patient notified. Bleeding precautions given. Cannot come in on Thursday. Patient scheduled 08/04 * Telephone Encounter - Mya Burroughs RN - 07/31/2023 1:42 PM EDT Left message to call office. Mya Burroughs RN * Telephone Encounter - Teressa Gibbs APRN.CNP - 07/31/2023 11:58 AM EDT Hcg levels are falling, which is consistent with MAB. Review bleeding precaution and set up appt with OB provider. Teressa Gibbs APRN.CNP documented in this encounterAultman Hospital09-27-2022 History of Present illness Narrative* Lynn Fenton RN - 07/01/2022 11:22 AM EDT Called patient to offer both mom and baby a Welcome Home visit. Left message with contact number tocall back if interested in a visit. documented [facility] encounterTr[facility]Evaluation [facility]* Diagnosis Pelvic pain in Other specified complication of , unspecified as to episode of care documented in this encounter [facility] note* Diagnosis Positive test- Primary examination or test, positive result [facility]* Diagnosis Confirm cardiac activity using ultrasound- Primary Encounter for routine screening for malformation using ultrasonics Positive test examination or test, positive result 5 weeks gestation of state, incidental documented in this encounter [facility] noteNo assessment information availableWAvita Health [facility] Work Phone: [facility]* Diagnosis Positive test examination or test, positive result documented [facility] this encounter [facility]* Diagnosis Missed - Primary Pain associated with surgical procedure documented in this encounter [facility] note* Diagnosis Missed - Primary Pelvic pain in female Unspecified symptom associated with female genital organs [facility]* Diagnosis Pelvic pain in female Unspecified symptom associated with female genital organs [facility]* Diagnosis with uncertain dates in first trimester- Primary 7 weeks gestation of state, incidental Encounter for supervision of normal in multigravida in first trimester Hx of section Other postprocedural status documented [facility] this encounter [facility]* Diagnosis 10 weeks gestation of - Primary state, incidental Dysuria Encounter for supervision of normal in multigravida in first trimester [facility]* Diagnosis Encounter for supervision of other normal in first trimester- Primary Hx of section Other postprocedural status Dysuria 11 weeks gestation of state, incidental History of urinary tract infection Personal history of urinary (tract) infection S/P primary low transverse Other postprocedural status [facility]* Diagnosis Encounter for supervision of other normal in second trimester- Primary 19 weeks gestation of state, incidental Hx of section Other postprocedural status History of urinary tract infection Personal history of urinary (tract) infection [facility]* Diagnosis Encounter for anatomic survey- Primary 19 weeks gestation of state, incidental [facility]* Diagnosis Encounter for supervision of other normal in second trimester- Primary Hx of section Other postprocedural status 23 weeks gestation of state, incidental S/P primary low transverse Other postprocedural status Supervision of high risk in second trimester Unspecified high-risk [facility]* Diagnosis Encounter for supervision of other normal in second trimester- Primary Hx of section Other postprocedural status 15 weeks gestation of state, incidental [facility]* Diagnosis Supervision of high risk in third trimester- Primary Unspecified high-risk 28 weeks gestation of state, incidental History of low transverse section Patient desires vaginal after section () Need for vaccination Need for prophylactic vaccination and inoculation against unspecified single disease [facility]* Diagnosis 30 weeks gestation of - Primary state, incidental Supervision of high risk in third trimester Unspecified high-risk [facility]* Diagnosis Supervision of high risk in third trimester- Primary Unspecified high-risk History of low transverse section Patient desires vaginal after section () 32 weeks gestation of state, incidental Encounter for prophylactic immunotherapy for respiratory syncytial virus (RSV) documented [facility]* Diagnosis 34 weeks gestation of - Primary state, incidental Supervision of high risk in third trimester Unspecified high-risk [facility]* Diagnosis Elevated blood pressure reading in office without diagnosis of hypertension anemia Anemia, Uterine rupture, subsequent encounter Status post section routine follow-up- Primary Routine follow-up documented [facility] this encounter [facility]* Diagnosis Elevated blood pressure reading in office without diagnosis of hypertension anemia Anemia, Uterine rupture, subsequent encounter Status post section routine follow-up- Primary Routine follow-up documented [facility]* Diagnosis anemia Anemia, Uterine rupture, subsequent encounter care and examination- Primary Routine follow-up documented [facility]* Diagnosis Pleuritic chest pain- Primary Painful respiration Tachycardia Unspecified tachycardia Pleuritic chest pain Painful respiration documented in this encounter [facility] Work Phone: Evaluation note* Diagnosis Pleuritic chest pain Painful respiration documented in this encounter [facility] Work Phone: [facility] for referral (narrative)* Diagnostic Procedure Only (Routine) - Authorized Specialty Diagnoses / Procedures Referred By Contac t Referred To Contact [facility] Diagnoses Positive test Procedures OBSTETRIC ULTRASOUND WHI US PREG UTERUS AFTER 1ST TRIMEST GESTATION Kailyn Diaz APRN.CNM [address] [place] [address] [facility] [employer] [place] [id number] Referral ID Status Reason Start Date Expiration Date Visits Requested Visits Authorized [id number] Authorized Auto-Generat ed Referral 3 08/03/2024 1 1 [facility] for referral (narrative)* Diagnostic Procedure Only (Routine) - Authorized Specialty Diagnoses / Procedures Referred By Contac t Referred To Contact US IMAGING Diagnoses Pelvic pain in female Procedures US FEMALE PELVIS TRANSVAG US TRANSVAGINAL Adriana López MD [address] [place] [address] Us Imaging [facility] Referral ID Status Reason Start Date Expiration Date Visits Requested Visits Authorized [id number] Authorized Auto-Generat ed Referral 3 09/19/2024 1 1 [facility] for referral (narrative)* Diagnostic Procedure Only (Routine) - New Request Specialty Diagnoses / Procedures Referred By Contac t Referred To Contact [facility] Diagnoses Encounter for supervision of other normal in second trimester Procedures OBSTETRIC ULTRASOUND WHI US PREG UTERUS AFTER 1ST TRIMEST GESTATION Devon Littlejohn MD [address] [place] [address] [facility] [address] [place] [address] Referral ID Status Reason Start Date Expiration Date Visits Requested Visits Authorized [id number] New Request Auto-Generat ed Referral 05/20/2024 05/20/2025 1 1 [facility] for referral (narrative)* Medication Prior Authorization - Authorized Specialty Diagnoses / Procedures Referred By Sole will Referred To Contact Jennifer Mccall MD [address] [place] [address] Phone: tel: fax: Referral ID Status Reason Start Date Expiration Date V isits Requested Visits Authorized [id number] Authorized 11/15/2024 11/15/2025 1 1 [facility] for visit Narrative* Diagnostic Procedure Only (Routine) - Closed Specialty Diagnoses / Procedures Referred By Sole will Referred To Contact [facility] Diagnoses Positive test Procedures OBSTETRIC ULTRASOUND WHI US PREG UTERUS AFTER 1ST TRIMEST GESTATION Kailyn Diaz APRN.CN [address] [place] [address] [facility] [address] [place] [address] Referral ID Status Reason Start Date Expiration Date V isits Requested Visits Authorized [id number] Closed Auto-Generate d Referral 08/04/2023 08/03/2024 1 1 [facility] for visit Narrative* Imaging (Emergency) - Authorized Specialty Diagnoses / Procedures Referred By Sole will Referred To Contact Radiology Diagnoses Pleuritic chest pain Procedures XR chest 2 views Keyonna Muhammad PA-C [address] [facility] [place] [address] Phone: tel: fax: Referral ID Status Reason Start Date Expiration Date Visits Requested Visits Authorized [id number] Authorized Perform Procedure 08/11/2025 09/10/2026 1 1 [facility] Work Phone: Summary Purpose Family History No Family History Records FoundNo Family History Records FoundNo Family History Records FoundNo Family History Records FoundNo Family History Records FoundNo Family History Records FoundNo Family History Records FoundNo Family History Records FoundNo Family History Records FoundNo Family History Records Found Advance Directives No Advanced Directives Records FoundDocuments on File Type Date Recorded 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 Do not modify or discontinue any currently active code status orders. Full Code - Default 06/17/2022 2:33 AM 06/17/2022 5:23 A M This is order is used when code status has not been discussed with the patient, or code status is otherwise unknown/unconfirmed To update the patient's code status, place a code status order. Do not modify or discontinue any currently active code status orders. Advance Directive Response Recorded Date/ Time Living Will No August 14 023 9:25am Power of Early Childhood Assistant No August 14, 2023 9:25am Reason for Referral Specialty Diagnoses / Procedures Referred By Contac t Referred To Contact Radiology Diagnoses Pelvic pain in Procedures US Pelvis Non OB Complete w Transvaginal Rama Alcocer DO [address] [place] [address] [facility] [place] Referral ID Status Reason Start Date Expiration Date V isits Requested Visits Authorized [id number] Authorized 10/22/2021 04/20/2022 1 1 Chief Complaint and Reason for Visit Chief Complaint VAG BLEEDING, BACK P AIN Medications Administered Section Inactive Administered Medications - up to 3 most recent administrations Medication Order MAR Action Action Date Dose Rate Site keTORolac 30 mg injection (Toradol) 30 mg, INTRAMUSCULAR, ONCE, 1 dose, On Thu08/21/23 at 0800, Ketorolac (Toradol) is indicated for the short-term (up to 5 days) management of moderately severe acute pain. Continuation of ketorolac (Toradol) beyond 5 days increases the risk of developing serious adverse events. Please verify the duration of therapy for ketorolac (Toradol)., If ordered PRN for pain, patient/guardian may elect to receive this medication for higher pain levels INSTEAD of the opioid, if preferred: Yes Given 08/21/2023 8:26 AM EST 30 mg Buttocks, Right Additional Source Comments INFORMATION SOURCE (unrecogn ized section and content) DATE CREATED AUTHOR 10/01/2019 [facility] DATE CREATED AUTHOR AUTHOR'S ORGANIZ ATION 10/25/2021 [facility] DATE CREATED AUTHOR AUTHOR'S ORGANIZ ATION 11/09/2021 [facility] DATE CREATED AUTHOR AUTHOR'S ORGANIZ ATION 12/26/2021 [facility] DATE CREATED AUTHOR AUTHOR'S ORGANIZ ATION 07/02/2022 [place] [facility] DATE CREATED AUTHOR AUTHOR'S ORGANIZ ATION 10/17/2024 [facility] DATE CREATED AUTHOR AUTHOR'S ORGANIZ ATION 11/18/2024 [facility] DATE CREATED AUTHOR AUTHOR'S ORGANIZ ATION 12/14/2024 [facility] DATE CREATED AUTHOR AUTHOR'S ORGANIZ ATION 03/19/2025 [facility] DATE CREATED AUTHOR AUTHOR'S ORGANIZ ATION 08/14/2025 [facility] Reason for Visit (unrecogniz ed section and content) Specialty Diagnoses / Procedures Referred By Contac t Referred To Contact Radiology Diagnoses Pelvic pain in Procedures US Pelvis Non OB Complete w Transvaginal Rama Alcocer DO [address] [place] [address] [facility] Referral ID Status Reason Start Date Expiration Date V isits Requested Visits Authorized [id number] Authorized 10/22/2021 04/20/2022 1 1 Reason Comments Results Reason Comments SHINGLE TRIMMER Ultrasound Specialty Diagnoses / Procedures Referred By Contac t Referred To Contact [facility] Diagnoses Positive test Procedures OBSTETRIC ULTRASOUND WHI US PREG UTERUS AFTER 1ST TRIMEST 1/ GESTATION Kailyn Diaz APRN.ROXI [address] [place] [address] [facility] [address] [place] [address] [place] [address] Referral ID Status Reason Start Date Expiration Date V isits Requested Visits Authorized [id number] Closed Auto-Generate d Referral 08/05/2023 08/04/2024 1 1 Reason Comments Medication Update Reason Comments Medication Problem Specialty Diagnoses / Procedures Referred By Contac t Referred To Contact APPLICATION SUPPORT ENGINEER Diagnoses Missed ab IPAS- coming at 8am Procedures TX MISSED FIRST TRIMESTER SURGICAL IPAS DOUBLE VALVE ASPIRATOR W CANNULA SINGLE USE Kailyn Diaz APRN.[facility] [address] [place] [address] Adriana López MD [address] [place] [address] Referral ID Status Reason Start Date Expiration Date Visits Re quested Visits Authorized [id number] Closed 08/19/2023 10/04/2023 1 1 Reason Comments Radiology US Specialty Diagnoses / Procedures Referred By Contac t Referred To Contact US IMAGING Diagnoses Pelvic pain in female Procedures US FEMALE PELVIS TRANSVAG US TRANSVAGINAL Adriana López MD [address] [place] [address] [place] [id number] Referral ID Status Reason Start Date Expiration Date V isits Requested Visits Authorized [id number] Closed Auto-Generate d Referral 08/21/2023 09/19/2024 1 1 Reason Comments New OB Reason Onset Date Comments Care 04/13/2024 Reason Comments Results Urine culture Reason Onset Date Comments Care 04/22/2024 Reason Onset Date Comments Care 06/15/2024 Reason Comments Records Reason Comments US Specialty Diagnoses / Procedures Referred By Contac t Referred To Contact [facility] Diagnoses Encounter for supervision of other normal in second trimester Encounter for supervision of normal , unspecified, unspecified trimester Procedures OBSTETRIC ULTRASOUND WHI US PREG UTERUS AFTER 1ST TRIMEST GESTATION Devon Littlejohn MD [address] [place] [id number] [facility] [address] [place] [address] Referral ID Status Reason Start Date Expiration Date Visits Requested Visits Authorized [id number] Authorized Auto-Generat ed Referral 06/15/2024 10/04/2024 20 20 Reason Onset Date Comments Care 07/14/2024 Reason Onset Date Comments Care 05/20/2024 Reason Comments breast pump Reason Onset Date Comments Care 08/16/2024 Reason Onset Date Comments Care 08/30/2024 Reason Onset Date Comments Care 09/13/2024 Reason Onset Date Comments Care 09/29/2024 Reason Comments FMLA Paperwork Reason Comments Ob Delivery Note Reason Comments Care Reason Comments Early Reason Comments Routine Reason Comments Insurance Authorization Reason Comments Chest Pain Pt states she has wolfe d back pain that radiates to her chest with heaviness associated with it, she has some indigestion and back pain still and chest pain. She has decreased tempeture in her extremities. Care Teams (unrecognized sec tion and content) Practice Administrator Relationship Specialty Start Date End Date Rama AlcocerDO [address] [place] [id number] PCP - General Family Medicine 05/20/20 Practice Administrator Relationship Specialty Start Date End Date Rama Alcocer [address] [place] [id number] PCP - General Family Medicine 05/20/20 Team Status: Active Member Role Status Dates No Primary Care Physician Primary Care Provider Active Team Status: Inactive Member Role Status Dates Dr. Timothy Hanson MD Emergency Provider Active No Primary Care Physician Primary Care Provider Active Practice Administrator Relationship Specialty Start Date End Date AdriaGo vegaDO [address] [place] [address] PCP - [facility] PCP 08/05/24 Practice Administrator Relationship Specialty Start Date End Date [place] [address] [place] [address] PCP - [place] [facility] PCP 08/05/24 Source Comments (unrecognize d section and content) In the event this informatio n is protected by the Federal Confidentiality of Alcohol and Drug Abuse Patient Records regulations: The Federal rules restrict any use of the information to criminally investigate or prosecute any alcohol or drug abuse patient.[facility] the event this information is protected by the Federal Confidentiality of Alcohol and Drug Abuse Patient Records regulations: The Federal rules restrict any use of the information to criminally investigate or prosecute any alcohol or drug abuse patient.[facility] the event this information is protected by the Federal Confidentiality of Alcohol and Drug Abuse Patient Records regulations: The Federal rules restrict any use of the information to criminally investigate or prosecute any alcohol or drug abuse patient.[facility] the event this information is protected by the Federal Confidentiality of Alcohol and Drug Abuse Patient Records regulations: The Federal rules restrict any use of the information to criminally investigate or prosecute any alcohol or drug abuse patient.[facility] the event this information is protected by the Federal Confidentiality of Alcohol and Drug Abuse Patient Records regulations: The Federal rules restrict any use of the information to criminally investigate or prosecute any alcohol or drug abuse patient.[facility] HospitalIn the event this information is protected by the Federal Confidentiality of Alcohol and Drug Abuse Patient Records regulations: The Federal rules restrict any use of the information to criminally investigate or prosecute any alcohol or drug abuse patient.[facility] HospitalIn the event this information is protected by the Federal Confidentiality of Alcohol and Drug Abuse Patient Records regulations: The Federal rules restrict any use of the information to criminally investigate or prosecute any alcohol or drug abuse patient.[facility] HospitalIn the event this information is protected by the Federal Confidentiality of Alcohol and Drug Abuse Patient Records regulations: The Federal rules restrict any use of the information to criminally investigate or prosecute any alcohol or drug abuse patient.[facility] HospitalIn the event this information is protected by the Federal Confidentiality of Alcohol and Drug Abuse Patient Records regulations: The Federal rules restrict any use of the information to criminally investigate or prosecute any alcohol or drug abuse patient.[facility]In the event this information is protected by the Federal Confidentiality of Alcohol and Drug Abuse Patient Records regulations: The Federal rules restrict any use of the information to criminally investigate or prosecute any alcohol or drug abuse patient.[facility] HospitalIn the event this information is protected by the Federal Confidentiality of Alcohol and Drug Abuse Patient Records regulations: The Federal rules restrict any use of the information to criminally investigate or prosecute any alcohol or drug abuse patient.[facility] HospitalIn the event this information is protected by the Federal Confidentiality of Alcohol and Drug Abuse Patient Records regulations: The Federal rules restrict any use of the information to criminally investigate or prosecute any alcohol or drug abuse patient.[facility] HospitalIn the event this information is protected by the Federal Confidentiality of Alcohol and Drug Abuse Patient Records regulations: The Federal rules restrict any use of the information to criminally investigate or prosecute any alcohol or drug abuse patient.[facility] HospitalIn the event this information is protected by the Federal Confidentiality of Alcohol and Drug Abuse Patient Records regulations: The Federal rules restrict any use of the information to criminally investigate or prosecute any alcohol or drug abuse patient.[facility] HospitalIn the event this information is protected by the Federal Confidentiality of Alcohol and Drug Abuse Patient Records regulations: The Federal rules restrict any use of the information to criminally investigate or prosecute any alcohol or drug abuse patient.[facility] HospitalIn the event this information is protected by the Federal Confidentiality of Alcohol and Drug Abuse Patient Records regulations: The Federal rules restrict any use of the information to criminally investigate or prosecute any alcohol or drug abuse patient.[facility] HospitalIn the event this information is protected by the Federal Confidentiality of Alcohol and Drug Abuse Patient Records regulations: The Federal rules restrict any use of the information to criminally investigate or prosecute any alcohol or drug abuse patient.[facility] HospitalIn the event this information is protected by the Federal Confidentiality of Alcohol and Drug Abuse Patient Records regulations: The Federal rules restrict any use of the information to criminally investigate or prosecute any alcohol or drug abuse patient.[facility] HospitalIn the event this information is protected by the Federal Confidentiality of Alcohol and Drug Abuse Patient Records regulations: The Federal rules restrict any use of the information to criminally investigate or prosecute any alcohol or drug abuse patient.[facility] HospitalIn the event this information is protected by the Federal Confidentiality of Alcohol and Drug Abuse Patient Records regulations: The Federal rules restrict any use of the information to criminally investigate or prosecute any alcohol or drug abuse patient.[facility] HospitalIn the event this information is protected by the Federal Confidentiality of Alcohol and Drug Abuse Patient Records regulations: The Federal rules restrict any use of the information to criminally investigate or prosecute any alcohol or drug abuse patient.[facility] HospitalIn the event this information is protected by the Federal Confidentiality of Alcohol and Drug Abuse Patient Records regulations: The Federal rules restrict any use of the information to criminally investigate or prosecute any alcohol or drug abuse patient.[facility] HospitalIn the event this information is protected by the Federal Confidentiality of Alcohol and Drug Abuse Patient Records regulations: The Federal rules restrict any use of the information to criminally investigate or prosecute any alcohol or drug abuse patient.[facility] HospitalIn the event this information is protected by the Federal Confidentiality of Alcohol and Drug Abuse Patient Records regulations: The Federal rules restrict any use of the information to criminally investigate or prosecute any alcohol or drug abuse patient.[facility] HospitalIn the event this information is protected by the Federal Confidentiality of Alcohol and Drug Abuse Patient Records regulations: The Federal rules restrict any use of the information to criminally investigate or prosecute any alcohol or drug abuse patient.[facility] HospitalIn the event this information is protected by the Federal Confidentiality of Alcohol and Drug Abuse Patient Records regulations: The Federal rules restrict any use of the information to criminally investigate or prosecute any alcohol or drug abuse patient.[facility] HospitalIn the event this information is protected by the Federal Confidentiality of Alcohol and Drug Abuse Patient Records regulations: The Federal rules restrict any use of the information to criminally investigate or prosecute any alcohol or drug abuse patient.[facility] HospitalIn the event this information is protected by the Federal Confidentiality of Alcohol and Drug Abuse Patient Records regulations: The Federal rules restrict any use of the information to criminally investigate or prosecute any alcohol or drug abuse patient.[facility] HospitalIn the event this information is protected by the Federal Confidentiality of Alcohol and Drug Abuse Patient Records regulations: The Federal rules restrict any use of the information to criminally investigate or prosecute any alcohol or drug abuse patient.[facility] HospitalIn the event this information is protected by the Federal Confidentiality of Alcohol and Drug Abuse Patient Records regulations: The Federal rules restrict any use of the information to criminally investigate or prosecute any alcohol or drug abuse patient.[facility] HospitalIn the event this information is protected by the Federal Confidentiality of Alcohol and Drug Abuse Patient Records regulations: The Federal rules restrict any use of the information to criminally investigate or prosecute any alcohol or drug abuse patient.[facility] HospitalIn the event this information is protected by the Federal Confidentiality of Alcohol and Drug Abuse Patient Records regulations: The Federal rules restrict any use of the information to criminally investigate or prosecute any alcohol or drug abuse patient.[facility] HospitalIn the event this information is protected by the Federal Confidentiality of Alcohol and Drug Abuse Patient Records regulations: The Federal rules restrict any use of the information to criminally investigate or prosecute any alcohol or drug abuse patient.[facility] HospitalIn the event this information is protected by the Federal Confidentiality of Alcohol and Drug Abuse Patient Records regulations: The Federal rules restrict any use of the information to criminally investigate or prosecute any alcohol or drug abuse patient.[facility] HospitalIn the event this information is protected by the Federal Confidentiality of Alcohol and Drug Abuse Patient Records regulations: The Federal rules restrict any use of the information to criminally investigate or prosecute any alcohol or drug abuse patient.[facility] Goals (unrecognized section and content) Goals may be documented in a n alternate section FOR RECORDS PERTAINING TO PATIENTS WHO ARE OR HAVE BEEN ENROLLED IN A CHEMICAL DEPENDENCY/SUBSTANCEABUSE PROGRAM, SOME INFORMATION MAY BE OMITTED. This clinical summary was aggregated from multiple sources. Caution should be exercised in using it in the provision of clinical care. This summary normalizes information from multiple sources, and as a consequence, information in this document may materially change the coding, format and clinical context of patient data. In addition, data may be omitted in some cases. CLINICAL DECISIONS SHOULD BE BASED ON THE PRIMARY CLINICAL RECORDS. [facility] [employer] [facility]. provides no warranty or guarantee of the accuracy or completeness of information in this document.
[2025-08-18 18:06] LABS: AST(SGOT) 16 U/L (<=31); Alanine Aminotransfer ALT/SGPT 13 U/L (<=34); Albumin, Serum 4.2 g/dL (3.5-5.0); Alkaline Phosphatase 41 U/L (35-104); Anion Gap 11 (5-15); BUN 11 mg/dL (4-19); BUN/Creat Ratio 13.4 RATIO (10-20); Calcium,Total 9.7 mg/dL (7.6-11.0); Carbon Dioxide 24.3 mmol/L (21.0-32.0); Chloride 103 mmol/L (98-108); Ferritin 44 ng/mL (22-378); Globulin 3.3 g/dL (2.2-4.2); Glucose 96 mg/dL (70-99); Potassium 4.2 mmol/L (3.3-5.1)
== END | disposition home or self-care (01) ==
LOC: MTLAB 15:44
PROVIDERS: PCP Family Medicine; Referring Provider Family Medicine; Visit Provider Family Medicine
DX: I47.9 Paroxysmal tachycardia, unspecified (principal); D64.9 Anemia, unspecified
CPT/HCPCS: 36415; 80053; 82728; 84443; 85025

== ENCOUNTER → 2025-09-01 | Outpatient (CLI) | payer OTHER, SELFPAY ==
--- OUTSIDE RECORDS SUMMARY | 2025-09-01 10:41 | XMS RPT_ITS | CCD ---
Author Organization [facility] Care Team Providers Care Medical Billing Instructor Name Role Phone ROXIE ALCOCERA Referring Unavailable JOLLY, RAMA Primary Care Unavailable Hurt DO, Rama Primary Care Provider [phone] POONAM FRAGOSO Primary Care Unavailable POONAM FRAGOSO [...] Referring Unavailable Adria, Go Primary Care Unavailable [place], Andra Admitting Unavailable Joe, Andra Admitting Unavailable [...] Care Unavailable Adria DO Go A Unavailable KEYONNA MUHAMMAD Attending Unavailable KEYONNA MUHAMMAD Referring [...] on above: Take 2 tablets by mo [facility] one time only for 1 dose. Bring [...] Comment on above: Take 1 tablet by [facility] one time only for 1 dose. Bring [...] Take 1 tablet by ann once daily. [id number] 0.3 ml EPINEPHrine 1 mg/ml auto-injector (2 [...] ECG 12 lead (Clinic Performe d)on 08-11-2025 [facility] Work Phone: XR CHEST 2 VIEWSon XR CHEST 2 VIEWS Interpreted By: Jeuss Mondragon, STUDY: XR CHEST 2 VIEWS; 08/11/2025 5:04 pm INDICATION: Signs/Symptoms:ches t pain, back pain. ,R07.81 Pleurodynia COMPARISON: None. ACCESSION NUMBER(S): [id number] ORDERING CLINICIAN: KEYONNA MUHAMMAD FINDINGS: The cardiomediastinal silhouette and pulmonary vasculature are within normal limits. No consolidation, pleural effusion or pneumothorax. IMPRESSION: No acute cardiopulmonary process. MACRO: None. Signed by: Jesus Mondragon 08/11/2025 6:22 PM Dictation workstation: [id number] [facility] XR Chest 2 Viewson No acute cardiopulmonary process. MACRO: None. Signed by: Jesus Mondragon 08/11/2025 6:22 PM Dictation workstation: [id number] MMODAL Interpreted By: Jesus Mondragon, STUDY: XR CHEST 2 VIEWS; 08/11/2025 5:04 pm INDICATION: Signs/Symptoms:ches t pain, back pain. ,R07.81 Pleurodynia COMPARISON: None. ACCESSION NUMBER(S): [id number] ORDERING CLINICIAN: KEYONNA MUHAMMAD FINDINGS: The cardiomediastinal silhouette and pulmonary vasculature are within normal limits. No consolidation, pleural effusion or pneumothorax. [facility] MMODAL Jesus Mondragon MD - 08/11/2025 Interpreted By: Jesus Mondragon, STUDY: XR CHEST 2 VIEWS; 08/11/2025 5:04 pm INDICATION: Signs/Symptoms:ches t pain, back pain. ,R07.81 Pleurodynia COMPARISON: None. ACCESSION NUMBER(S): [id number] ORDERING CLINICIAN: KEYONNA MUHAMMAD FINDINGS: The cardiomediastinal silhouette and pulmonary vasculature are within normal limits. No consolidation, pleural effusion or pneumothorax. IMPRESSION: No acute cardiopulmonary process. MACRO: None. Signed by: Jesus Mondragon 08/11/2025 6:22 PM Dictation workstation: [id number] [facility] Work Phone: Radiology Study observation (narrative) [facility] Work Phone: XR Chest 2 ViewsOrdered By: Jesus Mondragon on 08-11-2025 [facility] Work Phone: ED Prov Noteon 03-11-2025 ED Prov Note ED PROVIDER NOTE [facility] EMERGENCY DEPARTMENT NAME: Laxmi Oliveira AGE: 34 y.o. : 1990 VISIT DATE: 03/11/2025 CSN: [id number] PCP: Ambika Acosta MD Chief Complaint Patient [...] Melanie Stati (more content not included)... Normal [facility] CNCOon 12-12-2024 CNCO Letter Text [facility]PCiera [facility]) [facility] LAXMI OLIVEIRA ([id number]) 1990 F Date Time Provider Department 11/15/24 JENNIFER MCCALL OBGYWM During your visit today, we recorded the following information about you: rBaden Givens MA 11/15/2024 2:30 PM Signed Received PA request for Slynd. Submitted and received response that it was approved. Patient notified via [email or web address]. Braden Givens MA Allergies As of Date: 11/15/2024 (No Known Allergies) Date Reviewed: 11/15/2024 Reviewed by: Jennifer Mccall MD - Fully Assessed Reason for Visit: Insurance Authorization [2223] Prescriptions as of 11/15/2024 - drospirenone, contraceptive, [...] Status:Closed by BRADEN GIVENS on 11/15/24 Normal [facility] CBC W Auto Differential pane l (Bld)on 10-08-2024 Basophils (Bld) [#/Vol] 0.05 10*3/uL Normal <0.11 [facility] Comment on above: Order Comment: Speci men Type: BLOOD SPECIMEN Ordering Facility: [facility] Address: [address] [place], [place] [address] [address] Performed By: #### 5 7021-8 #### [facility] CLIA [id number] [address] [place] [address] [place] Basophils/100 WBC (Bld) 0.5 % Normal [facility] Comment on above: Order Comment: Speci men Type: BLOOD SPECIMEN Ordering Facility: [facility] Address: [address] [place] [address] Performed By: #### 5 7021-8 #### [facility] CLIA [id number] [address] Differential cell count method Nom (Bld) Auto Normal [facility] Comment on above: Order Comment: Speci men Type: BLOOD SPECIMEN Ordering Facility: [facility] Address: [address] [place] [address] Performed By: #### 5 7021-8 #### [facility] CLIA [id number] [address] Eosinophils (Bld) [#/Vol] 0.30 10*3/uL Normal <0.46 [facility] Comment on above: Order Comment: Speci men Type: BLOOD SPECIMEN Ordering Facility: [facility] Address: [address] [place] [address] Performed By: #### 5 7021-8 #### [facility] CLIA [id number] [address] Eosinophils/100 WBC (Bld) 3.1 % Normal [facility] Comment on above: Order Comment: Speci men Type: BLOOD SPECIMEN Ordering Facility: [facility] Address: [address] [place] [address] Performed By: #### 5 7021-8 #### [facility] CLIA [id number] [address] Erythrocyte distribution width (RBC) [Ratio] 13.1 % Normal 11.5-15.0 [facility] Comment on above: Order Comment: Speci men Type: BLOOD SPECIMEN Ordering Facility: [facility] Address: [address] [place] [address] Performed By: #### 5 7021-8 #### [facility] CLIA [id number] [address] OF [place] Hematocrit (Bld) [Volume fraction] 27.0 % Low 36.0-46.0 [facility] Comment on above: Order Comment: Speci men Type: BLOOD SPECIMEN Ordering Facility: [facility] Address: [address] [place] [address] Performed By: #### 5 7021-8 #### [facility] CLIA [id number] [address] [place] Hemoglobin (Bld) [Mass/Vol] 8.7 g/dL Low 11.5-15.5 [facility] Comment on above: Order Comment: Speci men Type: BLOOD SPECIMEN Ordering Facility: [facility] Address: [address] [place] [address] Performed By: #### 5 7021-8 #### [facility] CLIA [id number] [address] [place] Immature granulocytes (Bld) [#/Vol] 0.10 10*3/uL High <0.10 [facility] Comment on above: Order Comment: Speci men Type: BLOOD SPECIMEN Ordering Facility: [facility] Address: [address] [place] [address] Performed By: #### 5 7021-8 #### [facility] CLIA [id number] [address] OF [place] Immature granulocytes/100 WBC (Bld) 1.0 % Normal [facility] Comment on above: Order Comment: Speci men Type: BLOOD SPECIMEN Ordering Facility: [facility] Address: [address] [place] [address] Performed By: #### 5 7021-8 #### [facility] CLIA [id number] [address] [place] Lymphocytes (Bld) [#/Vol] 3.59 10*3/uL Normal 1.00-4.00 [facility] Comment on above: Order Comment: Speci men Type: BLOOD SPECIMEN Ordering Facility: [facility] Address: [address] [place] [address] Performed By: #### 5 7021-8 #### [facility] CLIA [id number] [address] [place] [address] [place] Lymphocytes/100 WBC (Bld) 37.4 % Normal [facility] Comment on above: Order Comment: Speci men Type: BLOOD SPECIMEN Ordering Facility: [facility] Address: [address] [place] [address] Performed By: #### 5 7021-8 #### [facility] CLIA [id number] [address] MCH (RBC) [Entitic mass] 29.9 pg Normal 26.0-34.0 [facility] Comment on above: Order Comment: Speci men Type: BLOOD SPECIMEN Ordering Facility: [facility] Address: [address] [place] [address] Performed By: #### 5 7021-8 #### [facility] CLIA [id number] [address] STATES OF [facility] MCHC (RBC) [Mass/Vol] 32.2 g/dL Normal 30.5-36.0 [facility] Comment on above: Order Comment: Speci men Type: BLOOD SPECIMEN Ordering Facility: [facility] Address: [address] [place] [address] Performed By: #### 5 7021-8 #### [facility] CLIA [id number] [address] MCV (RBC) [Entitic vol] 92.8 fL Normal 80.0-100.0 [facility] Comment on above: Order Comment: Speci men Type: BLOOD SPECIMEN Ordering Facility: [facility] Address: [address] [place] [address] Performed By: #### 5 7021-8 #### [facility] CLIA [id number] [address] Monocytes (Bld) [#/Vol] 0.94 10*3/uL High <0.87 [facility] Comment on above: Order Comment: Speci men Type: BLOOD SPECIMEN Ordering Facility: [facility] Address: [address] [place] [address] Performed By: #### 5 7021-8 #### [facility] CLIA [id number] [address] [place] Monocytes/100 WBC (Bld) 9.8 % Normal [facility] Comment on above: Order Comment: Speci men Type: BLOOD SPECIMEN Ordering Facility: [facility] Address: [address] [place] [address] Performed By: #### 5 7021-8 #### [facility] CLIA [id number] 1 [place] [address] [place] Neutrophils (Bld) [#/Vol] 4.63 10*3/uL Normal 1.45-7.50 [facility] Comment on above: Order Comment: Speci men Type: BLOOD SPECIMEN Ordering Facility: [facility] Address: [address] [place] [address] Performed By: #### 5 7021-8 #### [facility] CLIA [id number] [address] [place] Neutrophils/100 WBC (Bld) 48.2 % Normal [facility] Comment on above: Order Comment: Speci men Type: BLOOD SPECIMEN Ordering Facility: [facility] Address: [address] [place] [address] Performed By: #### 5 7021-8 #### [facility] CLIA [id number] [address] [place] Nucleated RBC (Bld) [#/Vol] 10*3/uL Normal <0.01 [facility] Comment on above: Order Comment: Speci men Type: BLOOD SPECIMEN Ordering Facility: [facility] Address: [address] [place] [address] Performed By: #### 5 7021-8 #### [facility] CLIA [id number] [address] [place] Nucleated RBC/100 WBC (Bld) [Ratio] 0.0 /100 WBC Normal [facility] Comment on above: Order Comment: Speci men Type: BLOOD SPECIMEN Ordering Facility: [facility] Address: [address] [place] [address] Performed By: #### 5 7021-8 #### [facility] CLIA [id number] [address] STATES [facility] Platelet mean volume (Bld) [Entitic vol] 9.0 fL Normal 9.0-12.7 [facility] Comment on above: Order Comment: Speci men Type: BLOOD SPECIMEN Ordering Facility: [facility] Address: [address] [place] [address] Performed By: #### 5 7021-8 #### [facility] CLIA [id number] [address] [place] Platelets (Bld) [#/Vol] 329 10*3/uL Normal 150-400 [facility] Comment on above: Order Comment: Speci men Type: BLOOD SPECIMEN Ordering Facility: [facility] Address: [address] [place] [address] Performed By: #### 5 7021-8 #### [facility] CLIA [id number] [address] RBC (Bld) [#/Vol] 2.91 10*6/uL Low 3.90-5.20 [facility] Comment on above: Order Comment: Speci men Type: BLOOD SPECIMEN Ordering Facility: [facility] Address: [address] [place] [address] Performed By: #### 5 7021-8 #### [facility] CLIA [id number] [address] [place] WBC (Bld) [#/Vol] 9.61 10*3/uL Normal 3.70-11.00 [facility] Comment on above: Order Comment: Speci men Type: BLOOD SPECIMEN Ordering Facility: [facility] Address: [address] [place] [address] Performed By: #### 5 7021-8 #### [facility] CLIA [id number] [address] OF [facility] Comprehensive metabolic 2000 panelon 10-08-2024 Albumin [Mass/Vol] 3.4 g/dL Low 3.9-4.9 [facility] Comment on above: Order Comment: Speci men Type: BLOOD SPECIMEN Ordering Facility: [facility] Address: [address] [place] [address] Performed By: #### 1 9123-06, 23143-9 #### [facility] CLIA [id number] [address] ALP [Catalytic activity/Vol] 89 U/L Normal 34-123 [facility] Comment on above: Order Comment: Speci men Type: BLOOD SPECIMEN Ordering Facility: [facility] Address: [address] [place] [address] Performed By: #### 1 9123-06, #### [facility] CLIA [id number] [address] OF [facility] ALT With P-5'-P [Catalytic activity/Vol] 31 U/L Normal 7-38 [facility] Comment on above: Order Comment: Speci men Type: BLOOD SPECIMEN Ordering Facility: [facility] Address: [address] [place] [address] Performed By: #### 1 9123-06, #### [facility] CLIA [id number] [address] Anion gap [Moles/Vol] 11 mmol/L Normal 8-15 [facility] Comment on above: Order Comment: Speci men Type: BLOOD SPECIMEN Ordering Facility: [facility] Address: [address] [place] [address] Performed By: #### 1 9123-06, #### [facility] CLIA [id number] [address] [place] AST With P-5'-P [Catalytic activity/Vol] 23 U/L Normal 13-35 [facility] Comment on above: Order Comment: Speci men Type: BLOOD SPECIMEN Ordering Facility: [facility] Address: [address] [place] [address] Performed By: #### 1 9123-06, 88858-5 #### [facility] CLIA [id number] 1 [place] [address] [place] Bilirubin [Mass/Vol] mg/dL Low 0.2-1.3 [facility] Comment on above: Order Comment: Speci men Type: BLOOD SPECIMEN Ordering Facility: [facility] Address: [address] [place] [address] Performed By: #### 1 9123-9, 22123-0 #### [facility] CLIA [id number] [address] [place] [address] [place] Calcium [Mass/Vol] 8.9 mg/dL Normal 8.5-10.2 [facility] Comment on above: Order Comment: Speci men Type: BLOOD SPECIMEN Ordering Facility: [facility] Address: [address] [place] [address] Performed By: #### 1 23-9, 70862-9 #### [facility] CLIA [id number] [address] [place] [address] [place] Chloride [Moles/Vol] 103 mmol/L Normal 98-107 [facility] Comment on above: Order Comment: Speci men Type: BLOOD SPECIMEN Ordering Facility: [facility] Address: [address] [place] [address] Performed By: #### 1 23-9, 12437-9 #### [facility] CLIA [id number] [address] [place] [address] [place] CO2 [Moles/Vol] 24 mmol/L Normal 22-30 [facility] Comment on above: Order Comment: Speci men Type: BLOOD SPECIMEN Ordering Facility: [facility] Address: [address] [place] [address] Performed By: #### 1 4023-9, 48088-8 #### [facility] CLIA [id number] 1 [place] [address] [place] Creatinine [Mass/Vol] 0.63 mg/dL Normal 0.58-0.96 [facility] Comment on above: Order Comment: Speci men Type: BLOOD SPECIMEN Ordering Facility: [facility] Address: [address] [place] [address] Performed By: #### 1 9123-9, 31601-3 #### [facility] CLIA [id number] [address] Creatinine and Glomerular filtration rate.predicted panel (S/P/Bld) 120 mL/min/1.73m??? Normal >=60 [facility] Comment on above: Order Comment: Deepika davis Type: BLOOD SPECIMEN Ordering Facility: [facility] Address: [address] [place] [address] Result Comment: Caitlyn mated Glomerular Filtration Rate [...] actual GFR. Performed By: #### 1 9123-9, 59105-2 #### [facility] CLIA [id number] [address] [place] [address] [place] Glucose [Mass/Vol] 93 mg/dL Normal 74-99 [facility] Comment on above: Order Comment: Deepika davis Type: BLOOD SPECIMEN Ordering Facility: [facility] Address: [address] [place] [address] Result Comment: The [place] [employer] (ADA) provides guidance for cutoff [...] Standards of Medical Care in Diabetes 2016, [place] [employer]. Diabetes Care. 2016.39(Suppl 1). Performed By: #### 1 9123-9, 03603-8 #### [facility] CLIA [id number] [address] STATES OF [facility] Potassium [Moles/Vol] 3.7 mmol/L Normal 3.7-5.1 [facility] Comment on above: Order Comment: Speci men Type: BLOOD SPECIMEN Ordering Facility: [facility] Address: [address] [place] [address] Performed By: #### 1 9123-9, 08453-9 #### [facility] CLIA [id number] [address] [place] Protein [Mass/Vol] 6.4 g/dL Normal 6.3-8.0 [facility] Comment on above: Order Comment: Speci men Type: BLOOD SPECIMEN Ordering Facility: [facility] Address: [address] [place] [address] Performed By: #### 1 9123-9, 82382-2 #### [facility] CLIA [id number] [address] [place] [address] Sodium [Moles/Vol] 138 mmol/L Normal 136-144 [facility] Comment on above: Order Comment: Speci men Type: BLOOD SPECIMEN Ordering Facility: [facility] Address: [address] [place] [address] Performed By: #### 1 23-9, 19256-1 #### [facility] CLIA [id number] [address] STATES [facility] Urea nitrogen [Mass/Vol] 13 mg/dL Normal 7-21 [facility] Comment on above: Order Comment: Speci men Type: BLOOD SPECIMEN Ordering Facility: [facility] Address: [address] [place] [address] Performed By: #### 1 9123-9, 49213-4 #### [facility] CLIA [id number] [address] ED Triage Noteon 10-08-2024 ED Triage Note HNO ID: [id number] Author: LEONOR KAUFFMAN PA-C Service: Emergency Medicine Author Type: Physician [employer] Type: ED Triage Notes Filed: 10/08/2024 22:35 [...] reflex Culture SIGNATURE: Joseph Kauffman PA-C Normal [facility] Magnesium SerPl-mCncon 10-08 Magnesium [Mass/Vol] 2.0 mg/dL Normal 1.7-2.3 [facility] Comment on above: Order Comment: Speci men Type: BLOOD SPECIMEN Ordering Facility: [facility] Address: [address] [place] [address] Performed By: #### 1 9123-9, 03916-3 #### [facility] CLIA [id number] [address] Urinalysis complete panel (U )on 10-08-2024 Bilirubin Ql (U) Negative Normal Negative [facility] Comment on above: Order Comment: Speci men Type: URINE SPECIMEN Ordering Facility: [facility] Address: [address] [place] [address] Performed By: #### 2 4356-8 #### [facility] CLIA [id number] [address] [place] Clarity (Unsp spec) Clear Normal Clear [facility] Comment on above: Order Comment: Speci men Type: URINE SPECIMEN Ordering Facility: [facility] Address: [address] [place] [address] Performed By: #### 2 4356-8 #### [facility] CLIA [id number] [address] STATES [facility] Color (U) Colorless Normal yellow [facility] Comment on above: Order Comment: Speci men Type: URINE SPECIMEN Ordering Facility: [facility] Address: [facility] [place] [address] Performed By: #### 2 4356-8 #### [facility] CLIA [id number] [address] Epithelial cells LM.HPF (Urine sed) [#/Area] Few Normal [facility] Comment on above: Order Comment: Speci men Type: URINE SPECIMEN Ordering Facility: [facility] Address: [facility] [place] [address] Performed By: #### 2 4356-8 #### [facility] CLIA [id number] [address] Glucose Test strip (U) [Mass/Vol] Negative Normal Trace, Negative [facility] Comment on above: Order Comment: Speci men Type: URINE SPECIMEN Ordering Facility: [facility] Address: [address] [place] [address] Performed By: #### 2 4356-8 #### [facility] CLIA [id number] [address] Hemoglobin Ql (U) Negative Normal Negative, Trace [facility] Comment on above: Order Comment: Speci men Type: URINE SPECIMEN Ordering Facility: [facility] Address: [address] [place] [address] Performed By: #### 2 4356-8 #### [facility] CLIA [id number] [address] [place] Ketones Ql (U) Negative Normal Negative, Trace [facility] Comment on above: Order Comment: Speci men Type: URINE SPECIMEN Ordering Facility: [facility] Address: [facility] [place] [address] Performed By: #### 2 4356-8 #### [facility] CLIA [id number] [address] [place] Leukocyte esterase Test strip Ql (U) Negative Normal Negative, 25 Ronald/uL [facility] Comment on above: Order Comment: Speci men Type: URINE SPECIMEN Ordering Facility: [facility] Address: [address] [place] [address] Performed By: #### 2 4356-8 #### [facility] CLIA [id number] [address] STATES OF [facility] Nitrite Ql (U) Negative Normal Negative [facility] Comment on above: Order Comment: Speci men Type: URINE SPECIMEN Ordering Facility: [facility] Address: [address] [place] [address] Performed By: #### 2 4356-8 #### [facility] CLIA [id number] [address] OF [facility] pH (U) 6.5 [pH] Normal 5.0-8.0 [facility] Comment on above: Order Comment: Speci men Type: URINE SPECIMEN Ordering Facility: [facility] Address: [address] [place] [address] Performed By: #### 2 4356-8 #### [facility] CLIA [id number] [address] STATES OF [facility] Protein (U) [Mass/Vol] Negative Normal Trace, Negati ve [facility] Comment on above: Order Comment: Speci men Type: URINE SPECIMEN Ordering Facility: [facility] Address: [address] [place] [address] Performed By: #### 2 4356-8 #### [facility] CLIA [id number] [address] RBC LM.HPF (Urine sed) [#/Area] 0-3 /HPF Normal 0-3 /HPF [facility] Comment on above: Order Comment: Speci men Type: URINE SPECIMEN Ordering Facility: [facility] Address: [address] [place] [address] Performed By: #### 2 4356-8 #### [facility] CLIA [id number] [address] Specific gravity (U) [Rel density] 1.003 Low 1.005-1.030 [facility] Comment on above: Order Comment: Speci men Type: URINE SPECIMEN Ordering Facility: [facility] Address: [address] [place] [address] Performed By: #### 2 4356-8 #### [facility] CLIA [id number] [address] Urobilinogen Ql (U) Normal Normal Normal [facility] Comment on above: Order Comment: Speci men Type: URINE SPECIMEN Ordering Facility: [facility] Address: [address] [place] [address] Performed By: #### 2 4356-8 #### [facility] CLIA [id number] [address] WBC LM.HPF (Urine sed) [#/Area] 0-5 /HPF Normal 0-5 /HPF [facility] Comment on above: Order Comment: Speci men Type: URINE SPECIMEN Ordering Facility: [facility] Address: [address] [place] [address] Performed By: #### 2 4356-8 #### [facility] CLIA [id number] [address] CNPCiera 10-07-2024 CNPN Telephone (STEFANIEGYWM) ---- LAXMI OLIVEIRA ([id number]) 1990 F Date Time Provider Department 10/07/24 [...] pain or N/V. Patient is currently at [facility] w/ baby and will ask a nurse to check her Bp. appointment is 10/17/2024. Please advise. Devon Littlejohn MD 10/07/2024 3:24 PM Signed schedule f/u within one week after delivery for PP patients please for BP checks and incision checks. Schedule next week. Call or to ED for signs/symptoms of preeclampsia. MD Keny Bravo Annalee, LPN 10/07/2024 4:28 PM Signed Patient sent a [employer] message stating that her blood pressure today [...] Status:Closed by DEVON LITTLEJOHN on 10/07/24 Normal [facility] CBC-Complete Blood Cnt No Di ffon 10-03-2024 Erythrocyte distribution width (RBC) [Ratio] 13.0 % Normal 11.6-14.6 [facility] Comment on above: Order Comment: Comme nts: Day #1 Reason for Laboratory Test Performed By: #### L 100.0500 #### [facility] [address] [place], [address] Hematocrit (Bld) [Volume fraction] 26.0 % Low 37-47 [facility] Comment on above: Order Comment: Comme nts: Day #1 Reason for Laboratory Test Performed By: #### L 100.0500 #### [facility] [address] [place], [address] Hemoglobin (Bld) [Mass/Vol] 8.9 g/dL Low 12.0-15.0 [facility] Comment on above: Order Comment: Comme nts: Day #1 Reason for Laboratory Test Performed By: #### L 100.0500 #### [facility] [address] [place], [address] MCH (RBC) [Entitic mass] 30.6 pg Normal 27.0-32.0 [facility] Comment on above: Order Comment: Comme nts: Day #1 Reason for Laboratory Test Performed By: #### L 100.0500 #### [facility] [address] [place], [address] MCHC (RBC) [Mass/Vol] 34.2 g/dL Normal 32-36 [facility] Comment on above: Order Comment: Comme nts: Day #1 Reason for Laboratory Test Performed By: #### L 100.0500 #### [facility] [address] [place], [address] MCV (RBC) [Entitic vol] 89.3 fL Normal 81-99 [facility] Comment on above: Order Comment: Comme nts: Day #1 Reason for Laboratory Test Performed By: #### L 100.0500 #### [facility] [address] [place], [address] Platelet mean volume (Bld) [Entitic vol] 9.7 fL Normal 6.2-12.0 [facility] Comment on above: Order Comment: Comme nts: Day #1 Reason for Laboratory Test Performed By: #### L 100.0500 #### [facility] [address] [place], [address] Platelets (Bld) [#/Vol] 193 10*3/uL Normal 150-450 [facility] Comment on above: Order Comment: Comme nts: Day #1 Reason for Laboratory Test Performed By: #### L 100.0500 #### [facility] [address] [place], [address] RBC (Bld) [#/Vol] 2.91 10*6/uL Low 4.2-5.4 [facility] Comment on above: Order Comment: Comme nts: Day #1 Reason for Laboratory Test Performed By: #### L 100.0500 #### [facility] [address] [place], [address] RDW SD 42.5 fl Normal 35.1-43.9 [facility] Comment on above: Order Comment: Comme nts: Day #1 Reason for Laboratory Test Performed By: #### L 100.0500 #### [facility] [address] [place], [address] WBC (Bld) [#/Vol] 21.6 10*3/uL High 4.4-11.0 [facility] Comment on above: Order Comment: Comme nts: Day #1 Reason for Laboratory Test Performed By: #### L 100.0500 #### [facility] [address] [place], [address] Abdomen Single View (Portabl e)on 10-02-2024 Abdomen Single View (Portable) [facility] [address] [place], [place] [address] Abdomen Single View (Portable) MR#: [id number] Acct: [id number] Name: LAXMI OLIVEIRA Rep #: [id number] : 1990 F 34 From: [place] MD PCP: Dr. Go Covington DO Status: ADM IN Study: Abdomen Single View (Portable) Date of Exam: 12/03/23 Exam# [id number] Ordering Dr: Andra Diaz MD -[id number] INDICATION: PRATEEK EXAMINATION/TECHNIQ UE: X-RAY - [...] Andra Diaz MD; Dr. 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 [place], [place], [address] CA,Total 8.4 mg/dL Low 8.5-10.1 [facility] Comment on above: Performed By: #### L 500.2500, L100.0100, BTS ####[facility] [address] [place], [address] Chloride [Moles/Vol] 105 mmol/L Normal 98-107 [facility] Comment on above: Performed By: #### L 500.2500, L100.0100, BTS ####[facility] [address] [place], [address] CO2 [Moles/Vol] 19.0 mmol/L Low 21.0-32.0 [facility] Comment on above: Performed By: #### L 500.2500, L100.0100, BTS ####[facility] [address] [place], [address] Creatinine [Mass/Vol] 0.50 mg/dL Low 0.55-1.02 [facility] Comment on above: Result Comment: The validity of the calculated GFR GFRAA in patients over 70 years has not been determined. Clinical correlation is essential. Performed By: #### L 500.2500, L100.0100, BTS ####[facility] [address] [place], [address] EST GFR - AA 179 mL/min Normal >60 [facility] Comment on above: Result Comment: Afri can [place] GFR Calc Performed By: #### L 500.2500, L100.0100, BTS ####[facility] [address] [place], [address] GAP 12 Normal 5-15 [facility] Comment on above: Performed By: #### L 500.2500, L100.0100, BTS ####[facility] [address] [place], [address] GFR/1.73 sq M.predicted among non-blacks MDRD (S/P/Bld) [Vol rate/Area] 148 mL/min/{1.73_m2} Normal >60 [facility] Comment on above: Result Comment: Non- GFR Calc Performed By: #### L 500.2500, L100.0100, BTS ####[facility] [address] [place], [address] Glucose [Mass/Vol] 149 mg/dL High 74-106 [facility] Comment on above: Result Comment: Fast ing Glucose result greater than or equal to 126 mg/dL suggests DIABETES MELLITUS per A.D.A. criteria. Performed By: #### L 500.2500, L100.0100, BTS ####[facility] [address] [place], [address] Potassium [Moles/Vol] 3.6 mmol/L Normal 3.5-5.1 [facility] Comment on above: Performed By: #### L 500.2500, L100.0100, BTS ####[facility] [address] [place], [address] Sodium [Moles/Vol] 136 mmol/L Normal 136-145 [facility] Comment on above: Performed By: #### L 500.2500, L100.0100, BTS ####[facility] [address] [place], [address] Urea nitrogen [Mass/Vol] 6 mg/dL Low 7-18 [facility] Comment on above: Performed By: #### L 500.2500, L100.0100, BTS ####[facility] [address] [place], [address] CBC W/Diff, Automatedon 12-2 Absolute Lymph 1.08 X10 3/uL Normal 0.83-4.51 [facility] Comment on above: Performed By: #### L 100.0100 #### [facility] [address] [place], [address] Absolute Neut 19.6 X10 3/uL High 2.0-7.7 [facility] Comment on above: Performed By: #### L 100.0100 #### [facility] [address] [place], [address] Basophils/100 WBC (Bld) 0.3 % Normal 0-1 [facility] Comment on above: Performed By: #### L 100.0100 #### [facility] [address] [place], [address] Eosinophils/100 WBC (Bld) 0.0 % Normal 0-5 [facility] Comment on above: Performed By: #### L 100.0100 #### [facility] [address] [place], [address] Erythrocyte distribution width (RBC) [Ratio] 12.9 % Normal 11.6-14.6 [facility] Comment on above: Performed By: #### L 100.0100 #### [facility] [address] [place], [address] Hematocrit (Bld) [Volume fraction] 29.7 % Low 37-47 [facility] Comment on above: Performed By: #### L 100.0100 #### [facility] [address] [place], [address] Hemoglobin (Bld) [Mass/Vol] 10.0 g/dL Low 12.0-15.0 [facility] Comment on above: Performed By: #### L 100.0100 #### [facility] [address] [place], [address] IG% 0.500 Normal 0.0-0.9 [facility] Comment on above: Result Comment: IG% - Immature Granulocytes (promyelocytes, myelocytes and metamyelocytes) > 1% indicates that a LEFT SHIFT is Present. Performed By: #### L 100.0100 #### [facility] [address] [place], [address] Lymphocytes/100 WBC (Bld) 4.9 % Low 19-41 [facility] Comment on above: Performed By: #### L 100.0100 #### [facility] [address] [place], [address] MCH (RBC) [Entitic mass] 30.5 pg Normal 27.0-32.0 [facility] Comment on above: Performed By: #### L 100.0100 #### [facility] [address] [place], [address] MCHC (RBC) [Mass/Vol] 33.7 g/dL Normal 32-36 [facility] Comment on above: Performed By: #### L 100.0100 #### [facility] [address] [place], [address] MCV (RBC) [Entitic vol] 90.5 fL Normal 81-99 [facility] Comment on above: Performed By: #### L 100.0100 #### [facility] [address] [place], [address] Monocytes/100 WBC (Bld) 4.8 % Normal 0-10 [facility] Comment on above: Performed By: #### L 100.0100 #### [facility] [address] [place], [address] Neutrophils/100 WBC (Bld) 89.5 % High 47-70 [facility] Comment on above: Performed By: #### L 100.0100 #### [facility] [address] [place], [address] Nucleated RBC (Bld) [#/Vol] 0 10*3/uL Normal 0-5 [facility] Comment on above: Performed By: #### L 100.0100 #### [facility] [address] [place], [address] Platelet mean volume (Bld) [Entitic vol] 9.7 fL Normal 6.2-12.0 [facility] Comment on above: Performed By: #### L 100.0100 #### [facility] [address] [place], [address] Platelets (Bld) [#/Vol] 204 10*3/uL Normal 150-450 [facility] Comment on above: Performed By: #### L 100.0100 #### [facility] [address] [place], [address] RBC (Bld) [#/Vol] 3.28 10*6/uL Low 4.2-5.4 [facility] Comment on above: Performed By: #### L 100.0100 #### [facility] [address] [place], [address] RDW SD 42.7 fl Normal 35.1-43.9 [facility] Comment on above: Performed By: #### L 100.0100 #### [facility] [address] [place], [address] WBC (Bld) [#/Vol] 21.9 10*3/uL High 4.4-11.0 [facility] Comment on above: Performed By: #### L 100.0100 #### [facility] [address] [place], [address] Absolute Neut Normal 2.0-7.7 [facility] Comment on above: Result Comment: DUPL ICATE ORDER RAN UNDER H94 Performed By: #### L 100.0100 #### [facility] [address] [place], [address] HCT Normal 37-47 [facility] Comment on above: Result Comment: DUPL ICATE ORDER RAN UNDER H94 Performed By: #### L 100.0100 #### [facility] [address] [place], [address] HGB Normal 12.0-15.0 [facility] Comment on above: Result Comment: DUPL ICATE ORDER RAN UNDER H94 Performed By: #### L 100.0100 #### [facility] [address] [place], [address] MCH Normal 27.0-32.0 [facility] Comment on above: Result Comment: DUPL ICATE ORDER RAN UNDER H94 Performed By: #### L 100.0100 #### [facility] [address] [place], [address] MCHC Normal 32-36 [facility] Comment on above: Result Comment: DUPL ICATE ORDER RAN UNDER H94 Performed By: #### L 100.0100 #### [facility] [address] [place], [address] MCV Normal 81-99 [facility] Comment on above: Result Comment: DUPL ICATE ORDER RAN UNDER H94 Performed By: #### L 100.0100 #### [facility] [address] [place], [address] NEUT% Normal 47-70 [facility] Comment on above: Result Comment: DUPL ICATE ORDER RAN UNDER H94 Performed By: #### L 100.0100 #### [facility] [address] [place], [address] PLT Normal 150-450 [facility] Comment on above: Result Comment: DUPL ICATE ORDER RAN UNDER H94 Performed By: #### L 100.0100 #### [facility] [address] [place], [address] RBC Normal 4.2-5.4 [facility] Comment on above: Result Comment: DUPL ICATE ORDER RAN UNDER H94 Performed By: #### L 100.0100 #### [facility] [address] [place], [address] RDW CV Normal 11.6-14.6 [facility] Comment on above: Result Comment: DUPL ICATE ORDER RAN UNDER H94 Performed By: #### L 100.0100 #### [facility] [address] [place], [address] RDW SD Normal 35.1-43.9 [facility] Comment on above: Result Comment: DUPL ICATE ORDER RAN UNDER H94 Performed By: #### L 100.0100 #### [facility] [address] [place], [address] WBC Normal 4.4-11.0 [facility] Comment on above: Result Comment: DUPL ICATE ORDER RAN UNDER H94 Performed By: #### L 100.0100 #### [facility] [address] [place], [address] Absolute Lymph 3.52 X10 3/uL Normal 0.83-4.51 [facility] Comment on above: Performed By: #### L 500.2500, L100.0100, BTS #### [facility] [address] [place], [address] Absolute Neut 14.4 X10 3/uL High 2.0-7.7 [facility] Comment on above: Performed By: #### L 500.2500, L100.0100, BTS #### [facility] [address] [place], [address] Basophils/100 WBC (Bld) 0.4 % Normal 0-1 [facility] Comment on above: Performed By: #### L 500.2500, L100.0100, BTS #### [facility] [address] [place], [address] Eosinophils/100 WBC (Bld) 0.7 % Normal 0-5 [facility] Comment on above: Performed By: #### L 500.2500, L100.0100, BTS #### [facility] [address] [place], [address] Erythrocyte distribution width (RBC) [Ratio] 13.0 % Normal 11.6-14.6 [facility] Comment on above: Performed By: #### L 500.2500, L100.0100, BTS #### [facility] [address] [place], [address] Hematocrit (Bld) [Volume fraction] 34.4 % Low 37-47 [facility] Comment on above: Performed By: #### L 500.2500, L100.0100, BTS #### [facility] [address] [place], [address] Hemoglobin (Bld) [Mass/Vol] 11.5 g/dL Low 12.0-15.0 [facility] Comment on above: Performed By: #### L 500.2500, L100.0100, BTS #### [facility] [address] [place], [address] IG% 1.000 High 0.0-0.9 [facility] Comment on above: Result Comment: IG% - Immature Granulocytes (promyelocytes, myelocytes and metamyelocytes) > 1% indicates that a LEFT SHIFT is Present. Performed By: #### L 500.2500, L100.0100, BTS #### [facility] [address] [place], [address] Lymphocytes/100 WBC (Bld) 18.0 % Low 19-41 [facility] Comment on above: Performed By: #### L 500.2500, L100.0100, BTS #### [facility] [address] [place], [address] MCH (RBC) [Entitic mass] 29.9 pg Normal 27.0-32.0 [facility] Comment on above: Performed By: #### L 500.2500, L100.0100, BTS #### [facility] [address] [place], [address] MCHC (RBC) [Mass/Vol] 33.4 g/dL Normal 32-36 [facility] Comment on above: Performed By: #### L 500.2500, L100.0100, BTS #### [facility] [address] [place], [address] MCV (RBC) [Entitic vol] 89.6 fL Normal 81-99 [facility] Comment on above: Performed By: #### L 500.2500, L100.0100, BTS #### [facility] [address] [place], [address] Monocytes/100 WBC (Bld) 6.0 % Normal 0-10 [facility] Comment on above: Performed By: #### L 500.2500, L100.0100, BTS #### [facility] [address] [place], [address] Neutrophils/100 WBC (Bld) 73.9 % High 47-70 [facility] Comment on above: Performed By: #### L 500.2500, L100.0100, BTS #### [facility] [address] [place], [address] Nucleated RBC (Bld) [#/Vol] 0 10*3/uL Normal 0-5 [facility] Comment on above: Performed By: #### L 500.2500, L100.0100, BTS #### [facility] [address] [place], [address] Platelet mean volume (Bld) [Entitic vol] 9.9 fL Normal 6.2-12.0 [facility] Comment on above: Performed By: #### L 500.2500, L100.0100, BTS #### [facility] [address] [place], [address] Platelets (Bld) [#/Vol] 267 10*3/uL Normal 150-450 [facility] Comment on above: Performed By: #### L 500.2500, L100.0100, BTS #### [facility] [address] [place], [address] RBC (Bld) [#/Vol] 3.84 10*6/uL Low 4.2-5.4 [facility] Comment on above: Performed By: #### L 500.2500, L100.0100, BTS #### [facility] [address] [place], [address] RDW SD 42.7 fl Normal 35.1-43.9 [facility] Comment on above: Performed By: #### L 500.2500, L100.0100, BTS #### [facility] [address] [place], [address] WBC (Bld) [#/Vol] 19.5 10*3/uL High 4.4-11.0 [facility] Comment on above: Performed By: #### L 500.2500, L100.0100, BTS #### [facility] [address] [place], [address] H AND P Exam - OB/GYNon 12-2 H&P Exam - OPERATIONS CLERK [facility] Medical Records Department [address] [place] [address] H P Exam - OPERATIONS CLERK 10/02/24 2143 MR#: [id number] Acct: [id number] Name: LAXMI OLIVEIRA Rep #: [id number] : 1990 34 From: Andra Diaz MD PCP: Dr. Go Covington, DO Status:ADM IN Location: [id number] HPI - General General Date of Admission: 10/02/24 Date of Service: 10/02/24 Chief Complaint: abdominal pain HPI Narrative LAXMI OLIVEIRA, is a 34 F who presents to [facility] with abdominal pain. Started having some [...] Neck full (more content not included)... Normal [facility] L509.8000on 10-02-2024 Syphilis Abs Non-Reactive Normal [facility] Comment on above: Performed By: #### L 509.8000 #### [facility] [address] [place], [address] Operative Reporton Operative Report [facility] [facility] Medical Records Department [address] [place] [address] Operative Report 10/02/242031 MR#: [id number] Acct: [id number] Name: LAXMI OLIVEIRA Rep #: [id number] : 1990 34 From: Andra Diaz MD PCP: Dr. oG Covington, DO Status:ADM IN Location: [id number] Assessment Plan (1) 34 weeks gestation of [...] skin was closed with 4-0 Monocryl. An MACHINE ENGINEER was not available given the emergent nature of the procedure. The rn medical surgical assisted with retraction when needed. Surgical findings: [...] at 15 min) Delayed Cord Clamping: No Mysql Database Developer slubber runner: No Complications Complications: No 10/02/242142 Cosigner Signature (if applicable): CC: Dr. Andra Diaz MD; Dr. Go Covington DO Signed [facility] Type AND Screenon 10-02-2024 Ab SCREEN GEL Negative [facility] Comment on above: Order Comment: [id number] Performed By: #### L 500.2500, L100.0100, BTS ####[facility] [address] [place], [place], [address] ABO and Rh group Nom (Bld) Blood group A Rh(D) positive [facility] Comment on above: Order Comment: [id number] Performed By: #### L 500.2500, L100.0100, BTS ####[facility] [address] [place], [place], [address] [facility] 09-29-2024 CNPN Telephone (OBGYWM) ---- LAXMI OLIVEIRA ([id number]) 1990 F Date Time Provider Department 09/29/24 [...] Pt and spouse. Pt notified and will spanish moss picker original paperwork-placed at the nurses neck. [...] that we need alternative fax # as [phone] is not going through. Pt states will have her parents spanish moss picker original paperwork in coming days. Jazmín Kumar RN Allergies As of Date: 09/29/2024 (No Known Allergies) Date Reviewed: 09/29/2024 Reviewed by: Lisa Garcia MA - Fully Assessed Reason for Visit: FMLA Paperwork [[id number]] Prescriptions as of 10/13/2024 - ferrous sulfate [...] Status:Closed by JAZMÍN KUMAR on 09/29/24 Normal [facility] URINE OB DIP B/Oon 4 Glucose Ql (U) Negative Neg mg/dL [facility] Interpretation and review of laboratory results Normal [facility] Protein.monoclonal (U) [Mass/Vol] Negative Neg mg/dL [facility] CBC W Auto Differential pane l (Bld)on 08-16-2024 Basophils (Bld) [#/Vol] 0.04 10*3/uL Normal <0.11 [facility] Comment on above: Order Comment: Speci men Type: BLOOD SPECIMENOrdering Facility: [facility] Address: [address] [place] [address] Performed By: #### 5 7021-8 ####[facility]ITALWARLIA [id number] [place] [address] [place] Basophils/100 WBC (Bld) 0.4 % Normal [facility] Comment on above: Order Comment: Speci men Type: BLOOD SPECIMENOrdering Facility: [facility] Address: [address] [place] [address] Performed By: #### 5 7021-8 ####[facility] [id number] [place] [address] [place] Differential cell count method Nom (Bld) Auto Normal [facility] Comment on above: Order Comment: Speci men Type: BLOOD SPECIMENOrdering Facility: [facility] Address: [address] [place] [address] Performed By: #### 5 7021-8 ####[facility] [id number] [place] [address] [place] Eosinophils (Bld) [#/Vol] 0.18 10*3/uL Normal <0.46 [facility] Comment on above: Order Comment: Speci men Type: BLOOD SPECIMENOrdering Facility: [facility] Address: [address] [place] [address] Performed By: #### 5 7021-8 ####[facility] DORALA [id number] [place] [address] [place] Eosinophils/100 WBC (Bld) 1.9 % Normal [facility] Comment on above: Order Comment: Speci men Type: BLOOD SPECIMENOrdering Facility: [facility] Address: [address] [place] [address] Performed By: #### 5 7021-8 ####[facility] COTYLAKE GEORGEMEHUL [id number] [place] [address] [place] Erythrocyte distribution width (RBC) [Ratio] 13.0 % Normal 11.5-15.0 [facility] Comment on above: Order Comment: Speci men Type: BLOOD SPECIMENOrdering Facility: [facility] Address: [address] [place] [address] Performed By: #### 5 7021-8 ####[facility] [id number] [place] [address] [place] Hematocrit (Bld) [Volume fraction] 35.0 % Low 36.0-46.0 [facility] Comment on above: Order Comment: Speci men Type: BLOOD SPECIMENOrdering Facility: [facility] Address: [address] [place] [address] Performed By: #### 5 7021-8 ####[facility] [id number] [place] [address] [place] Hemoglobin (Bld) [Mass/Vol] 11.6 g/dL Normal 11.5-15.5 [facility] Comment on above: Order Comment: Speci men Type: BLOOD SPECIMENOrdering Facility: [facility] Address: [address] [place] [address] Performed By: #### 5 7021-8 ####[facility] HOSPITALLI [id number] [place] [address] [place] Immature granulocytes (Bld) [#/Vol] 0.06 10*3/uL Normal <0.10 [facility] Comment on above: Order Comment: Speci men Type: BLOOD SPECIMENOrdering Facility: [facility] Address: [address] [place] [address] Performed By: #### 5 7021-8 ####[facility] H[facility]ITALLIA [id number] [place] [address] [place] Immature granulocytes/100 WBC (Bld) 0.6 % Normal [facility] Comment on above: Order Comment: Speci men Type: BLOOD SPECIMENOrdering Facility: [facility] Address: [address] [place] [address] Performed By: #### 5 7021-8 ####[facility] [id number] [place] [address] [place] Lymphocytes (Bld) [#/Vol] 2.06 10*3/uL Normal 1.00-4.00 [facility] Comment on above: Order Comment: Speci men Type: BLOOD SPECIMENOrdering Facility: [facility] Address: [address] [place] [address] Performed By: #### 5 7021-8 ####[facility] [id number] [place] [address] [place] Lymphocytes/100 WBC (Bld) 21.9 % Normal [facility] Comment on above: Order Comment: Speci men Type: BLOOD SPECIMENOrdering Facility: [facility] Address: [address] [place] [address] Performed By: #### 5 7021-8 ####[facility] [id number] [place] [address] [place] MCH (RBC) [Entitic mass] 30.3 pg Normal 26.0-34.0 [facility] Comment on above: Order Comment: Speci men Type: BLOOD SPECIMENOrdering Facility: [facility] Address: [address] [place] [address] Performed By: #### 5 7021-8 ####[facility] [id number] [place] [address] [place] MCHC (RBC) [Mass/Vol] 33.1 g/dL Normal 30.5-36.0 [facility] Comment on above: Order Comment: Speci men Type: BLOOD SPECIMENOrdering Facility: [facility] Address: [address] [place] [address] Performed By: #### 5 7021-8 ####[facility]ENCYNCA [id number] [place] [address] [place] MCV (RBC) [Entitic vol] 91.4 fL Normal 80.0-100.0 [facility] Comment on above: Order Comment: Speci men Type: BLOOD SPECIMENOrdering Facility: [facility] Address: [address] [place] [address] Performed By: #### 5 7021-8 ####[facility]YNCINTER[facility] [id number] [place] [address] [place] Monocytes (Bld) [#/Vol] 0.73 10*3/uL Normal <0.87 [facility] Comment on above: Order Comment: Speci men Type: BLOOD SPECIMENOrdering Facility: [facility] Address: [address] [place] [address] Performed By: #### 5 7021-8 ####[facility] [id number] [place] [address] [place] Monocytes/100 WBC (Bld) 7.8 % Normal [facility] Comment on above: Order Comment: Speci men Type: BLOOD SPECIMENOrdering Facility: [facility] Address: [address] [place] [address] Performed By: #### 5 7021-8 ####[facility] [id number] [place] [address] [place] Neutrophils (Bld) [#/Vol] 6.34 10*3/uL Normal 1.45-7.50 [facility] Comment on above: Order Comment: Speci men Type: BLOOD SPECIMENOrdering Facility: [facility] Address: [address] [place] [address] Performed By: #### 5 7021-8 ####[facility] COTYHOSSEIN [id number] [place] [address] [place] Neutrophils/100 WBC (Bld) 67.4 % Normal [facility] Comment on above: Order Comment: Speci men Type: BLOOD SPECIMENOrdering Facility: [facility] Address: [address] [place] [address] Performed By: #### 5 7021-8 ####[facility]ENCYMEHUL [id number] [place] [address] [place] Nucleated RBC (Bld) [#/Vol] 10*3/uL Normal <0.01 [facility] Comment on above: Order Comment: Speci men Type: BLOOD SPECIMENOrdering Facility: [facility] Address: [address] [place] [address] Performed By: #### 5 7021-8 ####[facility] HOSPITALMELA [id number] [place] [address] [place] Nucleated RBC/100 WBC (Bld) [Ratio] 0.0 /100 WBC Normal [facility] Comment on above: Order Comment: Speci men Type: BLOOD SPECIMENOrdering Facility: [facility] Address: [address] [place] [address] Performed By: #### 5 7021-8 ####[facility]ENCYWOOLIA [id number] [place] [address] [place] Platelet mean volume (Bld) [Entitic vol] 9.7 fL Normal 9.0-12.7 [facility] Comment on above: Order Comment: Speci men Type: BLOOD SPECIMENOrdering Facility: [facility] Address: [address] [place] [address] Performed By: #### 5 7021-8 ####[facility]ENCYNCLIA [id number] [place] [address] [place] Platelets (Bld) [#/Vol] 221 10*3/uL Normal 150-400 [facility] Comment on above: Order Comment: Speci men Type: BLOOD SPECIMENOrdering Facility: [facility] Address: [address] [place] [address] Performed By: #### 5 7021-8 ####[facility] [id number] [place] [address] [place] RBC (Bld) [#/Vol] 3.83 10*6/uL Low 3.90-5.20 [facility] Comment on above: Order Comment: Speci men Type: BLOOD SPECIMENOrdering Facility: [facility] Address: [address] [place] [address] Performed By: #### 5 7021-8 ####[facility] [id number] [place] [address] [place] WBC (Bld) [#/Vol] 9.41 10*3/uL Normal 3.70-11.00 [facility] Comment on above: Order Comment: Speci men Type: BLOOD SPECIMENOrdering Facility: [facility] Address: [address] [place] [address] Performed By: #### 5 7021-8 ####[facility] [id number] [place] [address] [place] GESTATIONAL GLUCOSE SCREEN, 1-HOUR, 50 GRAM, NON-FASTINGon 08-16-2024 Glucose [Mass/Vol] 88 mg/dL Normal 74-134 [facility] Comment on above: Order Comment: Speci men Type: BLOOD SPECIMENOrdering Facility: [facility] Address: [address] [place] [address] Result Comment: [facility] Congress of Obstetricians and Gynecologists (Vero/Coustan) guidelines state a gestational diabetes mellitus positive screen is made, in women not previously diagnosed with overt diabetes, when the 1 hr plasma glucose level is equal to or above 140 mg/dL. The [facility] Ginner [facility] recommends a 135 mg/dL cutoff. Performed By: #### G LTGST ####[facility] [id number] [place] [address] [place] Reagin and Treponema pallidu m IgG and IgM [Interp]on 08-16-2024 T. pallidum IgG+IgM IA Ql (S) Non-Reactive Normal Nonreactive [facility] Comment on above: Order Comment: Deepika davis Type: BLOOD SPECIMENOrdering Facility: [facility] Address: [address] [place] [address] Performed By: #### 7 3752-8 ####[facility] LABSOUTHWEST[facility] [id number] [place] [address] [place] Reagin+T pallidum IgG+IgM Se rPl-Impon 08-16-2024 Reagin and Treponema pallidum IgG and IgM [Interp] Cannot exclude recent Treponemal infection if specimen collected within 7-10 days after appearance of suspect lesions or 2-3 weeks after an exposure. Clinical correlation is required. Normal [facility] Comment on above: Order Comment: Deepika davis Type: BLOOD SPECIMENOrdering Facility: [facility] Address: [address] [place] [address] Performed By: #### 7 3752-8 ####[facility] LABIA [id number] [place] [id number] [place] CNPCiera 08-08-2024 CNPN Telephone (OBGYW) ---- LAXMI OLIVEIRA ([id number]) 1990 F Date Time Provider Department 08/08/24 ADRIANA LÓPEZ During your visit today, we recorded the following information about you: Mya Burroughs RN 08/08/2024 10:34 AM Signed Breast pump request received from [facility]. Order to provider to sign. ANTONINO Solis [...] Encounter Status:Closed by MYA BURROUGHS on 08/11/24 [facility] ALPHA FETOPRO MATERNALon AFP, MATERNAL 1.00 MoM Normal [facility] Comment on above: Order Comment: Speci men Type: BLOOD SPECIMENOrdering Facility: [facility] Address: [address] [place] [address] Result Comment: 70.4 0 ng/mL Performed By: #### A FPMAT ####[facility] LABCLIA [id number] [place] [address] [place] DATE OF COLLECTION #1 06/23/[address] [facility] Comment on above: Order Comment: Speci men Type: BLOOD SPECIMENOrdering Facility: [facility] Address: [address] [place] [address] Performed By: #### A FPMAT ####[facility] LABCLIA [id number] [place] [address] [place] DATE RECEIVED 06/24/24 Normal [facility] Comment on above: Order Comment: Speci men Type: BLOOD SPECIMENOrdering Facility: [facility] Address: [address] [place] [address] Performed By: #### A FPMAT ####[facility] LABCLIA [id number] [place] [address] [place] 11/07/24 Normal [facility] Comment on above: Order Comment: Speci men Type: BLOOD SPECIMENOrdering Facility: [facility] Address: [address] [place] [address] Performed By: #### A FPMAT ####[facility] LABCLIA [id number] [place] [address] [place] GESTATION AT DATE OF SAMPLE 20 weeks 3 days (by scan) Normal [facility] Comment on above: Order Comment: Speci men Type: BLOOD SPECIMENOrdering Facility: [facility] Address: [address] [place] [address] Performed By: #### A FPMAT ####[facility] LABCLIA [id number] [place] [address] [place] INSULIN DEPENDENT DIABETES None Normal [facility] Comment on above: Order Comment: Speci men Type: BLOOD SPECIMENOrdering Facility: [facility] Address: [address] [place] [address] Performed By: #### A FPMAT ####[facility] LABCLIA [id number] [place] [address] [place] IVF No Normal [facility] Comment on above: Order Comment: Speci men Type: BLOOD SPECIMENOrdering Facility: [facility] Address: [address] [place] [address] Performed By: #### A FPMAT ####[facility] LABCLIA [id number] [address] [place] MATERNAL AFP COMMENT See comments below Normal [facility] Comment on above: Order Comment: Speci men Type: BLOOD SPECIMENOrdering Facility: [facility] Address: [address] [place] [address] Result Comment: INTE RPRETATION Screening result : Screen negative Risk of NTD : 1 in 6,100 Comment : The interpretation is for NTD only A screen negative result does not exclude the possibility of a neural tube defect, because screening does not detect all affected pregnancies Performed By: #### A FPMAT ####[facility] LABCLIA [id number] [address] [place] MATERNAL AGE AT [place] 34 years Normal [facility] Comment on above: Order Comment: Speci men Type: BLOOD SPECIMENOrdering Facility: [facility] Address: [address] [place] [address] Performed By: #### A FPMAT ####[facility] LABCLIA [id number] [address] [place] PATIENT'S WEIGHT DAY OF COLLECTION 134 lb. Normal [facility] Comment on above: Order Comment: Speci men Type: BLOOD SPECIMENOrdering Facility: [facility] Address: [address] [place] [address] Performed By: #### A FPMAT ####[facility] LABIA [id number] [place] [address] [place] INTERP-MATERNAL AFP Negative Normal Screen Negative [facility] Comment on above: Order Comment: Speci men Type: BLOOD SPECIMENOrdering Facility: [facility] Address: [address] [place] [address] Performed By: #### A FPMAT ####[facility] LABCLIA [id number] [place] [address] [place] PREVIOUS NTD None Normal [facility] Comment on above: Order Comment: Speci men Type: BLOOD SPECIMENOrdering Facility: [facility] Address: [address] [place] [address] Performed By: #### A FPMAT ####[facility] LABCLIA [id number] [place] [address] [place] RISK OF NTD ;1:6100 Normal [facility] Comment on above: Order Comment: Speci men Type: BLOOD SPECIMENOrdering Facility: [facility] Address: [address] [place] [address] Performed By: #### A FPMAT ####[facility] LABCLIA [id number] [place] [address] [place] SAMPLE #1 [id number] Normal [facility] Comment on above: Order Comment: Speci men Type: BLOOD SPECIMENOrdering Facility: [facility] Address: [address] [place] [address] Performed By: #### A FPMAT ####[facility] LABCLIA [id number] [address] [place] STAFF REVIEW (MATERNAL SCREENS) Reviewed by Micah Paul MD, Ph.D ([id number]) Normal [facility] Comment on above: Order Comment: Speci men Type: BLOOD SPECIMENOrdering Facility: [facility] Address: [address] [place] [address] Performed By: #### A FPMAT ####[facility] LABCLIA [id number] [facility] [place] [address] [place] [facility] Brittani 06-15-2024 CNPN Telephone (OBGYWM) ---- LAXMI OLIVEIRA ([id number]) 1990 F Date Time Provider Department 06/15/24 KAVEH HERR OBGYWM During your visit today, we recorded the following information about you: Kaveh Herr APRN.MILL REPRESENTATIVE 06/15/2024 10:39 AM Signed Please attempt to obtain op record from [facility] for c/s 2021. Kaveh Herr APRN.Andra Barriga RN 06/15/2024 11:30 AM Signed Updated [facility]. C/S report from 06/17/22 now available [...] Status:Closed by KAVEH HERR on 06/15/24 Normal [facility] Examination level ultrasound on 06-15-2024 Indication [...] 10 oz EFW by: Hadlock (HC-AC-FL) Extended Manager Icu 7.2 mm CM 7.2 mm 97% Nicolaides [...] normal LVOT view: normal 3-vessel view: normal 8-pvgdpw-ceovlvd view: normal Heart / Thorax Situs: situs [...] Read By: Ivis Hung M.D. MATERNAL MEDICINE [facility] Radiology Study observation (narrative) [facility] Bacteria Ur Culton 4 Bacteria identified Cx Nom (U) ORGANISM ID: 1 10,000 -<50,000 CFU/ml Mixed microbiota No further workup Normal [facility] Comment on above: Performed By: #### 6 30-4 ####[facility] LABCLIA [id number] [place] [address] [place] [facility] Bacteria Ur Culton 4 Bacteria identified Cx Nom (U) ORGANISM ID: 1 10,000 -<50,000 CFU/ml Normal urogenital guillermo Normal [facility] Comment on above: Performed By: #### 6 30-4 ####[facility] LABCLIA [id number] [place] [address] [place] CBC panel Auto (Bld)on 04-22 Erythrocyte distribution width (RBC) [Ratio] 12.8 % Normal 11.5-15.0 [facility] Comment on above: Order Comment: Speci men Type: BLOOD SPECIMENOrdering Facility: [facility] Address: [address] [place] [address] Performed By: #### 5 8410-2 ####[facility] [id number] OF [facility] Hematocrit (Bld) [Volume fraction] 34.9 % Low 36.0-46.0 [facility] Comment on above: Order Comment: Speci men Type: BLOOD SPECIMENOrdering Facility: [facility] Address: [address] [place] [address] Performed By: #### 5 8410-2 ####[facility] H[facility]PITALWNCLIA [id number] [place] [address] [place] Hemoglobin (Bld) [Mass/Vol] 11.8 g/dL Normal 11.5-15.5 [facility] Comment on above: Order Comment: Speci men Type: BLOOD SPECIMENOrdering Facility: [facility] Address: [address] [place] [address] Performed By: #### 5 8410-2 ####[facility]YWOOL[facility] [id number] [place] [address] [place] MCH (RBC) [Entitic mass] 29.7 pg Normal 26.0-34.0 [facility] Comment on above: Order Comment: Speci men Type: BLOOD SPECIMENOrdering Facility: [facility] Address: [address] [place] [address] Performed By: #### 5 8410-2 ####[facility] [id number] [place] [address] [place] MCHC (RBC) [Mass/Vol] 33.8 g/dL Normal 30.5-36.0 [facility] Comment on above: Order Comment: Speci men Type: BLOOD SPECIMENOrdering Facility: [facility] Address: [address] [place] [address] Performed By: #### 5 8410-2 ####[facility] [id number] [place] [address] [place] MCV (RBC) [Entitic vol] 87.9 fL Normal 80.0-100.0 [facility] Comment on above: Order Comment: Speci men Type: BLOOD SPECIMENOrdering Facility: [facility] Address: [address] [place] [address] Performed By: #### 5 8410-2 ####[facility] [id number] [place] [address] [place] Nucleated RBC (Bld) [#/Vol] 10*3/uL Normal <0.01 [facility] Comment on above: Order Comment: Speci men Type: BLOOD SPECIMENOrdering Facility: [facility] [facility] Address: [address] [place] [address] Performed By: #### 5 8410-2 ####[facility] ROSETTA PAZNCMELA [id number] [place] [address] [place] Platelet mean volume (Bld) [Entitic vol] 9.4 fL Normal 9.0-12.7 [facility] Comment on above: Order Comment: Speci men Type: BLOOD SPECIMENOrdering Facility: [facility] Address: [address] [place] [address] Performed By: #### 5 8410-2 ####[facility] [id number] [place] [address] [place] Platelets (Bld) [#/Vol] 250 10*3/uL Normal 150-400 [facility] Comment on above: Order Comment: Speci men Type: BLOOD SPECIMENOrdering Facility: [facility] Address: [address] [place] [address] Performed By: #### 5 8410-2 ####[facility]CL[facility] [id number] [place] [address] [place] RBC (Bld) [#/Vol] 3.97 10*6/uL Normal 3.90-5.20 [facility] Comment on above: Order Comment: Speci men Type: BLOOD SPECIMENOrdering Facility: [facility] Address: [address] [place] [address] Performed By: #### 5 8410-2 ####[facility] [id number] [place] [address] [place] WBC (Bld) [#/Vol] 7.97 10*3/uL Normal 3.70-11.00 [facility] Comment on above: Order Comment: Speci men Type: BLOOD SPECIMENOrdering Facility: [facility] Address: [address] [place] [address] Performed By: #### 5 8410-2 ####[facility] [id number] [place] [address] [place] HBV surface Ag Ser Qlon 04-04 HBV surface Ag Ql (S) Negative Normal Negative [facility] Comment on above: Order Comment: Speci men Type: BLOOD SPECIMENOrdering Facility: [facility] Address: [address] [place] [address] Performed By: #### 3 1201-7, 5195-3, 43564-7 ####[facility] LABCLIA [id number] [place] [address] [place] HCV Ab Ser Qlon 04-22-2024 HCV Ab Ql (S) Negative Normal Negative [facility] Comment on above: Order Comment: Speci men Type: BLOOD SPECIMENOrdering Facility: [facility] Address: [address] [place] [address] Result Comment: The result suggests no evidence of active infection with Hepatitis C virus. Should recent infection be suspected, repeat testing may be considered 4-6 weeks after this draw. Performed By: #### 1 6128-1 ####[facility] LABCLIA [id number] [place] [address] [place] HIV 1+2 Ab IA Qlon HIV 1 and 2 Ab IA.rapid Nom (S/P/Bld) Normal [facility] Comment on above: Order Comment: Speci men Type: BLOOD SPECIMENOrdering Facility: [facility] Address: [address] [place] [address] Result Comment: Test not indicated. Performed By: #### 3 1201-7, 5195-3, 49843-1 ####[facility] LABCLIA [id number] [place] [address] [place] HIV 1+2 Ab+HIV1 p24 Ag IA Ql Non-Reactive Normal Nonreactive [facility] Comment on above: Order Comment: Speci men Type: BLOOD SPECIMENOrdering Facility: [facility] Address: [address] [place] [address] Performed By: #### 3 1201-7, 5195-3, 42778-3 ####[facility] LABCLIA [id number] [place] [address] [place] HIV immunoassay testing algorithm interpretation (S/P/Bld) [Interp] Normal [facility] Comment on above: Order Comment: Speci men Type: BLOOD SPECIMENOrdering Facility: [facility] Address: [address] [place] [address] Result Comment: No e vidence of HIV-1 or HIV-2 infection. Should recent infection be suspected, repeat testing may be considered 2-3 weeks after this draw. [place] Rev. Code 3701.243(E): This information has been [...] diagnoses. Performed By: #### 3 1201-7, 5195-3, 27069-2 ####[facility] LABIA [id number] [place] [address] [place] HbA1c (Bld)on 04-22-2024 Average glucose Estimated from glycated hemoglobin (Bld) [Mass/Vol] 100 mg/dL Normal [facility] Comment on above: Order Comment: Speci men Type: BLOOD SPECIMENOrdering Facility: [facility] Address: [address] [place] [address] Result Comment: eAG: (Estimated average glucose) is a calculated value from HgbA1c and is sales representative sales manager of the average blood glucose level in the last 2-3 month period. Performed By: #### 5 5454-3 ####[facility] LABCLIA [id number] [place] [address] [place] HbA1c (Bld) [Mass fraction] 5.1 % Normal 4.3-5.6 [facility] Comment on above: Order Comment: Cristianei ryan Type: BLOOD SPECIMENOrdering Facility: [facility] Address: [address] [place] [address] Result Comment: Amer ican Diabetes Association guidelines indicate that patients with HgbA1c in the range 5.7-6.4% are at increased risk for development of diabetes, and intervention by lifestyle modification may be beneficial. HgbA1c greater or equal to 6.5% is considered diagnostic of diabetes. Performed By: #### 5 5454-3 ####[facility] LABCLIA [id number] [address] [place] [id number] PLUSon 04-22-2024 Cell-free DNA./Cell-free DNA.total Dosage of chromosome-specific cfDNA (cfDNA) [Molar fraction] 9% Normal [facility] Comment on above: Order Comment: Speci men Type: BLOOD SPECIMENOrdering Facility: [facility] Address: [address] [place] [address] Performed By: #### M AT21 ####[facility] LABCLIA [id number] [place] [address] Chr 13+18+21+X+Y aneuploidy Dosage of chromosome-specific cfDNA Ql (cfDNA) Negative Normal [facility] Comment on above: Order Comment: Speci men Type: BLOOD SPECIMENOrdering Facility: [facility] Address: [address] [place] [address] Performed By: #### M AT21 ####[facility] LABCLIA [id number] [place] [address] Chr 21 trisomy Dosage of chromosome-specific cfDNA Ql (cfDNA) Negative Normal [facility] Comment on above: Order Comment: Cristianei men Type: BLOOD SPECIMENOrdering Facility: [facility] Address: [address] [place] [address] Performed By: #### M AT21 ####[facility] LABCLIA [id number] [place] [address] Chr X and Y aneuploidy risk Sequencing Ql (cfDNA) [Interp] Not detected Normal [facility] Comment on above: Order Comment: Speci men Type: BLOOD SPECIMENOrdering Facility: [facility] Address: [address] [place] [address] Result Comment: Not Detected Not Detected Performed By: #### M AT21 ####[facility] LABCLIA [id number] [place] [address] Citation [place] (Reference lab test) Comment Normal [facility] Comment on above: Order Comment: Speci men Type: BLOOD SPECIMENOrdering Facility: [facility] Address: [address] [place] [address] Result Comment: 1. P carmen NAZARIO et al. [place] Med. 2012;14(3):296-305. 2. Lilly MEDEROS, et al. Prenat Diag. 2013;33(6):591-597. 3. Lauri C, et al. Clin Chem. 2015 Apr;61(4):608-616. 4. Kimmy NAZARIO, et al. [place] Med. 2011;13(11):913-920. 5. ACOG/SMFM Practice Bulletin No. 226, Jul 2020. Performed By: #### M AT21 ####[facility] LABCLIA [id number] [place] [address] Gestational age Estimated from conception date Ritter Normal [facility] Comment on above: Order Comment: Speci men Type: BLOOD SPECIMENOrdering Facility: [facility] Address: [address] [place] [address] Performed By: #### M AT21 ####[facility] LABCLIA [id number] [place] [address] GESTATIONALAGE AGE > OR = 9W Yes Normal [facility] Comment on above: Order Comment: Speci men Type: BLOOD SPECIMENOrdering Facility: [facility] Address: [address] [place] [address] Performed By: #### M AT21 ####[facility] LABCLIA [id number] [place] [address] Laboratory comment [place] (Report) Comment Normal [facility] Comment on above: Order Comment: Deepika davis Type: BLOOD SPECIMENOrdering Facility: [facility] Address: [address] [place] [address] Result Comment: The MaterniT(R) 21 PLUS laboratory-developed test (LDT) analyzes circulating cell-free DNA from a maternal blood sample. This test is used for screening purposes and not diagnostic. Clinical correlation is recommended. Validation data on twin pregnancies is limited and the ability of this test to detect aneuploidy in higher multiple gestations has not yet been validated. Performed By: #### M AT21 ####[facility]com[facility] [id number] [place] [id number] [employer] executive director name Nom (Provider) Comment Normal [facility] Comment on above: Order Comment: Deepika davis Type: BLOOD SPECIMENOrdering Facility: [facility] Address: [address] [place] [address] Result Comment: This specimen showed an expected representation of chromosome 21, 18 and 13 material. Clinical correlation is suggested. Comment Nicanor Ellsworth MD, PhD, Director, [employer] Performed By: #### M AT21 ####[facility]com[facility] [id number] [place] [id number] LIMITATIONS OF THE TEST Comment Normal [facility] Comment on above: Order Comment: Deepika davis Type: BLOOD SPECIMENOrdering Facility: [facility] Address: [address] [place] [address] Result Comment: Tung e the results of [...] and Fragmin(R)). Performed By: #### M AT21 ####[facility] [id number] [place] [address] Monosomy X risk Dosage of chromosome-specific cfDNA Ql (Plasma cell-free+WBC DNA) [Interp] Not detected Normal [facility] Comment on above: Order Comment: Speci men Type: BLOOD SPECIMENOrdering Facility: [facility] Address: [address] [place] [address] [place] [address] Performed By: #### M AT21 ####[facility] LABCLIA [id number] [place] [id number] NEGATIVE PREDICTIVE VALUE Note Normal [facility] Comment on above: Order Comment: Speci men Type: BLOOD SPECIMENOrdering Facility: [facility] Address: [address] [place] [address] Result Comment: The Negative Predictive Value (NPV) for trisomy 21, 18, and 13 is greater than 99%. The NPV for SCA and ESS cannot be calculated as SCA and ESS are only reported when an abnormality is detected. Performed By: #### M AT21 ####[facility] LABCLIA [id number] [place] [id number] NOTE Comment Normal [facility] Comment on above: Order Comment: Speci men Type: BLOOD SPECIMENOrdering Facility: [facility] Address: [address] [place] [address] Result Comment: See Notes [employer] is a subsidiary of [employer], using the brand [employer]. This test was developed and its performance characteristics determined by [employer]. It has not been cleared or approved by the Food and Drug Administration. This laboratory is certified under the Clinical Laboratory Improvement Amendments (CLIA) as qualified to perform high complexity clinical laboratory testing and accredited by the College of [place] [employer] (CAP). If there is future clinical need for adding MaterniT GENOME testing, this specimen will be available until term. [facility] samples will not be retained beyond 60 days. [facility] patients will have to send a new sample for re-sequencing ([facility] Test Code: [id number]). Performed By: #### M AT21 ####[facility] LABCLIA [id number] [place] [id number] PERFORMANCE CHARACTERISTICS Note Normal [facility] Comment on above: Order Comment: Speci men Type: BLOOD SPECIMENOrdering Facility: [facility] Address: [address] [place] [address] Result Comment: ! Sex ! Accuracy: 99.4% [...] ! ! ! * As reported in [facility] database nstd37 [https://www.ncbi.nlm.nih.gov/dbvar/studies/nstd37/ ] # Estimated Sensitivity. [...] gestation only. Performed By: #### M AT21 ####[facility] LABCLIA [id number] [place] [address] POSITIVE PREDICTIVE VALUE N/A Normal [facility] Comment on above: Order Comment: Speci men Type: BLOOD SPECIMENOrdering Facility: [facility] Address: [address] [place] [address] Performed By: #### M AT21 ####[facility] LABCLIA [id number] [place] [address] Reference Lab Test Method Comment Normal [facility] Comment on above: Order Comment: Speci men Type: BLOOD SPECIMENOrdering Facility: [facility] Address: [address] [place] [address] Result Comment: See Notes Circulating cell-free DNA [...] Performed By: #### M AT21 ####[facility] LABCLIA [id number] [place] [address] Sex Dosage of chromosome-specific cfDNA Nom (cfDNA) Comment Normal [facility] Comment on above: Order Comment: Speci men Type: BLOOD SPECIMENOrdering Facility: [facility] Address: [address] [place] [address] Result Comment: Cons istent with Male Performed By: #### M AT21 ####[facility] LABCLIA [id number] [place] [address] Test performance information [place] (Unsp spec) Comment Normal [facility] Comment on above: Order Comment: Deepika davis Type: BLOOD SPECIMENOrdering Facility: [facility] Address: [address] [place] [address] Result Comment: The performance characteristics of the MaterniT(R) 21 PLUS laboratory-developed test (LDT) have been determined in a clinical validation study with women at increased risk for chromosomal aneuploidy.[1-4] Performed By: #### M AT21 ####[facility] LABCLIA [id number] [place] [address] Trisomy 13 risk Dosage of chromosome-specific cfDNA Ql (cfDNA) [Interp] Negative Normal [facility] Comment on above: Order Comment: Deepkia davis Type: BLOOD SPECIMENOrdering Facility: [facility] Address: [address] [place] [address] Performed By: #### M AT21 ####[facility] LABCLIA [id number] [place] [address] Trisomy 18 risk Dosage of chromosome-specific cfDNA Ql (Plasma cell-free+WBC DNA) [Interp] Negative Normal [facility] Comment on above: Order Comment: Deepika davis Type: BLOOD SPECIMENOrdering Facility: [facility] Address: [address] [place] [address] Performed By: #### M AT21 ####[facility] LABCLIA [id number] [place] [address] RUBELLA IGG ANTIBODYon 04-22 RUBELLA IGG AB, QUAL Positive Normal Positive [facility] Comment on above: Order Comment: Deepika davis Type: BLOOD SPECIMENOrdering Facility: [facility] Address: [address] [place] [address] Result Comment: The result suggests recent or past exposure to Rubella virus or history of Rubella vaccination. Positive result may also be seen due to presence of passively-transferred antibodies. Please correlate with patient's history. Performed By: #### R UBIGG ####[facility] LABCLIA [id number] [place] [address] [place] Reagin and Treponema pallidu m IgG and IgM [Interp]on 04-22-2024 T. pallidum IgG+IgM IA Ql (S) Non-Reactive Normal Nonreactive [facility] Comment on above: Order Comment: Speci men Type: BLOOD SPECIMENOrdering Facility: [facility] Address: [address] [place] [address] Performed By: #### 3 1201-7, 5195-3, 40961-2 ####[facility] LABCLIA [id number] [place] [address] [place] Reagin+T pallidum IgG+IgM Se rPl-Impon 04-22-2024 Reagin and Treponema pallidum IgG and IgM [Interp] Cannot exclude recent Treponemal infection if specimen collected within 7-10 days after appearance of suspect lesions or 2-3 weeks after an exposure. Clinical correlation is required. Normal [facility] Comment on above: Order Comment: Speci men Type: BLOOD SPECIMENOrdering Facility: [facility] Address: [address] [place] [address] Performed By: #### 3 1201-7, 5195-3, 99190-8 ####[facility] LABCLIA [id number] [place] [address] [place] TYPE + SCREEN PRENATALon ABO A Normal [facility] Comment on above: Order Comment: Speci men Type: BLOOD SPECIMENOrdering Facility: [facility] Address: [address] [place] [address] Performed By: #### T SPN ####[facility] BLOOD BANKIA [id number] [place] [address] [place] HISTORICAL AB SCR STATUS Negative Normal [facility] Comment on above: Order Comment: Speci men Type: BLOOD SPECIMENOrdering Facility: [facility] Address: [address] [place] [address] Performed By: #### T SPN ####[facility] BLOOD BANKCLIA [id number] [address] Rh Nom (Bld) Positive Normal [facility] Comment on above: Order Comment: Speci men Type: BLOOD SPECIMENOrdering Facility: [facility] Address: [address] [place] [address] Performed By: #### T SPN ####[facility] BLOOD BANKCLIA [id number] [address] TYPE AND SCREEN EXPIRATION 04/25/2024 23:59 Normal [facility] Comment on above: Order Comment: Speci men Type: BLOOD SPECIMENOrdering Facility: [facility] Address: [address] [place] [address] Performed By: #### T SPN ####[facility] BLOOD BANKCLIA [id number] [address] Brittani 04-18-2024 [facility] Telephone (OBGYWM) ---- LAXMI OLIVEIRA ([id number]) 1990 F Date Time Provider Department 04/18/24 [...] Status:Closed by FREDERIC MÉNDEZ on 04/18/24 Normal [facility] 04-15-2024 CNPN Telephone (OBGYWM) ---- LAXMI OLIVEIRA ([id number]) 1990 F Date Time Provider Department 04/15/24 [...] and its performance characteristics determined by the [facility]'s [facility] [place] ([facility]-PLMI). It has not been cleared or [...] ANDREA in two weeks and can then change management if needed with sensitivity. I will send [...] Status:Closed by VERNA BUSTILLO on 04/15/24 Normal [facility] Bacteria Ur Culton Bacteria identified Cx Nom (U) ORGANISM ID: 1 50,000-<100,000 CFU/ml Staphylococcus saprophyticus Routine susceptibility testing of S. saprophyticus urine isolates is not performed because uncomplicated UTIs respond to urine concentrations of agents commonly used (e.g. Nitrofurantoin, TMP/SMX, or a quinolone). ORGANISM ID: 2 <10,000 CFU/ml Normal urogenital guillermo Normal [facility] Comment on above: Performed By: #### 6 30-4 ####[facility] LABCLIA [id number] [place] [address] [place] UA DIP, URINE (POC)on 2023 BILIRUBIN UA (POCT) Negative Negative [facility] CLARITY UA (POCT) Clear [facility] COLOR UA (POCT) Yellow [facility] GLUCOSE UA (POCT) Negative Negative mg/dL [facility] Hemoglobin Ql (U) Negative Negative [facility] KETONE UA (POCT) Negative Negative mg/dL [facility] LEUKOCYTES UA (POCT) Negative Negative [facility] NITRITE UA (POCT) Negative Negative [facility] PH UA (POCT) 7.0 4.5 - 8.0 [facility] Protein Ql (U) Negative Negative mg/dL [facility] SPECIFIC GRAVITY UA (POCT) 1.015 1.005 - 1.030 [facility] UROBILINOGEN UA (POCT) 0.2 Normal E.U./d L [facility] Location:[facility], [address], [place], [address] [facility] POINT OF CARE [facility] Brittani 03-24-2024 CARLOS Telephone (OBGYWM) ---- LAXMI OLIVEIRA ([id number]) 1990 F Date Time Provider Department 03/24/24 [...] Status:Closed by KATHERYN ARANDA on 03/24/24 Normal [facility] Bacteria Ur Culton Bacteria identified Cx [...] , Intermediate >32 , Resistant >64 Abnormal [facility] Comment on above: Performed By: #### 6 30-4 ####[facility] LABCLIA [id number] [place] [address] [place] C. trachomatis+N. gonorrhoea e DNA NIYA+probe Ql (Unsp spec)on 03-22-2024 C. trachomatis rRNA NIYA+probe Ql (Unsp spec) Negative Negative for Chlamydia trachomatis by amplificaton [facility] Interpretation and review of laboratory results Normal [facility] N. gonorrhoeae rRNA NIYA+probe Ql (Unsp spec) Negative Negative for Neisseria gonorrhoeae by amplification [facility] C. trachomatis rRNA NIYA+probe Ql (Unsp spec) Negative Normal Negative for Chlamydia trachomatis by amplificaton [facility] Comment on above: Order Comment: Speci men Type: SWABOrdering Facility: [facility] Address: [address] [place] [address] Performed By: #### 3 6902-5 ####[facility] LABIA [id number] [address] STATES OF [facility] N. gonorrhoeae rRNA NIYA+probe Ql (Unsp spec) Negative Normal Negative for Neisseria gonorrhoeae by amplification [facility] Comment on above: Order Comment: Speci men Type: SWABOrdering Facility: [facility] Address: [address] [place] [address] Performed By: #### 3 6902-5 ####[facility] LABCLIA [id number] [place] [address] [place] POC TAKE DOWN INSPECTOR ULTRASOUNDon 03-22-20 Indication Confirmation of intrauterine . [...] Read By: Teressa Gibbs CNP MATERNAL MEDICINE [facility] Radiology Study observation (narrative) [facility] Urine Cultureon 02-13-2024 URC Below infection level. Mixed Gram Pos Gram Neg Org [place] Count <1000 MIXC Mixed contaminants. Submit a new specimen if indicated. Normal [facility] Comment on above: Performed By: #### M 100.2200 #### [facility] Laboratory [address] [place], [address] OBSTETRIC ULTRASOUND WHIon 1 10-18-2022 [facility] Serum or plasma choriogonado tropin detectionOrdered By: Timothy Hanson on 08-14-2023 HCG ( test) Ql 1430 mIU/mL <4 [facility] Comment on above: hCG levels with Gest ational AgeGestational Age hCG mIU/mL (IU/L)0.2 - 1 week 5 - 501-2 weeks 50 - 5002-3 weeks 100 - 12045-3 weeks 500 - 176243-9 weeks 1000 - 118078-0 weeks 87638 - 100,0006-8 weeks 35807 - 200,0002-3 months 47006 - 100,000 OBSTETRIC ULTRASOUND WHIon 1 10-05-2022 [facility] HCG QUANTITATIVEon HCG.beta subunit Qn 1382.0 m[IU]/mL High <5.0 mIU/mL [facility] Hemogram and platelets WO di fferential panel (Bld)on 06-18-2022 Erythrocyte distribution width (RBC) [Ratio] 13.5 % Normal 11.0-14.8 [facility] Comment on above: Performed By: #### 2 4317-0 #### [facility] [address] [place] [address] Hematocrit (Bld) [Volume fraction] 27.6 % Low 35.0-45.0 [facility] Comment on above: Performed By: #### 2 4317-0 #### [facility] [address] [place] [address] Hemoglobin (Bld) [Mass/Vol] 9.2 g/dL Low 12.0-16.0 [facility] Comment on above: Performed By: #### 2 4317-0 #### [facility] LAB [address] [place] [address] MCH 30.3 pcg Normal 27.0-34.0 [facility] Comment on above: Performed By: #### 2 4317-0 #### [facility] [address] [place] [address] MCHC (RBC) [Mass/Vol] 33.3 g/dL Normal 32.0-36.0 [facility] Comment on above: Performed By: #### 2 4317-0 #### [facility] [address] [place] [address] MCV (RBC) [Entitic vol] 90.9 fL Normal 80.0-97.0 [facility] Comment on above: Performed By: #### 2 4317-0 #### [facility] [address] [place] [address] Platelet mean volume (Bld) [Entitic vol] 8.0 fL Normal 6.2-12.1 [facility] Comment on above: Performed By: #### 2 4317-0 #### [facility] [address] [place] [address] Platelets (Bld) [#/Vol] 179 10*3/uL Normal 142-424 [facility] Comment on above: Performed By: #### 2 4317-0 #### [facility] [address] [place] [address] RBC (Bld) [#/Vol] 3.04 10*6/uL Low 3.80-5.10 [facility] Comment on above: Performed By: #### 2 4317-0 #### [facility] [address] [place] [address] WBC (Bld) [#/Vol] 13.4 10*3/uL High 4.6-10.2 [facility] Comment on above: Performed By: #### 2 4317-0 #### [facility] [address] [place] [address] Blood type and Indirect anti body screen panel (Bld)on 06-17-2022 ABO group Nom (Bld) A Normal [facility] Comment on above: Performed By: #### 3 4532-2 #### [facility] [address] [place] [address] Rh Type Positive Normal [facility] Comment on above: Performed By: #### 3 4532-2 #### [facility] [address] [place] [address] Hemogram and platelets WO di fferential panel (Bld)on 06-17-2022 Basophils (Bld) [#/Vol] 0.10 10*3/uL Normal 0.00-0.20 [facility] Comment on above: Performed By: #### 2 4317-0 #### [facility] [address] [place] [address] Basophils/100 WBC (Bld) 0.8 % Normal 0.0-2.0 [facility] Comment on above: Performed By: #### 2 4317-0 #### [facility] [address] [place] [address] Eosinophils (Bld) [#/Vol] 0.10 10*3/uL Normal 0.00-0.70 [facility] Comment on above: Performed By: #### 2 4317-0 #### [facility] [address] [place] [address] Eosinophils/100 WBC (Bld) 1.0 % Normal 0.0-7.0 [facility] Comment on above: Performed By: #### 2 4317-0 #### [facility] [address] [place] [address] Erythrocyte distribution width (RBC) [Ratio] 13.5 % Normal 11.0-14.8 [facility] Comment on above: Performed By: #### 2 4317-0 #### [facility] [address] [place] [address] Hematocrit (Bld) [Volume fraction] 35.1 % Normal 35.0-45.0 [facility] Comment on above: Performed By: #### 2 4317-0 #### [facility] [address] [place] [address] Hemoglobin (Bld) [Mass/Vol] 11.7 g/dL Low 12.0-16.0 [facility] Comment on above: Performed By: #### 2 4317-0 #### [facility] [address] [place] [address] Lymphocytes (Bld) [#/Vol] 2.80 10*3/uL Normal 1.00-4.80 [facility] Comment on above: Performed By: #### 2 4317-0 #### [facility] [address] [place] [address] Lymphocytes/100 WBC (Bld) 27.4 % Normal 22.0-44.0 [facility] Comment on above: Performed By: #### 2 4317-0 #### [facility] [address] [place] [address] MCH 29.9 pcg Normal 27.0-34.0 [facility] Comment on above: Performed By: #### 2 4317-0 #### [facility] [address] [place] [address] MCHC (RBC) [Mass/Vol] 33.3 g/dL Normal 32.0-36.0 [facility] Comment on above: Performed By: #### 2 4317-0 #### [facility] [address] [place] [address] MCV (RBC) [Entitic vol] 89.7 fL Normal 80.0-97.0 [facility] Comment on above: Performed By: #### 2 4317-0 #### [facility] [address] [place] [address] Monocytes (Bld) [#/Vol] 0.80 10*3/uL Normal 0.00-0.90 [facility] Comment on above: Performed By: #### 2 4317-0 #### [facility] [address] [place] [address] Monocytes/100 WBC (Bld) 8.0 % Normal 4.0-23.0 [facility] Comment on above: Performed By: #### 2 4317-0 #### [facility] [address] [place] [address] Neutrophils Absolute 6.50 K/mcL Normal 1.80-7.70 [facility] Comment on above: Performed By: #### 2 4317-0 #### [facility] [address] [place] [address] Neutrophils/100 WBC (Bld) 62.8 % Normal 40.0-70.0 [facility] Comment on above: Performed By: #### 2 4317-0 #### [facility] [address] [place] [address] Platelet mean volume (Bld) [Entitic vol] 8.4 fL Normal 6.2-12.1 [facility] Comment on above: Performed By: #### 2 4317-0 #### [facility] [address] [place] [address] Platelets (Bld) [#/Vol] 208 10*3/uL Normal 142-424 [facility] Comment on above: Performed By: #### 2 4317-0 #### [facility] [address] [place] [address] RBC (Bld) [#/Vol] 3.91 10*6/uL Normal 3.80-5.10 [facility] Comment on above: Performed By: #### 2 4317-0 #### [facility] [address] [place] [address] WBC (Bld) [#/Vol] 10.3 10*3/uL High 4.6-10.2 [facility] Comment on above: Performed By: #### 2 4317-0 #### [facility] [address] [place] [address] PT Coag (PPP) [Time]on 06-17 D-Dimer, Quant (FEU) 1.76 mcg/mL FEU High <0.50 [facility] Comment on above: Result Comment: Cuto ff 0.49 mcg/ml FEU At this cutoff level, the negative predictive value for this test is 100% for deep vein thrombosis (DVT) in patients with a low or moderate pre-test probability and 99.7% for pulmonary embolism (PE) in patients with a low or moderate pre-test probability. ?Clinical correlation is essential. Performed By: #### 5 902-2 #### [facility] [address] [place] [address] Protein/Creatinine (U) [Rati o]on 06-17-2022 Creatinine, Urine 50.9 mg/dL Normal [facility] Comment on above: Performed By: #### 3 4366-5 #### [facility] [address] [place] [address] Prot/Creat, Ur 0.31 mg/mg creat Normal [facility] Comment on above: Result Comment: Norm al Proteinuria = <0.1 Mild Proteinuria = 0.1 - 1.0 Moderate Proteinuria = 1.0 - 10.0 Heavy Proteinuria = >10.0 Performed By: #### 3 4366-5 #### [facility] [address] [place] [address] Protein (U) [Mass/Vol] 16 mg/dL High <=10 Mo [facility] Comment on above: Performed By: #### 3 4366-5 #### [facility] [address] [place] [address] SARS-CoV-2 RNA Resp Ql NIYA+p robeon 06-17-2022 SARS-CoV-2 (COVID-19) RNA NIYA+probe Ql (Resp) Detected Invalid Interpretation Code Not Detected [facility] Comment on above: Performed By: #### 9 4500-6 #### [facility] [address] [place] [address] T. pallidum Ab Aggl Ql (S)on 06-17-2022 T. Pallidum Antibodies Non-Reactive Normal Nonreactive [facility] Comment on above: Performed By: #### 2 4312-1 #### [facility] [address] [place] [address] Urate [Mass/Vol]on 2 LDH 155 unit/L Normal 140-271 [facility] Comment on above: Performed By: #### 3 084-1 #### [facility] [address] [place] [address] US PELVIS NON OB COMPLETE W TRANSVAGINALon [...] Nghia Minaya Reviewed and Electronically Signed By: Nghai Minaya Signed Date: 10/24/2021 09:24 Workstation ID: [id number] Transcribed By: Self Edit Transcribed Date: 10/24/2021 09:21 Normal [facility] US Pelvis Non OB Complete w [...] the pelvic cul-de-sac. No abnormal adnexal masses. [facility] Nghia Minaya MD - 10/24/2021 EXAMINATION TYPE: [...] By: Self Edit Transcribed Date: 10/24/2021 09:21 [facility] Radiology Study observation (narrative) [facility] US Pelvis Non OB Complete w TransvaginalOrdered By: Nghia Minaya on 10-24-2021 [employer] Phone: Glycohemoglobin (HGB A1C) Ulises cyr 09-30-2019 HbA1c (Bld) [Mass fraction] 5.4 % tl hgb Normal <5.6 [facility] Comment on above: Result Comment: U pdated ADA Reference Range HbA1c values of 5.7-6.4 percent indicate an increased risk for developing diabetes mellitus. HbA1c values greater than or equal to 6.5 percent are diagnostic of diabetes mellitus. For diagnosis of diabetes in individuals without unequivocal hyperglycemia, results should be confirmed by repeat testing. Performed By: #### 4 549-2 #### [facility] [address] [place] [address] Lipid Panelon 09-30-2019 Cholesterol [Mass/Vol] 180 mg/dL Normal <200 [facility] Comment on above: Result Comment: Refe r to the National Cholesterol Education Program ATP III cut offs for risk stratification. Performed By: #### 5 7698-3 #### [facility] [address] [facility] [place] [address] Cholesterol in HDL [Mass/Vol] 76 mg/dL Normal >40 [facility] Comment on above: Performed By: #### 5 7698-3 #### [facility] [address] [place] [address] Cholesterol in LDL [Mass/Vol] 80 mg/dL Normal <100 [facility] Comment on above: Performed By: #### 5 7698-3 #### [facility] [address] [facility] [place] [address] Cholesterol in VLDL [Mass/Vol] 24 mg/dL Normal 2-38 [facility] Comment on above: Performed By: #### 5 7698-3 #### [facility] [address] [facility] [place] [address] Triglyceride [Mass/Vol] 118 mg/dL Normal <200 [facility] Comment on above: Performed By: #### 5 7698-3 #### [facility] [address] [place] [address] Vital Signs Date Time Vital Sign Value Performing Clinician Facility 08-11-2025 16:24-0500 Body height 160 cm Keyonna Jb PA-C Work Phone: [phone](021)[phone] [place] [address] 08-11-2025 16:24-0500 Body mass index (BMI) [Ratio] 22.67 kg/m2 Keyonna Jb PA-C Work Phone: [phone])[phone] [address] 08-11-2025 16:24-0500 Body temperature 98.01 [degF] Keyonna Jb PA-C Work Phone: 0(114)[phone] [address] 08-11-2025 16:24-0500 Body weight 58.06 kg Keyonna Jb PA-C Work Phone: 1(536)[phone] [place] [address] 08-11-2025 16:24-0500 Diastolic blood pressure 91 mm[Hg] Keyonna Jb PA-C Work Phone: 1(476)[phone] [place] [address] 08-11-2025 16:24-0500 Heart rate 104 /min Keyonna Jb PA-C Work Phone: 7(372)153-924263 [place] [address] 08-11-2025 16:24-0500 Respiratory rate 16 /min Keyonna Jb PA-C Work Phone: [facility] 08-11-2025 16:24-0500 SaO2% (BldA) [Mass fraction] 97 % Keyonna Jb PA-C Work Phone: 3(672)[phone] [place] [address] 08-11-2025 16:24-0500 Systolic blood pressure 124 mm[Hg] Keyonna Jb PA-C Work Phone: [facility] 11-15-2024 10:50-0500 Body mass index (BMI) [Ratio] 25.15 kg/m2 Jennifer Mccall MD Work Phone: [facility] 11-15-2024 10:50-0500 Body weight 64.41 kg Jennifer Mccall MD Work Phone: [facility] 11-15-2024 10:50-0500 Diastolic blood pressure 64 mm[Hg] Jennifer Mccall MD Work Phone: [facility] 11-15-2024 10:50-0500 Systolic blood pressure 106 mm[Hg] Jennifer Mccall MD Work Phone: [facility] 10-11-2024 11:05-0500 Body mass index (BMI) [Ratio] 25.69 kg/m2 Devon Littlejohn MD Work Phone: [facility] 10-11-2024 11:05-0500 Body weight 65.77 kg Devon Littlejohn MD Work Phone: [facility] 10-11-2024 11:05-0500 Diastolic blood pressure 88 mm[Hg] Devon Littlejohn MD Work Phone: [facility] 10-11-2024 11:05-0500 Systolic blood pressure 138 mm[Hg] Devon Littlejohn MD Work Phone: [facility] 09-29-2024 08:23-0500 Body mass index (BMI) [Ratio] 27.67 kg/m2 Fernanda Rogel MD Work Phone: [facility] 09-29-2024 08:23-0500 Body weight 70.85 kg Fernanda Rogel MD Work Phone: [facility] 09-29-2024 08:23-0500 Diastolic blood pressure 70 mm[Hg] Fernanda Rogel MD Work Phone: [facility] 09-29-2024 08:23-0500 Systolic blood pressure 110 mm[Hg] Fernanda Rogel MD Work Phone: [facility] 09-13-2024 08:16-0500 Body mass index (BMI) [Ratio] 27.28 kg/m2 Devon Littlejohn MD Work Phone: [facility] 09-13-2024 08:16-0500 Body weight 69.85 kg Devon Littlejohn MD Work Phone: [facility] 09-13-2024 08:16-0500 Diastolic blood pressure 70 mm[Hg] Devon Littlejohn MD Work Phone: [facility] 09-13-2024 08:16-0500 Systolic blood pressure 118 mm[Hg] Devon Littlejohn MD Work Phone: [facility] 08-30-2024 15:52-0500 Body mass index (BMI) [Ratio] 26.85 kg/m2 Andra Diaz MD Work Phone: [facility] 08-30-2024 15:52-0500 Body weight 68.77 kg Andra Diaz MD Work Phone: [facility] 08-30-2024 15:52-0500 Diastolic blood pressure 70 mm[Hg] Andra Diaz MD Work Phone: [facility] 08-30-2024 15:52-0500 Systolic blood pressure 108 mm[Hg] Andra Diaz MD Work Phone: [facility] 08-16-2024 07:51-0500 Body mass index (BMI) [Ratio] 26.22 kg/m2 Viviane Guallpa APRN.CNM Work Phone: [facility] 08-16-2024 07:51-0500 Body weight 67.13 kg Viviane Guallpa APRN.CNM Work Phone: [facility] 08-16-2024 07:51-0500 Diastolic blood pressure 68 mm[Hg] Viviane Guallpa APRN.CNM Work Phone: [facility] 08-16-2024 07:51-0500 Systolic blood pressure 110 mm[Hg] Viviane Guallpa APRN.CNM Work Phone: [facility] 07-14-2024 08:54-0400 Body mass index (BMI) [Ratio] 25.15 kg/m2 Kailyn Diaz APRN.CNM Work Phone: [facility] 07-14-2024 08:54-0400 Body weight 64.41 kg Kailyn Diaz APRN.CNM Work Phone: [facility] 07-14-2024 08:54-0400 Diastolic blood pressure 66 mm[Hg] Kailyn Plotts PROJECT COACH.CNM Work Phone: [facility] 07-14-2024 08:54-0400 Systolic blood pressure 110 mm[Hg] Kailyn Austints PROJECT COACH.CNM Work Phone: [facility] 06-15-2024 09:55-0400 Body mass index (BMI) [Ratio] 23.74 kg/m2 Kaveh Haury PROJECT COACH.MILL REPRESENTATIVE Work Phone: [facility] 06-15-2024 09:55-0400 Body weight 60.78 kg Kaveh Haury PROJECT COACH.MILL REPRESENTATIVE Work Phone: [facility] 06-15-2024 09:55-0400 Diastolic blood pressure 68 mm[Hg] Kaveh Haury PROJECT COACH.MILL REPRESENTATIVE Work Phone: [facility] 06-15-2024 09:55-0400 Systolic blood pressure 112 mm[Hg] Kaveh Haury PROJECT COACH.MILL REPRESENTATIVE Work Phone: [facility] 05-20-2024 08:29-0400 Body mass index (BMI) [Ratio] 23.35 kg/m2 Devon Littlejohn MD Work Phone: [facility] 05-20-2024 08:29-0400 Body weight 59.78 kg Devon Littlejohn MD Work Phone: [facility] 05-20-2024 08:29-0400 Diastolic blood pressure 70 mm[Hg] Devon Littlejohn MD Work Phone: [facility] 05-20-2024 08:29-0400 Systolic blood pressure 122 mm[Hg] Devon Littlejohn MD Work Phone: [facility] 04-22-2024 14:18-0400 Body mass index (BMI) [Ratio] 23.21 kg/m2 Jennifer Mccall MD Work Phone: [facility] 04-22-2024 14:18-0400 Body weight 59.42 kg Jennifer Mccall MD Work Phone: [facility] 04-22-2024 14:18-0400 Diastolic blood pressure 66 mm[Hg] Jennifer Mccall MD Work Phone: [facility] 04-22-2024 14:18-0400 Systolic blood pressure 108 mm[Hg] Jennifer Mccall MD Work Phone: [facility] 04-13-2024 09:08-0400 Body mass index (BMI) [Ratio] 23.38 kg/m2 Frederic Méndez MD Work Phone: [facility] 04-13-2024 09:08-0400 Body weight 59.88 kg Frederic Méndez MD Work Phone: [facility] 04-13-2024 09:08-0400 Diastolic blood pressure 62 mm[Hg] Frederic Méndez MD Work Phone: [facility] 04-13-2024 09:08-0400 Systolic blood pressure 100 mm[Hg] Frederic Méndez MD Work Phone: [facility] 03-22-2024 08:18-0400 Body mass index (BMI) [Ratio] 23.42 kg/m2 Teressa Princeton PROJECT COACH.MILL REPRESENTATIVE Work Phone: [facility] 03-22-2024 08:18-0400 Body weight 59.97 kg Teressa Princeton PROJECT COACH.MILL REPRESENTATIVE Work Phone: [facility] 03-22-2024 08:18-0400 Diastolic blood pressure 78 mm[Hg] Teressa Bernie PROJECT COACH.MILL REPRESENTATIVE Work Phone: [facility] 03-22-2024 08:18-0400 Systolic blood pressure 138 mm[Hg] Teressa Princeton PROJECT COACH.MILL REPRESENTATIVE Work Phone: [facility] 08-21-2023 08:09-0500 Body weight 58.51 kg Adriana Phoenix MD Work Phone: [facility] 08-21-2023 08:09-0500 Diastolic blood pressure 64 mm[Hg] Adriana Phoenix MD Work Phone: [facility] 08-21-2023 08:09-0500 Heart rate 88 /min Adriana Phoenix MD Work Phone: [facility] 08-21-2023 08:09-0500 SaO2% (BldA) [Mass fraction] 99 % Adriana Phoenix MD Work Phone: [facility] 08-21-2023 08:09-0500 Systolic blood pressure 110 mm[Hg] Adriana Phoenix MD Work Phone: [facility] 08-14-2023 09:33-0500 Diastolic blood pressure 78 mm[Hg] [facility] 08-14-2023 09:33-0500 Heart rate 100 /min [facility] 08-14-2023 09:33-0500 Respiratory rate 16 /min [facility] 08-14-2023 09:33-0500 SaO2% (BldA) [Mass fraction] 100 % [facility] 08-14-2023 09:33-0500 Systolic blood pressure 117 mm[Hg] [facility] 08-14-2023 08:51-0500 Body height 160.02 cm [facility] 08-14-2023 08:51-0500 Body mass index (BMI) [Ratio] 22.8 kg/m2 [facility] 08-14-2023 08:51-0500 Body temperature 97.6 [degF] [facility] 08-14-2023 08:51-0500 Body weight 58.64 kg [facility] 08-04-2023 08:54-0400 Body weight 59.06 kg Kailyn Diaz PROJECT COACH.CNM Work Phone: [facility] 08-04-2023 08:54-0400 Diastolic blood pressure 72 mm[Hg] Kailyn Diaz PROJECT COACH.CNM Work Phone: [facility] 08-04-2023 08:54-0400 Systolic blood pressure 116 mm[Hg] Kailyn Diaz PROJECT COACH.CNM Work Phone: [facility] Encounters Encounter Date Encounter Type Care Provider Facility Start: 08-11-2025 End: 08-11-2025 Subsequent hospital visit by physician Conrad Davis [facility] Comment on above: Pleuritic chest pain Start: 08-11-2025 End: 08-11-2025 ambulatory KEYONNA MUHAMMAD [facility] Start: 08-11-2025 End: 08-11-2025 Office outpatient visit 25 minutes Keyonna Muhammad PA-C Work Phone: [facility] Comment on above: Pleuritic chest pain (Primary Dx); Tachycardia Start: 03-20-2025 End: 03-21-2025 ambulatory Jennifer Mccall MD Work Phone: OB/Gynecology Comment on above: New Control Pr escription Start: 03-11-2025 End: 03-11-2025 Emergency department patient visit RIDGE ARCOS [facility] Start: 12-12-2024 End: 12-12-2024 ambulatory Jennifer Mccall MD Work Phone: OB/Gynecology Start: 12-12-2024 End: 12-12-2024 Letter encounter Jennifer Mccall MD Work Phone: OB/Gynecology Comment on above: Return to Work Lette r Start: 11-15-2024 End: 11-15-2024 Telephone encounter Jennifer Mccall MD Work Phone: OB/Gynecology Comment on above: Insurance Authorizat ion Start: 11-15-2024 End: 11-15-2024 ambulatory JENNIFER MCCALL Facility:[facility] Start: 11-15-2024 End: 11-15-2024 Patient encounter procedure Jennifer Mccall MD Work Phone: OB/Gynecology Comment on above: care and examination (Primary Dx) Start: 10-19-2024 End: 10-19-2024 ambulatory ANDRA DIAZ Facility:[facility] Start: 10-19-2024 End: 10-19-2024 Patient encounter procedure Andra Diaz MD Work Phone: OB/Gynecology Comment on above: Status post section routine follow-up (Primary Dx) Start: 10-11-2024 End: 10-11-2024 ambulatory DEVON LITTLEJOHN Facility:[facility] Start: 10-11-2024 End: 10-11-2024 Patient encounter procedure Devon Littlejohn MD Work Phone: OB/Gynecology Comment on above: Status post section routine follow-up (Primary Dx) Start: 10-08-2024 End: 10-09-2024 ambulatory [facility] Facility:[facility] Start: 10-07-2024 End: 10-07-2024 Telephone encounter Devon Littlejohn MD Work Phone: OB/Gynecology Comment on above: Care Start: 10-02-2024 End: 10-04-2024 Evaluation and management of inpatient Andra Diaz Facility:[facility] Start: 10-02-2024 End: 10-03-2024 ambulatory Andra Diaz MD Work Phone: OB/Gynecology Comment on above: Ob Delivery Note Start: 09-29-2024 End: 09-29-2024 Telephone encounter Fernanda Rogel MD Work Phone: OB/Gynecology Comment on above: FMLA Paperwork Start: 09-29-2024 End: 09-29-2024 ambulatory FERNANDA ROGEL Facility:[facility] Start: 09-29-2024 End: 09-29-2024 Patient encounter procedure Fernanda Rogel MD Work Phone: OB/Gynecology Comment on above: 34 weeks gestation o f (Primary Dx); Supervision of high risk in third trimester Start: 09-13-2024 End: 09-13-2024 ambulatory DEVON LITTLEJOHN Facility:[facility] Start: 09-13-2024 End: 09-13-2024 Patient encounter procedure Devon Littlejohn MD Work Phone: OB/Gynecology Comment on above: Supervision of high risk in third trimester (Primary Dx); History of low transverse section; Patient desires vaginal after section (); 32 weeks gestation of ; Encounter for prophylactic immunotherapy for respiratory syncytial virus (RSV) Start: 08-30-2024 End: 08-30-2024 ambulatory ANDRA DIAZ Facility:[facility] Start: 08-30-2024 End: 08-30-2024 Patient encounter [...] Start: 08-08-2024 End: 08-11-2024 Telephone encounter Adriana Phoenxi MD Work Phone: OB/Gynecology Comment on above: breast pump Start: 07-14-2024 End: 07-14-2024 ambulatory KAILYN DIAZ Facility:[facility] Start: 07-14-2024 End: 07-14-2024 Patient encounter procedure Kailyn Diaz PROJECT COACH.CNM Work Phone: OB/Gynecology Comment on above: Encounter for superv ision of other normal in second trimester (Primary Dx); Hx of section; 23 weeks gestation of ; S/P primary low transverse ; Supervision of high risk in second trimester Start: 06-23-2024 End: 06-23-2024 ambulatory KAVEH HERR Facility:[facility] Start: 06-15-2024 End: 06-15-2024 Telephone encounter Kaveh Herr APRN.MILL REPRESENTATIVE Work Phone: OB/Gynecology Comment on above: Records Start: 06-15-2024 End: 06-15-2024 ambulatory DEVON LITTLEJOHN Facility:[facility] Start: 06-15-2024 End: 06-15-2024 Patient encounter procedure Kaveh Herr APRN.MILL REPRESENTATIVE Work Phone: OB/Gynecology Comment on above: Encounter for superv ision of other normal in second trimester (Primary Dx); 19 weeks gestation of ; Hx of section; History of urinary tract infection Start: 06-15-2024 End: 06-15-2024 ambulatory ANDRA DIAZ Facility:[facility] Start: 06-15-2024 End: 06-15-2024 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 Work Phone: [facility] Comment on above: Encounter for anatomic survey (Primary Dx); 19 weeks gestation of Start: 05-20-2024 End: 05-20-2024 ambulatory DEVON LITTLEJOHN Facility:[facility] Start: 05-20-2024 End: 05-20-2024 Patient encounter procedure Devon Littlejohn MD Work Phone: OB/Gynecology Comment on above: Encounter for superv ision of other normal in second trimester (Primary Dx); Hx of section; 15 weeks gestation of ; Encounter for supervision of normal in multigravida in first trimester Start: 04-29-2024 End: 04-29-2024 ambulatory JENNIFER MCCALL Facility:[facility] Start: 04-22-2024 End: 04-22-2024 ambulatory TERESSA GIBBS Facility:[facility] Start: 04-22-2024 End: 04-22-2024 Patient encounter procedure [...] Start: 04-13-2024 End: 04-13-2024 ambulatory FREDERIC MÉNDEZ Facility:[facility] Start: 04-13-2024 End: 04-13-2024 Patient encounter procedure Frederic Méndez MD Work Phone: OB/Gynecology Comment on above: 10 weeks gestation o f (Primary Dx); Dysuria; Encounter for supervision of normal in multigravida in first trimester Start: 03-24-2024 Telephone encounter Teressa denney PROJECT COACH.MILL REPRESENTATIVE Work Phone: OB/Gynecology Comment on above: Results Start: 03-22-2024 End: 03-22-2024 ambulatory TERESSA APTELCALF Facility:[facility] Start: 03-22-2024 End: 03-22-2024 Patient encounter procedure Teressa Gibbs PROJECT COACH.MILL REPRESENTATIVE Work Phone: OB/Gynecology Comment on above: with uncer tain dates in first trimester (Primary Dx); 7 weeks gestation of ; Encounter for supervision of normal in multigravida in first trimester; Hx of section Start: 02-12-2024 End: 02-12-2024 ambulatory [facility] Facility[facility] Start: 09-18-2023 End: 09-18-2023 Subsequent hospital visit by physician [facility] W[facility] 1 Work Phone: Radiology Comment [...] Start: 08-18-2023 End: 08-18-2023 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[place] [facility] Work Phone: OB/Gynecology Comment on above: Positive t est Start: 08-14-2023 End: 08-14-2023 Emergency department patient visit [facility] Work Phone: Start: 08-11-2023 ambulatory Kailyn cano PROJECT COACH.CNM Work Phone: OB/Gynecology Comment on above: Possible M iscarriage Symptoms Start: 08-05-2023 End: 08-05-2023 Patient encounter procedure [employer] 1 Sandwich Machine Operator [facility]aternal [facility] Comment on above: Confirm cardia c activity using ultrasound (Primary Dx); Positive test; 5 weeks gestation of Start: 08-04-2023 End: 08-04-2023 Patient encounter procedure Kailyn Diaz PROJECT COACH.CNM Work Phone: OB/Gynecology Comment on above: Positive t est (Primary Dx) Start: 07-31-2023 Telephone encounter Teressa denney PROJECT COACH.MILL REPRESENTATIVE Work Phone: OB/Gynecology Comment on above: Results Start: 07-01-2022 Telephone encounter Lynn Fenton RN [facility] Start: 06-17-2022 End: 06-19-2022 Evaluation and management of inpatient [facility] Start: 12-19-2021 ambulatory [facility] Start: 11-06-2021 End: 11-10-[address] [facility] Start: 10-24-2021 End: 10-25-2021 ambulatory RAMA ALCOCER [facility] Start: 10-24-2021 End: 10-24-2021 Evaluation and management of inpatient [facility] [address] Start: 10-24-2021 End: 10-24-2021 Subsequent hospital visit by physician Jordon [address] [place] [address] Comment on above: Pelvic pain in pregn louie Start: 10-22-2021 ambulatory RAMA ALCOCER [facility] Procedures Date Procedure Procedure Detail Performing Clinician [...] Comment: Speci men Type: BLOOD SPECIMENOrdering Facility: [facility] Address: [address] [place] [address] Performed By: #### T SPN ####CC MAIN BLOOD BANKCLWA [id number] [address] [place] Start: 04-13-2024 Urnls dip stick/tabl et rgnt auto w/o microscopy Frederic Méndez MD Work Phone: Start: 03-22-2024 Iadna chlamydia trac homatis amplified probe tq Teressa Bernie PROJECT COACH.MILL REPRESENTATIVE Work Phone: Start: 03-22-2024 Us uterus l imited 1/> fetuses Teressa Bernie PROJECT COACH.MILL REPRESENTATIVE Work Phone: Start: 03-22-2024 Adult depression scr eening assessment Adriana Phoenix MD Work Phone: Start: 08-18-2023 Us preg uterus after 1st trimest 10/05 gestation Kailyn Diaz PROJECT COACH.CNM Work Phone: Start: 08-14-2023 Transvaginal obstetr ic ultrasonography Start: 08-05-2023 Us preg uterus after 1st trimest 10/05 gestation Kailyn Diaz PROJECT COACH.CNM Work Phone: Start: 02-20-2023 Microscopic observat ion [Identifier] in Cervix by Cyto stain Keyonna Muhammad PA-C Work Phone: Start: 06-17-2022 End: 10-11-2024 H/O: section S/P primary low transverse Lynn Fenton RN Start: 06-17-2022 Antibody screen POONAM TAN Comment on above: Performed By: #### 3 [id number] #### [facility] [address] [place] [address] Start: 10-24-2021 Us pelvic nonobstetr ic real-time image complete Rama Alcocer DO Work Phone: Start: 10-22-2021 Adult depression scr eening assessment [facility] 1 H/O: section Hx of cesa rean section Teressa Gibbs PROJECT COACH.MILL REPRESENTATIVE Work Phone: H/O: section Hx of cesa rean section Jennifer Mccall MD Work Phone: H/O: section Hx of cesa rean section Kaveh Herr PROJECT COACH.MILL REPRESENTATIVE Work Phone: H/O: section Hx of cesa rean section Kailyn Diaz PROJECT COACH.CNM Work Phone: H/O: section Hx of cesa rean section Devon Littlejohn MD Work Phone: H/O: section History of low transverse section Viviane Guallpa PROJECT COACH.CNM Work Phone: H/O: section History of low transverse section Devon Littlejohn MD Work Phone: Plan of Treatment Date Care Activity Detail Author Start: 2040 Zoster Vaccines (1 o f 2) Zoster Vaccines (1 of 2) [facility] Start: 08-16-2034 DTaP/Tdap/Td Vaccine s (2 - Td or Tdap) DTaP/Tdap/Td Vaccines (2 - Td or Tdap) [facility] Start: 08-16-2034 Urine microalbumin profile DTaP,Tdap,Td Vaccine (2 - Td or Tdap) [facility] Start: 02-21-2028 HPV Testing HPV Testing [facility] Start: 02-21-2028 Pap Testing Pap Testing [facility] Start: 02-21-2028 Screening for malign ant neoplasm of cervix [facility] Start: 02-20-2026 Screening for malign ant neoplasm of cervix [facility] Start: 11-15-2025 End: 11-15-2025 Patient encounter procedure 11/15/2025 8:15 AM EST Office Visit OB/Gynecology [address] [place] [address] Kailyn Diaz APRN.CN [address] [place] [address] Annual OB/Gynecology Comment on above: Annual Start: 03-22-2025 Anxiety Screening Anxiety Screening [facility] Start: 03-22-2025 Depression Screening Depression Scre ening [facility] Start: 11-18-2024 End: 11-18-2024 Patient encounter procedure 11/18/2024 10:50 AM EST Office Visit OB/Gynecology [address] [place] [address] Andra Diaz MD [address] [place] [address] Incision check OB/Gynecology Comment on above: Incision check Start: 11-15-2024 End: 11-15-2024 Patient encounter procedure 11/15/2024 10:50 AM EST Office Visit OB/Gynecology [address] [place] [address] Jennifer Mccall MD [address] [place] [address] Post OB/Gynecology Comment on above: Post Start: 11-07-2024 ambulatory Ambulatory Facility:[facility] Start: 11-01-2024 End: 11-01-2024 Patient encounter procedure 11/01/2024 9:10 AM EST Routine Office Visit OB/Gynecology [address] [place] [address] Andra Diaz MD [address] [place] [address] (Fax) OB Routine OB/Gynecology Comment on above: OB Routine Start: 10-26-2024 End: 10-26-2024 Patient encounter procedure 10/26/2024 10:10 AM EST Routine Office Visit OB/Gynecology [address] [place] [address] Andra Diaz MD [address] [place] [address] (Fax) OB Pre Op C/S 2/3 @ [facility] OB/Gynecology Comment on above: OB Pre Op C/S 2/3 @ [facility] Start: 10-19-2024 End: 10-19-2024 Patient encounter procedure 10/19/2024 10:50 AM EST Office Visit OB/Gynecology [address] [place] [address] Andra Diaz MD [address] [place] [address] (Fax) VV pp OB/Gynecology Comment on above: VV pp Start: 10-18-2024 End: 10-18-2024 Patient encounter procedure 10/18/2024 8:40 AM EST Routine Office Visit OB/Gynecology [address] [place] [address] Adriana López MD [address] [place] [address] (Fax) OB Routine OB/Gynecology Comment on above: OB Routine Start: 10-17-2024 End: 10-17-2024 Patient encounter procedure 10/17/2024 9:00 AM EST Office Visit OB/Gynecology [address] [place] [address] Viviane Guallpa APRN.[facility] [address] [place] [address] 2 week incision check OB/Gynecology Comment on above: 2 week incision chec k Start: 10-11-2024 End: 10-11-2024 Patient encounter procedure 10/11/2024 10:50 AM EST Office Visit OB/Gynecology [address] [place] [address] Devon Littlejohn MD [address] [place] [address] 2 week incision check OB/Gynecology Comment on above: 2 week incision chec k Start: 10-11-2024 End: 10-11-2024 Patient encounter procedure 10/11/2024 8:30 AM EST Routine Office Visit OB/Gynecology [address] [place] [address] Devon Littlejohn MD [address] [place] [address] OB Routine OB/Gynecology Comment on above: OB Routine Start: 09-29-2024 End: 09-29-2024 Patient encounter procedure 09/29/2024 8:30 AM EST Routine Office Visit OB/Gynecology [address] [place] [address] Fernanda Rogel MD [address] [place] [address] OB Routine OB/Gynecology Comment on above: OB Routine Start: 09-13-2024 End: 09-13-2024 Patient encounter procedure 09/13/2024 8:30 AM EST Routine Office Visit OB/Gynecology [address] [place] [address] Devon Littlejohn MD [address] [place] [address] OB OB/Gynecology Comment on above: OB Start: 09-12-2024 RSV Vaccine (1 - Ris k 1-dose series) RSV Vaccine (1 - Risk 1-dose series) [facility] Start: 08-30-2024 End: 08-30-2024 Patient encounter procedure 08/30/2024 4:00 PM EST Routine Office Visit OB/Gynecology [address] [place], [place] [id number] Andra Diaz MD [address] [place] [place] [address] OB OB/Gynecology Comment on above: OB Start: 08-16-2024 End: 08-16-2024 ambulatory 08/16/2024 8:00 AM EST Results Only [facility] [address] [place] [address] Encounter for supervision of other normal in second trimester [Z34.82]; Hx of section [Z98.891]; 23 weeks gestation of [Z3A.23] [facility] Comment on above: Encounter for superv ision of other normal in second trimester [Z34.82]; Hx of section [Z98.891]; 23 weeks gestation of [Z3A.23] Start: 08-16-2024 End: 08-16-2024 Patient encounter procedure 08/16/2024 8:00 AM EST Routine Office Visit OB/Gynecology [address] [place] [address] Viviane Guallpa APRN.CN [address] [place] [address] OB Routine OB/Gynecology Comment on above: OB Routine Start: 07-14-2024 End: 10-13-2024 CBC W Auto Differential panel - Blood COMPLETE BLOOD COUNT AND DIFFERENTIAL Lab Routine Encounter for supervision of other normal in second trimester Hx of section 23 weeks gestation of Expected: 07/14/2024, Expires: 10/13/2024 [facility] Work Phone: Comment on above: Expected: 07/14/2024 , Expires: 10/13/2024 Start: 07-14-2024 End: 10-13-2024 GESTATIONAL GLUCOSE SCREEN, 1-HOUR, 50 GRAM, NON-FASTING GESTATIONAL GLUCOSE SCREEN, 1-HOUR, 50 GRAM, NON-FASTING Lab Routine Encounter for supervision of other normal in second trimester Hx of section 23 weeks gestation of Expected: 07/14/2024, Expires: 10/13/2024 [facility] Comment on above: Expected: 07/14/2024 , Expires: 10/13/2024 Start: 07-14-2024 End: 10-13-2024 SYPHILIS TREPONEMAL W/REFLEX SYPHILIS TREPONEMAL W/REFLEX Lab Routine Encounter for supervision of other normal in second trimester Hx of section 23 weeks gestation of Expected: 07/14/2024, Expires: 10/13/2024 [facility] Comment on above: Expected: 07/14/2024 , Expires: 10/13/2024 Start: 07-14-2024 End: 07-14-2024 Patient encounter procedure 07/14/2024 9:00 AM EDT Routine Office Visit OB/Gynecology [address] [place] [address] Kailyn Diaz APRN.CN [address] [place] [address] OB OB/Gynecology Comment on above: OB Start: 06-15-2024 End: 09-14-2024 ALPHA FETOPRO MATERNAL ALPHA FETOPRO MATERNAL Lab Routine Encounter for supervision of other normal in second trimester 19 weeks gestation of Hx of section Expected: 06/15/2024, Expires: 09/14/2024 [facility] Work Phone: Comment on above: Expected: 06/15/2024 , Expires: 09/14/2024 Start: 06-15-2024 End: 06-15-2024 Patient encounter procedure 06/15/2024 9:40 AM EDT Routine Office Visit OB/Gynecology [address] [place] [id number] Devon Littlejohn MD [address] [place] [address] Anatomy/OB OB/Gynecology Comment on above: Anatomy/OB Start: 06-15-2024 End: 06-15-2024 Patient encounter procedure 06/15/2024 8:30 AM EDT Routine Office Visit OB/Gynecology [address] [place], [place] [address] Anatomy OB/Gynecology Comment on above: Anatomy Start: 06-05-2024 Covid-19 Vaccine ( season) Covid-19 Vaccine () [facility] Start: 06-05-2024 Covid-19 Vaccine () Covid-19 Vaccine () [facility] Start: 06-05-2024 Influenza vaccination [facility] Start: 05-20-2024 End: 05-20-2025 OBSTETRIC ULTRASOUND [facility] OBSTETRIC ULTRASOUND [facility] Anc Imaging Routine Encounter for supervision of other normal in second trimester Expected: 05/20/2024, Expires: 05/20/2025 [facility] Work Phone: Comment on above: Expected: 05/20/2024 , Expires: 05/20/2025 Start: 05-20-2024 End: 05-20-2024 Patient encounter procedure 05/20/2024 8:30 AM EDT Routine Office Visit OB/Gynecology [address] [place], [place] [address] Devon Littlejohn MD [address] [place] [address] OB OB/Gynecology Comment on above: OB Start: 04-22-2024 End: 04-22-2024 Patient encounter procedure OB/Gynecology Comment on above: NEW OB LMP 02/01/24 NEW OB Start: 04-22-2024 End: 07-22-2024 Bacteria identified in Urine by Culture [facility] Work Phone: Comment on above: Expected: 04/22/2024 , Expires: 07/22/2024 Start: 03-22-2024 End: 06-21-2024 CBC panel - Blood by Automated count COMPLETE BLOOD COUNT Lab Routine with uncertain dates in first trimester 7 weeks gestation of Expected: 03/22/2024, Expires: 06/21/2024 [facility] Work Phone: Comment on above: Expected: 03/22/2024 , Expires: 06/21/2024 Start: 03-22-2024 End: 06-21-2024 Chromosome 21 trisomy [Presence] in Blood or Tissue by Cytogenetics [id number] PLUS Lab Routine 7 weeks gestation of Expected: 03/22/2024, Expires: 06/21/2024 [facility] Comment on above: Expected: 03/22/2024 , Expires: 06/21/2024 Start: 03-22-2024 End: 06-21-2024 Hemoglobin A1c in Blood HEMOGLOBIN A1C Lab Routine with uncertain dates in first trimester 7 weeks gestation of Expected: 03/22/2024, Expires: 06/21/2024 [facility] Comment on above: Expected: 03/22/2024 , Expires: 06/21/2024 Start: 03-22-2024 End: 06-21-2024 Hepatitis B virus surface Ag [Presence] in Serum HEPATITIS B SURFACE ANTIGEN Lab Routine with uncertain dates in first trimester 7 weeks gestation of Expected: 03/22/2024, Expires: 06/21/2024 [facility] Comment on above: Expected: 03/22/2024 , Expires: 06/21/2024 Start: 03-22-2024 End: 06-21-2024 Hepatitis C virus Ab [Presence] in Serum HEPATITIS C ANTIBODY IA WITH CONFIRMATION Lab Routine with uncertain dates in first trimester 7 weeks gestation of Expected: 03/22/2024, Expires: 06/21/2024 [facility] Comment on above: Expected: 03/22/2024 , Expires: 06/21/2024 Start: 03-22-2024 End: 06-21-2024 HIV 1+2 Ab [Presence] in Serum or Plasma by Immunoassay HIV 1/2 COMBO WITH REFLEX TO DIFFERENTIATION Lab Routine with uncertain dates in first trimester 7 weeks gestation of Expected: 03/22/2024, Expires: 06/21/2024 [facility] Comment on above: Expected: 03/22/2024 , Expires: 06/21/2024 Start: 03-22-2024 End: 06-21-2024 RUBELLA IGG ANTIBODY RUBELLA IGG ANTIBODY Lab Routine with uncertain dates in first trimester 7 weeks gestation of Expected: 03/22/2024, Expires: 06/21/2024 [facility] Comment on above: Expected: 03/22/2024 , Expires: 06/21/2024 Start: 03-22-2024 End: 06-21-2024 SYPHILIS TOTAL W/REFLEX SYPHILIS TOTAL W/REFLEX Lab Routine with uncertain dates in first trimester 7 weeks gestation of Expected: 03/22/2024, Expires: 06/21/2024 [facility] Comment on above: Expected: 03/22/2024 , Expires: 06/21/2024 Start: 03-22-2024 End: 06-21-2024 TYPE + SCREEN TYPE + SCREEN Blood Bank Routine with uncertain dates in first trimester 7 weeks gestation of Expected: 03/22/2024, Expires: 06/21/2024 [facility] Comment on above: Expected: 03/22/2024 , Expires: 06/21/2024 Start: 10-05-2023 Behavioral Health Screening Behavioral Health Screening [facility] Start: 08-14-2023 [facility] Start: 08-04-2023 End: 08-04-2024 OBSTETRIC ULTRASOUND [facility] OBSTETRIC ULTRASOUND [facility] Anc Imaging Routine Positive test Expected: 08/04/2023, Expires: 08/04/2024 [facility] Work Phone: Comment on above: Expected: 08/04/2023 , Expires: 08/04/2024 Start: 08-04-2023 End: 11-03-2023 TYPE + SCREEN [facility] Work Phone: Comment on above: Expected: 08/04/2023 , Expires: 11/03/2023 Start: 06-05-2023 Covid-19 Vaccine () Covid-19 Vaccine () [facility] Start: 06-05-2023 Covid-19 Vaccine ( season) Covid-19 Vaccine () [facility] Start: 06-05-2023 Influenza vaccination Influenza Vacc ine (#1) [facility] Start: 10-22-2022 Adolescent depressio n screening assessment Depression Screening [facility] Start: 10-21-2022 Social Influencers o f Health Screening Social Influencers of Health Screening [facility] Start: 10-05-2022 Depression Assessment Depression Ass essment [facility] Start: 06-05-2022 Influenza vaccination Influenza Vacc ine (#1) [facility] Start: 06-05-2021 Influenza vaccination Influenza Vacc ine (#1) [facility] Start: 03-05-2020 Hepatitis C screening Hepatitis C [facility] Start: 03-05-2020 HIV screening HIV Screening [facility] Start: 2011 Screening for malign ant neoplasm of cervix [facility] Start: 2009 DTaP,Tdap,and Td Vaccines (1 - Tdap) DTaP,Tdap,and Td Vaccines (1 - Tdap) [facility] Start: 2009 Urine microalbumin profile [facility] Start: 2008 Anxiety Screening Anxiety Screening [facility] Start: 2008 Depression Screening Depression Scre ening [facility] Start: 2008 Hepatitis C Screening Hepatitis C [facility] Start: 2008 HIV Screening HIV Screening [facility] Start: 2008 HIV screening HIV Screening [facility] Start: 1990 Lipid panel Lipid Panel [facility] Start: 1990 Yearly Adult Physical Yearly Adult P hysical [facility] Bacteria identified in Urine by Culture URINE CULTURE Microbiology Routine with uncertain dates in first trimester 7 weeks gestation of 03/22/2024 9:09 AM EDT [facility] End: 08-03-2024 Choriogonadotropin.beta subunit [Units/volume] in Serum or Plasma HCG QUANTITATIVE Lab Routine Positive test 2x per week for 10 Occurrences starting 08/04/2023 until 08/03/2024, 1 completed [facility] Work Phone: Comment on above: 2x per week for 10 O ccurrences starting 08/04/2023 until 08/03/2024, 1 completed Hematocrit [Volume Fraction] of Blood [facility] Hemoglobin [Mass/volume] in Blood [facility] Leukocytes [#/volume ] in Blood [facility] Mean corpuscular hemoglobin concentration determination [facility] Mean corpuscular hemoglobin determination [facility] Neutrophil count [facility] Neutrophil percent differential count [facility] Patient Education Bleeding Durin g Early ED Sacroiliitis [facility] Work Phone: Patient referral [facility] Work Phone: Platelets [#/volume] in Blood [facility] Red blood cell count [facility] Red cell distributio n width determination [facility] SURGICAL PATHOLOGY SURGICAL PATH OLOGY Lab Routine Missed 08/21/2023 9:21 AM EST [facility] Work Phone: End: 09-19-2024 Us transvaginal US FEMALE PELVIS TRANSVAG Radiology Routine Pelvic pain in female 1 Occurrences starting 08/21/2023 until 09/19/2024 [facility] Work Phone: Comment on above: 1 Occurrences starti ng 08/21/2023 until 09/19/2024 Us transvaginal US FEMALE PELVIS TRANSVAG Radiology Routine Pelvic pain in female 09/18/2023 8:39 AM EST [facility] Work Phone: [facility] (OFFICE IPAS) [facility] (OFFICE IP ) Procedures Routine Missed Ordered: 08/21/2023 [facility] Work Phone: Comment on above: Ordered: 08/21/2023 [facility] Immunizations Immunization Date Immunization Notes Care Provider Galdino sebastian 09-13-2024 respiratory syncytia l virus (RSV) vaccine, bivalent (ABRYSVO) Devon Littlejohn MD Work Phone: [facility] 08-16-2024 tetanus toxoid, redu luis a diphtheria toxoid, and acellular pertussis vaccine, adsorbed Viviane Guallpa PROJECT COACH.CNM Work Phone: [facility] 06-29-2024 influenza, seasonal, injectable, preservative free Devon Littlejohn MD Work Phone: [facility] 08-20-2021 Pfizer SARS-CoV-2 COVID-19, mRNA, LNP-S, preservative free [facility] 01-24-2021 Pfizer SARS-CoV-2 COVID-19, mRNA, LNP-S, preservative free [facility] 01-03-2021 Pfizer SARS-CoV-2 COVID-19, mRNA, LNP-S, preservative free [facility] 10-05-2020 COVID-19 original vaccine, full dose, monovalent (MODERNA) Devon Littlejohn MD Work Phone: [facility] 07-06-2020 influenza, injectabl e, quadrivalent, preservative free [facility] 07-06-2020 influenza virus vacc ine, unspecified formulation [facility] 07-28-2016 influenza, seasonal, injectable [facility] 07-14-2016 influenza, seasonal, injectable, preservative free [facility] 07-28-2015 influenza, seasonal, injectable [facility] 08-03-2009 human papilloma viru s vaccine, quadrivalent Teressa Princeton PROJECT COACH.MILL REPRESENTATIVE Work Phone: [facility] 03-28-2009 human papilloma viru s vaccine, quadrivalent Teressa Bernie PROJECT COACH.MILL REPRESENTATIVE Work Phone: [facility] 01-26-2009 human papilloma viru s vaccine, quadrivalent Teressa Princeton PROJECT COACH.MILL REPRESENTATIVE Work Phone: [facility] 04-11-2003 measles, mumps and rubella virus vaccine [facility] 05-10-1999 hepatitis B vaccine, pediatric or pediatric/adolescent dosage [facility] 10-06-1998 hepatitis B vaccine, pediatric or pediatric/adolescent dosage [facility] 08-31-1998 hepatitis B vaccine, pediatric or pediatric/adolescent dosage [facility] Payers Date Payer Category Payer Managed Care (Private) [facility] [id number] 2024 Unknown [id number] 2024 Self-pay 2024 Unknown [id number] 2014 Private Health Insurance [facility] [id number] 2014-Present [address] [address] [place] [address] [id number] 2014 Private Health Insurance [id number] 2014 Private Health Insurance [id number] 1990 Unknown [id number] 1990 Unknown [id number] 1990 Unknown [id number] .[id number] 1990 Unknown [id number] 1990 Unknown [id number] [id number] .[id number] 1990 Unknown [id number] 1990 Unknown [id number] .[id number] 1990 Unknown [id number] Unknown [id number] Unknown [id number] Unknown [id number] .462 Social History Date Type Detail Facility Tobacco smoking stat [place] [facility] Unknown if ever smoked [facility] Start: 1990 Sex Assigned At Female T [facility] Exposure to SARS-CoV -2 (event) Not sure [facility] Start: 02-17-2012 End: 06-17-2022 Tobacco smoking status RIIS Never smoked tobacco [facility] Start: 06-17-2022 End: 08-11-2025 Tobacco use and exposure Smokeless tobacco non-user [facility] Start: 06-18-2022 End: 08-11-2025 Alcohol intake Ex-drinker (finding) [facility] Start: 02-20-2023 End: 08-21-2023 Alcohol intake Current non-drinker of alcohol (finding) [facility] Start: 02-20-2023 End: 08-11-2025 History of Social function [facility] Start: 02-20-2023 End: 08-11-2025 Tobacco use panel [facility] National Score (1-100), lower number is lower risk 64 [facility] Start: 1990 Sex Assigned At Not on file [facility] Start: 02-15-2024 [facility] Start: 08-14-2023 Tobacco smoking stat [facility] Unknown if ever smoked [facility] Start: 03-21-2024 End: 08-11-2025 Tobacco smoking status NHIS Ex-smoker [facility] History of tobacco use Current smoker [facility] History of tobacco use Cigarette Smoker [facility] Start: 03-21-2024 Education 17 [facility] Start: 03-21-2024 Alcohol [facility] Start: 12-28-2024 Sex Female (finding) [facility] Goals Date Patient Goal Desired Activity /State Personal health goal Functional Status Date Assessment Result Facility 08-11-2025 Functional status 124/91 [facility] Work Phone: 08-11-2025 Vital signs 104 08/11/2025 4 :24 PM Keyonna Davila PA-C [facility] Work Phone: 08-11-2025 [facility] Work Phone: 10-09-2024 Are you deaf, or do you have serious difficulty hearing No 10/09/2024 12:41 AM Mya Singer, ANTONINO No [facility] 10-09-2024 Are you blind, or do you have serious difficulty seeing, even when wearing glasses No 10/09/2024 12:41 AM Mya Singer, ANTONINO No [facility] 10-09-2024 Do you have serious difficulty walking or climbing stairs No 10/09/2024 12:41 AM Mya Singer, ANTONINO No [facility] 10-09-2024 Do you have difficul ty dressing or bathing No 10/09/2024 12:41 AM Mya Singer, ANTONINO No [facility] 10-09-2024 Because of a physica l, mental, or emotional condition, do you have difficulty doing errands alone such as visiting a physician's office or shopping No 10/09/2024 12:41 AM Mya Singer, ANTONINO No [facility] Mental Status Date Assessment Result Facility 10-09-2024 Because of a physica l, mental, or emotional condition, do you have serious difficulty concentrating, remembering, or making decisions No 10/09/2024 12:41 AM Mya Singer, ANTONINO No [facility] Clinical Notes 07-01-2022 to 08-11-2025 Keyonna Muhammad PA-C - 08/11/2025 4:15 PM ESTTelephone Encounter - Jennifer Mccall MD - 03/21/2025 2:25 PM EDTTelephone Encounter - Jennifer Mccall MD - 03/21/2025 2:25 PM EDTPatient Instructions Note Date & Type Note Facility 08-11-2025 History of Present illness Narrative Images from the original note were not included. [facility] PAPI NOTE: Name: Laxmi Oliveira, 35 y.o. CSN:[id number] PCP: No primary care provider on file. 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 Nose: Congestion present. Mouth/Throat: Lips: [place]. Mouth: Mucous membranes are moist. Eyes: Extraocular [...] pain. ,R07.81 Pleurodynia COMPARISON: None. ACCESSION NUMBER(S): [id number] ORDERING CLINICIAN: KEYONNA MUHAMMAD FINDINGS: The cardiomediastinal silhouette and pulmonary vasculature are within normal limits. No consolidation, pleural effusion or pneumothorax. IMPRESSION: No acute cardiopulmonary process. MACRO: None. Signed by: Jesus Mondragon 08/11/2025 6:22 PM Dictation workstation: [id number] ____ I did personally review Laxmi's past [...] understanding. Keyonna Muhammad PA-C Advanced Practice Provider [facility] Disclaimer: Please note that portions of this chart may have been generated using voice recognition and/or artificial intelligence-assisted documentation tools. While every effort is made to ensure accuracy, occasional managed care manager or sound-alike errors may occur due to [...] history on file. documented in this encounter [facility] Work Phone: 03-21-2025 Telephone encounter Note Gracie sent Jennifer Mccall MD [facility] 03-21-2025 Miscellaneous Notes Gracie sent Jennifer Mccall MD documented in this encounter [facility] 12-12-2024 Telephone encounter Note Return to work letter faxed. Andra Tong RN [facility] 12-12-2024 Miscellaneous Notes Return to work letter faxed. Andra Tong RN documented in this encounter [facility] 11-15-2024 Telephone encounter Note Received PA request for Slynd. Submitted and received response that it was approved. Patient notified via Format [employer]. Braden Givens MA [facility] 11-15-2024 Miscellaneous Notes Received PA request for Slynd. Submitted and received response that it was approved. Patient notified via [email or web address]. Braden Givens MA documented in this encounter [facility] 11-15-2024 Note HNO ID: [id number] Author: JENNIFER MCCALL MD Service: ? Author Type: Physician Type: Progress Notes Filed: 11/15/2024 11:22 Note Text: VISIT Laxmi Oliveira is a 34 year old year old here for visit. Delivery Summary: ROS/ Recovery: Feeding: Breast feeding- pumping problems: None Menses since delivery: none Menstrual pattern prior to : Regular periods [place] since delivery: Not resumed Depression: denies symptoms [...] childbirth 06/18/2022 History of colposcopy abnormal paps 1150-5639 IBS (irritable bowel syndrome) Pyogenic granulomas PAST [...] discussed with the Patient or Patient's Authorized Legal Administrator. As applicable, any other physician, advance practice provider, medical student, or other health professional student that will be observing or involved in the sensitive examination for educational or training purposes was discussed with the Patient or Authorized Legal Administrator. The Patient or Authorized Legal Administrator has agreed to proceed with the sensitive [...] external genitalia normal, normal Bartholin's glands, urethra, [place]'s glands, no vulvar lesions, no cervical lesions, [...] annual exams and PRN Jennifer Mccall MD [facility] 11-15-2024 History of Present illness Narrative VISIT Laxmi Oliveira is a 34 year old year old here for visit. Delivery Summary: ROS/ Recovery: Feeding: Breast feeding- pumping problems: None Menses since delivery: none Menstrual pattern prior to : Regular periods [place] since delivery: Not resumed Depression: denies symptoms [...] childbirth 06/18/2022 History of colposcopy abnormal paps 0717-1681 IBS (irritable bowel syndrome) Pyogenic granulomas PAST [...] discussed with the Patient or Patient's Authorized Legal Administrator. As applicable, any other physician, advance practice provider, medical student, or other health professional student that will be observing or involved in the sensitive examination for educational or training purposes was discussed with the Patient or Authorized Legal Administrator. The Patient or Authorized Legal Administrator has agreed to proceed with the sensitive [...] external genitalia normal, normal Bartholin's glands, urethra, [place]'s glands, no vulvar lesions, no cervical lesions, [...] Jennifer Mccall MD documented in this encounter [facility] 10-19-2024 Note HNO ID: [id number] Author: ANDRA DIAZ MD Service: ? Author Type: Physician Type: Progress Notes Filed: 10/19/2024 13:09 Note Text: VIRTUAL 6 WEEK VISIT Laxmi Oliveira is a 34 year old year old here for virtual visit, using [employer] Zoom Video Visit. It required patient-provider interaction for the medical decision making as documented below. I have communicated my name and active licensure. The patient?s identity and physical location were verified at the time of this visit. Either the patient or their legal sales representative sales manager has been informed of the risks and [...] periods Sleep: no sleep concerns, feels rested [place] since delivery: Not resumed Emotional support: Yes Exercise: N/A Other issues: None Last Pap: 02/27/2023 normal HPV: negative PAST MEDICAL HISTORY Diagnosis Date Abnormal Pap smear of cervix Adenomyosis COVID-19 affecting childbirth 06/18/2022 History of colposcopy abnormal paps 1764-5489 IBS (irritable bowel syndrome) Pyogenic granulomas PAST [...] up: 6 week appointment Andra Diaz MD [facility] 10-19-2024 History of Present illness Narrative VIRTUAL 6 WEEK VISIT Laxmi Oliveira is a 34 year old year old here for virtual visit, using [employer] Zoom Video Visit. It required patient-provider interaction for the medical decision making as documented below. I have communicated my name and active licensure. The patient s identity and physical location were verified at the time of this visit. Either the patient or their legal sales representative sales manager has been informed of the risks and [...] periods Sleep: no sleep concerns, feels rested [place] since delivery: Not resumed Emotional support: Yes Exercise: N/A Other issues: None Last Pap: 02/27/2023 normal HPV: negative PAST MEDICAL HISTORY Diagnosis Date Abnormal Pap smear of cervix Adenomyosis COVID-19 affecting childbirth 06/18/2022 History of colposcopy abnormal paps 8679-0777 IBS (irritable bowel syndrome) Pyogenic granulomas PAST [...] Andra Diaz MD documented in this encounter [facility] 10-11-2024 Note HNO ID: [id number] Author: DEVON LITTLEJOHN MD Service: ? Author Type: Physician Type: Progress Notes Filed: 10/11/2024 11:27 Note Text: EARLY VISIT Laxmi Oliveira is a 34 year old here for 1 week visit. Using pain meds prn, took tylenol last night. Denies WOLFE or visual changes. Watching BP at home. BP was 150 and went to [place] to be evaluated. BP now running around [...] concerns and baby in [facility], feels rested [place] since delivery: Not resumed Emotional support: Yes [...] visit and as needed Devon Littlejohn MD [facility] 10-11-2024 History of Present illness Narrative EARLY VISIT Laxmi Oliveira is a 34 year old here for 1 week visit. Using pain meds prn, took tylenol last night. Denies WOLFE or visual changes. Watching BP at home. BP was 150 and went to [place] to be evaluated. BP now running around [...] concerns and baby in [facility], feels rested [place] since delivery: Not resumed Emotional support: Yes [...] Devon Littlejohn MD documented in this encounter [facility] 10-08-2024 Note HNO ID: [id number] Author: SUZANNE SHAH MD Service: Obstetrics Author [...] childbirth 06/18/2022 History of colposcopy abnormal paps 4734-6592 IBS (irritable bowel syndrome) Pyogenic granulomas PAST [...] discussed with the Patient or Patient's Authorized Legal Administrator. As applicable, any other physician, advance practice provider, medical student, or other health professional student that will be observing or involved in the sensitive examination for educational or training purposes was discussed with the Patient or Authorized Legal Administrator. The Patient or Authorized Legal Administrator has agreed to proceed with the sensitive [...] - denies lightheadedne (more content not included)... [facility] 10-07-2024 Telephone encounter Note noted. [facility] Work Phone: 10-07-2024 Miscellaneous Notes noted. Patient sent a [employer] message stating that her blood pressure today [...] pain or N/V. Patient is currently at [facility] w/ baby and will ask a nurse to check her Bp. appointment is 10/17/2024. Please advise. documented in this encounter [facility] 10-07-2024 Telephone encounter Note Patient sent a [employer]Better message stating that her blood pressure today was 125/88. [facility] 10-07-2024 Telephone encounter Note schedule f/u within one week after delivery for PP patients please for BP checks and incision checks. Schedule next week. Call or to ED for signs/symptoms of preeclampsia. Devon Littlejohn MD [facility] 10-07-2024 Telephone encounter Note Patient had a [...] pain or N/V. Patient is currently at [facility] w/ baby and will ask a nurse to check her Bp. appointment is 10/17/2024. Please advise. [facility] 10-04-2024 Note [facility] Medical Records Department [address] [place] [address] Discharge Summary 10/04/24 0728 MR#: [id number] Acct: [id number] Name: LAXMI OLIVEIRA Rep #: [id number] : 1990 34 From: Kailyn Diaz CNM PCP: Dr. Go [place], Status:ADM IN [id number] Prov[facility] Date of Admission: 10/02/24 Primary Care [...] Repeat C/S Pain controlled Pumping Baby at [facility] NICU Desires discharge today Medications at Discharge [...] controlled. Desires discharge home to go to [facility]. Const alert and no apparent distress General [...] can be pl (more content not included)... [facility] 10-03-2024 Note HNO ID: [id number] Author: ANDRA TONG RN Service: ? Author Type: Registered Nurse Type: Progress Notes Filed: 10/03/2024 11:29 Note Text: Patient delivered via Stat C/S at [facility] on 10/02/24 per Andra Diaz MD . See OB Outcome note. Andra Tong RN [facility] 10-03-2024 History of Present illness Narrative Patient delivered via Stat C/S at [facility] on 10/02/24 per Andra Diaz MD . See OB Outcome note. Andra Tong RN documented in this encounter [facility] 09-29-2024 Telephone encounter Note FMLA paperwork signed and faxed for Pt and spouse. Pt notified and will spanish moss picker original paperwork-placed at the nurses neck. Jazmín Kumar RN [facility] 09-29-2024 Miscellaneous Notes FMNEHA paperwork signed and faxed for Pt and spouse. Pt notified and will spanish moss picker original paperwork-placed at the nurses neck. Jazmín Kumar, RN Signed thanks Received FMLA paperwork for patient and spouse. Both completed and placed on providers desk for signature. Braden Givens MA documented in this encounter [facility] 09-29-2024 Telephone encounter Note Signed thanks [facility] Work Phone: 09-29-2024 Telephone encounter Note Received FMLA paperwork for patient and spouse. Both completed and placed on providers desk for signature. Braden Givens MA [facility] 09-29-2024 Progress note Formatting of t his note might be different from the original. SW- No ctx, vb, lof. Good FM PE: Gen- NAD, well appearing Abd- Soft, gravid, NT, S=D See flowsheet A/p 34 wk gestation - Discussed upcoming expectations - RTO 2 wks Fernanda Rogel DO [facility] Work Phone: 09-29-2024 Miscellaneous Notes SW- No ctx, vb, lof. Good FM PE: Gen- NAD, well appearing Abd- Soft, gravid, NT, S=D See flowsheet A/p 34 wk gestation - Discussed upcoming expectations - RTO 2 wks Fernanda Rogel DO documented in this encounter [facility] 09-29-2024 Instructions Lisa Garcia MA - 09/29/2024 8:15 AM EST SEQUENTIAL SCREENINGS The [facility] offers sequential screenings for women who are [...] It will require an appointment with our emergency technician. This is not an ultrasound performed [...] the above symptoms, contact our office at [phone] and ask to speak with a nurse. After hours, you can call doctors registry at [phone] OR call [facility] at [phone] and ask to have the doctor director of cardiopulmonary services paged. If you consider this an emergency, dial 9-1-4 or go to your nearest emergency department. NEED HELP? Are you dealing with a violent or abusive relationship? Are you a victim of rape or sexual assult? Call [facility] [place] ([place]) 24 hour Crisis Hotline: 208.701.5787 or 859-893-0758. MANUAL Your Guide to a Healthy manual is now on-line. Visit [email or web address] ancyGuide to download your free copy documented in this encounter [facility] 09-13-2024 Note Addended by: DEVON LITTLEJOHN on: 09/13/2024 09:03 AM Modules accepted: Orders [facility] 09-13-2024 Miscellaneous Notes Addended by: DEVON LITTLEJOHN [...] Devon Littlejohn M.D. documented in this encounter [facility] 09-13-2024 Progress note Formatting of t his [...] vaccine and accepts today Devon Littlejohn M.D. [facility] 09-13-2024 Instructions Tiffany Ross MA - 09/13/2024 8:14 AM EST SEQUENTIAL SCREENINGS The [facility] offers sequential screenings for women who are [...] It will require an appointment with our emergency technician. This is not an ultrasound performed [...] the above symptoms, contact our office at [phone] and ask to speak with a nurse. After hours, you can call doctors registry at [phone] OR call [facility] at [phone] and ask to have the doctor director of cardiopulmonary services paged. If you consider this an emergency, dial 9--4 or go to your nearest emergency department. NEED HELP? Are you dealing with a violent or abusive relationship? Are you a victim of rape or sexual assult? Call [facility] ([place]) 24 hour Crisis Hotline: 114.402.4124 or 413-043-0156. MANUAL Your Guide to a Healthy manual is now on-line. Visit [email or web address] ancyGuide to download your free copy documented in this encounter [facility] 08-30-2024 Progress note Formatting of t his [...] ICD9: V23.9, ICD10: O09.93 Andra Diaz MD [facility] 08-30-2024 Miscellaneous Notes S: Laxmi Oliveira is [...] Andra Diaz MD documented in this encounter [facility] 08-30-2024 Instructions Lisa Garcia MA - 08/30/2024 3:50 PM EST SEQUENTIAL SCREENINGS The [facility] offers sequential screenings for women who are [...] It will require an appointment with our emergency technician. This is not an ultrasound performed [...] the above symptoms, contact our office at [phone] and ask to speak with a nurse. After hours, you can call doctors registry at [phone] OR call [facility] at [phone] and ask to have the doctor director of cardiopulmonary services paged. If you consider this an emergency, dial 06-05-9 or go to your nearest emergency department. NEED HELP? Are you dealing with a violent or abusive relationship? Are you a victim of rape or sexual assult? Call [facility] ([place]) 24 hour Crisis Hotline: 134.988.2675 or 258-419-6147. MANUAL Your Guide to a Healthy manual is now on-line. Visit [email or web address] [email or web address] to download your free copy documented in this encounter [facility] 08-17-2024 Telephone encounter Note Yes, but it needs to be the noon spot [facility] Work Phone: 08-17-2024 Miscellaneous Notes Yes, but it needs to be the noon spot 28w1d [place] is 2/3. Dr. Diaz- you are director of cardiopulmonary services this day. Are you agreeable to performing a at 40 weeks? Andra Tong, ANTONINO documented in this encounter [facility] 08-16-2024 Telephone encounter Note 28w1d [place] is 2/3. Dr. Diaz- you are director of cardiopulmonary services this day. Are you agreeable to performing a at 40 weeks? Andra Tong, RN [facility] 08-16-2024 Progress note Formatting of t [...] RTO in 2 weeks Viviane Guallpa APRN.CNM [facility] 08-16-2024 Miscellaneous Notes BAILEY-S: Laxmi Oliveira [...] Guallpa APRN.CNM BAILEY- documented in this encounter [facility] 08-16-2024 Progress note Formatting of t his note might be different from the original. BAILEY- [facility] 08-16-2024 Note HNO ID: [id number] Author: TIFFANY ROSS MA Service: ? Author Type: Gis Software Developer Type: Progress Notes Filed: 08/16/2024 09:41 Note [...] severely ill: Yes Patient denies history of Guillain-[place] Syndrome (a severe paralytic illness): Yes Tdap Adacel injection was given without incident. See immunizations for details of immunizations administered today. VIS sheet provided: Yes Provider Viviane Guallpa APRN.CNM was present in office at time of injection. [facility] 08-16-2024 History of Present illness Narrative [...] severely ill: Yes Patient denies history of Guillain-[place] Syndrome (a severe paralytic illness): Yes Tdap Adacel injection was given without incident. See immunizations for details of immunizations administered today. VIS sheet provided: Yes Provider Viviane Guallpa APRN.ROXI was present in office at time of injection. documented in this encounter [facility] 08-16-2024 Instructions Tiffany Ross MA - 08/16/2024 7:54 AM EST SEQUENTIAL SCREENINGS The [facility] offers sequential screenings for women who are [...] It will require an appointment with our emergency technician. This is not an ultrasound performed [...] the above symptoms, contact our office at [phone] and ask to speak with a nurse. After hours, you can call doctors registry at [phone] OR call [facility] at [phone] and ask to have the doctor director of cardiopulmonary services paged. If you consider this an emergency, dial 9-1-3 or go to your nearest emergency department. NEED HELP? Are you dealing with a violent or abusive relationship? Are you a victim of rape or sexual assult? Call [facility] ([place]) 24 hour Crisis Hotline: 966.910.1609 or 335-641-7386. MANUAL Your Guide to a Healthy manual is now on-line. Visit [email or web address] [email or web address] to download your free copy documented in this encounter [facility] 08-11-2024 Telephone encounter Note Order sign and faxed. Mya Burroughs RN [facility] 08-11-2024 Miscellaneous Notes Order sign and faxed. Mya Burroughs RN Breast pump request received from [facility]. Order to provider to sign. Mya Burroughs RN documented in this encounter [facility] 08-08-2024 Telephone encounter Note Breast pump request received from [facility]. Order to provider to sign. Mya Burroughs RN [facility] 07-14-2024 Progress note Formatting of t his [...] - RTO 4 weeks Kailyn Diaz APRN.CNM [facility] 07-14-2024 Miscellaneous Notes S: Laxmi Oliveira is [...] Kailyn Diaz APRN.CNM documented in this encounter [facility] 07-14-2024 Instructions Braden Givens MA - 07/14/2024 8:51 AM EDT SEQUENTIAL SCREENINGS The [facility] offers sequential screenings for women who are [...] It will require an appointment with our emergency technician. This is not an ultrasound performed [...] the above symptoms, contact our office at [phone] and ask to speak with a nurse. After hours, you can call doctors registry at [phone] OR call [facility] at [phone] and ask to have the doctor director of cardiopulmonary services paged. If you consider this an emergency, dial 06-05-0 or go to your nearest emergency department. NEED HELP? Are you dealing with a violent or abusive relationship? Are you a victim of rape or sexual assult? Call [facility] ([place]) 24 hour Crisis Hotline: 960.654.7522 or [phone]. MANUAL Your Guide to a Healthy manual is now on-line. Visit [facility].org/HealthyPregn ancyGuide to download your free copy documented in this encounter [facility] 06-15-2024 Progress note Formatting of t his note might be different from the original. Anatomy ultrasound reviewed. No abnormalities identified. Follow up as clinically indicated. Please place copy in ob chart. Devon Littlejohn MD [facility] 06-15-2024 Miscellaneous Notes Anatomy ultrasound reviewed. No abnormalities identified. Follow up as clinically indicated. Please place copy in ob chart. Devon Littlejohn MD documented in this encounter [facility] 06-15-2024 Telephone encounter Note Updated CareEverywhere. C/S report from 06/17/22 now available to review. Andra Tong RN [facility] 06-15-2024 Miscellaneous Notes Updated CareEverywhere. C/S report from 06/17/22 now available to review. Andra Tong RN Please attempt to obtain op record from [facility] for c/s 2021. Kaveh Herr APRN.BRISSA documented in this encounter [facility] 06-15-2024 Telephone encounter Note Please attempt to obtain op record from [facility] for c/s 2021. Kaveh Herr APRN.CNP [facility] 06-15-2024 Progress note Formatting of t his [...] - ICD9: V45.89, ICD10: Z98.89 - 2021 [facility] - OB history notes - c/s low vertical. Patient denies. Locate op record. PTL precautions reviewed. RTO in 4 weeks or sooner as needed. Kaveh Herr APRN.MILL REPRESENTATIVE [facility] 06-15-2024 Miscellaneous Notes EH - S: Laxmi [...] - ICD9: V45.89, ICD10: Z98.89 - 2021 [facility] - OB history notes - c/s low vertical. Patient denies. Locate op record. PTL precautions reviewed. RTO in 4 weeks or sooner as needed. Kaveh Herr APRN.MILL REPRESENTATIVE documented in this encounter [facility] 06-15-2024 Instructions Zechariah RossathJACK pagan - 06/15/2024 8:51 AM EDT SEQUENTIAL SCREENINGS The [facility] offers sequential screenings for women who are [...] It will require an appointment with our emergency technician. This is not an ultrasound performed [...] the above symptoms, contact our office at [phone] and ask to speak with a nurse. After hours, you can call doctors registry at [phone] OR call [facility] at [phone] and ask to have the doctor director of cardiopulmonary services paged. If you consider this an emergency, dial 9--1 or go to your nearest emergency department. NEED HELP? Are you dealing with a violent or abusive relationship? Are you a victim of rape or sexual assult? Call [facility] ([place]) 24 hour Crisis Hotline: 524.481.6870 or 243-631-4622. MANUAL Your Guide to a Healthy manual is now on-line. Visit [facility]org/HealthyPregn ancyGuide to download your free copy documented in this encounter [facility] 05-20-2024 Progress note Formatting of t his [...] not strong recmmendation . Devon Littlejohn M.D. [facility] 05-20-2024 Miscellaneous Notes RR- VB No. LOF [...] Devon Littlejohn M.D. documented in this encounter [facility] 05-20-2024 Instructions Tiffany Ross MA - 05/20/2024 8:27 AM EDT SEQUENTIAL SCREENINGS The [facility] offers sequential screenings for women who are [...] It will require an appointment with our emergency technician. This is not an ultrasound performed [...] the above symptoms, contact our office at [phone] and ask to speak with a nurse. After hours, you can call doctors registry at [phone] OR call [facility] at [phone] and ask to have the doctor director of cardiopulmonary services paged. If you consider this an emergency, dial 9--1 or go to your nearest emergency department. NEED HELP? Are you dealing with a violent or abusive relationship? Are you a victim of rape or sexual assult? Call [facility] ([place]) 24 hour Crisis Hotline: 859.583.4487 or 355-060-9901. MANUAL Your Guide to a Healthy manual is now on-line. Visit [facility]org/HealthyPregn ancyGuide to download your free copy documented in this encounter [facility] 04-22-2024 Progress note Formatting of t his [...] for lab next week Jennifer Mccall MD [facility] 04-22-2024 Miscellaneous Notes KJ - VB No. [...] Jennifer Mccall MD documented in this encounter [facility] 04-22-2024 Instructions Tiffany Ross MA - 04/22/2024 2:18 PM EDT SEQUENTIAL SCREENINGS The [facility] offers sequential screenings for women who are [...] It will require an appointment with our emergency technician. This is not an ultrasound performed [...] the above symptoms, contact our office at [phone] and ask to speak with a nurse. After hours, you can call doctors registry at [phone] OR call [facility] at [phone] and ask to have the doctor director of cardiopulmonary services paged. If you consider this an emergency, dial or go to your nearest emergency department. NEED HELP? Are you dealing with a violent or abusive relationship? Are you a victim of rape or sexual assult? Call [facility] ([place]) 24 hour Crisis Hotline: 882.681.6600 or 676-623-2865. MANUAL Your Guide to a Healthy manual is now on-line. Visit [facility].org/HealthyPregn ancyGuide to download your free copy documented in this encounter [facility] 04-15-2024 Telephone encounter Note Patient notified [facility] 04-15-2024 Miscellaneous Notes Patient notified 03/22 E.Faecalis treated with Macrobid on 03/24/24 Will try Macrobid again due to Gestational age. ANDREA in two weeks and can then change management if needed with sensitivity. I will send [...] its performance characteristics determined by the [facility] [place] ([facility]). It has not been cleared or approved by the FDA. [facility] is regulated under CLIA as qualified to perform high-complexity testing. This test is used for clinical purposes. It should not be regarded as investigational or for research. Resulting Agency: [facility] Specimen Collected: 04/13/24 4:15 PM EDT Last Resulted: 04/14/24 10:34 PM EDT documented in this encounter [facility] 04-15-2024 Telephone encounter Note 03/22 E.Faecalis treated with Macrobid on 03/24/24 Will try Macrobid again due to Gestational age. ANDREA in two weeks and can then change management if needed with sensitivity. I will send Macrobid 100mg PO BID x 7 days and Pyridium as well for symptom management and help with treatment. Urine ANDREA in 2 weeks. Viviane Guallpa APRN.CNM [facility] 04-15-2024 Telephone encounter Note Ob patient is [...] its performance characteristics determined by the [facility] [place] ([facility]). It has not been cleared or approved by the FDA. [facility] is regulated under CLIA as qualified to perform high-complexity testing. This test is used for clinical purposes. It should not be regarded as investigational or for research. Resulting Agency: [facility] Specimen Collected: 04/13/24 4:15 PM EDT Last Resulted: 04/14/24 10:34 PM EDT [facility] 04-13-2024 Note Addended by: VERNA CHAN on: 04/13/2024 09:57 AM Modules accepted: Orders [facility] 04-13-2024 Miscellaneous Notes Addended by: VERNA BUSTILLO [...] Frederic Méndez MD documented in this encounter [facility] 04-13-2024 Progress note Formatting of t his [...] call is sx worsen Frederic Méndez MD [facility] 04-13-2024 Instructions Verna Bustillo LPN - 04/13/2024 8:59 AM EDT SEQUENTIAL SCREENINGS The [facility] offers sequential screenings for women who are [...] It will require an appointment with our emergency technician. This is not an ultrasound performed [...] the above symptoms, contact our office at [phone] and ask to speak with a nurse. After hours, you can call doctors registry at [phone] OR call [facility] at [phone] and ask to have the doctor director of cardiopulmonary services paged. If you consider this an emergency, dial 9-9-2 or go to your nearest emergency department. NEED HELP? Are you dealing with a violent or abusive relationship? Are you a victim of rape or sexual assult? Call [facility] ([place]) 24 hour Crisis Hotline: 243.826.7814 or 108-547-0813. MANUAL Your Guide to a Healthy manual is now on-line. Visit [facility]org/HealthyPregn ancyGuide to download your free copy documented in this encounter [facility] 03-24-2024 Telephone encounter Note Spoke with pt and results given. Pt to check with pharmacy later today. Katheryn Aranda LPN [facility] 03-24-2024 Miscellaneous Notes Spoke with pt and results given. Pt to check with pharmacy later today. Katheryn Aranda LPN Urine clx +UTI Macrobid sent. Teressa Gibbs APRN.MILL REPRESENTATIVE documented in this encounter [facility] 03-24-2024 Telephone encounter Note Urine clx +UTI Macrobid sent. Teressa Gibbs APRN.MILL REPRESENTATIVE [facility] 03-22-2024 Instructions Rosina Ruiz MA - 03/22/2024 8:09 AM EDT Please select the following link to access the [facility] Your Guide to a Healthy . [email or web address] e documented in this encounter [facility] 03-22-2024 Note HNO ID: [id number] Author: KATHERYN ARANDA LPN Service: ? Author Type: LICENSED NURSE Type: Progress Notes Filed: 03/22/2024 14:13 Note Text: OB point of care ultrasound was performed. See imaging tab for details. Katheryn Aranda LPN [facility] 03-22-2024 History of Present illness Narrative [...] the following (please check all that apply)? 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 Teressa Gibbs APRN.MILL REPRESENTATIVE ASSESSMENT: 33 year old at 7w0d wks gestational age PLAN: 1) Patient oriented to practice. Patient given new OB orientation folder. Discussed nutrition, folic acid supplementation, dietary guidelines, exercise, smoking, alcohol, caffeine, and drug use. Discussed gestational weight gain guidelines. Discussed routine OB labs including STD/HIV. Discussed how to access Your guide to a health and the Senior Industrial Engineer. Discussed hemoglobin electrophoresis. Patient: Declines Reviewed midwifery and certified caregiver services that are available. 2) Screening: Hemoglobin [...] Teressa Gibbs APRN.CNP documented in this encounter [facility] 03-21-2024 Note HNO ID: [id number] Author: TERESSA GIBBS APRN.CNP Service: ? Author [...] the following (please check all that apply)? Patient Care Secretary care Social History: Do you have any [...] findings documented. 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 [facility] 09-18-2023 History of Present illness Narrative [...] 2023 11:52 AM documented in this encounter [facility] 08-21-2023 Nurse Note Pre Procedure Assessment: Laxmi [...] Fanny Bonilla RN documented in this encounter [facility] 08-21-2023 Instructions Odette Caruso Ma - 08/21/2023 [...] and showers are OK. Important Phone Numbers: [facility] Appointments in [employer] ( Early Assessment Clinics) Deena Arciniega PENDING SALE TO [facility] at [phone] [facility] at [phone] [facility] at [phone] After 4:30 PM or on weekends, you may reach the on-call [employer]per by calling the clinic where you were [...] for diagnosis or termination for medical reasons. http://www.GoombalreMADS. Homeschooling Through the Ages/ [facility]: ending a for a abnormality http://www.healthtalkonline.org/ Pregnancy_children/Ending_a_preg nancy_for_fetal_abnormality Ending a Wanted : support for patients and families ending a after or maternal medical diagnosis https://endingawantedpregnancy.c om Evelia Mine: one person's story about loss and collected resources. http://www.CeresingApprion.Homeschooling Through the Ages [employer]: headquarters in [place] but with online support group https://www.[employer].org/infa so-xmhr-pxwzcuj-groups.html LOCAL RESOURCES [facility], [facility] https://my.[facility].org/l ocations/[facility]/josias t-services/support BretL.(Families Experiencing Early Loss) [facility] https://consultqd.[facility]/hxqtnkkyz-kxumbmhte-kxndrw cdewk-jzteezf-lmsbcrjq-grieving- families/ [facility] - counseling services [phone] or toll free at [phone] [facility] Support Groups (not specific to loss) https://my.[facility].org/p atients/information/bereavement/ support-groups [facility] Counselors with experience with families facing the loss of a baby before . This service may be covered by your insurance. If not, [facility] will not turn anyone away because of inability to pay. or [phone] Jason Anderson, local counselor, not associated with [facility] [phone] Some of our families have recommended Jason [...] and showers are OK. Important Phone Numbers: [facility] Appointments in [employer] ( Early Assessment Clinics) Deena Arciniega PENDING SALE TO [facility] at [phone] [facility] at [phone] [facility] at [phone] After 4:30 PM or on weekends, you may reach the on-call [employer] Helper by calling the clinic where you were [...] for diagnosis or termination for medical reasons. http://www.[employer]. Homeschooling Through the Ages/ [facility]: ending a for a abnormality http://www.healthtalkonline.org/ Pregnancy_children/Ending_a_preg nancy_for_fetal_abnormality Ending a Wanted : support for patients and families ending a after or maternal medical diagnosis https://endingawantedpregnancy.c om Defending Mine: one person's story about loss and collected resources. http://www.[employer].Homeschooling Through the Ages SallyBandcamprachael [facility]: headquarters in [place] but with online support group https://www.[employer]/infa ax-oogs-txlqknl-groups.html LOCAL RESOURCES [employer], [facility] https://my.[facility].org/l ocations/[facility]/josias t-services/support F.E.E.L.(Families Experiencing Early Loss) [facility] https://consultqd.[facility].org/txokgbkbk-rktwfpbkn-sdviiv xvrtu-aloskje-lhdaqcum-grieving- families/ [facility] - counseling services [phone] or toll free at [phone] [facility] Support Groups (not specific to loss) https://my.[facility].org/p atients/information/bereavement/ support-groups [facility] Counselors with experience with families facing the loss of a baby before . This service may be covered by your insurance. If not, [facility] will not turn anyone away because of inability to pay. or [phone] Jason Anderson, local counselor, not associated with [facility] [phone] Some of our families have recommended Jason [...] Coping with Miscarriage, Stillbirth, and , By Yohsi Leigh I Love You Still: A Memorial [...] induction of labor) documented in this encounter [facility] 08-21-2023 History of Present illness Narrative . [...] Adriana Wright MD documented in this encounter [facility] 08-20-2023 Miscellaneous Notes [facility] notified. Fanny Bonilla RN Just needs to take once with procedure. Day of procedure with food is fine. [facility] called to clarify the directions on the Doxycycline. RX was written for 2 capsules, but directions say to take 2 capsules two times a day. Can you please clarify if she needs to take more than 2 capsules for after the IPAS procedure. Thank you. We can call [facility] at [phone] Andra Tong RN documented in this encounter [facility] 08-19-2023 Miscellaneous Notes Patient notified and voiced understanding. Mya Burroughs RN Meds ordered. Will sign consent when she comes to office Thursday. Patient scheduled for IPAS 08/21 with DM. Please order pre op meds. Fanny Bonilla RN documented in this encounter [facility] 08-14-2023 Miscellaneous Notes Patient seen at [facility] ED for back pain. TVUS completed. [...] Fanny Bonilla RN documented in this encounter [facility] 08-14-2023 Discharge summary Note Date/Time August 14, 2023 9:11am [facility] Medical Records Department [address] [place] [address] Emergency Department Summary 08/14/23 MR#: [id number] Acct: [id number] Name: TEELAXMI MJ Rep # :[id number] : 1990 33 From: Timothy Hanson MD [...] pain. She has been following with [facility] and has had 4 different hCG levels [...] your Primary Care Provider. Call Doctors Registry ([phone]) or report to the closest Emergency Room. Call 911 if necessary. 08/14/23 1147 <Electronically signed by Timothy Hanson MD> Cosigner Signature (if applicable): CC: ROXI Diaz; No Primary Care Physician ~ Signed [facility] Work Phone: 1(162) 947-112811-01-2023 History of Present illness Narrative* Darian Bonds [...] report available in the Imaging tab in [facility] Darian Bonds MD [facility] Miscellaneous Notes* Addendum Note - Kailyn Diaz APRN.CNM - 08/04/2023 4:16 PM EDTAddended by: KAILYN DAIZ on: 08/04/2023 04:16 PM Modules accepted: Orders [facility] History of Present illness Narrative* Kailyn Diaz APRN.CNM - 08/04/2023 8:46 AM EDT Laxmi Oliveira is a 33 year old female who presents with for problem visit of decreasing HCG levels. HPI: Patient had 06/2022 in [place]. Started taking Slynd control after delivery due [...] care Kailyn Diaz APRN.CNM [facility] Miscellaneous Notes* Telephone Encounter - Verna Bustillo [...] provider. Teressa Gibbs APRN.CNP [facility] History of Present illness Narrative* Lynn Fenton RN - 07/01/2022 11:22 AM EDT Called patient to offer both mom and baby a Welcome Home visit. Left message with contact number tocall back if interested in a visit. [facility]* Diagnosis Pelvic pain in Other specified complication of , unspecified as to episode of care documented in this encounter [facility] note* Diagnosis Positive test- Primary examination or test, positive result [facility]* Diagnosis Confirm cardiac activity using ultrasound- Primary Encounter for routine screening for malformation using ultrasonics Positive test examination or test, positive result 5 weeks gestation of state, incidental documented [facility] noteNo assessment information [facility]WDayton [facility] Work Phone: [facility]* Diagnosis Positive test examination or test, positive result [facility]* Diagnosis Missed - Primary Pain associated with surgical procedure documented in this encounter [facility] note* Diagnosis Missed - Primary Pelvic pain in female Unspecified symptom associated with female genital organs [facility]* Diagnosis Pelvic pain in female Unspecified symptom associated with female genital organs [facility]* Diagnosis with uncertain dates in first trimester- Primary 7 weeks gestation of state, incidental Encounter for supervision of normal in multigravida in first trimester Hx of section Other postprocedural status [facility]* Diagnosis 10 weeks gestation of - Primary state, incidental Dysuria Encounter for supervision of normal in multigravida in first trimester [facility] Diagnosis Encounter for supervision of other normal in first trimester- Primary Hx of section Other postprocedural status Dysuria 11 weeks gestation of state, incidental History of urinary tract infection Personal history of urinary (tract) infection S/P primary low transverse Other postprocedural status [facility] Diagnosis Encounter for supervision of other normal in second trimester- Primary 19 weeks gestation of state, incidental Hx of section Other postprocedural status History of urinary tract infection Personal history of urinary (tract) infection documented [facility]* Diagnosis Encounter for anatomic survey- Primary 19 weeks gestation of state, incidental [facility] Diagnosis Encounter for supervision of other normal in second trimester- Primary Hx of section Other postprocedural status 23 weeks gestation of state, incidental S/P primary low transverse Other postprocedural status Supervision of high risk in second trimester Unspecified high-risk [facility] Diagnosis Encounter for supervision of other normal in second trimester- Primary Hx of section Other postprocedural status 15 weeks gestation of state, incidental [facility]* Diagnosis Supervision of high risk in third trimester- Primary Unspecified high-risk 28 weeks gestation of state, incidental History of low transverse section Patient desires vaginal after section () Need for vaccination Need for prophylactic vaccination and inoculation against unspecified single disease documented [facility] this [facility]* Diagnosis 30 weeks gestation of - Primary state, incidental Supervision of high risk in third trimester Unspecified high-risk documented [facility]* Diagnosis Supervision of high risk in third trimester- Primary Unspecified high-risk History of low transverse section Patient desires vaginal after section () 32 weeks gestation of state, incidental Encounter for prophylactic immunotherapy for respiratory syncytial virus (RSV) [facility] Diagnosis 34 weeks gestation of - Primary state, incidental Supervision of high risk in third trimester Unspecified high-risk [facility] Diagnosis Elevated blood pressure reading in office without diagnosis of hypertension anemia Anemia, Uterine rupture, subsequent encounter Status post section routine follow-up- Primary Routine follow-up [facility] Diagnosis Elevated blood pressure reading in office without diagnosis of hypertension anemia Anemia, Uterine rupture, subsequent encounter Status post section routine follow-up- Primary Routine follow-up [facility] Diagnosis anemia Anemia, Uterine rupture, subsequent encounter care and examination- Primary Routine follow-up [facility] Diagnosis Pleuritic chest pain- Primary Painful respiration Tachycardia Unspecified tachycardia Pleuritic chest pain Painful respiration documented in this encounter [facility] Work Phone: Evaluation note* Diagnosis Pleuritic chest pain Painful respiration documented in this encounter [facility] Work Phone: [facility] Diagnostic Procedure Only (Routine) - Authorized Specialty Diagnoses / Procedures Referred By Contac t Referred To Contact [facility] Diagnoses Positive test Procedures OBSTETRIC ULTRASOUND WHI US PREG UTERUS AFTER 1ST TRIMEST GESTATION Kailyn Diaz APRN.CNM [address] [place] [address] [facility] [employer] [place] [id number] Referral ID Status Reason Start Date Expiration Date Visits Requested Visits Authorized [id number] Authorized Auto-Generat ed Referral 3 08/03/2024 1 1 [facility] for referral (narrative)* Diagnostic Procedure Only (Routine) - Authorized Specialty Diagnoses / Procedures Referred By Contac t Referred To Contact [facility] IMAGING Diagnoses Pelvic pain in female Procedures US FEMALE PELVIS TRANSVAG US TRANSVAGINAL Adriana López MD [address] [place] [address] Us Imaging [facility] Referral ID Status Reason Start Date Expiration Date Visits Requested Visits Authorized [id number] Authorized Auto-Generat ed Referral 3 09/19/2024 1 1 [facility] for referral (narrative)* Diagnostic Procedure Only (Routine) - New Request Specialty Diagnoses / Procedures Referred By Contac t Referred To Contact [facility] Diagnoses Encounter for supervision of other normal in second trimester Procedures OBSTETRIC ULTRASOUND WHI US PREG UTERUS AFTER 1ST TRIMEST GESTATION Devon Littlejohn MD [address] [place] [address] [facility] [address] [place] [address] Referral ID Status Reason Start Date Expiration Date Visits Requested Visits Authorized [id number] New Request Auto-Generat ed Referral 05/20/2024 05/20/2025 1 1 [facility] for referral (narrative)* Medication Prior Authorization - Authorized Specialty Diagnoses / Procedures Referred By Sole will Referred To Contact Jennifer Mccall MD [address] [place] [address] Phone: tel: fax: Referral ID Status Reason Start Date Expiration Date V isits Requested Visits Authorized [id number] Authorized 11/15/2024 11/15/2025 1 1 [facility] for visit Narrative* Diagnostic Procedure Only (Routine) - Closed Specialty Diagnoses / Procedures Referred By Sole will Referred To Contact [facility] Diagnoses Positive test Procedures OBSTETRIC ULTRASOUND WHI US PREG UTERUS AFTER 1ST TRIMEST GESTATION Kailyn Diaz APRN.CN [address] [place] [address] [facility] [address] [place] [address] Referral ID Status Reason Start Date Expiration Date V isits Requested Visits Authorized [id number] Closed Auto-Generate d Referral 08/04/2023 08/03/2024 1 1 [facility] for visit Narrative* Imaging (Emergency) - Authorized Specialty Diagnoses / Procedures Referred By Sole will Referred To Contact Radiology Diagnoses Pleuritic chest pain Procedures XR chest 2 views Keyonna Muhammad PA-C [address] [facility] [place] [address] Phone: tel: fax: Referral ID Status Reason Start Date Expiration Date Visits Requested Visits Authorized [id number] Authorized Perform Procedure 08/11/2025 09/10/2026 1 1 [facility] Work Phone: Summary Purpose Family History No Family History Records FoundNo Family History Records FoundNo Family History Records FoundNo Family History Records FoundNo Family History Records FoundNo Family History Records FoundNo Family History Records FoundNo Family History Records FoundNo Family History Records FoundNo Family History Records Found Advance Directives No Advanced Directives Records FoundDocuments on File Type Date Recorded Patient Legal Administrator Expl anation Power of Roller Mechanic Latest Code Status on File Code Status [...] No August 14 023 9:25am Power of Roller Mechanic No August 14, 2023 9:25am Reason for Referral Specialty Diagnoses / Procedures Referred By Contac t Referred To Contact Radiology Diagnoses Pelvic pain in Procedures US Pelvis Non OB Complete w Transvaginal Rama Alcocer DO [address] [place] [address] [facility] [place] Referral ID Status Reason Start Date Expiration Date V isits Requested Visits Authorized [id number] Authorized 10/22/2021 04/20/2022 1 1 Chief Complaint [...] section and content) DATE CREATED AUTHOR 10/01/2019 [facility] DATE CREATED AUTHOR AUTHOR'S ORGANIZ ATION 10/25/2021 [facility] DATE CREATED AUTHOR AUTHOR'S ORGANIZ ATION 11/09/2021 [facility] DATE CREATED AUTHOR AUTHOR'S ORGANIZ ATION 12/26/2021 [facility] DATE CREATED AUTHOR AUTHOR'S ORGANIZ ATION 07/02/2022 [facility] DATE CREATED AUTHOR AUTHOR'S ORGANIZ ATION 10/17/2024 [facility] DATE CREATED AUTHOR AUTHOR'S ORGANIZ ATION 11/18/2024 [facility] DATE CREATED AUTHOR AUTHOR'S ORGANIZ ATION 12/14/2024 [facility] DATE CREATED AUTHOR AUTHOR'S ORGANIZ ATION 03/19/2025 [facility] DATE CREATED AUTHOR AUTHOR'S ORGANIZ ATION 08/14/2025 [facility] Reason for Visit (unrecogniz ed section and content) Specialty Diagnoses / Procedures Referred By Contac t Referred To Contact Radiology Diagnoses Pelvic pain in Procedures US Pelvis Non OB Complete w Transvaginal Rama Alcocer DO [address] [place] [address] [facility] Referral ID Status Reason Start Date Expiration Date V isits Requested Visits Authorized [id number] Authorized 10/22/2021 04/20/2022 1 1 Reason Comments Results Reason Comments QUARRY MANAGER Ultrasound Specialty Diagnoses / Procedures Referred By Contac t Referred To Contact [facility] Diagnoses Positive test Procedures OBSTETRIC ULTRASOUND WHI US PREG UTERUS AFTER 1ST TRIMEST 1/ GESTATION Kailyn Diaz APRN.ROXI [address] [place] [address] [facility] [address] [place] [address] [place] [address] Referral ID Status Reason Start Date Expiration Date V isits Requested Visits Authorized [id number] Closed Auto-Generate d Referral 08/05/2023 08/04/2024 1 1 Reason Comments Medication Update Reason Comments Medication Problem Specialty Diagnoses / Procedures Referred By Contac t Referred To Contact OPERATIONS CLERK Diagnoses Missed ab IPAS- coming at 8am Procedures TX MISSED FIRST TRIMESTER SURGICAL IPAS DOUBLE VALVE ASPIRATOR W CANNULA SINGLE USE Kailyn Diaz APRN.[facility] [address] [place] [address] Adriana López MD [address] [place] [address] Referral ID Status Reason Start Date Expiration Date Visits Re quested Visits Authorized [id number] Closed 08/19/2023 10/04/2023 1 1 Reason Comments Radiology US Specialty Diagnoses / Procedures Referred By Contac t Referred To Contact US IMAGING Diagnoses Pelvic pain in female Procedures US FEMALE PELVIS TRANSVAG US TRANSVAGINAL Adriana López MD [address] [place] [address] [place] [address] Referral ID Status Reason Start Date Expiration Date V isits Requested Visits Authorized [id number] Closed Auto-Generate d Referral 08/21/2023 09/19/2024 1 1 Reason Comments New OB Reason Onset Date Comments Care 04/13/2024 Reason Comments Results Urine culture Reason Onset Date Comments Care 04/22/2024 Reason Onset Date Comments Care 06/15/2024 Reason Comments Records Reason Comments US Specialty Diagnoses / Procedures Referred By Contac t Referred To Contact [facility] Diagnoses Encounter for supervision of other normal in second trimester Encounter for supervision of normal , unspecified, unspecified trimester Procedures OBSTETRIC ULTRASOUND WHI US PREG UTERUS AFTER 1ST TRIMEST GESTATION Devon Littlejohn MD [address] [place] [address] [facility] [address] [place] [address] Referral ID Status Reason Start Date Expiration Date Visits Requested Visits Authorized [id number] Authorized Auto-Generat ed Referral 06/15/2024 10/04/2024 20 [...] Care Teams (unrecognized sec tion and content) Medical Billing Instructor Relationship Specialty Start Date End Date Rama AlcocerDO [address] [place] [id number] PCP - General Family Medicine 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 Relationship Specialty Start Date End Date [place] [address] [place] [address] PCP - [facility] PCP 08/05/24 Source Comments (unrecognize d section and content) In the event this informatio n is protected by the Federal Confidentiality of Alcohol and Drug Abuse Patient Records regulations: The Federal rules restrict any use of the information to criminally investigate or prosecute any alcohol or drug abuse patient.[facility] the event this information is protected by the Federal Confidentiality of Alcohol and Drug Abuse Patient Records regulations: The Federal rules restrict any use of the information to criminally investigate or prosecute any alcohol or drug abuse patient.[facility] the event this information is protected by the Federal Confidentiality of Alcohol and Drug Abuse Patient Records regulations: The Federal rules restrict any use of the information to criminally investigate or prosecute any alcohol or drug abuse patient.[facility] the event this information is protected by the Federal Confidentiality of Alcohol and Drug Abuse Patient Records regulations: The Federal rules restrict any use of the information to criminally investigate or prosecute any alcohol or drug abuse patient.[facility] the event this information is protected by the Federal Confidentiality of Alcohol and Drug Abuse Patient Records regulations: The Federal rules restrict any use of the information to criminally investigate or prosecute any alcohol or drug abuse patient.[facility] the event this information is protected by the Federal Confidentiality of Alcohol and Drug Abuse Patient Records regulations: The Federal rules restrict any use of the information to criminally investigate or prosecute any alcohol or drug abuse patient.[facility] the event this information is protected by the Federal Confidentiality of Alcohol and Drug Abuse Patient Records regulations: The Federal rules restrict any use of the information to criminally investigate or prosecute any alcohol or drug abuse patient.[facility] the event this information is protected by the Federal Confidentiality of Alcohol and Drug Abuse Patient Records regulations: The Federal rules restrict any use of the information to criminally investigate or prosecute any alcohol or drug abuse patient.[facility] the event this information is protected by the Federal Confidentiality of Alcohol and Drug Abuse Patient Records regulations: The Federal rules restrict any use of the information to criminally investigate or prosecute any alcohol or drug abuse patient.[facility] the event this information is protected by the Federal Confidentiality of Alcohol and Drug Abuse Patient Records regulations: The Federal rules restrict any use of the information to criminally investigate or prosecute any alcohol or drug abuse patient.[facility] the event this information is protected by the Federal Confidentiality of Alcohol and Drug Abuse Patient Records regulations: The Federal rules restrict any use of the information to criminally investigate or prosecute any alcohol or drug abuse patient.[facility] the event this information is protected by the Federal Confidentiality of Alcohol and Drug Abuse Patient Records regulations: The Federal rules restrict any use of the information to criminally investigate or prosecute any alcohol or drug abuse patient.[facility] the event this information is protected by the Federal Confidentiality of Alcohol and Drug Abuse Patient Records regulations: The Federal rules restrict any use of the information to criminally investigate or prosecute any alcohol or drug abuse patient.[facility] the event this information is protected by the Federal Confidentiality of Alcohol and Drug Abuse Patient Records regulations: The Federal rules restrict any use of the information to criminally investigate or prosecute any alcohol or drug abuse patient.[facility] Center[facility] the event this information is protected by the Federal Confidentiality of Alcohol and Drug Abuse Patient Records regulations: The Federal rules restrict any use of the information to criminally investigate or prosecute any alcohol or drug abuse patient.[facility] Center[facility] the event this information is protected by the Federal Confidentiality of Alcohol and Drug Abuse Patient Records regulations: The Federal rules restrict any use of the information to criminally investigate or prosecute any alcohol or drug abuse patient.[facility] Center[facility] the event this information is protected by the Federal Confidentiality of Alcohol and Drug Abuse Patient Records regulations: The Federal rules restrict any use of the information to criminally investigate or prosecute any alcohol or drug abuse patient.[facility] Center[facility] the event this information is protected by the Federal Confidentiality of Alcohol and Drug Abuse Patient Records regulations: The Federal rules restrict any use of the information to criminally investigate or prosecute any alcohol or drug abuse patient.[facility] Center[facility] the event this information is protected by the Federal Confidentiality of Alcohol and Drug Abuse Patient Records regulations: The Federal rules restrict any use of the information to criminally investigate or prosecute any alcohol or drug abuse patient.[facility] Center[facility] the event this information is protected by the Federal Confidentiality of Alcohol and Drug Abuse Patient Records regulations: The Federal rules restrict any use of the information to criminally investigate or prosecute any alcohol or drug abuse patient.[facility] the event this information is protected by the Federal Confidentiality of Alcohol and Drug Abuse Patient Records regulations: The Federal rules restrict any use of the information to criminally investigate or prosecute any alcohol or drug abuse patient.[facility] Center[facility] the event this information is protected by the Federal Confidentiality of Alcohol and Drug Abuse Patient Records regulations: The Federal rules restrict any use of the information to criminally investigate or prosecute any alcohol or drug abuse patient.[facility] Center[facility] the event this information is protected by the Federal Confidentiality of Alcohol and Drug Abuse Patient Records regulations: The Federal rules restrict any use of the information to criminally investigate or prosecute any alcohol or drug abuse patient.[facility] the event this information is protected by the Federal Confidentiality of Alcohol and Drug Abuse Patient Records regulations: The Federal rules restrict any use of the information to criminally investigate or prosecute any alcohol or drug abuse patient.[facility] Center[facility] the event this information is protected by the Federal Confidentiality of Alcohol and Drug Abuse Patient Records regulations: The Federal rules restrict any use of the information to criminally investigate or prosecute any alcohol or drug abuse patient.[facility] Center[facility] the event this information is protected by the Federal Confidentiality of Alcohol and Drug Abuse Patient Records regulations: The Federal rules restrict any use of the information to criminally investigate or prosecute any alcohol or drug abuse patient.[facility] Center[facility] the event this information is protected by the Federal Confidentiality of Alcohol and Drug Abuse Patient Records regulations: The Federal rules restrict any use of the information to criminally investigate or prosecute any alcohol or drug abuse patient.[facility] Center[facility] the event this information is protected by the Federal Confidentiality of Alcohol and Drug Abuse Patient Records regulations: The Federal rules restrict any use of the information to criminally investigate or prosecute any alcohol or drug abuse patient.[facility] the event this information is protected by the Federal Confidentiality of Alcohol and Drug Abuse Patient Records regulations: The Federal rules restrict any use of the information to criminally investigate or prosecute any alcohol or drug abuse patient.[facility] Center[facility] the event this information is protected by the Federal Confidentiality of Alcohol and Drug Abuse Patient Records regulations: The Federal rules restrict any use of the information to criminally investigate or prosecute any alcohol or drug abuse patient.[facility] the event this information is protected by the Federal Confidentiality of Alcohol and Drug Abuse Patient Records regulations: The Federal rules restrict any use of the information to criminally investigate or prosecute any alcohol or drug abuse patient.[facility] Center[facility] the event this information is protected by the Federal Confidentiality of Alcohol and Drug Abuse Patient Records regulations: The Federal rules restrict any use of the information to criminally investigate or prosecute any alcohol or drug abuse patient.[facility] Center[facility] the event this information is protected by the Federal Confidentiality of Alcohol and Drug Abuse Patient Records regulations: The Federal rules restrict any use of the information to criminally investigate or prosecute any alcohol or drug abuse patient.[facility] CenterIn the event this information is protected by the Federal Confidentiality of Alcohol and Drug Abuse Patient Records regulations: The Federal rules restrict any use of the information to criminally investigate or prosecute any alcohol or drug abuse patient.[facility] CenterIn the event this information is protected by the Federal Confidentiality of Alcohol and Drug Abuse Patient Records regulations: The Federal rules restrict any use of the information to criminally investigate or prosecute any alcohol or drug abuse patient.[facility] Goals (unrecognized section and content) Goals may [...] BE BASED ON THE PRIMARY CLINICAL RECORDS. [facility]. provides no warranty or guarantee of the accuracy or completeness of information in this document.
== END | disposition home or self-care (01) ==
LOC: LABSPEC 10:37
PROVIDERS: PCP Family Medicine; Visit Provider Physician Assistant Surgical
DX: R30.0 Dysuria (principal)
CPT/HCPCS: 87086; 87088

== ENCOUNTER → 2025-09-12 | Outpatient (CLI) | payer OTHER, SELFPAY | END | disposition home or self-care (01) | LOC: PSN 10:26 | PROVIDERS: PCP Family Medicine; Referring Provider Family Medicine; Visit Provider Family Medicine | DX: R00.0 Tachycardia, unspecified (principal) | CPT/HCPCS: 93225; 93226 ==

== ENCOUNTER 2025-09-14 10:57 | Outpatient (CLI) | payer OTHER, SELFPAY ==
--- NOTE | 2025-09-14 11:03 | ECHOD_ITS ---
Reason For Study Reason For Study: Tachycardia Procedure This was a 2D Doppler, Color Flow transthoracic echocardiogram. The study was technically difficult. Exam performed in department. Left Ventricle Normal LV size. The estimated ejection fraction is 70 %. No evidence for diastolic dysfunction. No regional wall motion abnormalities noted. Right Ventricle Normal RV size. Normal systolic function. Atria The left and right atria are normal. No doppler evidence for ASD. Mitral Valve There is no mitral valve stenosis. No mitral valve insufficiency. Tricuspid Valve There is no tricuspid stenosis. Trivial tricuspid valve insufficiency. Unable to estimate RV systolic pressure due to insufficient tricuspid regurgitant envelope. Aortic Valve There is no aortic stenosis. No aortic valve insufficiency. Pulmonic Valve There is no pulmonic valvular stenosis. No pulmonic valve insufficiency. Great Vessels Normal sized aortic root. Pericardium/Pleural No pericardial effusion. MMode/2D Measurements & Calculations LVIDd: 4.0 cm IVSd: 0.64 cm LAV(MOD- bp): 23.5 ml LVIDs: 2.7 cm LVPWd: 0.63 cm LAV(MOD- bp) Indexed: 14.9 ml/m2 RVDd: 3.0 cm FS: 32.2 % LAV(MOD- sp2): 22.5 ml LAV(MOD- sp4): 24.3 ml SV(MOD-sp4): 33.6 ml SV(sp4- el): 35.1 ml LVAd ap4: 21.4 cm2 LVLd ap4: 6.6 cm SI(MOD-sp4): 21.2 ml/m2 EDV(MOD-sp4): 57.1 ml EDV(sp4-el): 58.8 ml LVAs ap4: 12.5 cm2 LVLs ap4: 5.6 cm ESV(MOD-sp4): 23.5 ml ESV(sp4-el): 23.7 ml EF(MOD-sp4): 58.8 % EF(sp4-el): 59.7 % LA A4 area: 11.6 cm2 LA dimension(2D): 2.3 cm RA A4 area: 10.4 cm2 TAPSE: 2.1 cm Time Measurements MV dec time: 0.18 sec Doppler Measurements & Calculations MV E max martin: 75.3 cm/sec Lat Peak E' Martin: 17.3 cm/sec Med Peak E' Martin: 13.2 cm/sec MV A max martin: 58.6 cm/sec E/E' lat: 4.3 E/E' med: 5.7 MV E/A: 1.3 MV V2 max: 115.5 cm/sec MV P1/2t max martin: 116.5 cm/sec Ao V2 max: 124.4 cm/sec MV max P.3 mmHg MV P1/2t: 73.5 msec Ao max P.2 mmHg MV V2 mean: 61.3 cm/sec Ao V2 mean: 86.6 cm/sec MV mean P.7 mmHg MV dec slope: 464.1 cm/sec2 Ao mean P.4 mmHg MV V2 VTI: 25.3 cm MVA(P1/2t): 3.0 cm2 Ao V2 VTI: 24.2 cm AV (velocity ratio): 0.84 LV V1 max: 106.7 cm/sec MR max martin: 473.7 cm/sec PA V2 max: 116.7 cm/sec LV V1 max P.6 mmHg MR max P.7 mmHg LV V1 mean P.5 mmHg LV V1 mean: 74.6 cm/sec LV V1 VTI: 20.4 cm TR max martin: 212.4 cm/sec TR max P.1 mmHg ECHO/Echo Complete Interpretation Summary The estimated ejection fraction is 70 %. No evidence for diastolic dysfunction. Ordering Physician: Ambika Acosta Referring Physician: Ambika Acosta Performed By: Brodwolf, Sarbjit, RCS
== END 2025-09-14 23:59 | disposition home or self-care (01) ==
LOC: CVS 11:02
PROVIDERS: PCP Family Medicine; Referring Provider Family Medicine; Visit Provider Family Medicine
DX: R00.0 Tachycardia, unspecified (principal)
CPT/HCPCS: 93306